=== PATIENT | female | born 1955 | race Caucasian/White ===

== ENCOUNTER 2019-12-24 10:42 | Day surgery (SDC) | payer MEDICAID, SELFPAY ==
[2019-12-22 13:07] VITALS: BMI 35.4
[2019-12-24 11:09] VITALS: BP 125/65; PULSE 58; RESP 18; TEMP 37.2; O2SAT 95
[2019-12-24] MEDS: sodium chloride 0.9% 1,000 ML 30 ML IV (11:28)
--- NOTE | 2019-12-24 11:33 | ANES.PREANE2 ---
Pre-Anesthetic Assessment Pre-Anesthetic Assessment: Height/Weight: Height 1.65 m Weight 96.615 kg Temp Pulse Resp BP Pulse Ox 98.9 F 58 L 18 125/65 95 12/24/19 11:09 12/24/19 11:09 12/24/19 11:09 12/24/19 11:09 12/24/19 11:09 Preop Diagnosis: Abdominal pain Proposed Procedure: Operation Date: 12/24/19 11:00 Proposed Procedures p EGD/Colon with possible biopsy(Not Applicable) - Kadeem Biswas MD s Colonoscopy with possible biopsy poss polypectomy(Not Applicable) - Kadeem Biswas MD Last intake: Intake Last Liquid Date 12/23/19 Last Liquid Time 23:00 Last Solid Date 12/22/19 Last Solid Time 20:00 Social: Social History: Tobacco (quit 30 year ago) and No alcohol Exam: Pre-Anes Outpt Exam: alert, oriented x 3, clear to auscultation bilaterally and regular rate & rhythm Airway: Submandibular: WNL Cervical ROM: WNL MP: 1 Dentition: Other (teeth ok) History/ROS: No significant history except as noted Pulmonary: Pulmonary: JOHNSON CV/HEM: CV/HEM: HTN : : None reported Hepatic: Hepatic: Cirrohsis GI: GI: None reported Comments: gastric varicies Metabolic: Metabolic: DM Musc/skel: Musc/skel: Lower Back Pain and OA/DJD Neuropsych: Neuropsych: Anxiety and Depression Anesthetic Plan: ASA status: 3 Anesthesia: Anesthesia Evaluation and MAC Risk of > 500 ml blood loss (7ml/kg in children): No Meds/Allergies Current Medications: Current Medications Generic Name Dose Route Start Last Admin Trade Name Freq PRN Reason Stop Dose Admin Sodium Chloride 1,000 mls @ 30 ml s/hr 12/24/19 11:15 12/24/19 11:28 Sodium Chloride 0.9% IV 30 mls/hr .Q24H KATERINE Administration PFSH Anesthesia PFSH: Medical History Cirrhosis of liver Diabetes Hepatic encephalopathy Incisional hernia Kidney stones BLAIR (nonalcoholic steatohepatitis) Surgical History H/O gastric bypass H/O: hysterectomy cervical cancer History of colonoscopy History of esophagogastroduodenoscopy (EGD) Hx of cholecystectomy Family History Mother Hypertension Father Chronic kidney disease (CKD) Sleep apnea Other Bleeding disorder Denies family history of Anesthesia complication Social History Smoking and tobacco status: never smoked Alcohol intake: never Data Anesthesia Cardiac Studies: No Data to Display
[2019-12-24 11:34] LABS: Glucose Point of Care 129 mg/dL (70-110)
--- NOTE | 2019-12-24 12:39 | W.PM.OPSUD ---
Surgery/Procedure H&P Update DATE OF PROCEDURE: December 24, 2019 DATE H&P PERFORMED: 12/18/19 H&P UPDATE INFORMATION: I have reviewed H&P completed within last 30 days, I have examined patient prior to procedure and No changes to prior documentation PREOP DIAGNOSIS: Abdominal pain PLANNED PROCEDURE: Operation Date: 12/24/19 11:00 Proposed Procedures p EGD/Colon with possible biopsy(Not Applicable) - Kadeem Biswas MD s Colonoscopy with possible biopsy poss polypectomy(Not Applicable) - Kadeem Biswas MD
[2019-12-24 13:06] VITALS: BP 130/62; PULSE 54; RESP 16; TEMP 36.2; O2SAT 96
--- NOTE | 2019-12-24 13:08 | ANE.PACU2 ---
Inpatient post-anesthesia follow up: Airway intact: Yes Vital signs: Temperature 97.2 F Pulse Rate 54 Respiratory Rate 16 Blood Pressure 130/62 Pulse Oximetry 96 Oxygen Delivery Me thod Nasal Cannula Oxygen Flow Rate 3 Fraction of Inspir ed Oxygen Hydration adequate: Yes Nausea and vomiting: No Pain level: 1 Mental status: Baseline
[2019-12-24 13:14] VITALS: BP 147/76; PULSE 54; RESP 18; O2SAT 97
== END 2019-12-24 13:40 | disposition home or self-care (01) ==
PROVIDERS: PCP Internal Medicine; Visit Provider Surgery
PROC: 0DJ08ZZ Inspection of Upper Intestinal Tract, Via Natural or Artificial Opening Endoscopic (ICD-10-PCS; CPT 43235; principal; 2019-12-24 11:00)
PROC: 0DJD8ZZ Inspection of Lower Intestinal Tract, Via Natural or Artificial Opening Endoscopic (ICD-10-PCS; CPT 45378; 2019-12-24 11:00)
DX: R10.84 Generalized abdominal pain (principal); K43.2 Incisional hernia without obstruction or gangrene; K63.89 Other specified diseases of intestine; Z87.891 Personal history of nicotine dependence; I10 Essential (primary) hypertension; E11.9 Type 2 diabetes mellitus without complications; M19.90 Unspecified osteoarthritis, unspecified site; F41.9 Anxiety disorder, unspecified; F32.9 Major depressive disorder, single episode, unspecified
CPT/HCPCS: 12345; 36416; 43235; 45378; 82962; J0171; J2704; J7030

== ENCOUNTER 2020-01-08 10:19 | Outpatient (CLI) | payer MEDICAID, SELFPAY ==
--- NOTE | 2020-01-08 11:16 | FL_ITS ---
WS: [id number] BARIUM ENEMA SINGLE CONTRAST HISTORY: OTHER INTESTINAL OBSTRUCTION UNSPECIFIED COMPARISON: None available. FLUOROSCOPY TIME: 2.2 minutes. Chief Architect radiograph reveals moderate amount of residual fecal material and air throughout the colon. Sin gle contrast will be performed as a double contrast would probably be unsuccessful. Marked tortuosity of the rectosigmoid loops and also the hepatic and splenic flexures. The colon dist ends well with contrast. There are no persistent strictures. There is mobile fecal material within th e colon. The appendix does fill with contrast. No significant diverticular disease. Prior cholecystectomy. FL/FL barium enema [id number] IMPRESSION: 1. No strictures or colon obstruction. 2. Marked tortuosity with overlapping loops of colon. 3. No persistent filling defects. 4. Normal appendix.
== END 2020-01-08 10:20 | disposition home or self-care (01) ==
PROVIDERS: PCP Internal Medicine; Visit Provider Surgery
DX: K56.699 Other intestinal obstruction unspecified as to partial versus complete obstruction (principal)
CPT/HCPCS: 74270; 74280

== ENCOUNTER 2020-04-27 19:28 | Emergency (ER) | payer MEDICAID, SELFPAY ==
[2020-04-27] VITALS (10 sets, daily range): BP systolic 144–159; BP diastolic 59–85; PULSE 56–78; RESP 12–20; TEMP 37.1; O2SAT 87–99; BMI 35.7
--- NOTE | 2020-04-27 20:07 | XR_ITS ---
WS: [id number] Exam: XR chest 1V portable [id number] Date/Time of Exam: 04/27/2020 8:15 PM Reason For Exam: Shortness of breath Comparison 01/17/2016. Mild interstitial infiltrates are noted in the bilateral upper lobes. Remaining lung vasquez are clear . No pneumothorax. No pleural effusion. Normal cardiomediastinal structures and regional bony element s. XR/XR chest 1V portable [id number] IMPRESSION: 1. Diffuse interstitial infiltrates in the bilateral upper lobes.
--- NOTE | 2020-04-27 20:08 | ECG_ITS ---
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 [id number]
--- NOTE | 2020-04-27 20:17 | ED_ITS ---
HPI - Abdominal Pain General: Chief Complaint: Abdominal Pain Stated Complaint: abd pain Time Seen by Provider: 04/27/20 19:51 Source: patient Mode of arrival: ambulatory Limitations: no limitations History of Present Illness: HPI narrative: Gillian is a very nice 64-year-old female who comes in complaining of abdominal pain with nausea and vomiting and diarrhea. Patient states that she has chronic abdominal pain as she has an incisional hernia that Dr. Biswas is planning on fixing at some point in the future. Today and 2 days prior to this her pain is been worse than normal. She had associated nausea and vomiting and diarrhea none of which has been bloody. She denies any hematic emesis, hematochezia or melena. Patient denies any vaginal bleeding or discharge. She has no urinary frequency/urgency or dysuria. Patient describes her pain is in the center of her abdomen below the epigastric area but just above the umbilicus and she states it radiates around bilaterally to both kidneys. States is a dull aching pain with occasional sharp pains. It is constant. She states is worse when she lays flat but other than sitting up she is unaware of anything that makes her symptoms better or worse. She denies any fevers or chills. She denies any cough or shortness of breath. She denies any chest pain. Associated Symptoms: Reports diarrhea, nausea and vomiting; Denies chills, coffee ground emesis, constipation, GI cramping, dysuria, fever(s), heartburn, hematochezia, hematuria, hematemesis, melena and syncope Review of Systems Const: Denies: fever(s), chills, body aches, fatigue, malaise or diaphoresis Eyes: Denies: change in vision, blurry vision, photophobia, eye discomfort, eye discharge, eye redness or yellow eyes ENMT: Denies: throat pain, odynophagia, hoarseness, swelling of lips/tongue, ear or mastoid pain, ear discharge, change in hearing or nasal discharge Card: Denies: chest pain, palpitations, irregular heart rhythm, edema, lightheadedness, syncope, pre-syncope, dyspnea on exertion or orthopnea Resp: Denies: dyspnea, productive cough, non-productive cough, wheezing, hemoptysis or chest congestion GI: Reports: abdominal pain, nausea, vomiting and diarrhea; Denies: hematemesis, coffee ground emesis, heartburn, constipation, GI cramping, hematochezia or melena : Denies: flank pain, dysuria, urinary frequency, urinary urgency or hematuria Musc: Denies: neck pain, back pain, extremity pain, extremity swelling, joint pain, joint swelling, joint redness, joint warmth or joint stiffness Skin/Breast: Denies: rash, pruritus, erythema, skin pain or skin tenderness Neuro: Denies: headache(s), numbness in extremities, weakness in extremities, sensory changes, lack of coordination, difficulty walking, dizziness, vertigo, confusion, Slurred speech present or seizure-like activity Stanley/Lymph: Denies: easy bruising, easy bleeding, petechiae, purpura or enlarged lymph nodes All/Imm: Denies: urticaria, throat swelling, tongue swelling, facial swelling or acute wheezing PFSH ED PFSH: Medical History Cirrhosis of liver Diabetes Hepatic encephalopathy Incisional hernia Kidney stones BLAIR (nonalcoholic steatohepatitis) Surgical History H/O gastric bypass H/O: hysterectomy cervical cancer History of colonoscopy History of esophagogastroduodenoscopy (EGD) Hx of cholecystectomy Family History Mother Hypertension Father Chronic kidney disease (CKD) Sleep apnea Other Bleeding disorder Denies family history of Anesthesia complication Social History Smoking and tobacco status: never smoked Alcohol intake: never Physical Exam Const: COMMON NORMALS: no acute distress, patient oriented x3, no limitations and alert GENERAL APPEARANCE: cooperative HENMT: COMMON NORMALS: normocephalic, atraumatic, external ears normal, EAC's normal and Normal external nose present HEAD & SCALP: normal to inspection, normocephalic and atraumatic FACE & SINUS: normal facial exam and face symmetric NOSE: Normal external nose present and Normal nares present EXTERNAL EAR: Yes external ears normal EXTERNAL AUDITORY CANAL: EAC's normal MOUTH: Normal oral and palatal mucosa present, lip normal and tongue normal Eye: COMMON NORMALS: Equal, round and reactive pupils present and conjunctivae normal GENERAL EYE: appearance normal, both eyes and all related structures ALIGNMENT: Yes alignment normal PERIORBITAL: periorbital findings normal EYELID: eyelids normal CONJUNCTIVA: Yes conjunctivae normal SCLERA: sclerae normal PUPIL: Yes Equal, round and reactive pupils present Neck/C-Spine: COMMON NORMALS: full ROM, no lymphadenopathy, supple, no meningeal signs and no JVD GENERAL: Yes normal visual inspection and Yes trachea midline Chest: COMMONS NORMALS: normal inspection of the chest and normal palpation of entire chest wall Resp: COMMON NORMALS: normal respiratory effort, No retractions, No use of accessory muscles and clear to auscultation bilaterally EFFORT & INSPECTION: Yes able to speak in complete sentences and Yes symmetric chest movement AUSCULTATION: clear to auscultation bilaterally, no crackles, no rales, no rhonchi and no wheezes Cardio: COMMON NORMALS: no JVD, regular rate, regular rhythm, S1 normal heart sound present and S2 normal heart sound present RATE: regular rate RHYTHM: regular rhythm HEART SOUNDS: S1 normal heart sound present, S2 normal heart sound present, no click, no gallops, no murmurs and no rubs GI: COMMON NORMALS: Soft to palpation and No hepatosplenomegaly present PALPATION: Yes Soft to palpation, Yes Tenderness to palpation present (GI), No Guarding due to palpation present (GI), No Rigid due to palpation, Yes No hepatosplenomegaly present, No Hernia present, No Palpable mass present and No Pulsatile mass present : COMMON NORMALS: Yes no CVA tenderness BLADDER/KIDNEY EXAM: Yes no CVA tenderness EXTERNAL FEMALE EXAM: No Hernia present Back/Pelvis: COMMON NORMALS: no CVA tenderness, thoracic and lumbar spine normal to inspection, no thoracic nor lumbar tenderness and thoraco-lumbar ROM normal Extremity: COMMON NORMALS: normal to inspection, full ROM, capillary refill normal, no joint enlargement, no clubbing, cyanosis or edema and no calf tenderness Neuro: COMMON NORMALS: patient oriented x3, CN's II-XII intact bilaterally, moves all extremities, no focal motor deficits and no sensory deficits noted SENSORIUM/ORIENTATION: Yes alert MENINGEAL SIGNS: Yes no meningeal signs SPEECH: speech normal Psych: COMMON NORMALS: mental status grossly normal, Normal thought process present, cooperative, normal affect, speech normal and activity/motor behavior normal SPEECH: Yes normal speech THOUGHT PROCESS: Normal thought process present Skin: COMMON NORMALS: no rashes or lesions noted, turgor normal, no jaundice, no petechiae and no mottling GENERAL SKIN EXAM: no rashes or lesions noted and turgor normal Course Vital Signs: Vital signs: Vital Signs Temperature 98.7 F 04/27/20 19:44 Pulse Rate 64 04/28/20 00:00 Respiratory Rate 17 04/28/20 00:00 Blood Pressure 132/63 04/28/20 00:00 Pulse Oximetry 98 04/28/20 00:00 MDM - Abdominal Pain MDM Narrative: Medical decision making narrative: Gillian is a very nice 64-year-old female who comes in complaining of epigastric abdominal pain. Patient has a history of liver disease but her gallbladder is gone. Her liver enzymes are within her normal range. She has no lower abdominal pain. CT scan reveals no acute findings. Her hernia on exam is easily reducible but with movement it recurs. There is no sign of obstruction or strangulation on CT. Patient symptoms do seem to lend toward a gastric or duodenal ulcer type of problem. She is H. pylori positive so I will place her on treatment for this. Patient states she is had an EGD by Dr. Biswas but the last one I can find was from several months ago. Patient denies any vomiting of blood or blood in her stools. She is anemic but she is chronically anemic and her blood counts have been lower than this before. I offered to watch the patient further but she thinks that she is feeling up to going home. She understands she will need to follow a clear liquid diet and advance this once her pain is gone. I advised her about the possibility of another type of cause of her pain developing something even like appendicitis and she agrees to return if her symptoms worsen at all or do not improve significantly in the next 12 hours. The patient denied any other question or concern or other complaint. Differential Diagnosis: Differential diagnosis abdominal pain: Likely abdominal pain, acute appendicitis, constipation, diverticulitis, endometriosis, gastroenteritis, pancreatitis and small bowel obstruction Lab Data: Attestation: I reviewed the patient's lab results. Labs: Lab Results 04/27/20 04/27/20 04/27/20 Range/Units 20:11 20:11 20:11 WBC 5.9 (4.0-10.0) 10^3/ uL RBC 3.97 L (4.1-5.3) 10^6/u L Hgb 9.4 L (11.5-15.3) g/dL Hct 31.9 L (37.0-47.0) % MCV 80.4 L (81-99) fL MCH 23.7 L (28.0-34.0) pg MCHC 29.5 L (30.0-36.0) g/dL RDW 19.4 H (12.1-15.1) % Plt Count 131 (130-400) 10^3/c mm MPV Not Reportable Neut % (Auto) 61.3 % Lymph % (Auto) 26.2 % [place] % (Auto) 11.1 % Eos % (Auto) 0.5 % Baso % (Auto) 0.7 % Neut # (Auto) 3.60 (1.8-7.7) 10^3/u L Lymph # (Auto) 1.5 (0.8-4.8) 10^3/u L [place] # (Auto) 0.7 (0.2-0.9) 10^3/u L Eos # (Auto) 0.0 (0.0-0.8) 10^3/u L Baso # (Auto) 0.0 (0.0-0.1) 10^3/u L Nucleated RBC % (a uto) 0 % Nucleated RBCs # 0.0 /100WBC PT 16.90 H (12.1-14.9) SECO NDS INR 1.32 H (0.8-1.2) APTT 34.0 (23.9-36.7) SECO NDS Sodium 139 (136-145) mmol/L Potassium 3.5 (3.5-5.1) mmol/L Chloride 103 (98-107) mmol/L Carbon Dioxide 27 (22-29) mmol/L Anion Gap 12.5 (5-19) BUN 11 (8-23) mg/dL Creatinine 1.0 H (0.5-0.9) mg/dL GFR Calculation 56.2 L (90-130) mL/min Glucose 166 H (65-115) mg/dL Calculated Osmolal ity 291 (285-295) mOsm/k g Lactic Acid (0.5-2.2) mmol/L Calcium 9.7 (8.5-10.5) mg/dL Magnesium 1.8 (1.7-2.3) mg/dL Total Bilirubin 1.6 H (0.15-1.2) mg/dL AST 52 H (0-32) U/L ALT 34 H (0-33) U/L Alkaline Phosphata se 173 H (35-105) IU/L Ammonia (11-51) umol/L Troponin T Baselin e (0-10) ng/L Troponin T 120 Min benton (0-10) ng/L Delta Troponin T (0-10) ABS# Total Protein 6.5 L (6.6-8.7) g/dL Albumin 3.3 L (3.5-5.2) g/dL Globulin 3.2 (1.3-4.6) g/dL Lipase 36 (13-60) U/L Urine Color (Yellow) Urine Appearance (CLEAR) Urine pH (5-7) Ur Specific Gravit y (1.005-1.030) Urine Protein (Negative) Urine Glucose (UA) (Normal) Urine Ketones (Negative) Urine Blood (Negative) Urine Nitrate (Negative) Urine Bilirubin (Negative) Urine Urobilinogen (Negative) mg/dL Ur Leukocyte Haley ase (Negative) Urine RBC (0-2) /hpf Urine WBC (0-5) /hpf Ur Squamous Epith Cells (0-5) /hpf Amorphous Sediment Urine Bacteria (NONE) /hpf Ethyl Alcohol < 10 (0-10) mg/dL Serum Ketones Negative (Negative) H. pylori IgG Anti body (Negative) 04/27/20 04/27/20 04/27/20 Range/Units 20:11 20:13 20:13 WBC (4.0-10.0) 10^3/ uL RBC (4.1-5.3) 10^6/u L Hgb (11.5-15.3) g/dL Hct (37.0-47.0) % MCV (81-99) fL MCH (28.0-34.0) pg MCHC (30.0-36.0) g/dL RDW (12.1-15.1) % Plt Count (130-400) 10^3/c mm MPV Neut % (Auto) % Lymph % (Auto) % [place] % (Auto) % Eos % (Auto) % Baso % (Auto) % Neut # (Auto) (1.8-7.7) 10^3/u L Lymph # (Auto) (0.8-4.8) 10^3/u L [place] # (Auto) (0.2-0.9) 10^3/u L Eos # (Auto) (0.0-0.8) 10^3/u L Baso # (Auto) (0.0-0.1) 10^3/u L Nucleated RBC % (a uto) % Nucleated RBCs # /100WBC PT (12.1-14.9) SECO NDS INR (0.8-1.2) APTT (23.9-36.7) SECO NDS Sodium (136-145) mmol/L Potassium (3.5-5.1) mmol/L Chloride (98-107) mmol/L Carbon Dioxide (22-29) mmol/L Anion Gap (5-19) BUN (8-23) mg/dL Creatinine (0.5-0.9) mg/dL GFR Calculation (90-130) mL/min Glucose (65-115) mg/dL Calculated Osmolal ity (285-295) mOsm/k g Lactic Acid (0.5-2.2) mmol/L Calcium (8.5-10.5) mg/dL Magnesium (1.7-2.3) mg/dL Total Bilirubin (0.15-1.2) mg/dL AST (0-32) U/L ALT (0-33) U/L Alkaline Phosphata se (35-105) IU/L Ammonia (11-51) umol/L Troponin T Baselin e 10 (0-10) ng/L Troponin T 120 Min benton (0-10) ng/L Delta Troponin T (0-10) ABS# Total Protein (6.6-8.7) g/dL Albumin (3.5-5.2) g/dL Globulin (1.3-4.6) g/dL Lipase (13-60) U/L Urine Color Yellow (Yellow) Urine Appearance Clear (CLEAR) Urine pH 5.0 (5-7) Ur Specific Gravit y 1.020 (1.005-1.030) Urine Protein Neg (Negative) Urine Glucose (UA) Norm (Normal) Urine Ketones Negative (Negative) Urine Blood Neg (Negative) Urine Nitrate Negative (Negative) Urine Bilirubin Neg (Negative) Urine Urobilinogen 1 H (Negative) mg/dL Ur Leukocyte Haley ase Negative (Negative) Urine RBC 0-4 H (0-2) /hpf Urine WBC 5-10 H (0-5) /hpf Ur Squamous Epith Cells 5-10 H (0-5) /hpf Amorphous Sediment Not Reportable Urine Bacteria 3+ H (NONE) /hpf Ethyl Alcohol (0-10) mg/dL Serum Ketones (Negative) H. pylori IgG Anti body Positive H (Negative) 04/27/20 04/27/20 04/27/20 Range/Units 20:50 20:50 22:24 WBC (4.0-10.0) 10^3/ uL RBC (4.1-5.3) 10^6/u L Hgb (11.5-15.3) g/dL Hct (37.0-47.0) % MCV (81-99) fL MCH (28.0-34.0) pg MCHC (30.0-36.0) g/dL RDW (12.1-15.1) % Plt Count (130-400) 10^3/c mm MPV Neut % (Auto) % Lymph % (Auto) % [place] % (Auto) % Eos % (Auto) % Baso % (Auto) % Neut # (Auto) (1.8-7.7) 10^3/u L Lymph # (Auto) (0.8-4.8) 10^3/u L [place] # (Auto) (0.2-0.9) 10^3/u L Eos # (Auto) (0.0-0.8) 10^3/u L Baso # (Auto) (0.0-0.1) 10^3/u L Nucleated RBC % (a uto) % Nucleated RBCs # /100WBC PT (12.1-14.9) SECO NDS INR (0.8-1.2) APTT (23.9-36.7) SECO NDS Sodium (136-145) mmol/L Potassium (3.5-5.1) mmol/L Chloride (98-107) mmol/L Carbon Dioxide (22-29) mmol/L Anion Gap (5-19) BUN (8-23) mg/dL Creatinine (0.5-0.9) mg/dL GFR Calculation (90-130) mL/min Glucose (65-115) mg/dL Calculated Osmolal ity (285-295) mOsm/k g Lactic Acid 1.9 (0.5-2.2) mmol/L Calcium (8.5-10.5) mg/dL Magnesium (1.7-2.3) mg/dL Total Bilirubin (0.15-1.2) mg/dL AST (0-32) U/L ALT (0-33) U/L Alkaline Phosphata se (35-105) IU/L Ammonia 29 (11-51) umol/L Troponin T Baselin e (0-10) ng/L Troponin T 120 Min benton 9.60 (0-10) ng/L Delta Troponin T -0.40 L (0-10) ABS# Total Protein (6.6-8.7) g/dL Albumin (3.5-5.2) g/dL Globulin (1.3-4.6) g/dL Lipase (13-60) U/L Urine Color (Yellow) Urine Appearance (CLEAR) Urine pH (5-7) Ur Specific Gravit y (1.005-1.030) Urine Protein (Negative) Urine Glucose (UA) (Normal) Urine Ketones (Negative) Urine Blood (Negative) Urine Nitrate (Negative) Urine Bilirubin (Negative) Urine Urobilinogen (Negative) mg/dL Ur Leukocyte Haley ase (Negative) Urine RBC (0-2) /hpf Urine WBC (0-5) /hpf Ur Squamous Epith Cells (0-5) /hpf Amorphous Sediment Urine Bacteria (NONE) /hpf Ethyl Alcohol (0-10) mg/dL Serum Ketones (Negative) H. pylori IgG Anti body (Negative) Imaging Data ^: CXR: Attestation: I personally reviewed and interpreted this imaging study as follows: My impression: No acute cardiopulmonary findings. CT Abd/Pel: Radiologist's impression: [address] [address] [address] Scan Report Signed Patient: Gillian Kohli Unit #: [id number] : 1955 Age/Sex: 64 / F ADM Date: 04/27/20 Loc: ER Room/Bed: Attending Dr: Ordering Provider/Ordering MD: Sara Quinn DO Date of Service: 04/27/20 Procedure(s): CT angio abdomen pelvis 03273 Accession Number(s): [id number] Report Number: [id number] PROCEDURE INFORMATION: Exam: CT Angiography Abdomen and Pelvis Without And With Contrast Exam date and time: 04/27/2020 10:31 PM Age: 64 years old Clinical indication: Abdominal pain; Other: N/v/d; Prior surgery; Surgery type: Gastric bypass, gb, hyst, egd; Additional info: Nominal pain history gastric bypass and incisional hernia TECHNIQUE: Imaging protocol: Computed tomographic angiography of the abdomen and pelvis without and with intravenous contrast material. 3D rendering (Not supervised by radiologist): MIP and/or 3D reconstructed images were created by the technologist. Radiation optimization: All CT scans at this facility use at least one of these dose optimization techniques: automated exposure control; mA and/or kV adjustment per patient size (includes targeted exams where dose is matched to clinical indication); or iterative reconstruction. Contrast material: OMNI 350; Contrast volume: 95 ml; Contrast route: INTRAVENOUS (IV); COMPARISON: US abdomen limited [id number] 04/01/2019 8:53 AM RADIATION DOSE METRICS: Total DLP (mGy-cm): 2648.13 FINDINGS: Aorta: The aorta demonstrates moderate atherosclerotic calcification. There is no evidence of an abdominal aortic aneurysm. Celiac trunk and mesenteric arteries: No occlusion or significant stenosis. Renal arteries: There is a single renal artery on each side without evidence of stenosis. Right iliac arteries: No occlusion or significant stenosis. Left iliac arteries: No occlusion or significant stenosis. Other veins: There is increased venous vascularity in the region between the spleen in the left renal vein consistent with splenorenal shunt vessels. Liver: Liver is small and has nodular contours consistent with cirrhosis. Gallbladder and bile ducts: There has been a cholecystectomy. Pancreas: The pancreas is normal. Spleen: The spleen demonstrates punctate calcifications, consistent with remote granulomatous organism exposure. Adrenals: The adrenal glands are normal. Kidneys and ureters: The kidneys are normal. There is no evidence of hydronephrosis. There is no evidence of renal or ureteral calcifications. Stomach and bowel: There is a epigastric ventral hernia to the left of the midline containing a portion of the transverse colon without evidence of obstruction. There is no evidence of intestinal obstruction. Clinical history describes gastric bypass, however the findings have more the appearance of gastric stapling. Correlation with the surgical history is suggested. Appendix: A normal appendix is identified. Intraperitoneal space: There is a small amount of ascites, mostly adjacent to the liver. Lymph nodes: Unremarkable. No enlarged lymph nodes. Urinary bladder: Unremarkable. No mass. Reproductive: There has been a hysterectomy. Bones/joints: No acute fracture. No dislocation. Soft tissues: There is no evidence of dissection, leak, rupture, or other acute vascular pathology. Other findings: There is no evidence of colitis/diverticulitis. CT/CT angio abdomen pelvis [id number] IMPRESSION: 1. Cirrhosis. 2. Splenorenal shunt vessels suggesting portal hypertension. 3. Ventral hernia containing a portion of the colon without obstruction. 4. Atherosclerotic disease in the aorta without stenosis or occlusion. 5. Prior gastric and intestinal surgery. 6. No evidence of bowel obstruction. Radiation Dose CTDIVOL = (mGy): DLP = 2648.13 (mGy-cm) Dictated By: Aleksander Dumont Signed By: Aleksander Dumont Signed Date/Time: 04/27/20 2341 DD/ 2339 EKG Data ^: EKG 1: Attestation: I personally reviewed and interpreted this EKG as follows: EKG interpretation date: 04/27/20 EKG interpretation time: 20:43 Interpretation: Sinus bradycardia 56 beats a minute, no blocks, normal intervals, no acute ST-T wave changes. Baseline artifact present. EKG 2: Attestation: I personally reviewed and interpreted this EKG as follows: EKG interpretation date: 04/27/20 EKG interpretation time: 22:18 Interpretation: Normal sinus rhythm at 63 beats a minute, no blocks, normal intervals, nonspecific ST and T wave changes. Discharge Plan Discharge Patient Disposition: Home Clinical Impression: H. pylori infection Abdominal pain Qualifiers: Abdominal location: epigastric Qualified Code(s): R10.13 - Epigastric pain Condition: Stable Prescriptions: New amoxicillin 500 mg capsule 1,000 mg PO BID 14 Days Qty: 56 RF: 0 Zofran 4 mg tablet 4 mg PO Q6H PRN (Reason: nausea and vomiting) Qty: 20 RF: 0 Protonix 40 mg tablet,delayed release (DR/EC) 80 mg PO BID 14 Days Qty: 30 RF: 0 clarithromycin 500 mg tablet 500 mg PO BID 14 Days Qty: 28 RF: 0 No Action lactulose 10 gram/15 mL solution 30 gm PO TID RF: 0 citalopram 20 mg tablet 20 mg PO DAILY RF: 0 furosemide 40 mg tablet 40 mg PO DAILY RF: 0 spironolactone 25 mg tablet 25 mg PO DAILY RF: 0 propranolol 10 mg tablet 10 mg PO BID RF: 0 Multiple Vitamin, Womens Tablet 1 tab PO DAILY RF: 0 Lantus Solostar U-100 Insulin 100 unit/mL (3 mL) insulin pen 35 unit SUBCUT DAILY RF: 0 Discharge Orders: Discharge Order (Routine); Ordered 04/28/20 Ordered By: Sara Quinn Referrals: Pauline Pereira MD [Primary Care Provider] - 1-3 days Kadeem Biswas MD [Physician] - 1-3 days Discharge Diet: Advance as tolerated and Clear Liquid Discharge Activity: Increase activity as tolerated Patient Instructions: Peptic Ulcer (ED), Diet for Ulcers and Gastritis (ED), Abdominal Pain (ED) Activity Restrictions/Additional Instructions: Please return to the ER immediately for any of the signs or symptoms listed on your discharge instruction sheets, worsening/changing of your symptoms, you are not getting better as quickly as expected, or for ANY other cause or concerns. If your pain worsens at all, began to vomit, you have blood in your stools, or you have any other concerns please return to the ER immediately for recheck. Take the medicines as I have prescribed you along with your regular medications. Follow-up with Dr. Biswas in the next 1 to 2 days for recheck. If for any reason you are having abdominal pain more than the next 12 hours please return to the ER for recheck. If your pain intensifies or migrates to the lower part of your abdomen return to the ER sooner for recheck. Coding Level of Care Code ED Desolderer for Trevon Fwfabian Exam Comprehensive
--- NOTE | 2020-04-27 20:33 | CTR_ITS ---
PROCEDURE INFORMATION: Exam: CT Angiography Abdomen and Pelvis Without And With Contrast Exam date and time: 04/27/2020 10:31 PM Age: 64 years old Clinical indication: Abdominal pain; Other: N/v/d; Prior surgery; Surgery type: Gastric bypass, gb, hyst, egd; Additional info: Nominal pain history gastric bypass and incisional hernia TECHNIQUE: Imaging protocol: Computed tomographic angiography of the abdomen and pelvis without and with intravenous contrast material. 3D rendering (Not supervised by radiologist): MIP and/or 3D reconstructed images were created by the technologist. Radiation optimization: All CT scans at this facility use at least one of these dose optimization techniques: automated exposure control; mA and/or kV adjustment per patient size (includes targeted exams where dose is matched to clinical indication); or iterative reconstruction. Contrast material: OMNI 350; Contrast volume: 95 ml; Contrast route: INTRAVENOUS (IV); COMPARISON: abdomen limited [id number] 04/01/2019 8:53 AM RADIATION DOSE METRICS: Total DLP (mGy-cm): 2648.13 FINDINGS: Aorta: The aorta demonstrates moderate atherosclerotic calcification. There is no evidence of an abdominal aortic aneurysm. Celiac trunk and mesenteric arteries: No occlusion or significant stenosis. Renal arteries: There is a single renal artery on each side without evidence of stenosis. Right iliac arteries: No occlusion or significant stenosis. Left iliac arteries: No occlusion or significant stenosis. Other veins: There is increased venous vascularity in the region between the spleen in the left renal vein consistent with splenorenal shunt vessels. Liver: Liver is small and has nodular contours consistent with cirrhosis. Gallbladder and bile ducts: There has been a cholecystectomy. Pancreas: The pancreas is normal. Spleen: The spleen demonstrates punctate calcifications, consistent with remote granulomatous organism exposure. Adrenals: The adrenal glands are normal. Kidneys and ureters: The kidneys are normal. There is no evidence of hydronephrosis. There is no evidence of renal or ureteral calcifications. Stomach and bowel: There is a epigastric ventral hernia to the left of the midline containing a portion of the transverse colon without evidence of obstruction. There is no evidence of intestinal obstruction. Clinical history describes gastric bypass, however the findings have more the appearance of gastric stapling. Correlation with the surgical history is suggested. Appendix: A normal appendix is identified. Intraperitoneal space: There is a small amount of ascites, mostly adjacent to the liver. Lymph nodes: Unremarkable. No enlarged lymph nodes. Urinary bladder: Unremarkable. No mass. Reproductive: There has been a hysterectomy. Bones/joints: No acute fracture. No dislocation. Soft tissues: There is no evidence of dissection, leak, rupture, or other acute vascular pathology. Other findings: There is no evidence of colitis/diverticulitis. CT/CT angio abdomen pelvis 40308 IMPRESSION: 1. Cirrhosis. 2. Splenorenal shunt vessels suggesting portal hypertension. 3. Ventral hernia containing a portion of the colon without obstruction. 4. Atherosclerotic disease in the aorta without stenosis or occlusion. 5. Prior gastric and intestinal surgery. 6. No evidence of bowel obstruction. Radiation Dose CTDIVOL = (mGy): DLP = 2648.13 (mGy-cm)
[2020-04-27 20:45] LABS: Basophils % 0.7 %; Eosinophils % 0.5 %; Hematocrit 31.9 % (37.0-47.0); Hemoglobin 9.4 g/dL (11.5-15.3); Lymphocytes # 1.5 10^3/uL (0.8-4.8); Lymphocytes % 26.2 %; Mean Corpuscular HGB Conc 29.5 g/dL (30.0-36.0); Mean Corpuscular Hemoglobin 23.7 pg (28.0-34.0); Mean Corpuscular Volume 80.4 fL (81-99); Monocytes # 0.7 10^3/uL (0.2-0.9); Monocytes % 11.1 %; Neutrophils % 61.3 %; Nucleated Red Blood Cells % 0 %; Platelet Count 131 10^3/cmm (130-400); Red Blood Count 3.97 10^6/uL (4.1-5.3); Red Cell Distribution Width 19.4 % (12.1-15.1); White Blood Count 5.9 10^3/uL (4.0-10.0)
[2020-04-27] MEDS: morphine 4 mg/mL SDV 1 mL IVP (20:46)
[2020-04-27] MEDS: sodium chloride 0.9% 1,000 ML 100 ML IV (20:47)
[2020-04-27] MEDS: ondansetron 2 mg/ML SDV 2 mL 4 MG IVP (20:47)
[2020-04-27 20:58] LABS: INR 1.32 (0.8-1.2)
[2020-04-27 21:04] LABS: Alanine Aminotransferase 34 U/L (0-33); Albumin Level 3.3 g/dL (3.5-5.2); Alkaline Phosphatase 173 IU/L (35-105); Anion Gap 12.5 (5-19); Aspartate Amino Transferase 52 U/L (0-32); Blood Urea Nitrogen 11 mg/dL (8-23); Calcium 9.7 mg/dL (8.5-10.5); Carbon Dioxide 27 mmol/L (22-29); Chloride 103 mmol/L (98-107); Globulin 3.2 g/dL (1.3-4.6); Glomerular Filtration Rate 56.2 mL/min (90-130); Glucose 166 mg/dL (65-115); Lipase 36 U/L (13-60); Magnesium 1.8 mg/dL (1.7-2.3); Osmolality Calculated 291 mOsm/kg (285-295); Potassium 3.5 mmol/L (3.5-5.1); Sodium 139 mmol/L (136-145); Total Bilirubin 1.6 mg/dL (0.15-1.2); Total Protein 6.5 g/dL (6.6-8.7)
[2020-04-27 21:08] LABS: Alcohol Level < 10 mg/dL (0-10)
--- NOTE | 2020-04-27 21:15 | PC.NURSE ---
Pt denies SOA, noted SP02 87-91%. Placed 2L NC on pt.
[2020-04-27 21:16] LABS: Ammonia 29 umol/L (11-51)
[2020-04-27 21:17] LABS: Lactic Sepsis W/Reflex 1.9 mmol/L (0.5-2.2)
[2020-04-27 21:18] LABS: Troponin(5th) Baseline 10 ng/L (0-10)
[2020-04-27 21:21] LABS: Urine Appearance Clear (CLEAR); Urine Color Yellow (Yellow)
[2020-04-27 21:22] LABS: Add Urine Culture? Yes; Add Urine Microscopic? YES; Bacteria Urine 3+ /hpf; Bilirubin Urine Neg (Negative); Blood Urine Neg (Negative); Glucose Urine UA Norm (Normal); Ketones Urine Negative (Negative); Leukocyte Esterase Urine Negative (Negative); Nitrate Urine Negative (Negative); Protein Urine Neg (Negative); RBC Urine 0-4 /hpf (0-2); Urobilinogen Urine 1 mg/dL (Negative)
--- NOTE | 2020-04-27 21:46 | PC.NURSE ---
Call to lab for incomplete lab results.
[2020-04-27 21:48] LABS: Slide Review Slide Review Perform
[2020-04-27 22:01] LABS: H. Pylori IgG Antibody Positive (Negative)
[2020-04-27 22:01] LABS: Ketone (Acetest) Serum Negative (Negative)
--- NOTE | 2020-04-27 22:05 | PC.NURSE ---
Pt stated the pain is off and on from no pain to 3/10. Notified pt waiting repeat lab and EKG
--- NOTE | 2020-04-27 22:07 | PC.NURSE ---
EKG done at 2205 and shown to ER doctor
--- NOTE | 2020-04-27 22:08 | ECG_ITS ---
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
--- NOTE | 2020-04-27 22:29 | PC.NURSE ---
review with provider, the pt was placed on 0xygen after Morphine. Will trial without .
--- NOTE | 2020-04-27 22:47 | PC.NURSE ---
Oxygen level noted 88% on RA. Placed 2L NC.
--- NOTE | 2020-04-27 22:47 | PC.NURSE ---
Pt to CT
[2020-04-27] MEDS: iohexol 350 mg/mL 100 mL Btl IV (22:56)
[2020-04-28] VITALS: BP 132/63; PULSE 64; RESP 17; O2SAT 98
[2020-04-28] MEDS: pantoprazole 40 mg SDV 80 MG IVP (00:32)
[2020-04-28] MEDS: amoxicillin 500 mg Capsule 1000 MG PO (00:32)
[2020-04-28 01:00] VITALS: BP 120/58; PULSE 60; RESP 14; O2SAT 94
[2020-04-28] MEDS: clarithromycin 500 mg Tablet PO (01:01)
[2020-04-28] MEDS: lidocaine 2% viscous 15 ML, aluminum-mag hydrox-simethicon 30 ML, sucralfate oral liq 1 GM PO (01:15)
[2020-04-28 02:00] VITALS: BP 121/57; PULSE 62; RESP 18; TEMP 37.2; O2SAT 92
== END 2020-04-28 02:00 | disposition home or self-care (01) ==
PROVIDERS: Emergency Provider Emergency Medicine; PCP Internal Medicine
DX: A04.8 Other specified bacterial intestinal infections (principal); Z79.4 Long term (current) use of insulin; E11.9 Type 2 diabetes mellitus without complications; Z85.41 Personal history of malignant neoplasm of cervix uteri
CPT/HCPCS: 12345; 71045; 74174; 80053; 80307; 81001; 82009; 82140; 83605; 83690; 83735; 84484; 85025; 85610; 85730; 86677; 87077; 87086; 87186; 93005; 96361; 96374; 96375; 99283; 99284; C9113; J2270; J2405; J7030; Q9967

== ENCOUNTER 2020-05-04 14:39 | Outpatient (CLI) | payer MEDICAID, SELFPAY ==
[2020-05-04 15:12] LABS: Basophils % 1.1 %; Eosinophils # 0.1 10^3/uL (0.0-0.8); Eosinophils % 2.5 %; Hematocrit 27.8 % (37.0-47.0); Hemoglobin 8.4 g/dL (11.5-15.3); Lymphocytes # 1.2 10^3/uL (0.8-4.8); Mean Corpuscular HGB Conc 30.2 g/dL (30.0-36.0); Mean Corpuscular Hemoglobin 23.9 pg (28.0-34.0); Mean Corpuscular Volume 79.2 fL (81-99); Monocytes # 0.6 10^3/uL (0.2-0.9); Monocytes % 17.3 %; Neutrophils # 1.64 10^3/uL (1.8-7.7); Neutrophils % 45.8 %; Nucleated Red Blood Cells % 0 %; Platelet Count 109 10^3/cmm (130-400); Red Blood Count 3.51 10^6/uL (4.1-5.3); Red Cell Distribution Width 19.2 % (12.1-15.1); White Blood Count 3.6 10^3/uL (4.0-10.0)
[2020-05-04 16:11] LABS: Ferritin 17 ng/mL (15-150); Iron 19 ug/dL (37-145); Total Iron Binding Capacity 269 mcg/dl; Unsaturated Iron Binding 250 ug/dL (112-347)
--- NOTE | 2020-05-04 17:02 | ONC FU_ITS ---
Dr. De Guzman follow up note Patient: GILLIAN CARLSON Unit #: [id number]: 1955 Dicatated By: Filiberto De Guzman M.D.Date of Visit:May 04, 2020 Onc Med Follow-up/Prog Note History of Present Illness: Mrs. Gillian Carlson, is a 64-year-old female with a long-standing history of hepatic cirrhosis nonalcoholic, probably due to fatty liver initially diagnosed in 2004. At that time she underwent Mitra-en-Y gastric bypass for obesity and during surgery she was found to have enlarged liver, as per patient at that time she was also diagnosed with sarcoidosis involving lymph node. And further workup include EGD done 2004 showed esophageal varices, and also underwent capsule endoscopy which showed small bowel AVMs. And colonoscopy were done around that time was incomplete study due to poor preparation or 'twisting'. Patient did develop ascites, due to portal hypertension and not sure about enlarged spleen but we would suspect splenomegaly due to portal hypertension. Patient, recently had abdominal sonogram done at hepatology department, [facility]. Denies any recent blood transfusion, denies any melena or hematochezia, denies any hemoptysis or hematemesis, denies any jaundice. But complaining of generalized weakness and fatigue. History of cervical carcinoma in situ diagnosed in 1986 status post hysterectomy only . Came for follow-up, denies any specific complaint except generalized weakness and fatigue, denies any chest pain or palpitation, denies any nausea or vomiting denies any hemoptysis or hematemesis denies any melena or hematochezia, as per patient recently she went to hospital with upper abdominal pain and was diagnosed with H. pylori infection now being treated with antibiotics. And pain has resolved. But she has been feeling weak and tired and her PMD did labs on April 20, 2020 which showed white blood count 4000 hemoglobin 9.1 hematocrit 30.6 platelets 118,000 MCV 78 and iron studies shows iron saturation 9 iron 31 TIBC 355, prior to that her CBC done on March 03, 2020 showed hemoglobin 10.2 g with MCV 78 and prior to that CBC done on November 25, 2019 showed white blood count 5.4 hemoglobin 11.1 hematocrit 34 platelet 113,000, In the past patient was treated with Injectafer weekly x2, responded very well with normalization of hemoglobin. Medications: Acetaminophen 2 Capsule (of 325 mg) Oral at bedtime, Amoxicillin 2 Tablet (of 500 mg) Oral b.i.d., Calcium Antacid Ultra 1 Tablet (of 100 mg) Tablet, chewable Oral daily, Citalopram Hydrobromide 1 Tablet (of 10 mg) Oral daily, Clarithromycin 1 Tablet (of 500 mg) Oral b.i.d., Furosemide 1 (40 mg) Tablet Oral daily, Lasix 1 Tablet (of 40 mg) Oral daily, Multivitamins 1 Capsule Oral daily, Pantoprazole Sodium 2 Tablet (of 40 mg) Tablet, enteric coated Oral b.i.d., Potassium 1 Tablet (of 99 mg) Oral daily, Propranolol HCl 1 Tablet (of 10 mg) Oral b.i.d., Spironolactone 1 Tablet (of 25 mg) Oral daily, Tresiba 35 Units (of 100 Units/mL) Subcutaneous daily, Zinc 1 Capsule (of 50 mg) Oral daily Allergies: No Known Allergies. Review of Systems: Review of Systems is not available for this patient. Vital Signs: Performed on May 04, 2020 16:13 Height - 65.50 in Weight - 205.6 lbs (LOW) BSA - 2.01 sq.m BMI - 33.69 (HIGH) Temperature - 99.2 F (HIGH) Pulse - 51 /min (LOW) Respiration - 16 /min BP - 145/59 mm(hg) (HIGH) O2 Sat - 98 % Pain - 5 Performance Status: 1 - No physically strenuous activity, but ambulatory and able to carry out light or sedentary work (e.g. office work, light house work). (ECOG) Physical Examination: ENMT - No mouth sores, no thrush, no jaundice, Respiratory - Lungs are clear to auscultation, Cardiovascular - Regular rate and rhythm of heart, Abdomen - Soft, bowel sounds present, Extremities - No visible edema. Lab/Imaging: Most recent lab results are not available for this patient. Impression: Pancytopenia, etiology appears multifactorial including due to splenic sequestration due to splenomegaly due to portal hypertension/nonalcoholic hepatic cirrhosis. And chronic GI blood loss due to esophageal varices and/or small bowel AVMs And/or iron malabsorption due to gastric bypass done in 2004 Lab workup done on 12/16/2018 shows ferritin 10, TIBC 368, iron saturation 5.9 iron 22, B12 more than 2000 folate 16.5 and copper level 114 Considering her age underlying myelodysplasia cannot be ruled out and ?bone marrow suppression due to copper deficiency especially after gastric bypass Nonalcoholic hepatic cirrhosis now with portal hypertension, ascites, esophageal varices,Recurrent hepatic encephalopathy small wall AVMs probably splenomegaly. Plan: Discussed with patient regarding her labs from April 20, 2020 which showed white blood count 4 hemoglobin 9.1 g per crit 30.6 platelets 118,000 MCV 78, today CBC and iron studies pending Clinically, patient doing reasonably well now symptomatic due to progressive iron deficiency anemia which is multifactorial including but not limited to chronic GI bleeding, iron malabsorption due to gastric bypass surgery,Patient denies any dark-colored stools denies any melena or hematochezia denies any hemoptysis or hematemesis in the past, last year in November 2018, she was treated with Injectafer x2 and had excellent response. And now came to clinic with progressive iron deficiency anemia and lab work-up should confirmed iron deficiency, will consider Injectafer 750 mg IV weekly x2 then she will return to clinic 1 month after second dose of Injectafer with CBC and iron studies. Signed By: Filiberto De Guzman M.D. <<Signature on File>>
[2020-05-04 17:19] LABS: Slide Review Slide Review Perform
[2020-05-04 17:59] LABS: Vitamin B12 1876 pg/mL (232-1245)
== END 2020-05-04 14:40 | disposition home or self-care (01) ==
PROVIDERS: PCP Internal Medicine; Visit Provider Internal Medicine Hematology & Oncology
DX: D50.8 Other iron deficiency anemias (principal); D61.818 Other pancytopenia; K74.69 Other cirrhosis of liver; K76.6 Portal hypertension; R18.8 Other ascites; I85.01 Esophageal varices with bleeding; K72.90 Hepatic failure, unspecified without coma; Q27.33 Arteriovenous malformation of digestive system vessel; Z98.84 Bariatric surgery status
CPT/HCPCS: 36415; 82607; 82728; 83540; 83550; 85025; 96365; 99214

== ENCOUNTER 2020-05-05 20:00 | Outpatient (CLI) | payer MEDICAID, SELFPAY | END 2020-05-05 20:01 | disposition home or self-care (01) | LOC: SLEEP 05-06 09:31 | PROVIDERS: PCP Internal Medicine; Visit Provider Internal Medicine | DX: G47.10 Hypersomnia, unspecified (principal) | CPT/HCPCS: 95810 ==

== ENCOUNTER 2020-05-13 07:07 | Outpatient (CLI) | payer MEDICAID, SELFPAY ==
--- NOTE | 2020-05-13 07:16 | US_ITS ---
WS: [id number] ULTRASOUND ABDOMEN LIMITED CLINICAL INFORMATION: CIRRHOSIS COMPARISON: None. FINDINGS: Liver Size: Normal. Craniocaudal length: 14.1 cm. Echogenicity: Coarse echogenicity Surface nodularity: Cirrhotic Mass (size and location): None. Bile ducts Intrahepatic ducts: Normal. Common bile duct diameter: 0.4 cm. Gallbladder Cholecystectomy Pancreas Increased pancreatic echogenicity. Right kidney: Normal. Hydronephrosis: None. Size: 12.7 cm x 4.2 cm x 4.5 cm. Abdominal aorta and IVC Visualized portions are normal. Ascites: Small amount of perihepatic ascites. US/US abdomen limited 40035 IMPRESSION: 1. Liver is normal in size with cirrhotic configuration and coarse echogenicit y 2. Increased pancreatic echogenicity can be seen with fatty atrophy and/or didi ma. Recommend correlation with pancreatic function studies. 3. No hydronephrosis in right kidney.
== END 2020-05-13 07:08 | disposition home or self-care (01) ==
LOC: RAD 07:11
PROVIDERS: PCP Internal Medicine; Visit Provider Internal Medicine
DX: K74.60 Unspecified cirrhosis of liver (principal)
CPT/HCPCS: 76705

== ENCOUNTER 2020-05-25 06:11 | Outpatient (CLI) | payer MEDICAID, SELFPAY ==
[2020-05-25] MEDS: ferric carboxy (IVPB) 750 MG in sodium chloride 0.9% (100 ml) 100 ML 460 MG IV (15:24)
== END 2020-05-25 06:12 | disposition home or self-care (01) ==
LOC: ONCMED 06:12
PROVIDERS: PCP Internal Medicine; Visit Provider Internal Medicine Hematology & Oncology
DX: D50.0 Iron deficiency anemia secondary to blood loss (chronic) (principal)
CPT/HCPCS: J1439

== ENCOUNTER 2020-06-07 14:59 | Outpatient (CLI) | payer MEDICAID, SELFPAY ==
--- NOTE | 2020-06-07 15:04 | MM_ITS ---
WS: [id number] BILATERAL SCREENING DIGITAL MAMMOGRAM WITH CAD HISTORY: SCREENING COMPARISON: 02/21/2017 and 05/04/2014 Bilateral CC and MLO views submitted. Computer aided detection analyzed. Breast composition: There are scattered areas of fibroglandular density. No suspicious masses, microc alcifications or architectural distortion. There are a few benign stable calcifications in the centra l LEFT breast. MM/[place] [id number] IMPRESSION: BI-RADS: 2-Benign FOLLOW UP: 1 Year Follow-up
== END 2020-06-07 15:00 | disposition home or self-care (01) ==
LOC: RADSHAW 15:04
PROVIDERS: PCP Internal Medicine; Visit Provider Internal Medicine
DX: Z12.31 Encounter for screening mammogram for malignant neoplasm of breast (principal)
CPT/HCPCS: 77067

== ENCOUNTER 2020-06-16 06:12 | Outpatient (CLI) | payer MEDICAID, SELFPAY ==
[2020-06-16] MEDS: ferric carboxy (IVPB) 750 MG in sodium chloride 0.9% (100 ml) 100 ML 460 MG IV (16:33)
== END 2020-06-16 06:13 | disposition home or self-care (01) ==
LOC: ONCMED 06:12
PROVIDERS: PCP Internal Medicine; Visit Provider Internal Medicine Hematology & Oncology
DX: D61.818 Other pancytopenia (principal); D50.9 Iron deficiency anemia, unspecified; K76.6 Portal hypertension
CPT/HCPCS: 96365; J1439

== ENCOUNTER 2020-06-16 11:32 | Outpatient (CLI) | payer MEDICAID, SELFPAY ==
--- NOTE | 2020-06-16 11:41 | CT_ITS ---
WS: [id number] CT scan of the abdomen with Oral and IV contrast. Additional two-dimensional coronal and sagittal re construction was performed. 06/16/2020 Clinical Data: PANCREATIC DISORDER Comparison: CT abdomen and pelvis, 04/27/2020. DLP: 825.[address] scans at [facility] use at least one of these dose optimization techniques: automat ed exposure control; mA and/or kV adjustment per patient size (includes targeted exams where dose is matched to clinical indication); or iterative reconstruction. Findings: The lower lungs show no nodules, masses or effusions. There is a small hiatal hernia. The liver shows a nodular surface with minimal perihepatic ascites. These findings are consistent wit h cirrhosis of the liver. There are perisplenic varices with mild splenomegaly with the vessels conne cting into the left renal vein.. The pancreas shows no cysts, masses or evidence of pancreatitis. The re has been a cholecystectomy. The adrenal glands are normal. The kidneys show equal bilateral contrast excretion with no cyst or masses. No renal calculi or hydro nephrosis is present. The abdominal aorta is normal in size with calcification in the wall. There is a ventral hernia conta ining transverse colon with the orifice at 5.75 cm unchanged. The stomach demonstrates surgical clips from bypass surgery. The small bowel is unremarkable. The colon demonstrates fecal material. No absc ess, adenopathy, significant ascites, mass, obstruction or free air is seen.. No appendicitis or diverticulitis is seen. There is degenerative change of the lower thoracic vertebr al bodies and to a lesser extent the upper lumbar vertebral bodies.. CT/CT abdomen w con* [id number] Impression: 1. Cirrhosis of the liver with minimal perihepatic ascites. 2. Perisplenic varicose veins with mild splenomegaly. 3. Ventral hernia containing transverse colon without obstruction. 4. Gastric bypass surgery.
[2020-06-16] MEDS: iohexol 300 mg/mL 50 mL Btl PO (12:02)
[2020-06-16] MEDS: iohexol 300 mg/mL 100 mL Btl IV (12:04)
== END 2020-06-16 11:33 | disposition home or self-care (01) ==
PROVIDERS: PCP Internal Medicine; Visit Provider Nurse Practitioner Family
DX: K86.9 Disease of pancreas, unspecified (principal); K74.60 Unspecified cirrhosis of liver; I86.8 Varicose veins of other specified sites; R16.1 Splenomegaly, not elsewhere classified; K43.9 Ventral hernia without obstruction or gangrene; Z98.84 Bariatric surgery status
CPT/HCPCS: 74160; Q9967

== ENCOUNTER 2020-07-04 14:43 | Outpatient (CLI) | payer MEDICAID, SELFPAY ==
--- NOTE | 2020-07-04 15:05 | XRR_ITS ---
PROCEDURE INFORMATION: Exam: XR Right Ribs Exam date and time: 07/04/2020 3:39 PM Age: 64 years old Clinical indication: Injury or trauma; Fall; Rib area; Blunt trauma (contusions or hematomas); Injury details: Fell x 2 last week, pain chest RT side; Additional info: S/P fall TECHNIQUE: Imaging protocol: XR Right ribs. Views: 2 views. COMPARISON: CR XR chest 1V portable [id number] 04/27/2020 8:14 PM FINDINGS: Bones/joints: Normal. Soft tissues: Normal. XR/XR ribs RT 2V* [id number] IMPRESSION: No acute findings.
--- NOTE | 2020-07-04 15:05 | XRR_ITS ---
PROCEDURE INFORMATION: Exam: XR Thoracic Spine, 3 Views Exam date and time: 07/04/2020 3:38 PM Age: 64 years old Clinical indication: Injury or trauma; Fall; Blunt trauma (contusions or hematomas); Injury details: Last week, fell 2x; Patient HX: Pain chest/rt side; Additional info: S/P fall TECHNIQUE: Imaging protocol: XR of the thoracic spine, 3 views. COMPARISON: CR Thoracic Spine 3+ views* [id number] 04/28/2019 1:42 PM FINDINGS: Bones/joints: Moderate thoracic spondylosis. Soft tissues: Unremarkable. XR/XR thoracic spine 3V* [id number] IMPRESSION: No acute spine findings.
== END 2020-07-04 14:44 | disposition home or self-care (01) ==
PROVIDERS: PCP Internal Medicine; Visit Provider Internal Medicine
DX: R07.81 Pleurodynia (principal); W19.XXXA Unspecified fall, initial encounter
CPT/HCPCS: 71100; 72072

== ENCOUNTER 2020-07-21 14:07 | Outpatient (CLI) | payer MEDICAID, SELFPAY ==
[2020-07-21 15:50] LABS: Basophils % 0.8 %; Eosinophils # 0.1 10^3/uL (0.0-0.8); Eosinophils % 2.9 %; Hematocrit 38.7 % (37.0-47.0); Hemoglobin 12.7 g/dL (11.5-15.3); Lymphocytes # 1.5 10^3/uL (0.8-4.8); Lymphocytes % 30.2 %; Mean Corpuscular HGB Conc 32.8 g/dL (30.0-36.0); Mean Corpuscular Hemoglobin 29.5 pg (28.0-34.0); Monocytes # 0.5 10^3/uL (0.2-0.9); Monocytes % 9.9 %; Nucleated Red Blood Cells % 0 %; Platelet Count 113 10^3/cmm (130-400); Red Cell Distribution Width 20.8 % (12.1-15.1); White Blood Count 4.8 10^3/uL (4.0-10.0)
[2020-07-21 16:32] LABS: Slide Review Slide Review Perform
[2020-07-21 16:58] LABS: Ferritin 111 ng/mL (15-150); Iron 80 ug/dL (37-145); Percent Saturation 30.6 % (20-50); Total Iron Binding Capacity 261 mcg/dl; Unsaturated Iron Binding 181 ug/dL (112-347)
--- NOTE | 2020-07-22 09:40 | ONC FU_ITS ---
Dr. De Guzman follow up note Patient: GILLIAN DUGAN Unit #: [id number]: 1955 Dicatated By: Filiberto De Guzman M.D.Date of Visit:Jul 21, 2020 Onc Med Follow-up/Prog Note History of Present Illness: Mrs. Gillian Machado, is a 64-year-old female with a long-standing history of hepatic cirrhosis nonalcoholic, probably due to fatty liver initially diagnosed in 2004. At that time she underwent Mitra-en-Y gastric bypass for obesity and during surgery she was found to have enlarged liver, as per patient at that time she was also diagnosed with sarcoidosis involving lymph node. And further workup include EGD done 2004 showed esophageal varices, and also underwent capsule endoscopy which showed small bowel AVMs. And colonoscopy were done around that time was incomplete study due to poor preparation or 'twisting'. Patient did develop ascites, due to portal hypertension and not sure about enlarged spleen but we would suspect splenomegaly due to portal hypertension. Patient, recently had abdominal sonogram done at hepatology department, [facility]. Denies any recent blood transfusion, denies any melena or hematochezia, denies any hemoptysis or hematemesis, denies any jaundice. But complaining of generalized weakness and fatigue. History of cervical carcinoma in situ diagnosed in 1986 status post hysterectomy only . as per patient recently she went to hospital with upper abdominal pain and was diagnosed with H. pylori infection now being treated with antibiotics. And pain has resolved. But she has been feeling weak and tired and her PMD did labs on April 20, 2020 which showed white blood count 4000 hemoglobin 9.1 hematocrit 30.6 platelets 118,000 MCV 78 and iron studies shows iron saturation 9 iron 31 TIBC 355, prior to that her CBC done on March 03, 2020 showed hemoglobin 10.2 g with MCV 78 and prior to that CBC done on November 25, 2019 showed white blood count 5.4 hemoglobin 11.1 hematocrit 34 platelet 113,000, In the past patient was treated with Injectafer weekly x2, responded very well with normalization of hemoglobin. Came for follow-up, denies any specific complaint except generalized weakness and fatigue but no nausea or vomiting, no diarrhea or constipation, no jaundice, no melena or hematochezia, no hematuria or hemoptysis. No shortness of breath or palpitation. Medications: Acetaminophen 2 Capsule (of 325 mg) Oral at bedtime, Amoxicillin 2 Tablet (of 500 mg) Oral b.i.d., Calcium Antacid Ultra 1 Tablet (of 100 mg) Tablet, chewable Oral daily, Citalopram Hydrobromide 1 Tablet (of 10 mg) Oral daily, Clarithromycin 1 Tablet (of 500 mg) Oral b.i.d., Furosemide 1 (40 mg) Tablet Oral daily, Lasix 1 Tablet (of 40 mg) Oral daily, Multivitamins 1 Capsule Oral daily, Pantoprazole Sodium 2 Tablet (of 40 mg) Tablet, enteric coated Oral b.i.d., Potassium 1 Tablet (of 99 mg) Oral daily, Propranolol HCl 1 Tablet (of 10 mg) Oral b.i.d., Spironolactone 1 Tablet (of 25 mg) Oral daily, Tresiba 35 Units (of 100 Units/mL) Subcutaneous daily, Zinc 1 Capsule (of 50 mg) Oral daily Allergies: No Known Allergies. Review of Systems: Constitutional - Appetite is good and weight is increasing. No fever, chills, hot flashes. Positive for night sweats. Energy level is poor, ENMT - No sinus congestion/drainage. No mouth sores. No sore throat or difficulty swallowing, Hematologic/Lymphatic - No abnormal bruising or bleeding, Respiratory - Positive for shortness of breath. No cough. No pleuritic pain or hemoptysis, Cardiovascular - No angina pain. No palpitations, Gastrointestinal - Positive for nausea, no vomiting. No heartburn or acid reflux. No diarrhea or constipation. No blood in the stool or black stools, Genitourinary (F) - No dysuria or hematuria. No urinary frequency. No urgency, Positive for incontinence, Musculoskeletal - Positive for joint pain, Integumentary - No chronic rashes, ulcerations or skin changes, Neurologic - Positive for headache and dizziness. No numbness/paresthesias or other focal neurologic symptoms, Psychiatric - Positive for anxiety, no depression. No insomnia. Vital Signs: Performed on Jul 21, 2020 16:36 Height - 65.50 in Weight - 199.6 lbs (LOW) BSA - 1.99 sq.m BMI - 32.71 (HIGH) Temperature - 97.9 F (LOW) Pulse - 66 /min Respiration - 16 /min BP - 189/74 mm(hg) (HIGH) O2 Sat - 98 % Pain - 7 Performance Status: 1 - No physically strenuous activity, but ambulatory and able to carry out light or sedentary work (e.g. office work, light house work). (ECOG) Physical Examination: ENMT - No mouth sores, no thrush, no jaundice, Respiratory - Lungs are clear to auscultation, Cardiovascular - Regular rate and rhythm of heart, Abdomen - Soft, bowel sounds present, Extremities - Trace edema bilaterally. Lab/Imaging: Test performed on Jul 07, 2020 13:03 Sed Rate 8 mm/hr Test performed on Jul 07, 2020 12:53 Glucose 148 mg/dL LDH, Total 253 IU/L BUN 10 mg/dL Creatinine 0.62 mg/dL Cr Clearance (Est) 138.51 mL/min BUN/Creatinine Ratio 16 Absolute Value Sodium 140 mmol/L Potassium 4.1 mmol/L Chloride 106 mmol/L CO2 28 mmol/L Calcium 8.3 mg/dL Protein, Total 6.0 g/dL Albumin 2.8 g/dL Globulin 3.2 g/dL A/G Ratio 0.9 Absolute Value Bilirubin, Total 0.8 mg/dL Alkaline Phosphatase 167 IU/L AST (SGOT) 72 IU/L ALT (SGPT) 39 IU/L WBC 3.5 10^9/L RBC 3.96 10^12/L HGB 11.3 g/dL HCT 35.6 % MCV 90 fl MCH 28.5 pg MCHC 31.7 g/dL RDW 22.5 % Platelet Count 98 10^9/L Neutrophils (Gran) 1.82 10^9/L Lymphocytes 1.155 10^9/L Monocytes 0.35 10^9/L Eosinophils 0.14 10^9/L Basophils 0.035 10^9/L Test performed on May 23, 2020 16:05 Hemoglobin A1C 8.0 % Manual Lymphocytes 31 % Manual Monocytes 11 % Manual Eosinophils 1 % Manual Basophils 1 % Test performed on May 04, 2020 10:57 % Iron Saturation 7 % Test performed on May 04, 2020 10:53 Ferritin 17 ng/mL TIBC 269 mcg/dL Impression: Pancytopenia, etiology appears multifactorial including due to splenic sequestration due to splenomegaly due to portal hypertension/nonalcoholic hepatic cirrhosis. And chronic GI blood loss due to esophageal varices and/or small bowel AVMs And/or iron malabsorption due to gastric bypass done in 2004 Lab workup done on 12/16/2018 shows ferritin 10, TIBC 368, iron saturation 5.9 iron 22, B12 more than 2000 folate 16.5 and copper level 114 Considering her age underlying myelodysplasia cannot be ruled out and ?bone marrow suppression due to copper deficiency especially after gastric bypass Nonalcoholic hepatic cirrhosis now with portal hypertension, ascites, esophageal varices,Recurrent hepatic encephalopathy small wall AVMs probably splenomegaly.As per patient initially she was following asset protection greeter at [facility] in [place], and later on in [place] Plan: Discussed with patient regarding her labs white blood count 4.8 hemoglobin 12.7 g hematocrit 38.7 platelets 113,000 Clinically, patient is doing reasonably well denies any specific complaints except generalized weakness and fatigue which could be multifactorial including patient has history of hepatic encephalopathy with elevated ammonia level treated with lactulose. Or could be due to pain medication, considering her weight she may have underlying sleep apnea. As per patient she is being referred to asset protection greeter and neurologist in [place] by her PMD. , She is doing reasonably well from hematological point of view as her follow-up CBC after Injectafer 750 mg intravenously given on May 25 and June 16, 2020 shows excellent response with resolution of anemia hemoglobin is 12.7 g today compared to 8 g prior to infusion and her platelet count also improved to 113,000 and white blood count is in normal range at 4.8., Patient was advised to follow-up with PMD on regular basis as well as with asset protection greeter and we will monitor her from hematological point of view and she will return to clinic in 2 months with CBC and iron studies and B12 level as patient is high risk for developing iron deficiency anemia due to chronic GI blood loss as well as malabsorption due to gastric bypass surgery Signed By: Filiberto De Guzman M.D. <<Signature on File>>
== END 2020-07-21 14:08 | disposition home or self-care (01) ==
PROVIDERS: PCP Internal Medicine; Visit Provider Internal Medicine Hematology & Oncology
DX: D61.818 Other pancytopenia (principal); K74.69 Other cirrhosis of liver; K76.6 Portal hypertension; K72.90 Hepatic failure, unspecified without coma; R53.1 Weakness; R53.83 Other fatigue; Q27.33 Arteriovenous malformation of digestive system vessel; K92.2 Gastrointestinal hemorrhage, unspecified; K90.89 Other intestinal malabsorption; Z98.84 Bariatric surgery status
CPT/HCPCS: 36415; 82728; 83540; 83550; 85025; 99214

== ENCOUNTER 2020-09-06 13:50 | Inpatient (IN) | payer MEDICAID, SELFPAY ==
[2020-09-06 13:55] VITALS: BP 138/83; PULSE 78; RESP 18; TEMP 37.1; O2SAT 97; BMI 33.3
--- NOTE | 2020-09-06 15:49 | CTR_ITS ---
PROCEDURE INFORMATION: Exam: CT Abdomen And Pelvis With Contrast Exam date and time: 09/06/2020 4:39 PM Age: 64 years old Clinical indication: Abdominal pain; Generalized; Prior surgery; Surgery type: Gastric bypass, hyst, egd, gb, hernia; Patient HX: Abd pain x months worse this week, black stools, n/v/fatigue/chills, HX. Cirrhosis; Additional info: Abd pain/gi bleed TECHNIQUE: Imaging protocol: Computed tomography of the abdomen and pelvis with contrast. Radiation optimization: All CT scans at this facility use at least one of these dose optimization techniques: automated exposure control; mA and/or kV adjustment per patient size (includes targeted exams where dose is matched to clinical indication); or iterative reconstruction. Contrast material: OMNI 300; Contrast volume: 95 ml; Contrast route: INTRAVENOUS (IV); COMPARISON: CT angio abdomen pelvis [id number] 04/27/2020 10:51 PM RADIATION DOSE METRICS: Total DLP (mGy-cm): 1674.5 FINDINGS: Lungs: Calcified granuloma in the right lung base. Liver: Cirrhotic appearing liver with calcified granulomas. Gallbladder and bile ducts: Cholecystectomy. The bile ducts are normal. Pancreas: Normal. No ductal dilation. Spleen: Calcified granulomas in the spleen. Adrenal glands: Normal. No mass. Kidneys and ureters: Normal. No hydronephrosis. Stomach and bowel: Gastric bypass changes with sutures and surgical clips. The distal stomach is decompressed. Mild diverticulosis of the sigmoid colon. Partial resection of the small bowel with a focal lead dilated loop with sutures measuring 4.5 cm, consistent with denervation atony. The remainder of the small bowel is unremarkable. Appendix: The appendix is visualized and is normal. Intraperitoneal space: Mild ascites. Vasculature: Chronic partial thrombus in the main portal vein which is unchanged. Portal venous hypertension with splenic hilar varices and left splenorenal shunt. Lymph nodes: Unremarkable. No enlarged lymph nodes. Urinary bladder: Unremarkable as visualized. Reproductive: The uterus and ovaries are absent. Bones/joints: Unremarkable. No acute fracture. Soft tissues: Surgical clips in the pelvis. Anterior laparotomy incision. 6.3 cm fat containing incisional hernia. CT/CT abdomen pelvis w con* [id number] IMPRESSION: 1. Severe liver cirrhosis. 2. Portal venous hypertension with chronic partial thrombus in the main portal vein, splenic hilar varices, and left splenorenal shunt. 3. Mild ascites. Radiation Dose CTDIVOL = (mGy): DLP = 1674.5 (mGy-cm)
--- NOTE | 2020-09-06 15:50 | W.ED.ABDPA2 ---
HPI - Abdominal Pain General: Chief Complaint: Abdominal Pain Stated Complaint: N/V, COLD CHILLS, BLACK STOOL Time Seen by Provider: 09/06/20 15:30 History of Present Illness: HPI narrative: 64-year-old female presents emergency room with complaint of abdominal pain. She localizes pain to the upper abdomen across the right and the left. She also has had dark black tarry stools last several days. She has been having increased stomach upset. She has had a problem in the past was AVMs and she had a pill endoscopy. No treatment was affected from this. She has a history of [place] and a previous gastric bypass. MD elicited complaint: abdominal pain Pertinent past history: gastrointestinal bleeding Onset (ago): day(s) Pain Consistency: intermittent Location: Epigastric, LUQ and RUQ Severity: moderate Quality: cramping Radiation: none Migration to: no migration Exacerbating factors: nothing Relieving factors: nothing Associated Symptoms: Reports bloating, melena, nausea and poor appetite; Denies anorexia, belching, change in bowel habits, change in stool character, chills, coffee ground emesis, constipation, GI cramping, diarrhea, dyspepsia, dysuria, excessive flatus, fever(s), heartburn, hematochezia, hematuria, hematemesis, fecal incontinence, loose stools, syncope and vomiting Review of Systems Const: Denies: fever(s) or chills ENMT: Denies: throat pain, ear or mastoid pain, nasal discharge or nasal congestion Card: Denies: syncope Resp: Denies: dyspnea, productive cough or non-productive cough GI: Reports: nausea and melena; Denies: vomiting, hematemesis, coffee ground emesis, heartburn, diarrhea, constipation, GI cramping, belching, excessive flatus, fecal incontinence, change in bowel habits, change in stool character or hematochezia : Denies: dysuria or hematuria Skin/Breast: Denies: rash or pruritus PFSH ED PFSH: Medical History (Updated 09/09/20 @ 17:51 by Karlo Salcedo DO) Cirrhosis of liver Diabetes Hepatic encephalopathy Incisional hernia Kidney stones Liver cirrhosis secondary to W[place] W[place] (nonalcoholic steatohepatitis) Obesity (BMI 30.0-34.9) Surgical History H/O gastric bypass H/O: hysterectomy cervical cancer History of colonoscopy History of esophagogastroduodenoscopy (EGD) Hx of cholecystectomy Family History Mother Hypertension Father Chronic kidney disease (CKD) Sleep apnea Other Bleeding disorder Denies family history of Anesthesia complication Social History Smoking and tobacco status: never smoked Alcohol intake: never Physical Exam Const: COMMON NORMALS: no acute distress GENERAL APPEARANCE: cooperative and comfortable ORIENTATION/CONSCIOUSNESS: Yes awake, Yes oriented to person, Yes oriented to place and Yes oriented to time HENMT: COMMON NORMALS: normocephalic, atraumatic and hearing grossly normal bilaterally HEAD & SCALP: normocephalic and atraumatic Neck/C-Spine: COMMON NORMALS: no JVD Resp: COMMON NORMALS: normal respiratory effort, No retractions, No use of accessory muscles and clear to auscultation bilaterally AUSCULTATION: clear to auscultation bilaterally Cardio: COMMON NORMALS: no JVD, regular rate, regular rhythm and No murmurs present (Cardio) RATE: regular rate RHYTHM: regular rhythm GI: COMMON NORMALS: Soft to palpation and No hepatosplenomegaly present AUSCULTATION: Yes normoactive bowel sounds PALPATION: Yes Soft to palpation, No Tenderness to palpation present (GI), No Guarding due to palpation present (GI) and Yes No hepatosplenomegaly present RECTAL EXAM: visual inspection normal, normal sphincter tone, heme positive stool and other (Blood-tinged mucousy stool) Extremity: COMMON NORMALS: normal to inspection, capillary refill normal, no clubbing, cyanosis or edema, no calf tenderness and no pedal edema Neuro: SENSORIUM/ORIENTATION: Yes oriented to person, Yes oriented to place and Yes oriented to time Skin: COMMON NORMALS: no rashes or lesions noted GENERAL SKIN EXAM: no rashes or lesions noted Course Vital Signs: Vital signs: Vital Signs Temperature 98.1 F 09/09/20 15:54 Pulse Rate 69 09/09/20 15:54 Respiratory Rate 18 09/09/20 15:54 Blood Pressure 137/74 09/09/20 15:54 Pulse Oximetry 99 09/09/20 15:54 MDM - Abdominal Pain MDM Narrative: Medical decision making narrative: Reviewed findings with the patient. Concerned about her hemoglobin dropping as well as a stool she had some mucousy bloody stool on rectal exam was sharply Hemoccult positive. Discussed with Dr. Sarabia and will go ahead and admit orders written. Lab Data: Labs: Lab Results 09/06/20 09/06/20 09/06/20 Range/Units 15:35 15:35 15:35 WBC 6.6 (4.0-10.0) 10^3/ uL RBC 3.76 L (4.1-5.3) 10^6/u L Hgb 11.0 L (11.5-15.3) g/dL Hct 34.4 L (37.0-47.0) % MCV 91.5 (81-99) fL MCH 29.3 (28.0-34.0) pg MCHC 32.0 (30.0-36.0) g/dL RDW 14.6 (12.1-15.1) % Plt Count 150 (130-400) 10^3/c mm MPV 13.0 H (7.4-10.4) fL Neut % (Auto) 59.2 % Lymph % (Auto) 29.5 % [place] % (Auto) 10.4 % Eos % (Auto) 0.2 % Baso % (Auto) 0.5 % Neut # (Auto) 3.94 (1.8-7.7) 10^3/u L Lymph # (Auto) 2.0 (0.8-4.8) 10^3/u L [place] # (Auto) 0.7 (0.2-0.9) 10^3/u L Eos # (Auto) 0.0 (0.0-0.8) 10^3/u L Baso # (Auto) 0.0 (0.0-0.1) 10^3/u L Nucleated RBC % (a uto) 0 % Nucleated RBCs # 0.0 /100WBC PT 16.90 H (12.1-14.9) SECO NDS INR 1.33 H (0.8-1.2) APTT 30.3 (23.9-36.7) SECO NDS Sodium 131 L (136-145) mmol/L Potassium 4.8 (3.5-5.1) mmol/L Chloride 101 (98-107) mmol/L Carbon Dioxide 25 (22-29) mmol/L Anion Gap 9.8 (5-19) BUN 22 (8-23) mg/dL Creatinine 0.8 (0.5-0.9) mg/dL GFR Calculation 72.7 L (90-130) mL/min Glucose 208 H (65-115) mg/dL Calculated Osmolal ity 281 L (285-295) mOsm/k g Calcium 8.9 (8.5-10.5) mg/dL Total Bilirubin 1.2 (0.15-1.2) mg/dL AST 58 H (0-32) U/L ALT 40 H (0-33) U/L Alkaline Phosphata se 197 H (35-105) IU/L Total Protein 6.5 L (6.6-8.7) g/dL Albumin 2.9 L (3.5-5.2) g/dL Globulin 3.6 (1.3-4.6) g/dL Lipase 38 (13-60) U/L Urine Color (Yellow) Urine Appearance (CLEAR) Urine pH (5-7) Ur Specific Gravit y (1.005-1.030) Urine Protein (Negative) Urine Glucose (UA) (Normal) Urine Ketones (Negative) Urine Blood (Negative) Urine Nitrate (Negative) Urine Bilirubin (Negative) Urine Urobilinogen (Negative) mg/dL Ur Leukocyte Haley ase (Negative) Urine RBC (0-2) /hpf Urine WBC (0-5) /hpf Ur Squamous Epith Cells (0-5) /hpf Amorphous Sediment Urine Bacteria (NONE) /hpf 09/06/20 Range/Units 15:35 WBC (4.0-10.0) 10^3/ uL RBC (4.1-5.3) 10^6/u L Hgb (11.5-15.3) g/dL Hct (37.0-47.0) % MCV (81-99) fL MCH (28.0-34.0) pg MCHC (30.0-36.0) g/dL RDW (12.1-15.1) % Plt Count (130-400) 10^3/c mm MPV (7.4-10.4) fL Neut % (Auto) % Lymph % (Auto) % [place] % (Auto) % Eos % (Auto) % Baso % (Auto) % Neut # (Auto) (1.8-7.7) 10^3/u L Lymph # (Auto) (0.8-4.8) 10^3/u L [place] # (Auto) (0.2-0.9) 10^3/u L Eos # (Auto) (0.0-0.8) 10^3/u L Baso # (Auto) (0.0-0.1) 10^3/u L Nucleated RBC % (a uto) % Nucleated RBCs # /100WBC PT (12.1-14.9) SECO NDS INR (0.8-1.2) APTT (23.9-36.7) SECO NDS Sodium (136-145) mmol/L Potassium (3.5-5.1) mmol/L Chloride (98-107) mmol/L Carbon Dioxide (22-29) mmol/L Anion Gap (5-19) BUN (8-23) mg/dL Creatinine (0.5-0.9) mg/dL GFR Calculation (90-130) mL/min Glucose (65-115) mg/dL Calculated Osmolal ity (285-295) mOsm/k g Calcium (8.5-10.5) mg/dL Total Bilirubin (0.15-1.2) mg/dL AST (0-32) U/L ALT (0-33) U/L Alkaline Phosphata se (35-105) IU/L Total Protein (6.6-8.7) g/dL Albumin (3.5-5.2) g/dL Globulin (1.3-4.6) g/dL Lipase (13-60) U/L Urine Color Yellow (Yellow) Urine Appearance Sl hazy (CLEAR) Urine pH 5 (5-7) Ur Specific Gravit y 1.015 (1.005-1.030) Urine Protein Neg (Negative) Urine Glucose (UA) 1+ (Normal) Urine Ketones 1+ H (Negative) Urine Blood 3+ H (Negative) Urine Nitrate Negative (Negative) Urine Bilirubin Neg (Negative) Urine Urobilinogen Norm (Negative) mg/dL Ur Leukocyte Haley ase Negative (Negative) Urine RBC Rare (0-2) /hpf Urine WBC None (0-5) /hpf Ur Squamous Epith Cells 0-4 H (0-5) /hpf Amorphous Sediment Not Reportable Urine Bacteria 1+ H (NONE) /hpf Discharge Plan Discharge Patient Disposition: Admitted As Inpatient Admit Provider: José Miguel Elizabeth Clinical Impression: Upper GI bleed, Liver cirrhosis secondary to [place], Dehydration with hyponatremia, Diabetes mellitus type 2 in obese, Portal vein thrombosis Condition: Stable Coding Level of Care Code 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
[2020-09-06 15:57] VITALS: BP 191/118; PULSE 76; RESP 22; O2SAT 96; O2SAT 97
[2020-09-06 15:59] LABS: Basophils % 0.5 %; Eosinophils % 0.2 %; Hematocrit 34.4 % (37.0-47.0); Lymphocytes % 29.5 %; Mean Corpuscular Hemoglobin 29.3 pg (28.0-34.0); Mean Corpuscular Volume 91.5 fL (81-99); Monocytes # 0.7 10^3/uL (0.2-0.9); Monocytes % 10.4 %; Neutrophils # 3.94 10^3/uL (1.8-7.7); Neutrophils % 59.2 %; Nucleated Red Blood Cells % 0 %; Platelet Count 150 10^3/cmm (130-400); Red Blood Count 3.76 10^6/uL (4.1-5.3); Red Cell Distribution Width 14.6 % (12.1-15.1); White Blood Count 6.6 10^3/uL (4.0-10.0)
[2020-09-06 16:15] LABS: INR 1.33 (0.8-1.2)
[2020-09-06 16:16] LABS: Partial Thromboplastin Time 30.3 SECONDS (23.9-36.7)
[2020-09-06 16:17] LABS: Add Urine Microscopic? YES; Bilirubin Urine Neg (Negative); Blood Urine 3+ (Negative); Glucose Urine UA 1+ (Normal); Ketones Urine 1+ (Negative); Leukocyte Esterase Urine Negative (Negative); Nitrate Urine Negative (Negative); Protein Urine Neg (Negative); Specific Gravity, Urine 1.015 (1.005-1.030); Urine Appearance SL Hazy (CLEAR); Urine Color Yellow (Yellow); Urobilinogen Urine Norm (Negative); pH Urine 5 (5-7)
[2020-09-06 16:19] LABS: Add Urine Culture? No; Bacteria Urine 1+ /hpf; RBC Urine RARE /hpf (0-2); Squamous Epithelial Cell Urine 0-4 /hpf (0-5)
[2020-09-06 16:20] LABS: Alanine Aminotransferase 40 U/L (0-33); Albumin Level 2.9 g/dL (3.5-5.2); Alkaline Phosphatase 197 IU/L (35-105); Anion Gap 9.8 (5-19); Aspartate Amino Transferase 58 U/L (0-32); Blood Urea Nitrogen 22 mg/dL (8-23); Calcium 8.9 mg/dL (8.5-10.5); Carbon Dioxide 25 mmol/L (22-29); Chloride 101 mmol/L (98-107); Globulin 3.6 g/dL (1.3-4.6); Glomerular Filtration Rate 72.7 mL/min (90-130); Glucose 208 mg/dL (65-115); Lipase 38 U/L (13-60); Osmolality Calculated 281 mOsm/kg (285-295); Potassium 4.8 mmol/L (3.5-5.1); Sodium 131 mmol/L (136-145); Total Bilirubin 1.2 mg/dL (0.15-1.2); Total Protein 6.5 g/dL (6.6-8.7)
[2020-09-06 17:00] VITALS: BP 172/88; PULSE 74; RESP 20; O2SAT 98
[2020-09-06] MEDS: iohexol 300 mg/mL 100 mL Btl IV (17:02)
[2020-09-06 18:00] VITALS: BP 167/70; PULSE 72; RESP 17; O2SAT 97
[2020-09-06] MEDS: pantoprazole 40 mg SDV IVP (18:07)
[2020-09-06 18:28] VITALS: BP 167/70; PULSE 72; RESP 17; O2SAT 97
--- NOTE | 2020-09-06 18:49 | P.HP_ITS ---
Providers/Chief Complaint Admitting Physician: José Miguel Elizabeth MD Primary Care Provider: Pauline Pereira MD Chief Complaint: N/V, COLD CHILLS, BLACK STOOL History of Present Illness Gillian Gonzalez is a 64 year old female presents to emergency department with tarry, melanotic stool this morning and abdominal pain since Saturday which at times can be severe and located in epigastric area with some radiation to her back. Reports that food intake improves her pain but otherwise denies any other alleviating or aggravating factors. She does have some baseline discomfort throughout the day which occasionally gets exacerbated. Denies any previous history of melanotic stool or abdominal pain although previous notes including Dr. Biswas's note indicates that patient has been having abdominal pain which felt to be related to large incarcerated incisional hernia. Denies taking NSAIDs or steroids. Reports taking Tylenol only for pain as needed. She had previous evaluation with upper endoscopy, colonoscopy and capsule endoscopy. She had previous history of AVMs and GI bleed and requires occasional blood transfusions. Last time she had blood transfusion was approximately 2 months ago. She had previous history of gastric bypass surgery. She also has cirrhos is secondary to BLAIR. Lately she noted that her bowels being more diarrheal therefore she did not take lactulose for the last 1 week. at bedside reports that patient likely developing some degree of dementia as her memory over the last 1 year gradually declined. She is seeing Dr. De Guzman for iron deficiency anemia which felt to be related to slow and chronic GI bleed. Patient reports that she had clear fluid vomiting yesterday and did not have any evidence of blood. On review of system patient reports that she has been frequently having trouble with lightheadedness and dizziness and is supposed to see neurologist tomorrow at 1:30 PM. Review of Systems Const: Denies: fever(s) or chills Eyes: Denies: change in vision (No recent change.) ENMT: Denies: throat pain or change in hearing (But does report having some deficit) Card: Reports: lightheadedness; Denies: chest pain or edema Resp: Reports: dyspnea (Chronic with ambulation for the last 1 year especially worse last 2months); Denies: productive cough GI: Reports: abdominal pain, nausea, vomiting and melena; Denies: dysphagia, diarrhea, constipation or hematochezia : Denies: difficulty voiding Musc: Reports: joint pain (Chronic involving multiple joints which patient relates to fibromyalgia); Denies: joint swelling Skin/Breast: Denies: rash or erythema Neuro: Reports: headache(s) (Frontal mild since this morning); Denies: weakness in extremities Psych: Denies: depression Endo: Denies: excessive sweating Stanley/Lymph: Denies: easy bleeding or tender lymph nodes All/Imm: Denies: throat swelling Medications/Allergies Home Medications Medication Instructions Recorded Confirmed Last Taken Type citalopram 20 mg tablet 20 mg PO BEDTIME 12/11/19 09/06/20 09/05/20 History furosemide 40 mg tablet 40 mg PO DAILY@08 12/11/19 09/06/20 09/05/20 History propranolol 10 mg tablet 10 mg PO BID 12/11/19 09/06/20 09/05/20 History spironolactone 25 mg tablet 25 mg PO QAM 12/11/19 09/06/20 09/05/20 History lactulose 10 gram/15 mL oral 30 ml PO TID 12/18/19 09/06/20 04/27/20 History solution insulin glargine [Lantus Solostar 35 unit SUBCUT QAM 04/27/20 09/06/20 09/05/20 History U-100 Insulin] [id number]-[id number]-[id number]-minerals 1 tab PO DAILY 04/27/20 09/06/20 04/27/20 History [Multiple Vitamin, Womens] acetaminophen [Tylenol] 325 mg PO PRN 09/06/20 09/06/20 Unknown History liraglutide [Victoza 2-Johnny] 0.6 mg SUBCUT QPM 09/06/20 09/06/20 09/05/20 History melatonin 10 mg PO BEDTIME 09/06/20 09/06/20 Unknown History omeprazole 20 mg PO DAILY 09/06/20 09/06/20 Unknown History potassium gluconate 595 mg PO DAILY 09/06/20 09/06/20 Unknown History rifaximin [Xifaxan] 550 mg PO BID 09/06/20 09/06/20 09/05/20 History zinc 1 cap PO DAILY 09/06/20 09/06/20 Unknown History Allergies Allergy/AdvReac Type Severity Reaction Status Date / Time No Known Allergies Allergy Verified 09/06/20 16:22 PFSH Acute PFSH: Medical History (Updated 09/06/20 @ 19:19 by José Miguel Elizabeth MD) Cirrhosis of liver Diabetes Hepatic encephalopathy Incisional hernia Kidney stones 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) Obesity (BMI 30.0-34.9) Surgical History H/O gastric bypass H/O: hysterectomy cervical cancer History of colonoscopy History of esophagogastroduodenoscopy (EGD) Hx of cholecystectomy Family History Mother Hypertension Father Chronic kidney disease (CKD) Sleep apnea Other Bleeding disorder Denies family history of Anesthesia complication Social History Smoking and tobacco status: never smoked Alcohol intake: never Vitals/I&O/Wt Last Vital Signs Temp 98.8 F 09/06/20 13:55 Pulse 72 09/06/20 18:28 Resp 17 09/06/20 18:28 BP 167/70 09/06/20 18:28 Pulse Ox 97 09/06/20 18:28 Weight last 48 hrs Weight 90.718 kg Physical Exam Const: COMMON NORMALS: no acute distress, patient oriented x3 and alert HENMT: COMMON NORMALS: normocephalic and atraumatic HEAD & SCALP: normocephalic and atraumatic Eye: COMMON NORMALS: EOMs intact bilaterally, conjunctivae normal and no scleral icterus CONJUNCTIVA: Yes conjunctivae normal Neck/C-Spine: COMMON NORMALS: no lymphadenopathy and no meningeal signs Lymph: LYMPHATIC: no lymphadenopathy noted Chest: COMMONS NORMALS: normal palpation of entire chest wall Resp: COMMON NORMALS: No use of accessory muscles and clear to auscultation bilaterally AUSCULTATION: clear to auscultation bilaterally Cardio: COMMON NORMALS: regular rate, regular rhythm and No murmurs present (Cardio) RATE: regular rate RHYTHM: regular rhythm OTHER: No lower extremity edema GI: COMMON NORMALS: Soft to palpation and non-tender PALPATION: Yes Soft to palpation RECTAL EXAM: deferred : COMMON NORMALS: Yes no CVA tenderness BLADDER/KIDNEY EXAM: Yes no CVA tenderness Back/Pelvis: COMMON NORMALS: no CVA tenderness and thoracic and lumbar spine normal to inspection Extremity: COMMON NORMALS: normal to inspection and capillary refill normal Neuro: COMMON NORMALS: patient oriented x3 and no focal motor deficits SENSORIUM/ORIENTATION: Yes alert MENINGEAL SIGNS: Yes no meningeal signs Psych: COMMON NORMALS: mental status grossly normal, Normal thought process present and cooperative THOUGHT PROCESS: Normal thought process present Skin: COMMON NORMALS: no rashes or lesions noted GENERAL SKIN EXAM: no rashes or lesions noted Data : 09/06/20 15:35 09/06/20 15:35 A&P Assessment and plan (1) Upper GI bleed: Status: Acute (2) Dehydration with hyponatremia: Status: Acute (3) 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: Status: Acute (4) Portal vein thrombosis: Chronic. Status: Acute (5) Diabetes mellitus type 2 in obese: Status: Acute (6) Obesity (BMI 30.0-34.9): Status: Acute Additional A&P Information PLAN: We will treat patient with high-dose PPI. Avoid NSAIDs or steroids. Clear liquid diet for now Will gently hydrate with normal saline and monitor CBC. We will hold Lasix for now but continue spironolactone. Continue propranolol Will give patient small dose of vitamin K as patient's INR is elevated If continues to bleed consider surgery consult for upper endoscopy. Check ammonia level and continue lactulose. Attestations Medical Necessity Statement*: Patient with upper GI bleed with underlying cirrhosis and coagulopathy requires close inpatient monitoring and treatment. I expect patient will require more than 2 midnights. Time Spent in Patient Care: Greater than 35 minutes (>than 50% of time spent in counselling and/or direct pt care on unit) . Coding Level of Care Code Acute Director Of Blood for [facility] Fwd Diagnoses Upper GI bleed K92.2 Dehydration with hyponatremia E86.0; E87.1 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 K75.81; K74.60 Portal vein thrombosis I81 Diabetes mellitus type 2 in obese E11.69; E66.9 Obesity (BMI 30.0-34.9) E66.9
[2020-09-06 19:02] VITALS: BP 137/81; PULSE 71; RESP 18; TEMP 36.6; O2SAT 97
[2020-09-06 20:38] LABS: Glucose Point of Care 240 mg/dL (70-110)
[2020-09-06 20:59] LABS: Ammonia 50 umol/L (11-51)
[2020-09-06] MEDS: lactulose oral liq 20 gm/30 mL UDC PO (21:43)
[2020-09-06] MEDS: citalopram 20 mg Tablet PO (21:43)
[2020-09-06] MEDS: sodium chloride 0.9% 1,000 ML 50 ML IV (21:44)
[2020-09-06] MEDS: phytonadione (ADULT) 10 mg/mL Ampule 1 mL 5 MG PO (22:01)
[2020-09-06] MEDS: acetaminophen 325 mg Tablet PO (22:41)
[2020-09-07] VITALS (12 sets, daily range): BP systolic 107–146; BP diastolic 61–78; PULSE 53–77; RESP 18; TEMP 36.6–36.9; O2SAT 96–98
[2020-09-07 05:05] LABS: Basophils % 0.7 %; Eosinophils # 0.1 10^3/uL (0.0-0.8); Eosinophils % 1.2 %; Hematocrit 27.1 % (37.0-47.0); Hemoglobin 8.7 g/dL (11.5-15.3); Lymphocytes # 1.7 10^3/uL (0.8-4.8); Lymphocytes % 38.3 %; Mean Corpuscular HGB Conc 32.1 g/dL (30.0-36.0); Mean Corpuscular Hemoglobin 29.5 pg (28.0-34.0); Mean Corpuscular Volume 91.9 fL (81-99); Mean Platelet Volume 12.3 fL (7.4-10.4); Monocytes # 0.6 10^3/uL (0.2-0.9); Monocytes % 14.6 %; Neutrophils # 1.94 10^3/uL (1.8-7.7); Nucleated Red Blood Cells % 0 %; Platelet Count 84 10^3/cmm (130-400); Red Blood Count 2.95 10^6/uL (4.1-5.3); Red Cell Distribution Width 14.6 % (12.1-15.1); White Blood Count 4.3 10^3/uL (4.0-10.0)
[2020-09-07 05:17] LABS: Ammonia 59 umol/L (11-51)
[2020-09-07 05:29] LABS: Alanine Aminotransferase 28 U/L (0-33); Albumin Level 2.3 g/dL (3.5-5.2); Alkaline Phosphatase 140 IU/L (35-105); Anion Gap 8.8 (5-19); Aspartate Amino Transferase 40 U/L (0-32); Blood Urea Nitrogen 17 mg/dL (8-23); Calcium 8.3 mg/dL (8.5-10.5); Carbon Dioxide 27 mmol/L (22-29); Chloride 108 mmol/L (98-107); Globulin 2.7 g/dL (1.3-4.6); Glomerular Filtration Rate 72.7 mL/min (90-130); Glucose 147 mg/dL (65-115); Osmolality Calculated 294 mOsm/kg (285-295); Potassium 3.8 mmol/L (3.5-5.1); Sodium 140 mmol/L (136-145); Total Bilirubin 0.8 mg/dL (0.15-1.2)
[2020-09-07 05:30] LABS: Magnesium 1.7 mg/dL (1.7-2.3)
[2020-09-07] MEDS: spironolactone 25 mg Tablet PO (06:02)
[2020-09-07 06:36] LABS: Glucose Point of Care 146 mg/dL (70-110)
[2020-09-07] MEDS: propranolol 20 mg Tablet 10 MG PO ×2 (08:30→17:41)
[2020-09-07] MEDS: lactulose oral liq 20 gm/30 mL UDC PO ×2 (08:30→14:11)
[2020-09-07] MEDS: pantoprazole DR 40 mg Tablet PO ×2 (08:31→17:41)
--- NOTE | 2020-09-07 08:36 | PM.PN ---
Subjective Subjective: Interval history: Patient reports feeling slightly better. Denies shortness of breath or chest pain. She had another episode of melanotic stool at midnight. Abdominal pain slightly better. Platelets are down to 84 and appears to be consumptive in addition to cirrhosis related. Hemoglobin is down to 8.7 and GI bleed as well as hydration likely playing a role. Vitals/I&O/Wt Last Vital Signs Temp 98.3 F 09/07/20 07:42 Pulse 62 09/07/20 08:19 Resp 18 09/07/20 07:42 BP 116/73 09/07/20 07:42 Pulse Ox 98 09/07/20 08:19 09/06/20 09/07/20 09/07/20 22:59 06:59 14:59 Intake Total 240 / 240 Output Total 350 / 350 500 / 850 Balance -110 / -110 -500 / -610 Weight last 48 hrs Weight 90.718 kg Physical Exam Narrative: EXAM NARRATIVE: Heart is regular and lungs are clear. Abdomen is soft and slightly tender at epigastric area. She has ventral hernia. Data : 09/07/20 04:42 09/07/20 04:42 A&P Assessment and plan (1) Upper GI bleed: Status: Acute (2) Dehydration with hyponatremia: Status: Acute (3) 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: Status: Acute (4) Portal vein thrombosis: Chronic. Status: Acute (5) Diabetes mellitus type 2 in obese: Status: Acute (6) Obesity (BMI 30.0-34.9): Status: Acute Additional A&P Information PLAN: Stop IV fluids and continue with clear liquid diet and advance as tolerated. Continue monitoring for GI bleed. Continue high-dose PPI. Continue with physical and Occupational Therapy. Attestations Medical Necessity Statement*: Patient with GI bleed requires close inpatient monitoring and treatment. Coding Level of Care Code Acute Executive Officer for [facility] Diagnoses Upper GI bleed K92.2 Dehydration with hyponatremia E86.0; E87.1 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 K75.81; K74.60 Portal vein thrombosis I81 Diabetes mellitus type 2 in obese E11.69; E66.9 Obesity (BMI 30.0-34.9) E66.9
--- NOTE | 2020-09-07 09:44 | PC.CHAP ---
Pastoral Care Encounter/Spiritual Assessment Type of Contact [] Declined verifying specialist visit [] Patient/Family/Request visit [] Outpatient visit [] Follow-up visit [] Physician referral [] Code/Alert [] Routine visit [x] Staff referral [] Actively dying [] Patient sleeping [] Family support [] [] Out of room [] Palliative care [] [] Receiving care in room [] Pre-surgical visit [] Trauma [] Long length of stay [] ICU visit [] Other: Relational/Emotional Strength [x] Patient feels connected with others/family/visitors/staff [] Distress [] Loneliness/isolation [] Abandonment Spirituality of Patient [x] Person of Chiquis [] Attends Voodoo of their Chiquis [x] Believes in Prayer [] Reads Bible or Scientologist materials [x] There are Spiritual issues to be addressed Foundation Drill Operator Interventions [x] Prayer [x] Active listening [x] Non-anxious presence [x] Spiritual/emotional support [] Crisis/trauma care [] Spiritual counseling [] Bereavement support [] Provided bereavement packet [] Provided Bible/devotional materials [] Provided toy/stuffed animal, coloring book to patient or family member [] Provided Communion [] Anointing/[employer] [] Salvation [x] Completed spiritual assessment [] Other: Impact on Illness or Injury [] Angry [] Fearful [] Anxious [] Often cries [] Exhaustion [] Unable to work [] Unable to attend religion [] Unable to walk/stand [] Unable to read [] Unable to drive [] Unable to eat/drink [] Unable to sleep [] Unable to be with family [] Patient intubated [] Other: Summary patient doing better Time spent with patient 10 min
[2020-09-07 10:51] LABS: Glucose Point of Care 261 mg/dL (70-110)
[2020-09-07] MEDS: acetaminophen 325 mg Tablet PO (16:12)
[2020-09-07 16:43] LABS: Glucose Point of Care 231 mg/dL (70-110)
[2020-09-07 20:47] LABS: Glucose Point of Care 137 mg/dL (70-110)
[2020-09-07] MEDS: citalopram 20 mg Tablet PO (20:57)
[2020-09-08] VITALS (10 sets, daily range): BP systolic 96–142; BP diastolic 60–74; PULSE 54–59; RESP 17–18; TEMP 36.9–37.2; O2SAT 95–98
[2020-09-08 05:21] LABS: Basophils % 0.9 %; Eosinophils # 0.1 10^3/uL (0.0-0.8); Eosinophils % 3.5 %; Hematocrit 25.7 % (37.0-47.0); Hemoglobin 8.2 g/dL (11.5-15.3); Lymphocytes # 1.7 10^3/uL (0.8-4.8); Lymphocytes % 48.4 %; Mean Corpuscular HGB Conc 31.9 g/dL (30.0-36.0); Mean Corpuscular Hemoglobin 29.6 pg (28.0-34.0); Mean Corpuscular Volume 92.8 fL (81-99); Mean Platelet Volume 12.7 fL (7.4-10.4); Monocytes # 0.5 10^3/uL (0.2-0.9); Neutrophils # 1.18 10^3/uL (1.8-7.7); Neutrophils % 34.2 %; Nucleated Red Blood Cells % 0 %; Platelet Count 81 10^3/cmm (130-400); Red Blood Count 2.77 10^6/uL (4.1-5.3); Red Cell Distribution Width 14.7 % (12.1-15.1); White Blood Count 3.5 10^3/uL (4.0-10.0)
[2020-09-08] MEDS: spironolactone 25 mg Tablet PO (05:41)
[2020-09-08 05:51] LABS: Alanine Aminotransferase 33 U/L (0-33); Albumin Level 2.1 g/dL (3.5-5.2); Alkaline Phosphatase 140 IU/L (35-105); Aspartate Amino Transferase 56 U/L (0-32); Blood Urea Nitrogen 8 mg/dL (8-23); Calcium 8.2 mg/dL (8.5-10.5); Carbon Dioxide 25 mmol/L (22-29); Chloride 112 mmol/L (98-107); Globulin 2.7 g/dL (1.3-4.6); Glomerular Filtration Rate 84.8 mL/min (90-130); Glucose 95 mg/dL (65-115); Magnesium 1.7 mg/dL (1.7-2.3); Osmolality Calculated 292 mOsm/kg (285-295); Sodium 142 mmol/L (136-145); Total Bilirubin 0.8 mg/dL (0.15-1.2); Total Protein 4.8 g/dL (6.6-8.7)
[2020-09-08 06:11] LABS: INR 1.38 (0.8-1.2)
[2020-09-08 06:40] LABS: Glucose Point of Care 106 mg/dL (70-110)
[2020-09-08] MEDS: pantoprazole DR 40 mg Tablet PO ×2 (08:22→17:25)
[2020-09-08] MEDS: lactulose oral liq 20 gm/30 mL UDC PO ×3 (08:22→21:32)
[2020-09-08] MEDS: propranolol 20 mg Tablet 10 MG PO (08:22)
--- NOTE | 2020-09-08 09:29 | PM.PN ---
Subjective Subjective: Interval history: Denies any complaints this morning except reports that she started having some cough with minimal production. She had melanotic bowel movement yesterday and reports that her frequency and amount is getting better. She is tolerating clear liquids and she wants to gradually advance. Her WBC and platelets slightly dropped along with hemoglobin. Blood pressure is 96/60 this morning. Vitals/I&O/Wt Last Vital Signs Temp 98.9 F 09/08/20 07:25 Pulse 59 L 09/08/20 07:25 Resp 18 09/08/20 07:25 BP 96/60 09/08/20 07:25 Pulse Ox 96 09/08/20 07:25 09/07/20 09/08/20 09/08/20 22:59 06:59 14:59 Intake Total 360 / 1397.5 140 / 140 Output Total 225 / 725 900 / 1625 600 / 600 Balance 135 / 672.5 -900 / -227.5 -460 / -460 Weight last 48 hrs Weight 90.718 kg Physical Exam Narrative: EXAM NARRATIVE: Heart is regular and lungs are clear. Abdomen is soft and slightly tender at epigastric area. She has ventral hernia. Data : 09/08/20 04:42 09/08/20 04:42 A&P Assessment and plan (1) Upper GI bleed: Status: Acute (2) Dehydration with hyponatremia: Status: Acute (3) 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: Status: Acute (4) Portal vein thrombosis: Chronic. Status: Acute (5) Diabetes mellitus type 2 in obese: Status: Acute (6) Obesity (BMI 30.0-34.9): Status: Acute Additional A&P Information PLAN: Advance to full liquid diet. Monitor CBC. Continue high-dose PPI. Obtain chest x-ray and sputum Gram stain and culture. Continue with physical and Occupational Therapy. Attestations Medical Necessity Statement*: Patient with GI bleed requires close inpatient monitoring and treatment. Coding Level of Care Code Acute Theatrical Performer for jonathan Haines Diagnoses Upper GI bleed K92.2 Dehydration with hyponatremia E86.0; E87.1 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 K75.81; K74.60 Portal vein thrombosis I81 Diabetes mellitus type 2 in obese E11.69; E66.9 Obesity (BMI 30.0-34.9) E66.9
--- NOTE | 2020-09-08 09:33 | XR_ITS ---
WS: [id number] Portable AP upright chest, 09/08/2020 Clinical Data: Cough, weakness Comparison: None. Findings: No nodules, masses or effusions are seen. The heart is normal. The pulmonary vascularity is not increased. No pneumonia or pneumothorax is seen. There are monitor leads on the chest wall. XR/XR chest 1V portable [id number] Impression: Negative chest.
[2020-09-08 10:44] LABS: Glucose Point of Care 321 mg/dL (70-110)
[2020-09-08 16:46] LABS: Glucose Point of Care 174 mg/dL (70-110)
[2020-09-08 21:04] LABS: Glucose Point of Care 121 mg/dL (70-110)
[2020-09-08] MEDS: citalopram 20 mg Tablet PO (21:32)
[2020-09-09] VITALS (10 sets, daily range): BP systolic 103–155; BP diastolic 55–74; PULSE 54–69; RESP 17–18; TEMP 36.7–37.1; O2SAT 97–99
[2020-09-09] MEDS: spironolactone 25 mg Tablet PO (05:29)
[2020-09-09 05:39] LABS: Basophils % 0.7 %; Eosinophils # 0.1 10^3/uL (0.0-0.8); Eosinophils % 4.7 %; Hematocrit 25.9 % (37.0-47.0); Hemoglobin 8.4 g/dL (11.5-15.3); Lymphocytes # 1.3 10^3/uL (0.8-4.8); Lymphocytes % 42.9 %; Mean Corpuscular HGB Conc 32.4 g/dL (30.0-36.0); Mean Corpuscular Hemoglobin 30.2 pg (28.0-34.0); Mean Corpuscular Volume 93.2 fL (81-99); Mean Platelet Volume 12.6 fL (7.4-10.4); Monocytes # 0.4 10^3/uL (0.2-0.9); Monocytes % 14.9 %; Neutrophils # 1.08 10^3/uL (1.8-7.7); Neutrophils % 36.5 %; Nucleated Red Blood Cells % 0 %; Platelet Count 70 10^3/cmm (130-400); Red Blood Count 2.78 10^6/uL (4.1-5.3); Red Cell Distribution Width 14.6 % (12.1-15.1)
[2020-09-09 06:17] LABS: Alanine Aminotransferase 36 U/L (0-33); Albumin Level 2.2 g/dL (3.5-5.2); Alkaline Phosphatase 145 IU/L (35-105); Anion Gap 8.8 (5-19); Aspartate Amino Transferase 66 U/L (0-32); Blood Urea Nitrogen 5 mg/dL (8-23); Calcium 8.3 mg/dL (8.5-10.5); Carbon Dioxide 26 mmol/L (22-29); Chloride 110 mmol/L (98-107); Globulin 2.8 g/dL (1.3-4.6); Glomerular Filtration Rate 72.7 mL/min (90-130); Glucose 101 mg/dL (65-115); Magnesium 1.7 mg/dL (1.7-2.3); Osmolality Calculated 289 mOsm/kg (285-295); Potassium 3.8 mmol/L (3.5-5.1); Sodium 141 mmol/L (136-145); Total Bilirubin 0.7 mg/dL (0.15-1.2)
[2020-09-09 06:38] LABS: Glucose Point of Care 116 mg/dL (70-110)
[2020-09-09] MEDS: pantoprazole DR 40 mg Tablet PO ×2 (09:33→17:39)
[2020-09-09] MEDS: propranolol 20 mg Tablet 10 MG PO ×2 (09:34→17:39)
[2020-09-09] MEDS: lactulose oral liq 20 gm/30 mL UDC PO ×3 (09:34→22:53)
[2020-09-09 10:52] LABS: Glucose Point of Care 218 mg/dL (70-110)
--- NOTE | 2020-09-09 11:13 | PM.PN ---
Subjective Subjective: Interval history: Patient reports being slightly lightheaded on certain movements. She is tolerating full liquids well and wants to advance. She had no more bowel movements since day before yesterday. She denies significant abdominal pain. Hemoglobin appears stable. She does take her lactulose including this morning. Vitals/I&O/Wt Last Vital Signs Temp 98.1 F 09/09/20 08:00 Pulse 56 L 09/09/20 08:00 Resp 18 09/09/20 08:00 BP 155/65 09/09/20 08:00 Pulse Ox 98 09/09/20 08:00 09/08/20 09/09/20 09/09/20 22:59 06:59 14:59 Intake Total 140 / 420 140 / 140 Output Total 600 / 1200 400 / 1600 Balance -460 / -780 -400 / -1180 140 / 140 Physical Exam Narrative: EXAM NARRATIVE: Heart is regular and lungs are clear. Abdomen is soft and slightly tender at epigastric area. She has ventral hernia. Data : 09/09/20 04:30 09/09/20 04:30 A&P Assessment and plan (1) Upper GI bleed: Status: Acute (2) Dehydration with hyponatremia: Status: Acute (3) 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: Status: Acute (4) Portal vein thrombosis: Chronic. Status: Acute (5) Diabetes mellitus type 2 in obese: Status: Acute (6) Obesity (BMI 30.0-34.9): Status: Acute Additional A&P Information PLAN: Continue current monitoring and treatment and advance diet to carbohydrate consistent. Continue monitoring CBC. Continue with physical therapy. Attestations Medical Necessity Statement*: Patient with GI bleed requires close inpatient monitoring and treatment until deemed safe for discharge. Coding Level of Care Code Acute Senior Teradata Developer for [facility] Fwd Diagnoses Upper GI bleed K92.2 Dehydration with hyponatremia E86.0; E87.1 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 K75.81; K74.60 Portal vein thrombosis I81 Diabetes mellitus type 2 in obese E11.69; E66.9 Obesity (BMI 30.0-34.9) E66.9
[2020-09-09] MEDS: FUROsemide 40 mg Tablet PO (13:07)
[2020-09-09] MEDS: acetaminophen 325 mg Tablet PO (16:31)
[2020-09-09 17:20] LABS: Glucose Point of Care 181 mg/dL (70-110)
--- NOTE | 2020-09-09 19:43 | PC.OT ---
OT tx attempted. Pt declines to get up or participate stating I need to take a nap. I didn't sleep last night . Pt goes on to talk to therapist for 20 minutes regarding her symptoms,problems etc. Pt got a phone call and therapist left the room to allow pt to complete her call and rest. OT will be attempted again tomorrow.
[2020-09-09 20:36] LABS: Glucose Point of Care 127 mg/dL (70-110)
[2020-09-09] MEDS: citalopram 20 mg Tablet PO (22:53)
[2020-09-10 04:13] VITALS: BP 102/61; PULSE 61; RESP 18; TEMP 36.9; O2SAT 97
[2020-09-10] MEDS: spironolactone 25 mg Tablet PO (06:25)
[2020-09-10 06:39] LABS: Glucose Point of Care 123 mg/dL (70-110)
[2020-09-10 07:32] VITALS: BP 145/62; PULSE 56; RESP 18; TEMP 36.9; O2SAT 95
[2020-09-10 10:27] LABS: Basophils % 0.7 %; Eosinophils # 0.1 10^3/uL (0.0-0.8); Eosinophils % 3.3 %; Hematocrit 27.3 % (37.0-47.0); Hemoglobin 8.5 g/dL (11.5-15.3); Lymphocytes # 0.9 10^3/uL (0.8-4.8); Lymphocytes % 28.8 %; Mean Corpuscular HGB Conc 31.1 g/dL (30.0-36.0); Mean Corpuscular Hemoglobin 29.8 pg (28.0-34.0); Mean Corpuscular Volume 95.8 fL (81-99); Mean Platelet Volume 12.4 fL (7.4-10.4); Monocytes # 0.4 10^3/uL (0.2-0.9); Monocytes % 13.4 %; Neutrophils % 53.5 %; Nucleated Red Blood Cells % 0 %; Platelet Count 79 10^3/cmm (130-400); Red Blood Count 2.85 10^6/uL (4.1-5.3)
[2020-09-10] MEDS: lactulose oral liq 20 gm/30 mL UDC PO ×2 (10:29→15:38)
[2020-09-10] MEDS: FUROsemide 40 mg Tablet PO (10:30)
[2020-09-10] MEDS: pantoprazole DR 40 mg Tablet PO (10:30)
[2020-09-10] MEDS: propranolol 20 mg Tablet 10 MG PO (10:30)
[2020-09-10 10:35] LABS: Glucose Point of Care 307 mg/dL (70-110)
[2020-09-10 10:46] VITALS: PULSE 62
[2020-09-10 11:26] VITALS: BP 141/64; PULSE 59; RESP 18; TEMP 36.9; O2SAT 95
[2020-09-10 11:26] LABS: Alanine Aminotransferase 38 U/L (0-33); Albumin Level 2.3 g/dL (3.5-5.2); Alkaline Phosphatase 166 IU/L (35-105); Anion Gap 10.6 (5-19); Aspartate Amino Transferase 59 U/L (0-32); Blood Urea Nitrogen 8 mg/dL (8-23); C Reactive Protein 2.9 mg/L (0.0-4.9); Carbon Dioxide 25 mmol/L (22-29); Chloride 102 mmol/L (98-107); Globulin 2.8 g/dL (1.3-4.6); Glomerular Filtration Rate 63.4 mL/min (90-130); Glucose 289 mg/dL (65-115); Osmolality Calculated 287 mOsm/kg (285-295); Potassium 3.6 mmol/L (3.5-5.1); Sodium 134 mmol/L (136-145); Total Bilirubin 0.7 mg/dL (0.15-1.2); Total Protein 5.1 g/dL (6.6-8.7)
--- NOTE | 2020-09-10 11:42 | PM.DCS ---
Discharge Providers Date of Admission: 09/06/20 17:46 Date of Discharge: September 10, 2020 Attending Provider at Admission: José Miguel Elizabeth MD Attending Provider at Discharge: José Miguel Elizabeth MD Primary Care Provider: Pauline Pereira MD Diagnoses at Discharge Discharge Diagnosis (1) Upper GI bleed: Status: Acute (2) Dehydration with hyponatremia: Status: Acute (3) 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: Status: Acute (4) Portal vein thrombosis: Status: Acute (5) Diabetes mellitus type 2 in obese: Status: Acute (6) Obesity (BMI 30.0-34.9): Status: Acute Reason for Visit Reason for Visit: N/V, COLD CHILLS, BLACK STOOL Hospital Course Hospital Course Patient presented with what appears to be upper GI bleed. She had previous history of AVM. She was closely monitored and her GI bleed appears to be stabilized. I have received picture of her last stool yesterday via [employer] and patient had dark brown soft, large stool without evidence of melena or hematochezia. Her hemoglobin and platelets are stable. Her oral intake is adequate therefore it felt safe for patient to be dismissed home. Patient noted to have portal vein thrombosis which appears to be chronic. Patient is a very high risk for bleeding with anticoagulation. Further evaluation for malignancy and considering surgical intervention could be done and therefore I will request patient to see her GI specialist earliest possible. During this hospitalization performing EGD and colonoscopy felt unnecessary. Patient's bleeding likely related to the AVMs. This morning patient denies shortness of breath or chest pain. She did not have any abdominal pain this morning but does report that occasionally she gets spikes of epigastric area abdominal pains which may last several hours. This been going on for a long time. Clinically patient does not appear to have mesenteric ischemia. Her abdominal exam benign with exception of easily reducible ventral hernia. Patient was told to continue with lactulose titrated for soft 2-3 bowel movements per day. Physical Exam Narrative: EXAM NARRATIVE: Lungs are clear and heart is regular. Abdomen is soft and nontender with positive bowel sounds. No lower extremity edema. Discharge Data Data Completed and Pending: Completed Studies During Hospitalization Category Date Time Status CT abdomen pelvis w con* [id number] Stat Cat Scan 09/06/20 15:49 Completed XR chest 1V yue ble [id number] Routine Exams 09/08/20 09:33 Completed Pending at discharge Category Date Time Status Complete Blood Co unt w/Auto AM LABS Lab 09/11/20 04:00 Ordered Complete Blood Co unt w/Auto AM LABS Lab 09/12/20 04:00 Ordered Complete Blood Co unt w/Auto AM LABS Lab 09/13/20 04:00 Ordered Comprehensive Met abolic Panel AM LA BS Lab 09/11/20 04:00 Ordered Comprehensive Met abolic Panel AM LA BS Lab 09/12/20 04:00 Ordered Comprehensive Met abolic Panel AM LA BS Lab 09/13/20 04:00 Ordered Magnesium AM LABS Lab 09/11/20 04:00 Ordered Magnesium AM LABS Lab 09/12/20 04:00 Ordered Magnesium AM LABS Lab 09/13/20 04:00 Ordered Sputum Culture an d Gram Stain Juani ne Lab 09/08/20 09:32 Uncollected Labs from last 24 hours 09/10/20 09/10/20 09/10/20 10:27 10:20 10:20 WBC 3.0 L RBC 2.85 L Hgb 8.5 L Hct 27.3 L MCV 95.8 MCH 29.8 MCHC 31.1 RDW 15.0 Plt Count 79 L MPV 12.4 H Neut % (Auto) 53.5 Lymph % (Auto) 28.8 Edwards % (Auto) 13.4 Eos % (Auto) 3.3 Baso % (Auto) 0.7 Neut # (Auto) 1.60 L Lymph # (Auto) 0.9 Edwards # (Auto) 0.4 Eos # (Auto) 0.1 Baso # (Auto) 0.0 Nucleated RBC % (a uto) 0 Nucleated RBCs # 0.0 Sodium 134 L Potassium 3.6 Chloride 102 Carbon Dioxide 25 Anion Gap 10.6 BUN 8 Creatinine 0.9 GFR Calculation 63.4 L Glucose 289 H POC Glucose 307 H Calculated Osmolal ity 287 Calcium 8.0 L Total Bilirubin 0.7 AST 59 H ALT 38 H Alkaline Phosphata se 166 H C-Reactive Protein 2.9 Total Protein 5.1 L Albumin 2.3 L Globulin 2.8 09/10/20 09/09/20 09/09/20 06:30 20:28 17:14 WBC RBC Hgb Hct MCV MCH MCHC RDW Plt Count MPV Neut % (Auto) Lymph % (Auto) Edwards % (Auto) Eos % (Auto) Baso % (Auto) Neut # (Auto) Lymph # (Auto) Edwards # (Auto) Eos # (Auto) Baso # (Auto) Nucleated RBC % (a uto) Nucleated RBCs # Sodium Potassium Chloride Carbon Dioxide Anion Gap BUN Creatinine GFR Calculation Glucose POC Glucose 123 H 127 H 181 H Calculated Osmolal ity Calcium Total Bilirubin AST ALT Alkaline Phosphata se C-Reactive Protein Total Protein Albumin Globulin Vitals: Last Vital Signs Temp 98.5 F 09/10/20 11:26 Pulse 59 L 09/10/20 11:26 Resp 18 09/10/20 11:26 BP 141/64 09/10/20 11:26 Pulse Ox 95 09/10/20 11:26 Discharge Plan Discharge Patient Disposition: Home Condition: Stable Prescriptions: Continued lactulose 10 gram/15 mL solution 30 ml PO TID RF: 0 citalopram 20 mg tablet 20 mg PO BEDTIME RF: 0 furosemide 40 mg tablet 40 mg PO DAILY@08 RF: 0 spironolactone 25 mg tablet 25 mg PO QAM RF: 0 propranolol 10 mg tablet 10 mg PO BID RF: 0 Multiple Vitamin, Womens Tablet 1 tab PO DAILY RF: 0 Lantus Solostar U-100 Insulin 100 unit/mL (3 mL) insulin pen 35 unit SUBCUT QAM RF: 0 Tylenol 325 mg Tablet 325 mg PO PRN RF: 0 potassium gluconate 595 mg (99 mg) Tablet 595 mg PO DAILY RF: 0 Victoza 2-Johnny 0.6 mg/0.1 mL (18 mg/3 mL) Pen Injector 0.6 mg SUBCUT QPM RF: 0 Xifaxan 550 mg tablet 550 mg PO BID RF: 0 melatonin 10 mg Tablet 10 mg PO BEDTIME RF: 0 zinc 1 cap PO DAILY RF: 0 Changed omeprazole 20 mg Capsule,Delayed Release(Dr/Ec) 20 mg PO BID Qty: 0 RF: 0 Discharge Orders: Discharge Order (Routine); Ordered 09/10/20 Ordered By: José Miguel Elizabeth Other Ambulatory Orders: DME: [facility] (Order) Location: None Selected Ordered By: José Miguel Elizabeth Referrals: Pauline Pereira MD [Primary Care Provider] - 4-7 days Discharge Diet: Advance as tolerated Discharge Activity: Increase activity as tolerated Activity Restrictions/Additional Instructions: Please call your doctor or present to emergency department if your condition worsens or you develop diarrhea, lightheadedness, fatigue or see blood in your stool or black stool. Please follow-up with GI specialist and neurologist as was previously planned earliest possible. Please make sure you discuss with your GI doctor regarding chronic portal vein thrombosis so you can be further monitored and evaluated. Please titrate your lactulose as needed to have 2-3 soft bowel movements per day. Discharge Attestations Time Spent in Discharge Care*: greater than 30 min Quality Metrics Clinical Quality Measures During this hospital stay, did patient experience: None Coding Level of Care Code Acute Chg [facility] note Diagnoses Upper GI bleed K92.2 Dehydration with hyponatremia E86.0; E87.1 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 K75.81; K74.60 Portal vein thrombosis I81 Diabetes mellitus type 2 in obese E11.69; E66.9 Obesity (BMI 30.0-34.9) E66.9
[2020-09-10 15:05] VITALS: BP 144/65; PULSE 62; RESP 18; TEMP 36.9; O2SAT 95
--- NOTE | 2020-09-10 17:01 | PC.NURSE ---
DISCHARGE INSTRUCTIONS GONE OVER WITH PT, NO QUESTIONS OR CONCERNS AT THIS TIME, SHE WAS INFORMED ON HOW TO CALL IF SHE HAD ANY ARISE, IV REMOVED AND CELESTE GOMEZ TOOK PT DOWN WITH IN WHEEL CHAIR.
[2020-09-10 17:02] VITALS: BP 144/65; PULSE 62; RESP 18; TEMP 36.9; O2SAT 95
== END 2020-09-10 16:30 | disposition home or self-care (01) | DRG 377 ==
LOC: ER 15:30 → MEDSURG 18:12
PROVIDERS: Admitting Provider Internal Medicine; Emergency Provider Family Medicine; PCP Internal Medicine; Visit Provider Internal Medicine
DX: K92.2 Gastrointestinal hemorrhage, unspecified (principal); I81 Portal vein thrombosis; K43.0 Incisional hernia with obstruction, without gangrene; E87.1 Hypo-osmolality and hyponatremia; Q27.33 Arteriovenous malformation of digestive system vessel; K74.60 Unspecified cirrhosis of liver; K75.81 Nonalcoholic steatohepatitis (NASH); F03.90 Unspecified dementia, unspecified severity, without behavioral disturbance, psychotic disturbance, mood disturbance, and anxiety; D50.0 Iron deficiency anemia secondary to blood loss (chronic); E11.9 Type 2 diabetes mellitus without complications; Z87.442 Personal history of urinary calculi; E66.9 Obesity, unspecified; Z68.33 Body mass index [BMI] 33.0-33.9, adult; Z98.84 Bariatric surgery status; E86.0 Dehydration; Z79.4 Long term (current) use of insulin
CPT/HCPCS: 36415; 36416; 71045; 74177; 80053; 81001; 82140; 82962; 83690; 83735; 84145; 84443; 85025; 85610; 85730; 86140; 96372; 96374; 97110; 97116; 97161; 97165; 97530; 97535; 99285; C9113; J1815; J3430; J7030; Q9967

== ENCOUNTER 2020-09-14 13:26 | Outpatient (CLI) | payer MEDICAID, SELFPAY ==
[2020-09-14 13:49] LABS: Basophils % 0.8 %; Eosinophils # 0.1 10^3/uL (0.0-0.8); Eosinophils % 2.2 %; Hematocrit 28.2 % (37.0-47.0); Hemoglobin 8.9 g/dL (11.5-15.3); Lymphocytes # 1.2 10^3/uL (0.8-4.8); Lymphocytes % 34.3 %; Mean Corpuscular HGB Conc 31.6 g/dL (30.0-36.0); Mean Corpuscular Hemoglobin 29.1 pg (28.0-34.0); Mean Corpuscular Volume 92.2 fL (81-99); Mean Platelet Volume 12.8 fL (7.4-10.4); Monocytes # 0.4 10^3/uL (0.2-0.9); Monocytes % 11.2 %; Neutrophils # 1.82 10^3/uL (1.8-7.7); Neutrophils % 51.2 %; Nucleated Red Blood Cells % 0 %; Platelet Count 108 10^3/cmm (130-400); Red Blood Count 3.06 10^6/uL (4.1-5.3); Red Cell Distribution Width 14.7 % (12.1-15.1); White Blood Count 3.6 10^3/uL (4.0-10.0)
[2020-09-14 14:12] LABS: Ferritin 12 ng/mL (15-150); Iron 20 ug/dL (37-145); Percent Saturation 7.1 % (20-50); Total Iron Binding Capacity 279 mcg/dl; Unsaturated Iron Binding 259 ug/dL (112-347)
--- NOTE | 2020-10-03 15:02 | ONC FU_ITS ---
Dr. De Guzman follow up note Patient: GILLIAN DUGAN Unit #: [id number]: 1955 Dicatated By: Filiberto De Guzman M.D.Date of Visit:Sep 14, 2020 Onc Med Follow-up/Prog Note History of Present Illness: Mrs. Gillian Machado, is a 64-year-old female with a long-standing history of hepatic cirrhosis nonalcoholic, probably due to fatty liver initially diagnosed in 2004. At that time she underwent Mitra-en-Y gastric bypass for obesity and during surgery she was found to have enlarged liver, as per patient at that time she was also diagnosed with sarcoidosis involving lymph node. And further workup include EGD done 2004 showed esophageal varices, and also underwent capsule endoscopy which showed small bowel AVMs. And colonoscopy were done around that time was incomplete study due to poor preparation or 'twisting'. Patient did develop ascites, due to portal hypertension and not sure about enlarged spleen but we would suspect splenomegaly due to portal hypertension. Patient, recently had abdominal sonogram done at hepatology department, [facility]. Denies any recent blood transfusion, denies any melena or hematochezia, denies any hemoptysis or hematemesis, denies any jaundice. But complaining of generalized weakness and fatigue. History of cervical carcinoma in situ diagnosed in 1986 status post hysterectomy only . as per patient recently she went to hospital with upper abdominal pain and was diagnosed with H. pylori infection now being treated with antibiotics. And pain has resolved. But she has been feeling weak and tired and her PMD did labs on April 20, 2020 which showed white blood count 4000 hemoglobin 9.1 hematocrit 30.6 platelets 118,000 MCV 78 and iron studies shows iron saturation 9 iron 31 TIBC 355, prior to that her CBC done on March 03, 2020 showed hemoglobin 10.2 g with MCV 78 and prior to that CBC done on November 25, 2019 showed white blood count 5.4 hemoglobin 11.1 hematocrit 34 platelet 113,000, In the past patient was treated with Injectafer weekly x2, responded very well with normalization of hemoglobin. Came for follow-up, denies any specific complaints except generalized weakness and fatigue as per patient she was in hospital recently and also had episode of dark-colored stools., Did not require any blood transfusion, treated symptomatically and improved denies any more dark-colored stools or blood in her stool denies any hemoptysis or hematemesis denies any jaundice denies any chest pain or shortness of breath at rest. . Medications: Acetaminophen 2 Capsule (of 325 mg) Oral at bedtime, Amoxicillin 2 Tablet (of 500 mg) Oral b.i.d., Calcium Antacid Ultra 1 Tablet (of 100 mg) Tablet, chewable Oral daily, Citalopram Hydrobromide 1 Tablet (of 10 mg) Oral daily, Clarithromycin 1 Tablet (of 500 mg) Oral b.i.d., Furosemide 1 (40 mg) Tablet Oral daily, Lasix 1 Tablet (of 40 mg) Oral daily, Multivitamins 1 Capsule Oral daily, Pantoprazole Sodium 2 Tablet (of 40 mg) Tablet, enteric coated Oral b.i.d., Potassium 1 Tablet (of 99 mg) Oral daily, Propranolol HCl 1 Tablet (of 10 mg) Oral b.i.d., Spironolactone 1 Tablet (of 25 mg) Oral daily, Tresiba 35 Units (of 100 Units/mL) Subcutaneous daily, Zinc 1 Capsule (of 50 mg) Oral daily Allergies: No Known Allergies. Review of Systems: Review of Systems is not available for this patient. Vital Signs: Performed on Sep 14, 2020 15:02 Height - 65.50 in Temperature - 98.2 F (LOW) Pulse - 67 /min Respiration - 19 /min BP - 132/51 mm(hg) O2 Sat - 98 % Pain - 6 Performance Status: 2 - Ambulatory/capable of all self-care, unable to perform any work activities. Up and about more than 50% of waking hours. (ECOG) Physical Examination: ENMT - No mouth sores, no thrush, no jaundice, Respiratory - Lungs are clear to auscultation, Cardiovascular - Regular rate and rhythm of heart, Abdomen - , Bowel sounds present, Soft, nontender, Extremities - No visible edema. Lab/Imaging: Test performed on Sep 14, 2020 13:25 Ferritin 12 ng/mL % Iron Saturation 7.1 % Iron, Total 20 mcg/dL TIBC 279 mcg/dL WBC 3.6 10^9/L RBC 3.06 10^12/L HGB 8.9 g/dL HCT 28.2 % MCV 92.2 fl MCH 29.1 pg MCHC 31.6 g/dL RDW 14.7 % Platelet Count 108 10^9/L MPV 12.8 fL Neutrophils (Gran) 1.82 10^9/L Lymphocytes 1.2 10^9/L Monocytes 0.4 10^9/L Eosinophils 0.1 10^9/L Basophils 0.0 10^9/L Manual Lymphocytes 34.3 % Manual Monocytes 11.2 % Manual Eosinophils 2.2 % Manual Basophils 0.8 % Test performed on Jul 07, 2020 13:03 Sed Rate 8 mm/hr Test performed on Jul 07, 2020 12:53 Glucose 148 mg/dL LDH, Total 253 IU/L BUN 10 mg/dL Creatinine 0.62 mg/dL Cr Clearance (Est) 138.51 mL/min BUN/Creatinine Ratio 16 Absolute Value Sodium 140 mmol/L Potassium 4.1 mmol/L Chloride 106 mmol/L CO2 28 mmol/L Calcium 8.3 mg/dL Protein, Total 6.0 g/dL Albumin 2.8 g/dL Globulin 3.2 g/dL A/G Ratio 0.9 Absolute Value Bilirubin, Total 0.8 mg/dL Alkaline Phosphatase 167 IU/L AST (SGOT) 72 IU/L ALT (SGPT) 39 IU/L Test performed on May 23, 2020 16:05 Hemoglobin A1C 8.0 % Impression: Pancytopenia, etiology appears multifactorial including due to splenic sequestration due to splenomegaly due to portal hypertension/nonalcoholic hepatic cirrhosis. And chronic GI blood loss due to esophageal varices and/or small bowel AVMs And/or iron malabsorption due to gastric bypass done in 2004 Lab workup done on 12/16/2018 shows ferritin 10, TIBC 368, iron saturation 5.9 iron 22, B12 more than 2000 folate 16.5 and copper level 114 Considering her age underlying myelodysplasia cannot be ruled out and ?bone marrow suppression due to copper deficiency especially after gastric bypass Nonalcoholic hepatic cirrhosis now with portal hypertension, ascites, esophageal varices,Recurrent hepatic encephalopathy small wall AVMs probably splenomegaly.As per patient initially she was 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 corner bead 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 at [facility] in [place], and later on in [place] Colonoscopy done on December 24, 2019 showed transverse colon, descending colon and sigmoid colon rectum all appeared normal but beyond transverse colon evaluation was not possible because of incisional hernia, EGD done on December 24, 2019 shows no esophageal abnormality and there was a patent GJ anastomosis, anastomotic stricture or ulceration noted, jejunum was normal Plan: Discussed with patient regarding her labs white blood count 3.6 hemoglobin 8.9 hematocrit 28.3 platelets 108,000 iron studies shows ferritin 12 compared to 211 on July 21, 2020 iron saturation 7.1% iron 20 Clinically, patient is doing reasonably well now with generalized weakness and fatigue due to progressive iron deficiency anemia which could be multifactorial including chronic GI blood loss or malabsorption, in the past she responded very well to parenteral iron with normalization of hemoglobin and iron stores. We will proceed with Injectafer 750 IV weekly x2 and then she will return to clinic in month after second dose with CBC and iron studies Signed By: Filiberto eD Guzman M.D. <<Signature on File>>
== END 2020-09-14 13:27 | disposition home or self-care (01) ==
PROVIDERS: PCP Internal Medicine; Visit Provider Internal Medicine Hematology & Oncology
DX: D50.9 Iron deficiency anemia, unspecified (principal); D61.818 Other pancytopenia; Z79.899 Other long term (current) drug therapy
CPT/HCPCS: 82728; 83540; 83550; 85025; 99214

== ENCOUNTER 2020-09-30 08:13 | Outpatient (CLI) | payer MEDICAID, SELFPAY ==
[2020-09-30] MEDS: ferric carboxy (IVPB) 750 MG in sodium chloride 0.9% (100 ml) 100 ML 460 MG IV (12:02)
== END 2020-09-30 08:14 | disposition home or self-care (01) ==
LOC: ONCMED 08:14
PROVIDERS: PCP Internal Medicine; Visit Provider Internal Medicine Hematology & Oncology
DX: D50.9 Iron deficiency anemia, unspecified (principal); D61.818 Other pancytopenia
CPT/HCPCS: 96365; J1439

== ENCOUNTER 2020-10-07 06:14 | Outpatient (CLI) | payer MEDICAID, SELFPAY ==
[2020-10-07] MEDS: sodium chloride 0.9% 100 mL Bag IV (11:17)
[2020-10-07] MEDS: ferric carboxy (PYXIS) 750 mg/15 mL INJ IV (11:17)
== END 2020-10-07 06:15 | disposition home or self-care (01) ==
LOC: ONCMED 06:16
PROVIDERS: PCP Internal Medicine; Visit Provider Internal Medicine Hematology & Oncology
DX: D64.9 Anemia, unspecified (principal); D61.818 Other pancytopenia
CPT/HCPCS: J1439

== ENCOUNTER → 2020-11-16 10:36 | Outpatient (BNVA) | payer MEDICAID, SELFPAY | PROVIDERS: PCP Internal Medicine; Visit Provider Specialist | DX: E11.40 Type 2 diabetes mellitus with diabetic neuropathy, unspecified (principal); Z79.4 Long term (current) use of insulin; G43.711 Chronic migraine without aura, intractable, with status migrainosus; G31.84 Mild cognitive impairment of uncertain or unknown etiology; I81 Portal vein thrombosis; K75.81 Nonalcoholic steatohepatitis (NASH); K74.60 Unspecified cirrhosis of liver; E66.9 Obesity, unspecified; Z68.32 Body mass index [BMI] 32.0-32.9, adult | CPT/HCPCS: 96116; 99205 ==

== ENCOUNTER 2020-11-22 01:26 | Emergency (ER) | payer MEDICAID, SELFPAY ==
[2020-11-22 01:51] VITALS: BP 134/75; PULSE 63; RESP 17; TEMP 36.4; O2SAT 98; BMI 29.9
--- NOTE | 2020-11-22 02:29 | ED_ITS ---
HPI - Fall General: Chief Complaint: Fall Stated Complaint: Fall\Back Pain Time Seen by Provider: 11/22/20 02:29 History of Present Illness: HPI Narrative: Patient is a 64-year-old female comes to the ED with headache, neck pain and back pain after fall. Patient has a past medical history of migraines, mild cognitive impairment with memory loss, type 2 diabetes and liver cirrhosis. Patient says earlier today she lost her balance and fell backwards in her home. Denies being on any blood thinners. She is unsure if she had any loss of consciousness but does report hitting her head on floor. Patient says her floor in the house was carpeted. She now has some right side mid back pain, headache and left-sided neck pain. Her headache is located in the back of her head. Her neck is sore on the left side and hurts whenever she turns her head to the right and left. Her back pain is in the thoracic region and located on the right side just below right shoulder blade. She reports pain in that region whenever she twists her torso left or right. Patient says she took some Tylenol today to help with pain. Denies any neurological symptoms such as numbness/tingling or weakness to face or extremities. Denies any vision changes. Associated symptoms-after fall: Reports headache(s) and neck pain (left side); Denies abdominal pain, chest pain or hematuria Review of Systems Const: Denies: fever(s), chills or fatigue Eyes: Denies: change in vision or eye discomfort ENMT: Denies: throat pain, odynophagia, nasal discharge or nasal congestion Card: Denies: chest pain, palpitations, edema, swelling of feet/ankles, dyspnea on exertion or orthopnea Resp: Denies: dyspnea, productive cough or non-productive cough GI: Denies: abdominal pain, nausea, vomiting, diarrhea, constipation or hematochezia : Denies: flank pain, dysuria or hematuria Musc: Reports: neck pain (left side) and back pain (mid back-right side); Denies: extremity swelling Skin/Breast: Denies: rash or new lesions Neuro: Reports: headache(s); Denies: numbness in extremities or weakness in extremities FOR[facility] ED PFSH: Medical History Cirrhosis of liver Diabetes Hepatic encephalopathy Incisional hernia Kidney stones 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) Obesity (BMI 30.0-34.9) Surgical History H/O gastric bypass H/O: hysterectomy cervical cancer History of colonoscopy History of esophagogastroduodenoscopy (EGD) Hx of cholecystectomy Family History Mother Hypertension Father Chronic kidney disease (CKD) Sleep apnea Other Bleeding disorder Denies family history of Anesthesia complication Social History Smoking and tobacco status: never smoked Alcohol intake: never History of recent travel: No Physical Exam Const: COMMON NORMALS: no acute distress, patient oriented x3 and alert GENERAL APPEARANCE: cooperative and comfortable HENMT: COMMON NORMALS: normocephalic and atraumatic HEAD & SCALP: normocephalic and atraumatic; no Davila's sign and no raccoon eyes MOUTH: Normal oral and palatal mucosa present THROAT: posterior oropharynx normal and uvula midline Eye: COMMON NORMALS: Equal, round and reactive pupils present and EOMs intact bilaterally PUPIL: Yes Equal, round and reactive pupils present Neck/C-Spine: COMMON NORMALS: full ROM and supple GENERAL: Yes normal visual inspection CERVICAL SPINE: Yes pain with cervical ROM with rotation to the right and with rotation to the left, No Cervical spine tenderness, Yes Paracervical muscle tenderness left and Yes Trapezius muscle tenderness left Resp: COMMON NORMALS: normal respiratory effort, No retractions, No use of accessory muscles and clear to auscultation bilaterally AUSCULTATION: clear to auscultation bilaterally Cardio: COMMON NORMALS: regular rate, regular rhythm, S1 normal heart sound present, S2 normal heart sound present, No gallops present (Cardio), No clicks present (Cardio), No murmurs present (Cardio) and Peripheral pulses 2+ throu ghout RATE: regular rate RHYTHM: regular rhythm HEART SOUNDS: S1 normal heart sound present and S2 normal heart sound present PERIPHERAL PULSES: Peripheral pulses 2+ throughout GI: COMMON NORMALS: Normal to inspection, nondistended, normoactive bowel sounds present, Soft to palpation, non-tender and no masses PALPATION: Yes Soft to palpation : COMMON NORMALS: Yes no CVA tenderness BLADDER/KIDNEY EXAM: Yes no CVA tenderness Back/Pelvis: COMMON NORMALS: no CVA tenderness THORACIC SPINE/UPPER BACK: Yes paraspinal muscle tenderness Thoracic paraspinal muscle tenderness: right Right thoracic paraspinal muscle tenderness: T5, T6 and T7 and Yes other soft tissue findings Other thoracic soft tissue findings laterality: right Right other thoracic soft tissue findings details: tenderness (Soft tissue/muscular tenderness inferior to right shoulder blade) Extremity: COMMON NORMALS: normal to inspection and no pedal edema Neuro: COMMON NORMALS: patient oriented x3, CN's II-XII intact bilaterally, moves all extremities, no focal motor deficits and no sensory deficits noted SENSORIUM/ORIENTATION: Yes alert COORDINATION/BALANCE: [id number]-[id number]-[id number] test normal SPEECH: speech normal SENSORY EXAM: Yes extremities (intact) MOTOR EXAM: 5/5 motor strength present throughout COORDINATION: lycyzt-qv-hula test normal Skin: GENERAL SKIN EXAM: dry skin Course Vital Signs: Vital signs: Vital Signs Temperature 97.8 F 11/22/20 04:00 Pulse Rate 52 L 11/22/20 04:00 Respiratory Rate 15 11/22/20 04:00 Blood Pressure 128/76 11/22/20 04:00 Pulse Oximetry 100 11/22/20 04:00 MDM - Fall MDM Narrative: Medical decision making narrative: Patient comes to the ED by walk-in and is ambulatory after having a fall in her home earlier today. She has no visible injuries and is complaining of a headache, neck pain and mid back pain. Unsure if she had a loss of consciousness. Neuro exam was normal patient had some right-sided muscular thoracic back tenderness along with some left sided muscle tenderness of neck. CT of head and cervical spine showed no acute fractures or findings. Thoracic back x-ray showed no acute fractures or findings. Patient was diagnosed with a headache and musculoskeletal back pain after having a fall. She was given a dose of Toradol while here in the ED to help with her pain and headache. She was discharged home and told to follow-up with PCP in 7 to 10 days for reevaluation. Return to ED precautions given. Patient understood and agree with plan. Imaging Data^: CT Head: Attestation: I personally reviewed and interpreted this imaging study as follows: Radiologist's impression: [id number] [address] [address] Scan Report Signed Patient: Gillian Gonzalez Unit #: [id number] : 1955 Age/Sex: 64 / F ADM Date: 11/22/20 Loc: ER Room/Bed: Attending Dr: Ordering Provider/Ordering MD: Chavo Rdz Date of Service: 11/22/20 Procedure(s): CT head wo con* [id number] Accession Number(s): [id number] Report Number: [id number] PROCEDURE INFORMATION: Exam: CT Head Without Contrast Exam date and time: 11/22/2020 2:49 AM Age: 64 years old Clinical indication: Injury or trauma; Fall; Blunt trauma (contusions or hematomas); Without loss of consciousness; Additional info: Fall and hit head. Currently has headache TECHNIQUE: Imaging protocol: Computed tomography of the head without contrast. Radiation optimization: All CT scans at this facility use at least one of these dose optimization techniques: automated exposure control; mA and/or kV adjustment per patient size (includes targeted exams where dose is matched to clinical indication); or iterative reconstruction. COMPARISON: No relevant prior studies available. RADIATION DOSE METRICS: Total DLP (mGy-cm): 869.61 FINDINGS: Brain: No hemorrhage. No edema, mass effect or midline shift. Periventricular and deep white matter hypodensities compatible with chronic microvascular ischemic changes. Cerebral ventricles: No ventriculomegaly. Bones/joints: No acute fracture. Paranasal sinuses: Visualized sinuses are unremarkable. No fluid levels. Mastoid air cells: No mastoid effusion. Soft tissues: Unremarkable. CT/CT head wo con* [id number] IMPRESSION: No acute intracranial abnormality. Radiation Dose CTDIVOL = (mGy): DLP = 869.61 (mGy-cm) Dictated By: Coleen Vora MD Signed By: Coleen Vora MD Signed Date/Time: 11/22/20357 DD/ [address]: Attestation: I personally reviewed and interpreted this imaging study as follows: Radiologist's impression: [address] [place] [address] CT Scan Report Signed Patient: Gillian Gonzalez Unit #: [id number] : 1955 Age/Sex: 64 / F ADM Date: 11/22/20 Loc: ER Room/Bed: Attending Dr: Ordering Provider/Ordering MD: Chavo Rdz Date of Service: 11/22/20 Procedure(s): CT cervical spin wo con* [id number] Accession Number(s): [id number] Report Number: [id number] PROCEDURE INFORMATION: Exam: CT Cervical Spine Without Contrast Exam date and time: 11/22/2020 2:49 AM Age: 64 years old Clinical indication: Injury or trauma; Fall; Blunt trauma; Additional info: Fall and hit head. Having neck pain TECHNIQUE: Imaging protocol: Computed tomography images of the cervical spine without contrast. Radiation optimization: All CT scans at this facility use at least one of these dose optimization techniques: automated exposure control; mA and/or kV adjustment per patient size (includes targeted exams where dose is matched to clinical indication); or iterative reconstruction. COMPARISON: No relevant prior studies available. RADIATION DOSE METRICS: Total DLP (mGy-cm): 705.24 FINDINGS: Bones/joints: No acute fracture. Normal alignment. Discs/Spinal canal/Neural foramina: Mild degenerative discogenic changes without significant central canal stenosis. Lungs: Lung apices are normal. Soft tissues: Unremarkable. CT/CT cervical spin wo con* [id number] IMPRESSION: No acute fracture. Radiation Dose CTDIVOL = (mGy): DLP = 705.24 (mGy-cm) Dictated By: Coleen Vora MD Signed By: Coleen Vora MD Signed Date/Time: 11/22/20400 DD/ 0359 Xray Ortho: Attestation: I personally reviewed and interpreted this imaging study as follows: Radiologist's impression: [address] [address] XRay Report Signed Patient: Gillian Gonzalez Unit #: [id number] : 1955 Age/Sex: 64 / F ADM Date: 11/22/20 Loc: ER Room/Bed: Attending Dr: Ordering Provider/Ordering MD: Chavo Rdz Date of Service: 11/22/20 Procedure(s): XR thoracic spine 3V* [id number] Accession Number(s): [id number] Report Number: [id number] PROCEDURE INFORMATION: Exam: XR Thoracic Spine Exam date and time: 11/22/2020 2:58 AM Age: 64 years old Clinical indication: Injury or trauma; Fall; Blunt trauma (contusions or hematomas); Additional info: Mid back pain after fall TECHNIQUE: Imaging protocol: XR of the thoracic spine. Views: 3 views. COMPARISON: CR XR thoracic spine 3V* [id number] 07/04/2020 3:32 PM FINDINGS: Bones/joints: Trace dextrocurvature of the thoracic spine is present. The normal thoracic kyphosis is mildly accentuated, without listhesis. No acute fracture seen. Vertebral body heights are well maintained. There is multilevel degenerative changes, manifested by intervertebral disc space narrowing, and endplate osteophytes. Soft tissues: Unremarkable. Intraperitoneal space: Cholecystectomy clip projects over the right upper quadrant. XR/XR thoracic spine 3V* [id number] IMPRESSION: No acute injury. Dictated By: Tramaine Paulino Signed By: Tramaine Paulino Signed Date/Time: 11/22/20352 DD/ 0 Discharge Plan Discharge Patient Disposition: Home Clinical Impression: Musculoskeletal back pain Fall as cause of accidental injury at home as place of occurrence Qualifiers: Encounter type: initial encounter Qualified Code(s): W19.XXXA - Unspecified fall, initial encounter Headache Qualifiers: Headache type: post-traumatic Headache chronicity pattern: acute headache Intractability: not intractable Qualified Code(s): G44.319 - Acute post- traumatic headache, not intractable Condition: Stable Prescriptions: No Action lactulose 10 gram/15 mL solution 30 ml PO TID RF: 0 furosemide 40 mg tablet 40 mg PO DAILY@08 RF: 0 propranolol 10 mg tablet 10 mg PO BID RF: 0 spironolactone 25 mg tablet 25 mg PO QAM RF: 0 ondansetron HCl [Zofran] 4 mg tablet 4 mg PO Q8H PRNRF: 0 Ajovy Autoinjector 225 mg/1.5 mL auto-injector 225 mg SUBCUT Q30D Qty: 1.5 RF: 3 Multiple Vitamin, Womens Tablet 1 tab PO DAILY RF: 0 Lantus Solostar U-100 Insulin 100 unit/mL (3 mL) insulin pen 35 unit SUBCUT QAM RF: 0 Tylenol 325 mg Tablet 325 mg PO PRN RF: 0 Victoza 2-Johnny 0.6 mg/0.1 mL (18 mg/3 mL) Pen Injector 0.6 mg SUBCUT QPM RF: 0 Xifaxan 550 mg tablet 550 mg PO BID RF: 0 melatonin 10 mg Tablet 10 mg PO BEDTIME RF: 0 zinc 1 cap PO DAILY RF: 0 omeprazole 20 mg Capsule,Delayed Release(Dr/Ec) 20 mg PO BID Qty: 0 RF: 0 Discharge Orders: Discharge ED (Routine); Ordered 11/22/20 Ordered By: Chavo Rdz Referrals: Pauline Pereira MD [Primary Care Provider] - Discharge Diet: Regular Discharge Activity: Increase activity as tolerated Patient Instructions: Fall Prevention for Older Adults (ED), Acute Headache (ED), Back Pain (ED) Activity Restrictions/Additional Instructions: Follow-up with medical provider as directed in 7 to 10 days for reevaluation. Continue taking all home medications as previously prescribed. Take owkz-fos-spzxmaf Tylenol for any pain. Rest and apply cold pack on sore area of back to help with symptoms. Return to the ER or your medical provider if condit ion worsens. Please read and understand discharge instructions. Thank you for choosing [facility] for your healthcare needs today. Please realize this is an emergency room and that we are providing you with a medical screening exam and this may not be complete and all inclusive of all the testing and or work up that you may need to determine your ailment or severity of your illness. It is very important that you follow up as instructed or that you return to the Emergency Department should you have concerns or if your condition changes or worsens in any way. Coding Level of Care Code ED Glove Presser for Trevon Fwd Exam Comprehensive
--- NOTE | 2020-11-22 02:47 | CTR_ITS ---
PROCEDURE INFORMATION: Exam: CT Head Without Contrast Exam date and time: 11/22/2020 2:49 AM Age: 64 years old Clinical indication: Injury or trauma; Fall; Blunt trauma (contusions or hematomas); Without loss of consciousness; Additional info: Fall and hit head. Currently has headache TECHNIQUE: Imaging protocol: Computed tomography of the head without contrast. Radiation optimization: All CT scans at this facility use at least one of these dose optimization techniques: automated exposure control; mA and/or kV adjustment per patient size (includes targeted exams where dose is matched to clinical indication); or iterative reconstruction. COMPARISON: No relevant prior studies available. RADIATION DOSE METRICS: Total DLP (mGy-cm): 869.61 FINDINGS: Brain: No hemorrhage. No edema, mass effect or midline shift. Periventricular and deep white matter hypodensities compatible with chronic microvascular ischemic changes. Cerebral ventricles: No ventriculomegaly. Bones/joints: No acute fracture. Paranasal sinuses: Visualized sinuses are unremarkable. No fluid levels. Mastoid air cells: No mastoid effusion. Soft tissues: Unremarkable. CT/CT head wo con* [id number] IMPRESSION: No acute intracranial abnormality. Radiation Dose CTDIVOL = (mGy): DLP = 869.61 (mGy-cm)
--- NOTE | 2020-11-22 02:47 | XRR_ITS ---
PROCEDURE INFORMATION: Exam: XR Thoracic Spine Exam date and time: 11/22/2020 2:58 AM Age: 64 years old Clinical indication: Injury or trauma; Fall; Blunt trauma (contusions or hematomas); Additional info: Mid back pain after fall TECHNIQUE: Imaging protocol: XR of the thoracic spine. Views: 3 views. COMPARISON: CR XR thoracic spine 3V* [id number] 07/04/2020 3:32 PM FINDINGS: Bones/joints: Trace dextrocurvature of the thoracic spine is present. The normal thoracic kyphosis is mildly accentuated, without listhesis. No acute fracture seen. Vertebral body heights are well maintained. There is multilevel degenerative changes, manifested by intervertebral disc space narrowing, and endplate osteophytes. Soft tissues: Unremarkable. Intraperitoneal space: Cholecystectomy clip projects over the right upper quadrant. XR/XR thoracic spine 3V* [id number] IMPRESSION: No acute injury.
--- NOTE | 2020-11-22 02:47 | CTR_ITS ---
PROCEDURE INFORMATION: Exam: CT Cervical Spine Without Contrast Exam date and time: 11/22/2020 2:49 AM Age: 64 years old Clinical indication: Injury or trauma; Fall; Blunt trauma; Additional info: Fall and hit head. Having neck pain TECHNIQUE: Imaging protocol: Computed tomography images of the cervical spine without contrast. Radiation optimization: All CT scans at this facility use at least one of these dose optimization techniques: automated exposure control; mA and/or kV adjustment per patient size (includes targeted exams where dose is matched to clinical indication); or iterative reconstruction. COMPARISON: No relevant prior studies available. RADIATION DOSE METRICS: Total DLP (mGy-cm): 705.24 FINDINGS: Bones/joints: No acute fracture. Normal alignment. Discs/Spinal canal/Neural foramina: Mild degenerative discogenic changes without significant central canal stenosis. Lungs: Lung apices are normal. Soft tissues: Unremarkable. CT/CT cervical spin wo con* [id number] IMPRESSION: No acute fracture. Radiation Dose CTDIVOL = (mGy): DLP = 705.24 (mGy-cm)
[2020-11-22 04:00] VITALS: BP 128/76; PULSE 52; RESP 15; TEMP 36.6; O2SAT 100
[2020-11-22] MEDS: ketorolac 60 mg/2 mL INJ IM (04:31)
== END 2020-11-22 04:36 | disposition home or self-care (01) ==
PROVIDERS: Emergency Provider Physician Assistant; PCP Internal Medicine
DX: G44.319 Acute post-traumatic headache, not intractable (principal); M54.9 Dorsalgia, unspecified; Z79.4 Long term (current) use of insulin; E11.9 Type 2 diabetes mellitus without complications
CPT/HCPCS: 70450; 72072; 72125; 96372; 99283; J1885

== ENCOUNTER 2020-12-13 13:55 | Outpatient (CLI) | payer MEDICAID, SELFPAY ==
--- NOTE | 2020-12-13 14:00 | CT_ITS ---
WS: [id number] CT CHEST WITH INTRAVENOUS CONTRAST HISTORY: HILAR LYMPHADENOPATHY TECHNIQUE: Contiguous 5 mm axial imaging performed on the thorax. Coronal and sagittal reformats are submitted. All CT scans at [facility] use at least one of these dose optimization techniq ues: automated exposure control; mA and/or kV adjustment per patient size (includes targeted exams wh ere dose is matched to clinical indication); or iterative reconstruction. CONTRAST: Omnipaque 300; 95 mL IV. DLP: 809.81 mGy-cm. COMPARISON: None available. Lungs and central airway: Mildly hyperinflated lungs. No pulmonary mass or nodule. There are a few be nign calcified granulomata throughout both lungs. Pleura: Normal. No pleural effusion. Heart and pericardium: Normal size heart with no pericardial effusion. Mediastinum and harvey: No mediastinum or hilar adenopathy. Vessels: Normal size aorta. Normal size pulmonary artery. Chest wall and lower neck: No soft tissue masses. Upper abdomen: Mild circumferential thickening of the distal esophagus. Liver is small with irregular surface from cirrhosis. Hepatic and splenic granulomata. No bile duct dilatation. There is a small a mount of ascites adjacent to the liver. There are also numerous collateral vessels in the LEFT upper abdomen consistent with varices formation. Prior gastric bypass. Osseous structures: Increase in thoracic kyphosis. CT/CT chest w con* [id number] IMPRESSION: 1. Chronic emphysema with no pulmonary mass or nodule. 2. No hilar or mediastinal lymphadenopathy. 3. Marked cirrhosis with small amount of ascites adjacent to the liver and num erous collateral vessels LEFT upper abdomen.
[2020-12-13] MEDS: iohexol 300 mg/mL 100 mL Btl IV (14:19)
== END 2020-12-13 13:56 | disposition home or self-care (01) ==
LOC: RADWPI 13:58
PROVIDERS: PCP Internal Medicine; Visit Provider Internal Medicine
DX: R59.0 Localized enlarged lymph nodes (principal); J43.9 Emphysema, unspecified; K74.60 Unspecified cirrhosis of liver; R18.8 Other ascites
CPT/HCPCS: 71260; Q9967

== ENCOUNTER 2021-02-06 11:45 | Outpatient (CLI) | payer MEDICAID, SELFPAY ==
[2021-02-06 12:14] LABS: Basophils % 0.8 %; Eosinophils # 0.1 10^3/uL (0.0-0.8); Eosinophils % 3.5 %; Hemoglobin 12.4 g/dL (11.5-15.3); Lymphocytes # 1.2 10^3/uL (0.8-4.8); Lymphocytes % 32.9 %; Mean Corpuscular HGB Conc 33.5 g/dL (30.0-36.0); Mean Corpuscular Hemoglobin 31.8 pg (28.0-34.0); Mean Corpuscular Volume 94.9 fL (81-99); Mean Platelet Volume 12.4 fL (7.4-10.4); Monocytes # 0.5 10^3/uL (0.2-0.9); Monocytes % 13.4 %; Neutrophils # 1.84 10^3/uL (1.8-7.7); Neutrophils % 49.1 %; Nucleated Red Blood Cells % 0 %; Platelet Count 86 10^3/cmm (130-400); Red Cell Distribution Width 14.6 % (12.1-15.1); White Blood Count 3.7 10^3/uL (4.0-10.0)
[2021-02-06 13:03] LABS: Ferritin 54 ng/mL (15-150); Iron 77 ug/dL (37-145); Percent Saturation 29.1 % (20-50); Total Iron Binding Capacity 264 mcg/dl; Unsaturated Iron Binding 187 ug/dL (112-347); Vitamin B12 1157 pg/mL (232-1245)
[2021-02-06 13:06] LABS: Folate Level 14.7 ng/mL (4.8-37.3)
== END 2021-02-06 11:46 | disposition home or self-care (01) ==
LOC: ONCMED 11:48
PROVIDERS: PCP Internal Medicine; Visit Provider Internal Medicine Hematology & Oncology
DX: G31.84 Mild cognitive impairment of uncertain or unknown etiology (principal); G43.711 Chronic migraine without aura, intractable, with status migrainosus; I81 Portal vein thrombosis; K75.81 Nonalcoholic steatohepatitis (NASH); K74.60 Unspecified cirrhosis of liver; E11.69 Type 2 diabetes mellitus with other specified complication; E66.9 Obesity, unspecified; Z68.32 Body mass index [BMI] 32.0-32.9, adult; Z79.4 Long term (current) use of insulin; Z87.891 Personal history of nicotine dependence
CPT/HCPCS: 36415; 82607; 82728; 82746; 83540; 83550; 85025; 99214

== ENCOUNTER 2021-06-09 14:44 | Outpatient (CLI) | payer MEDICAID, SELFPAY ==
--- NOTE | 2021-06-09 14:52 | XRR_ITS ---
PROCEDURE INFORMATION: Exam: XR Lumbosacral Spine Exam date and time: 06/09/2021 2:52 PM Age: 65 years old Clinical indication: Low back pain; Additional info: Pain in L spine TECHNIQUE: Imaging protocol: XR of the lumbosacral spine. Views: 2 or 3 views. COMPARISON: 1. MRI Lumbar Spine w/o [id number] 01/17/2016 7:16 AM 2. CR XR thoracic spine 3V* [id number] 06/09/2021 2:58:21 PM FINDINGS: Bones/joints: Vertebral bodies and posterior elements appear intact and normally aligned. Disc spaces preserved. No significant degenerative changes appreciated. Soft tissues: Unremarkable. XR/XR lumbar spine 2-3V* [id number] IMPRESSION: No acute findings.
--- NOTE | 2021-06-09 14:52 | XRR_ITS ---
PROCEDURE INFORMATION: Exam: XR Thoracic Spine Exam date and time: 06/09/2021 2:52 PM Age: 65 years old Clinical indication: Pain in thoracic spine; Additional info: Pain in t spine TECHNIQUE: Imaging protocol: XR of the thoracic spine. Views: 3 views. COMPARISON: CR XR thoracic spine 3V* [id number] 11/22/2020 3:13 AM FINDINGS: Bones/joints: Vertebral bodies and posterior elements appear intact normally aligned. Disc spaces preserved. There are anterior osteophytes of the lower thoracic spine, similar to prior. Soft tissues: Unremarkable. Surgical chain sutures again noted in the region of the GE junction. XR/XR thoracic spine 3V* [id number] IMPRESSION: No acute findings.
== END 2021-06-09 14:45 | disposition home or self-care (01) ==
PROVIDERS: PCP Internal Medicine; Visit Provider Internal Medicine
DX: M54.6 Pain in thoracic spine (principal)
CPT/HCPCS: 72072; 72100

== ENCOUNTER 2021-09-04 04:13 | Observation (INO) | payer MEDICAID, SELFPAY ==
[2021-09-04] VITALS (7 sets, daily range): BP systolic 129–150; BP diastolic 70–81; PULSE 51–70; RESP 14–18; TEMP 35.8–36.8; O2SAT 95–99; BMI 31.6
--- NOTE | 2021-09-04 04:57 | XRR_ITS ---
PROCEDURE INFORMATION: Exam: XR Chest Exam date and time: 09/04/2021 4:57 AM Age: 65 years old Clinical indication: Other: No chest complaints; Additional info: AMS TECHNIQUE: Imaging protocol: XR of the chest. Views: 1 view. COMPARISON: CT chest w con* [id number] 12/13/2020 2:17 PM FINDINGS: Lungs: No focal airspace disease. Pleural spaces: Unremarkable. No pleural effusion. No pneumothorax. Heart/Mediastinum: Cardiomediastinal silhouette is within normal limits. Bones/joints: Unremarkable. XR/XR chest 1V portable [id number] IMPRESSION: No acute cardiopulmonary abnormality.
--- NOTE | 2021-09-04 04:57 | CTR_ITS ---
PROCEDURE INFORMATION: Exam: CT Head Without Contrast Exam date and time: 09/04/2021 4:57 AM Age: 65 years old Clinical indication: Altered mental status/memory loss; Confusion or disorientation; Additional info: AMS TECHNIQUE: Imaging protocol: Computed tomography of the head without contrast. Radiation optimization: All CT scans at this facility use at least one of these dose optimization techniques: automated exposure control; mA and/or kV adjustment per patient size (includes targeted exams where dose is matched to clinical indication); or iterative reconstruction. COMPARISON: CT head wo con* [id number] 11/22/2020 2:57 AM RADIATION DOSE METRICS: Total DLP (mGy-cm): 920.74 FINDINGS: Brain: Normal. No hemorrhage. Unremarkable white matter. No mass effect. Cerebral ventricles: No ventriculomegaly. Paranasal sinuses: Visualized sinuses are unremarkable. No fluid levels. Mastoid air cells: Visualized mastoid air cells are well aerated. Bones/joints: Unremarkable. No acute fracture. Soft tissues: Unremarkable. CT/CT head wo con* [id number] IMPRESSION: No acute intracranial abnormality. Please note that MRI is more sensitive for early changes of acute ischemia.
--- NOTE | 2021-09-04 05:13 | ED_ITS ---
HPI - General Adult General: Chief complaint: General Medical Stated complaint: tremors Time Seen by Provider: 09/04/21 04:28 Source: patient History of Present Illness: 65-year-old female with Blair. She presents with sudden onset of tremor-like motions with jerking to her upper and lower extremities bilaterally around 3 AM. These have resolved on their own. She was awake during this process. She remembers the entire event. She notes that she has not been sleeping well. She has no other specific symptoms. She has been taking Benadryl for her insomnia Onset (ago): minute(s) Location: upper extremity and lower extremity Radiation: non-radiation Relieving factors: none Exacerbating factors: none Associated symptoms: Reports diaphoresis and headache(s) (Chronic); Deny chest pain, dyspnea, fevers/chills, nausea, rash, palpitations, short of breath, syncope or vomiting Treatments prior to arrival: none Review of Systems Const: Reports: diaphoresis; Denies: fever(s) Eyes: Denies: change in vision ENMT: Denies: throat pain Card: Denies: chest pain, palpitations or syncope Resp: Denies: dyspnea GI: Denies: nausea or vomiting Skin/Breast: Denies: rash Neuro: Reports: headache(s) (Chronic) PFSH ED PFSH: Medical History Cirrhosis of liver Diabetes Hepatic encephalopathy Incisional hernia Kidney stones 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) Obesity (BMI 30.0-34.9) Surgical History H/O gastric bypass H/O: hysterectomy cervical cancer History of colonoscopy History of esophagogastroduodenoscopy (EGD) Hx of cholecystectomy Family History Mother Hypertension Father Chronic kidney disease (CKD) Sleep apnea Other Bleeding disorder Denies family history of Anesthesia complication Social History Smoking and tobacco status: former smoker Alcohol intake: never History of recent travel: No Physical Exam Const: GENERAL APPEARANCE: cooperative NUTRITIONAL APPEARANCE: obese HENMT: COMMON NORMALS: normocephalic and Normal external nose present HEAD & SCALP: normocephalic FACE & SINUS: normal facial exam; no sinus tenderness NOSE: Normal external nose present and Normal nares present Eye: COMMON NORMALS: Equal, round and reactive pupils present and EOMs intact bilaterally PUPIL: Yes Equal, round and reactive pupils present Chest: COMMONS NORMALS: normal inspection of the chest Resp: COMMON NORMALS: normal respiratory effort, No use of accessory muscles and clear to auscultation bilaterally AUSCULTATION: clear to auscultation bilaterally Cardio: COMMON NORMALS: regular rhythm RATE: bradycardic RHYTHM: regular rhythm GI: COMMON NORMALS: Normal to inspection, nondistended, normoactive bowel sounds present, Soft to palpation and non-tender PALPATION: Yes Soft to palpation Extremity: COMMON NORMALS: normal to inspection Neuro: WALT COMA SCALE: document GCS findings [place] coma scale eye opening: Spontaneous Walt coma scale verbal response: Orientated Walt coma scale motor response: Obey commands Walt coma scale total score: 15 SPEECH: speech normal MOTOR EXAM: no asterixis Psych: COMMON NORMALS: cooperative ATTITUDE: Yes calm Skin: COMMON NORMALS: no jaundice Course Consultations: Consultation #1: lencho Time: 06:31 Vital Signs: Vital signs: Vital Signs Temperature 96.5 F L 09/04/21 04:14 Pulse Rate 51 L 09/04/21 04:14 Respiratory Rate 18 09/04/21 04:14 Blood Pressure 150/70 09/04/21 04:14 Pulse Oximetry 97 09/04/21 04:14 [facility] - General Adult Medical Decision Making 65-year-old female with generalized weakness, mental status changes, and shaking . Tremulousness has improved here. She has a history of nonalcoholic cirrhosis. White count of 4.7. Platelet count 93. BMP is normal. Bilirubin is 0.8. INR is 1.2. Her ammonia level, however, is 195. Chest x-ray is negative. Head CT is normal. pH is 7.47, lactate is normal. She will be admitted for hepatic encephalopathy. Lab Data : 09/04/21 04:33 09/04/21 04:33 Radiology Impressions Chest X-Ray 09/04/21 04:57 IMPRESSION: No acute cardiopulmonary abnormality. Head CT 09/04/21 04:57 IMPRESSION: No acute intracranial abnormality. Please note that MRI is more sensitive for early changes of acute ischemia. Laboratory Results WBC 4.7 10^3/uL (4.0-10.0) 09/04/21 04:33 RBC 3.93 10^6/uL (4.1-5.3) L 09/04/21 04:33 Hgb 12.7 g/dL (11.5-15.3) 09/04/21 04:33 Hct 37.4 % (37.0-47.0) 09/04/21 04:33 MCV 95.2 fl (81-99) 09/04/21 04:33 MCH 32.3 pg (28.0-34.0) 09/04/21 04:33 MCHC 34.0 g/dL (30.0-36.0) 09/04/21 04:33 RDW 14.1 % (12.1-15.1) 09/04/21 04:33 Plt Count 93 10^3/cmm (130-400) L 09/04/21 04:33 MPV 12.7 fL (7.4-10.4) H 09/04/21 04:33 Neut % (Auto) 54.3 % 09/04/21 04:33 Lymph % (Auto) 27.3 % 09/04/21 04:33 [place] % (Auto) 14.4 % 09/04/21 04:33 Eos % (Auto) 3.0 % 09/04/21 04:33 Baso % (Auto) 0.8 % 09/04/21 04:33 Neut # (Auto) 2.57 10^3/uL (1.8-7.7) 09/04/21 04:33 Lymph # (Auto) 1.3 10^3/uL (0.8-4.8) 09/04/21 04:33 [place] # (Auto) 0.7 10^3/uL (0.2-0.9) 09/04/21 04:33 Eos # (Auto) 0.1 10^3/uL (0.0-0.8) 09/04/21 04:33 Baso # (Auto) 0.0 10^3/uL (0.0-0.1) 09/04/21 04:33 Nucleated RBC % (auto) 0 % 09/04/21 04:33 Nucleated RBCs # 0.0 /100WBC 09/04/21 04:33 PT 15.40 SECONDS (12.1-14.9) H 09/04/21 04:33 INR 1.19 (0.8-1.2) 09/04/21 04:33 Specimen Type Arterial 09/04/21 04:57 Sample Site Radial, right 09/04/21 04:57 ABG pH 7.47 (7.35-7.45) H 09/04/21 04:57 ABG pCO2 36.3 mmHg (35-45) 09/04/21 04:57 ABG pO2 102.0 mmHg (80.0-100.0) H 09/04/21 04:57 ABG HCO3 26.4 mmol/L (22-26) H 09/04/21 04:57 ABG Base Excess 2.8 mmol/L (-2.0-2.0) H 09/04/21 04:57 Tyrese Test Pos 09/04/21 04:57 Hematocrit 37.8 % (37-47) 09/04/21 04:57 O2 Delivery Device Room air 09/04/21 04:57 Land Surveying Manager ID [email or web address] 09/04/21 04:57 Sodium 143 mmol/L (136-145) 09/04/21 04:33 Potassium 3.8 mmol/L (3.5-5.1) 09/04/21 04:33 Chloride 111 mmol/L (98-107) H 09/04/21 04:33 Carbon Dioxide 24 mmol/L (22-29) 09/04/21 04:33 Anion Gap 11.8 (5-19) 09/04/21 04:33 BUN 8 mg/dL (8-23) 09/04/21 04:33 Creatinine 0.6 mg/dL (0.5-0.9) 09/04/21 04:33 GFR Calculation 101.0 mL/min (90-130) 09/04/21 04:33 Glucose 84 mg/dL (65-115) 09/04/21 04:33 Calculated Osmolality 294 mOsm/kg (285-295) 09/04/21 04:33 Lactate 1.4 mmol/L (0.5-2.2) 09/04/21 05:44 Calcium 8.8 mg/dL (8.5-10.5) 09/04/21 04:33 Magnesium 1.9 mg/dL (1.7-2.3) 09/04/21 04:33 Total Bilirubin 1.0 mg/dL (0.15-1.2) 09/04/21 04:33 AST 54 U/L (0-32) H 09/04/21 04:33 ALT 30 U/L (0-33) 09/04/21 04:33 Alkaline Phosphatase 167 IU/L (35-105) H 09/04/21 04:33 Ammonia 195 umol/L (11-51) H 09/04/21 05:44 Total Protein 6.3 g/dL (6.6-8.7) L 09/04/21 04:33 Albumin 2.9 g/dL (3.5-5.2) L 09/04/21 04:33 Globulin 3.4 g/dL (1.3-4.6) 09/04/21 04:33 Discharge Plan Discharge Patient Disposition: Admitted As Inpatient Clinical Impression: Acute hepatic encephalopathy, 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 Condition: Fair Coding Level of Care Code ED Quality Assurance Supervisor Final for [facility] Fwd Exam Comprehensive
[2021-09-04] MEDS: sodium chloride 0.9% 500 ML IV (05:31)
[2021-09-04 05:35] LABS: Basophils % 0.8 %; Eosinophils # 0.1 10^3/uL (0.0-0.8); Hematocrit 37.4 % (37.0-47.0); Hemoglobin 12.7 g/dL (11.5-15.3); Lymphocytes # 1.3 10^3/uL (0.8-4.8); Lymphocytes % 27.3 %; Mean Corpuscular Hemoglobin 32.3 pg (28.0-34.0); Mean Corpuscular Volume 95.2 fl (81-99); Mean Platelet Volume 12.7 fL (7.4-10.4); Monocytes # 0.7 10^3/uL (0.2-0.9); Monocytes % 14.4 %; Neutrophils # 2.57 10^3/uL (1.8-7.7); Neutrophils % 54.3 %; Nucleated Red Blood Cells % 0 %; Platelet Count 93 10^3/cmm (130-400); Red Blood Count 3.93 10^6/uL (4.1-5.3); Red Cell Distribution Width 14.1 % (12.1-15.1); White Blood Count 4.7 10^3/uL (4.0-10.0)
[2021-09-04 05:40] LABS: INR 1.19 (0.8-1.2)
[2021-09-04 05:48] LABS: ABG PCO2 36.3 mmHg (35-45); ABG PH Result 7.47 (7.35-7.45); Arterial Blood Gas Hematocrit 37.8 % (37-47); Base Excess ABG 2.8 mmol/L (-2.0-2.0); Blood Gas Allen Test Pos; Blood Gas Sample Site Radial, right; Blood Gas Sample Type Arterial; HCO3 ABG 26.4 mmol/L (22-26); Oxygen Device ROOM AIR
[2021-09-04 05:50] LABS: Alanine Aminotransferase 30 U/L (0-33); Albumin Level 2.9 g/dL (3.5-5.2); Alkaline Phosphatase 167 IU/L (35-105); Aspartate Amino Transferase 54 U/L (0-32); Blood Urea Nitrogen 8 mg/dL (8-23); Calcium 8.8 mg/dL (8.5-10.5); Carbon Dioxide 24 mmol/L (22-29); Chloride 111 mmol/L (98-107); Globulin 3.4 g/dL (1.3-4.6); Glucose 84 mg/dL (65-115); Magnesium 1.9 mg/dL (1.7-2.3); Osmolality Calculated 294 mOsm/kg (285-295); Sodium 143 mmol/L (136-145); Total Protein 6.3 g/dL (6.6-8.7)
[2021-09-04 05:52] LABS: Anion Gap 11.8 (5-19); Potassium 3.8 mmol/L (3.5-5.1)
[2021-09-04 06:04] LABS: Ammonia 195 umol/L (11-51); Lactate (Lactic Acid level) 1.4 mmol/L (0.5-2.2)
[2021-09-04 07:03] LABS: Add Urine Microscopic? YES; Bilirubin Urine 1+ (Negative); Blood Urine Neg (Negative); Glucose Urine UA Norm (Normal); Ketones Urine 1+ (Negative); Leukocyte Esterase Urine Trace (Negative); Nitrate Urine Negative (Negative); Protein Urine Trace (Negative); Urine Appearance SL Hazy (CLEAR); Urine Color Dark Yellow (Yellow); Urobilinogen Urine 8 mg/dL (Negative); pH Urine 7 (5-7)
[2021-09-04 07:07] LABS: RBC Urine 0-4 /hpf (0-2)
[2021-09-04 07:08] LABS: Mucus Urine 2+ /hpf; Squamous Epithelial Cell Urine 15-25 /hpf (0-5)
[2021-09-04 07:09] LABS: Add Urine Culture? No; Bacteria Urine 2+ /hpf
--- NOTE | 2021-09-04 07:43 | PM.HP ---
Providers/Chief Complaint Admitting Physician: Michelle Amanda MD Primary Care Provider: Pauline Pereira MD Chief Complaint: tremors History of Present Illness Gillian Gonzalez is a 65 year old female who presented to the emergency room with history of some generalized shaking, and sweating occurring around 3 AM. She states she was alert for the whole thing. This eventually went away and she came to the emergency department. In the emergency department not much was found other than her ammonia level was high. She reports it was higher during a office visit, where it was near 300. She states she is not always compliant with her rifaximin, or her lactulose but did restart her lactulose recently. She denies any fevers. She states she may have a little bit of abdominal discomfort. She denies any chest discomfort, shortness of breath, fever. She reports no blood in her stool although does report she had one dark stool yesterday. She states she had one fall about a 2 weeks ago. She had a little bit of nausea early this morning as well. She states her thoughts are occasionally cloudy, and confused but she seems better right now. She denies any alcohol intake. She denies any previous history of jerking. Review of Systems General: Reports: 10 or more systems reviewed and unremarkable except in HPI and below Const: Denies: fever(s) or chills Eyes: Denies: change in vision ENMT: Denies: throat pain Card: Denies: chest pain Resp: Denies: dyspnea GI: Denies: abdominal pain, hematochezia or melena : Denies: flank pain Musc: Denies: neck pain Skin/Breast: Denies: rash Neuro: Reports: confusion Psych: Denies: anxiety or depression Endo: Denies: polyuria Stanley/Lymph: Reports: easy bruising All/Imm: Denies: urticaria Medications/Allergies Home Medications Medication Instructions Recorded Confirmed Last Taken Type furosemide 40 mg tablet 40 mg PO DAILY@12/11/19 02/06/21 09/05/20 History lactulose 10 gram/15 mL oral 30 ml PO TID 12/18/19 02/06/21 04/27/20 History solution insulin glargine 100 unit/mL (3 35 unit SUBCUT QAM 10/28/20 08/09/21 03/08/21 History mL) subcutaneous pen (Lantus Solostar U-100 Insulin) [id number] 1 tab PO DAILY 04/27/20 02/06/21 04/27/20 History (Multiple Vitamin, Womens) acetaminophen 325 mg tablet 325 mg PO PRN 09/06/20 02/06/21 Unknown History (Tylenol) melatonin 10 mg tablet 10 mg PO BEDTIME 09/06/20 02/06/21 Unknown History rifaximin 550 mg tablet (Xifaxan) 550 mg PO BID 09/06/20 02/06/21 09/05/20 History zinc 1 cap PO DAILY 09/06/20 02/06/21 Unknown History ondansetron HCl 4 mg tablet 4 mg PO Q8H PRN 11/16/20 02/06/21 Unknown History (Zofran) spironolactone 25 mg tablet 25 mg PO QAM tab 11/16/20 02/06/21 Unknown History Allergies Allergy/AdvReac Type Severity Reaction Status Date / Time No Known Allergies Allergy Verified 08/10/21 12:01 PFSH Acute PFSH: Medical History Cirrhosis of liver Diabetes Hepatic encephalopathy Incisional hernia Kidney stones 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) Obesity (BMI 30.0-34.9) Surgical History H/O gastric bypass H/O: hysterectomy cervical cancer History of colonoscopy History of esophagogastroduodenoscopy (EGD) Hx of cholecystectomy Family History Mother Hypertension Father Chronic kidney disease (CKD) Sleep apnea Other Bleeding disorder Denies family history of Anesthesia complication Social History Smoking and tobacco status: former smoker Alcohol intake: never History of recent travel: No Vitals/I&O/Wt Last Vital Signs Temp 96.5 F L 09/04/21 04:14 Pulse 51 L 09/04/21 04:14 Resp 18 09/04/21 04:14 BP 150/70 09/04/21 04:14 Pulse Ox 97 09/04/21 04:14 Weight last 48 hrs Weight 86.183 kg Physical Exam Narrative: General exam is a conversive white female with slightly slurred speech that clears intermittently depending upon the topic. HEENT: Pupils equally round. Oropharynx clear. Neck is supple no lymphadenopathy thyromegaly Cardiovascular regular rate and rhythm without murmur Lungs clear no wheezing or crackles Abdomen is soft nontender positive bowel sounds. No obvious organomegaly. Midline scar noted. exam is deferred Extremities no cyanosis clubbing or edema, cap refill brisk Skin no rash Neuro no obvious focal deficits. Data : 09/04/21 04:33 09/04/21 04:33 Micro: CT head, chest x-ray negative INR 1.19 ABG demonstrates pH of 7.47, PCO2 36, PO2 102 LFTs with an elevated AST of 54. ALT is 30. Total bilirubin normal, alk phos slightly elevated at 167 Ammonia level 195 Albumin 2.9 Urinalysis demonstrates 15-25 squamous cells 5-10 white cells. A&P Assessment and plan (1) Jerking: Patient presented with an episode of jerking, all of her extremities while she was awake associated with sweating and a little bit of nausea. The most likely diagnosis is hypoglycemia. Note that her blood sugar was only 84 on presentation. I think the her liver disease while significant would have been less likely to cause this. This was not a seizure event. Although she had a fall in the last [address] head demonstrates no evidence of abnormality. Status: Acute (2) Acute hepatic encephalopathy: Patient has been noncompliant lately with her rifaximin as well as her lactulose. She indicates that a ammonia level done with her physician was around 300 at her most recent check. I think resuming her rifaximin, lactulose, and fluids will likely lower this significantly. She admits to some mild confusion at times and acknowledges it would likely be lots better if she would take her medication. I do not think she has any other trigger for her hepatic encephalopathy. Status: Acute (3) Diabetes mellitus type 2 in obese: See comments under ben above. For now sliding scale insulin, consistent carb diet We will discharge her on a reduced level of Lantus secondary to possibility of hypoglycemia. Status: Acute (4) 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: She has a history of liver 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. She has a past history of portal vein thrombosis, around a year ago. At discharge will make sure she has GI follow-up. Status: Acute Attestations Medical Necessity Statement*: She will need less than 2 midnight stay for treatment of hepatic encephalopathy with rather mild symptoms as well as a episode of generalized shaking/jerking which may have been a hypoglycemic episode. Coding Level of Care Code Acute Supervisor [place] for g Fwd Diagnoses Jerking R25.3 Acute hepatic encephalopathy K72.00 Diabetes mellitus type 2 in obese E11.69; E66.9 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 K75.81; K74.60
[2021-09-04 08:55] LABS: Glucose Point of Care 122 mg/dL (70-110)
--- NOTE | 2021-09-04 09:41 | PC.PHAR ---
pt states she takes care of her own medications-pt states she thinks this is all the medications she takes-pt states she is unsure if she is still taking propranolol 10mg bid [facility] last filled 06/28/21 30d/s-pt states she thinks she takes her lasix 40mg prn [facility] last filled 05/10/21 30d/s-notes are made in the pharmacy comments
[2021-09-04 10:04] LABS: Lactic Sepsis W/Reflex 1.8 mmol/L (0.5-2.2)
[2021-09-04] MEDS: lactulose oral liq 20 gm/30 mL UDC PO ×3 (10:23→21:04)
[2021-09-04] MEDS: pantoprazole DR 40 mg Tablet PO ×2 (10:24→17:00)
[2021-09-04] MEDS: sodium chloride 0.9% 1,000 ML 100 ML IV ×2 (10:28→19:52)
[2021-09-04] MEDS: acetaminophen 325 mg Tablet 650 MG PO ×2 (10:50→21:02)
[2021-09-04 11:37] LABS: Glucose Point of Care 111 mg/dL (70-110)
--- NOTE | 2021-09-04 12:05 | PC.CHAP ---
Pastoral Care Encounter/Spiritual Assessment Type of Contact [] Declined 4th grade math teacher visit [] Patient/Family/Request visit [] Outpatient visit [] Follow-up visit [] Physician referral [] Code/Alert [x] Routine visit [] Staff referral [] Actively dying [] Patient sleeping [] Family support [] [] Out of room [] Palliative care [] [] Receiving care in room [] Pre-surgical visit [] Trauma [] Long length of stay [] ICU visit [] Other: Relational/Emotional Strength [x] Patient feels connected with others/family/visitors/staff [] Distress [] Loneliness/isolation [] Abandonment Spirituality of Patient [x]x Person of Chiquis [] Attends Hoahaoism of their Chiquis [x] Believes in Prayer [] Reads Bible or Baptism materials [] There are Spiritual issues to be addressed Sales Stock Associate Interventions [x] Prayer [x] Active listening [x] Non-anxious presence [] Spiritual/emotional support [] Crisis/trauma care [] Spiritual counseling [] Bereavement support [] Provided bereavement packet [] Provided Bible/devotional materials [] Provided toy/stuffed animal, coloring book to patient or family member [] Provided Communion [] Anointing/Reeds [] Salvation [x] Completed spiritual assessment [] Other: Impact on Illness or Injury [] Angry [] Fearful [] Anxious [] Often cries [] Exhaustion [] Unable to work [] Unable to attend rastafari [] Unable to walk/stand [] Unable to read [] Unable to drive [] Unable to eat/drink [] Unable to sleep [] Unable to be with family [] Patient intubated [] Other: Summary Time spent with patient 10 min
[2021-09-04 18:11] LABS: Glucose Point of Care 123 mg/dL (70-110)
[2021-09-04 20:55] LABS: Glucose Point of Care 149 mg/dL (70-110)
[2021-09-04] MEDS: insulin lispro 100 unit/1 mL SUBCUT (21:03)
[2021-09-05 04:11] VITALS: BP 124/57; PULSE 60; RESP 18; TEMP 37.1; O2SAT 96
--- NOTE | 2021-09-05 04:40 | PC.NURSE ---
SHIFT SUMMARY Has done well tonight. Had trouble getting to sleep and told me she had not slept for about 24 hours. Has been alert and oriented. IV fluids infusing at 100nl/hr rate.To bathroom with assist. Bed alarm on for safety. Was medicated X1 with Tylenol for c/o toothache. Says she has a tooth that is broken off
[2021-09-05] MEDS: sodium chloride 0.9% 1,000 ML 100 ML IV (05:27)
[2021-09-05 05:55] LABS: Basophils % 0.7 %; Eosinophils # 0.1 10^3/uL (0.0-0.8); Eosinophils % 2.8 %; Hematocrit 34.3 % (37.0-47.0); Hemoglobin 10.6 g/dL (11.5-15.3); Lymphocytes % 36.7 %; Mean Corpuscular HGB Conc 30.9 g/dL (30.0-36.0); Mean Corpuscular Hemoglobin 30.9 pg (28.0-34.0); Mean Platelet Volume 11.9 fL (7.4-10.4); Monocytes # 0.3 10^3/uL (0.2-0.9); Monocytes % 11.3 %; Neutrophils # 1.37 10^3/uL (1.8-7.7); Neutrophils % 48.5 %; Nucleated Red Blood Cells % 0 %; Platelet Count 63 10^3/cmm (130-400); Red Blood Count 3.43 10^6/uL (4.1-5.3); Red Cell Distribution Width 14.6 % (12.1-15.1); White Blood Count 2.8 10^3/uL (4.0-10.0)
[2021-09-05 06:19] LABS: Ammonia 183 umol/L (11-51)
[2021-09-05 06:27] LABS: Alanine Aminotransferase 25 U/L (0-33); Albumin Level 2.4 g/dL (3.5-5.2); Alkaline Phosphatase 119 IU/L (35-105); Anion Gap 10.9 (5-19); Aspartate Amino Transferase 39 U/L (0-32); Blood Urea Nitrogen 8 mg/dL (8-23); Calcium 8.2 mg/dL (8.5-10.5); Carbon Dioxide 21 mmol/L (22-29); Chloride 112 mmol/L (98-107); Creatinine Clr Calc Pharmacy 112.0146; Globulin 2.4 g/dL (1.3-4.6); Glucose 90 mg/dL (65-115); Magnesium 1.8 mg/dL (1.7-2.3); Osmolality Calculated 288 mOsm/kg (285-295); Potassium 3.9 mmol/L (3.5-5.1); Sodium 140 mmol/L (136-145); Total Bilirubin 0.9 mg/dL (0.15-1.2); Total Protein 4.8 g/dL (6.6-8.7)
[2021-09-05 06:33] LABS: Glucose Point of Care 81 mg/dL (70-110)
[2021-09-05 07:09] VITALS: BP 124/70; PULSE 58; RESP 18; TEMP 36.8; O2SAT 97
--- NOTE | 2021-09-05 08:18 | PM.PN ---
Documented by User: OCTAVIO Mcallister STDJOSE C 09/05/21 08:32 Subjective Subjective: Patient explains that she is doing much better than I was on Saturday. Patient was previously non-compliant with Rifaximin and lactulose. She has received 3 doses of each since arriving at the hospital. Continues to complain of some difficulty with clear thoughts, but much improved. She is able to ambulate safely. Discussed with patient the possibility that her shakiness was due to hypoglycemia, she explains that she does not monitor glucose often at home, but has been much lower in hospital. She describes her usual glucose readings upper 100s - low 200s. Patient has only had 2 hard bowel movements. Denies any worsening shakiness. Denies any other concerns. Medications: Reviewed: Yes Vitals/I&O/Wt Last Vital Signs Temp 98.2 F 09/05/21 07:09 Pulse 58 L 09/05/21 07:09 Resp 18 09/05/21 07:09 BP 124/70 09/05/21 07:09 Pulse Ox 97 09/05/21 07:09 09/04/21 09/05/21 09/05/21 22:59 06:59 14:59 Intake Total 1060 / 1560 1190 / 2750 Output Total 850 / 850 Balance 1060 / 1560 340 / 1900 Weight last 48 hrs Weight 99.337 kg Weight 86.183 kg Physical Exam Narrative: General: 65 year old female lying comfortably in bed, easy to arouse. HEENT: Normocephalic, atraumatic. Cardiac: Regular rate and rhythm. S1 S2 present, no additional heart sounds present. No murmurs rubs or gallops. Peripheral pulse 2+. Respiratory: Clear to auscultation. No wheezes rales or rhonchi. Air entry equal bilaterally. GI: Obese abdomen, soft, nontender, nondistended, normoactive bowel sounds. Diastasis recti present from previous gastric bypass surgery. Midline abdominal scar present. Extremities: No obvious abnormalities, no cyanosis, clubbing, or edema. Neuro: No focal neurlogical deficits. No asterixis present. Data : 09/05/21 05:44 09/05/21 05:44 Other Labs: MCV 100 Calcium 8.2 AST 39 ALT 25 Alk Phos 119 Ammonia 183 A&P Assessment and plan (1) Jerking: Patient presented with an episode of jerking, all of her extremities while she was awake associated with sweating and a little bit of nausea. Discussed with patient that most likely diagnosis is hypoglycemia given her glucose level only 84 on admission. Describes that her glucose level has been lower than normal in the hospital, she does not monitor glucose at home often. Status: Acute (2) Acute hepatic encephalopathy: Patient has a history of liver 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. Patient explains she has been noncompliant lately with her rifaximin as well as her lactulose. She explains that recent ammonia level was 300 at PCP. Continue rifaximin Increase lactulose to 30 gm Discontinue IV fluids She admits to some mild confusion at times and acknowledges it would likely be lots better if she would take her medication. Status: Acute (3) Diabetes mellitus type 2 in obese: See comments under rosanen above. For now sliding scale insulin, consistent carb diet Patients glucose level was 84 on admission, 90 today. Will decrease insulin dose at home on discharge, encourage to monitor at home blood glucose levels and follow up with PCP We will discharge her on a reduced level of Lantus secondary to possibility of hypoglycemia. Status: Acute (4) 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: She has a history of liver 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. She has a past history of portal vein thrombosis, around a year ago. At discharge will make sure she has GI follow-up. Status: Acute Plan Anticipate discharge to home today, patient lives with her son. See discharge summary. Coding Level of Care Code Acute Patient Support Associate for [facility] Diagnoses Jerking R25.3 Acute hepatic encephalopathy K72.00 Diabetes mellitus type 2 in obese E11.69; E66.9 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 K75.81; K74.60 Documented by User: Javy Joyce MD 09/05/21 08:43 Subjective Subjective: Patient explains that she is doing much better than I was on Saturday. Patient was previously non-compliant with Rifaximin and lactulose. She has received 3 doses of each since arriving at the hospital. Continues to complain of some difficulty with clear thoughts, but much improved. She is able to ambulate safely. Discussed with patient the possibility that her shakiness was due to hypoglycemia, she explains that she does not monitor glucose often at home, but has been much lower in hospital. She describes her usual glucose readings upper 100s - low 200s. Patient has only had 2 hard bowel movements. Denies any worsening shakiness. Denies any other concerns. Agree with above. I interviewed the patient as well. Physical Exam Narrative: General: 65 year old female lying comfortably in bed, easy to arouse. HEENT: Normocephalic, atraumatic. Cardiac: Regular rate and rhythm. S1 S2 present, no additional heart sounds present. No murmurs rubs or gallops. Peripheral pulse 2+. Respiratory: Clear to auscultation. No wheezes rales or rhonchi. Air entry equal bilaterally. GI: Obese abdomen, soft, nontender, nondistended, normoactive bowel sounds. Diastasis recti present from previous gastric bypass surgery. Midline abdominal scar present. Extremities: No obvious abnormalities, no cyanosis, clubbing, or edema. Neuro: No focal neurlogical deficits. No asterixis present. Agree with above. No changes needed. Data : 09/05/21 05:44 09/05/21 05:44 A&P Assessment and plan (1) Jerking: Patient presented with an episode of jerking, all of her extremities while she was awake associated with sweating and a little bit of nausea. Discussed with patient that most likely diagnosis is hypoglycemia given her glucose level only 84 on admission. Describes that her glucose level has been lower than normal in the hospital, she does not monitor glucose at home often. Agree with above. Planning on discharging home on half the dose of insulin, long-acting that she was using on presentation Status: Acute (2) Acute hepatic encephalopathy: Patient has a history of liver 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. Patient explains she has been noncompliant lately with her rifaximin as well as her lactulose. She explains that recent ammonia level was 300 at PCP. Continue rifaximin Increase lactulose to 30 gm 3 times daily Discontinue IV fluids She admits to some mild confusion at times and acknowledges it would likely be lots better if she would take her medication. Status: Acute (3) Diabetes mellitus type 2 in obese: Status: Acute (4) 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: She has a history of liver 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. She has a past history of portal vein thrombosis, around a year ago. At discharge will make sure she has GI follow-up. Discussed this with her. She will have follow-up at [facility] with Dr. Warren Status: Acute Attestations Medical Necessity Statement*: Discharge today. Coding Level of Care Code Acute Patient Support Associate for [facility] Fwd Diagnoses Rosanne R25.3 Acute hepatic encephalopathy K72.00 Diabetes mellitus type 2 in obese E11.69; E66.9 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 K75.81; K74.60
--- NOTE | 2021-09-05 08:26 | P.DS_ITS ---
Discharge Providers Date of Admission: 09/04/21 06:32 Date of Discharge: September 05, 2021 Attending Provider at Admission: Michelle Amanda MD Attending Provider at Discharge: Javy Joyce MD Primary Care Provider: Pauline Pereira MD Diagnoses at Discharge Discharge Diagnosis (1) Jerking: Status: Acute (2) Acute hepatic encephalopathy: Status: Acute (3) Diabetes mellitus type 2 in obese: Status: Acute (4) 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: Status: Acute Reason for Visit Reason for Visit: tremors Hospital Course Hospital Course Gillian is a 65-year-old white female who presented to the hospital with history of a jerking episode she noted while awake early in the morning hours. In the emergency department work-up did not delineate any specific cause other than her ammonia level was quite high. She denied loss of consciousness with the episode, reports it was generalized jerking, and also discussed with me that it was associated with sweating and some nausea. Upon review of her lab work blood sugar was fairly low at 84 we also considered the possibility of hypoglycemia as a possible etiology considering the circumstances on her arrival to the emergency department. She also reported she had not been compliant with rifaximin or lactulose. She thought that perhaps she was a little slow in her thinking but had not had any outright confusion. Rifaximin was started, as well as her lactulose. The following morning she was alert and oriented. She denied any recurrence of her tremors. It was thought she could discharge home and have close follow-up with her primary care provider. Her Lantus dose will be reduced in half. Discussed with her the importance of lactulose and rifaximin which was restarted, and dose of lactulose adjusted. Physical Exam Narrative: General exam no distress Neck is supple no lymphadenopathy thyromegaly Cardiovascular regular rate and rhythm without murmur Lungs clear Abdomen is soft nontender positive bowel sounds Extremities no cyanosis clubbing or edema Discharge Data Studies Completed and Pending Completed Studies During Hospitalization Category Date Time Status CT head wo con* [id number] Urgent Cat Scan 09/04/21 04:57 Completed XR chest 1V portable [id number] Urgent Exams 09/04/21 04:57 Completed Radiology Impressions Chest X-Ray 09/04/21 04:57 IMPRESSION: No acute cardiopulmonary abnormality. Head CT 09/04/21 04:57 IMPRESSION: No acute intracranial abnormality. Please note that MRI is more sensitive for early changes of acute ischemia. Laboratory Results WBC 2.8 10^3/uL (4.0-10.0) L 09/05/21 05:44 RBC 3.43 10^6/uL (4.1-5.3) L 09/05/21 05:44 Hgb 10.6 g/dL (11.5-15.3) L 09/05/21 05:44 Hct 34.3 % (37.0-47.0) L 09/05/21 05:44 MCV 100.0 fl (81-99) H D 09/05/21 05:44 MCH 30.9 pg (28.0-34.0) 09/05/21 05:44 MCHC 30.9 g/dL (30.0-36.0) D 09/05/21 05:44 RDW 14.6 % (12.1-15.1) 09/05/21 05:44 Plt Count 63 10^3/cmm (130-400) L D 09/05/21 05:44 MPV 11.9 fL (7.4-10.4) H 09/05/21 05:44 Neut % (Auto) 48.5 % 09/05/21 05:44 Lymph % (Auto) 36.7 % 09/05/21 05:44 [place] % (Auto) 11.3 % 09/05/21 05:44 Eos % (Auto) 2.8 % 09/05/21 05:44 Baso % (Auto) 0.7 % 09/05/21 05:44 Neut # (Auto) 1.37 10^3/uL (1.8-7.7) L 09/05/21 05:44 Lymph # (Auto) 1.0 10^3/uL (0.8-4.8) 09/05/21 05:44 [place] # (Auto) 0.3 10^3/uL (0.2-0.9) 09/05/21 05:44 Eos # (Auto) 0.1 10^3/uL (0.0-0.8) 09/05/21 05:44 Baso # (Auto) 0.0 10^3/uL (0.0-0.1) 09/05/21 05:44 Nucleated RBC % (auto) 0 % 09/05/21 05:44 Nucleated RBCs # 0.0 /100WBC 09/05/21 05:44 PT 15.40 SECONDS (12.1-14.9) H 09/04/21 04:33 INR 1.19 (0.8-1.2) 09/04/21 04:33 Specimen Type Arterial 09/04/21 04:57 Sample Site Radial, right 09/04/21 04:57 ABG pH 7.47 (7.35-7.45) H 09/04/21 04:57 ABG pCO2 36.3 mmHg (35-45) 09/04/21 04:57 ABG pO2 102.0 mmHg (80.0-100.0) H 09/04/21 04:57 ABG HCO3 26.4 mmol/L (22-26) H 09/04/21 04:57 ABG Base Excess 2.8 mmol/L (-2.0-2.0) H 09/04/21 04:57 Tyrese Test Pos 09/04/21 04:57 Hematocrit 37.8 % (37-47) 09/04/21 04:57 O2 Delivery Device Room air 09/04/21 04:57 Meat Stringer ID ellpe 09/04/21 04:57 Sodium 140 mmol/L (136-145) 09/05/21 05:44 Potassium 3.9 mmol/L (3.5-5.1) 09/05/21 05:44 Chloride 112 mmol/L (98-107) H 09/05/21 05:44 Carbon Dioxide 21 mmol/L (22-29) L 09/05/21 05:44 Anion Gap 10.9 (5-19) 09/05/21 05:44 BUN 8 mg/dL (8-23) 09/05/21 05:44 Creatinine 0.6 mg/dL (0.5-0.9) 09/05/21 05:44 GFR Calculation 101.0 mL/min (90-130) 09/05/21 05:44 Glucose 90 mg/dL (65-115) 09/05/21 05:44 POC Glucose 81 mg/dL (70-110) 09/05/21 06:26 Calculated Osmolality 288 mOsm/kg (285-295) 09/05/21 05:44 Lactic Acid 1.8 mmol/L (0.5-2.2) 09/04/21 09:15 Lactate 1.4 mmol/L (0.5-2.2) 09/04/21 05:44 Calcium 8.2 mg/dL (8.5-10.5) L 09/05/21 05:44 Magnesium 1.8 mg/dL (1.7-2.3) 09/05/21 05:44 Total Bilirubin 0.9 mg/dL (0.15-1.2) 09/05/21 05:44 AST 39 U/L (0-32) H 09/05/21 05:44 ALT 25 U/L (0-33) 09/05/21 05:44 Alkaline Phosphatase 119 IU/L (35-105) H 09/05/21 05:44 Ammonia 183 umol/L (11-51) H 09/05/21 05:44 Total Protein 4.8 g/dL (6.6-8.7) L 09/05/21 05:44 Albumin 2.4 g/dL (3.5-5.2) L 09/05/21 05:44 Globulin 2.4 g/dL (1.3-4.6) 09/05/21 05:44 Urine Color Dark yellow (Yellow) 09/04/21 06:00 Urine Appearance Sl hazy (CLEAR) 09/04/21 06:00 Urine pH 7 (5-7) 09/04/21 06:00 Ur Specific [place] 1.010 (1.005-1.030) 09/04/21 06:00 Urine Protein Trace (Negative) 09/04/21 06:00 Urine Glucose (UA) Norm (Normal) 09/04/21 06:00 Urine Ketones 1+ (Negative) H 09/04/21 06:00 Urine Blood Neg (Negative) 09/04/21 06:00 Urine Nitrate Negative (Negative) 09/04/21 06:00 Urine Bilirubin 1+ (Negative) H 09/04/21 06:00 Urine Urobilinogen 8 mg/dL (Negative) H 09/04/21 06:00 Ur Leukocyte Esterase Trace (Negative) H 09/04/21 06:00 Urine RBC 0-4 /hpf (0-2) H 09/04/21 06:00 Urine WBC 5-10 /hpf (0-5) H 09/04/21 06:00 Ur Squamous Epith Cells 15-25 /hpf (0-5) H 09/04/21 06:00 Calcium Oxalate Crystal 5-10 /hpf H 09/04/21 06:00 Amorphous Sediment Not Reportable 09/04/21 06:00 Urine Bacteria 2+ /hpf (NONE) H 09/04/21 06:00 Urine Mucus 2+ /hpf 09/04/21 06:00 Vitals Last Vital Signs Temp 98.2 F 09/05/21 07:09 Pulse 58 L 09/05/21 07:09 Resp 18 09/05/21 07:09 BP 124/70 09/05/21 07:09 Pulse Ox 97 09/05/21 07:09 Discharge Plan Discharge Patient Disposition: Home Condition: Stable Prescriptions: New lactulose 20 gram/30 mL Solution 30 g PO TID Qty: 4050 0RF Continued furosemide 40 mg tablet 40 mg PO DAILY PRN (Reason: Edema) 0RF spironolactone 25 mg tablet 25 mg PO QAM 0RF ondansetron HCl [Zofran] 4 mg tablet 4 mg PO Q8H PRN (Reason: Nausea And Vomiting) 0RF Xifaxan 550 mg tablet 550 mg PO BID 0RF multivitamin Tablet 1 tab PO QAM 0RF Tylenol Ex Str Rapid Release 500 mg Tablet 1,000 mg PO Q6H PRN (Reason: Pain) 0RF citalopram 20 mg tablet 20 mg PO QAM 0RF Prilosec OTC 20 mg Tablet,Delayed Release (Dr/Ec) 20 mg PO DAILY 0RF Changed Lantus Solostar U-100 Insulin 100 unit/mL (3 mL) insulin pen 20 unit SUBCUT BEDTIME Qty: 0 0RF Discontinued lactulose 10 gram/15 mL solution 30 ml PO TID 0RF Discharge Orders: Discharge Order (Routine); Ordered 09/05/21 Ordered By: Javy Joyce Referrals: Pauline Pereira MD [Primary Care Provider] - 4-7 days Discharge Diet: Diabetic Discharge Activity: Increase activity as tolerated Patient Instructions: Opioid Safety Activity Restrictions/Additional Instructions: Take rifaximin and lactulose as prescribed. Trying to achieve 2-3 loose bowel movements a day with lactulose. Note that your Lantus has been reduced to 30 units. Check your blood sugar every morning and at night and bring to your primary care provider office. Discharge Attestations Time Spent in Discharge Care*: greater than 30 min Quality Metrics Clinical Quality Measures [ No reported AMI, CVA or VTE this stay] Coding Level of Care Code Acute Chg FW DC note Diagnoses Jerking R25.3 Acute hepatic encephalopathy K72.00 Diabetes mellitus type 2 in obese E11.69; E66.9 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 K75.81; K74.60
[2021-09-05] MEDS: lactulose oral liq 20 gm/30 mL UDC 30 GM PO (08:56)
[2021-09-05] MEDS: pantoprazole DR 40 mg Tablet PO (08:56)
[2021-09-05] MEDS: acetaminophen 325 mg Tablet 650 MG PO (08:56)
--- NOTE | 2021-09-05 10:58 | PC.NURSE ---
patient verbalized understanding of discharge instructions, home medications, and follow up appointments.
[2021-09-05 11:08] LABS: Glucose Point of Care 146 mg/dL (70-110)
[2021-09-05 11:33] VITALS: BP 148/78; PULSE 56; RESP 18; O2SAT 96
[2021-09-05] MEDS: insulin lispro 100 unit/1 mL SUBCUT (11:54)
[2021-09-05 14:57] VITALS: BP 148/78; PULSE 56; RESP 18; O2SAT 96
== END 2021-09-05 15:01 | disposition home or self-care (01) ==
LOC: ER 06:32 → MEDSURG 06:55
PROVIDERS: Admitting Provider Student in an Organized Health Care Education/Training Program; Emergency Provider Emergency Medicine; PCP Internal Medicine; Visit Provider Internal Medicine
DX: R25.3 Fasciculation (principal); K72.00 Acute and subacute hepatic failure without coma; E11.69 Type 2 diabetes mellitus with other specified complication; E66.9 Obesity, unspecified; Z68.36 Body mass index [BMI] 36.0-36.9, adult; K75.81 Nonalcoholic steatohepatitis (NASH); Z91.14 Patient's other noncompliance with medication regimen; Z87.891 Personal history of nicotine dependence; K74.60 Unspecified cirrhosis of liver
CPT/HCPCS: 36415; 36416; 36600; 70450; 71045; 80053; 81001; 82140; 82803; 82962; 83605; 83735; 85025; 85610; 96360; 96361; 96372; 99285; G0378; J1815; J7030; J7040

== ENCOUNTER 2021-12-25 15:15 | Outpatient (CLI) | payer MEDICAID, SELFPAY ==
--- NOTE | 2021-12-25 15:18 | MM_ITS ---
WS: [id number] BILATERAL 3D TOMOSYNTHESIS DIGITAL SCREENING MAMMOGRAPHY WITH CAD CLINICAL INFORMATION: SCREENING HISTORY: Screening mammogram. No current complaints. COMPARISON: June 07, 2020 TECHNIQUE: Bilateral CC and MLO views. FINDINGS: Scattered fibroglandular densities bilaterally. A few incidental punctate calcifications. No suspicio us focal mass, asymmetry, calcifications, or architectural distortion. No evidence of malignancy. MM/[place] [id number] IMPRESSION: BI-RADS: 2-Benign FOLLOW UP: 1 Year Follow-up Recommend return to annual screening mammography.
== END 2021-12-25 15:16 | disposition home or self-care (01) ==
LOC: RAD 15:16
PROVIDERS: PCP Internal Medicine; Visit Provider Internal Medicine
DX: Z12.31 Encounter for screening mammogram for malignant neoplasm of breast (principal)
CPT/HCPCS: 77063; 77067

== ENCOUNTER 2022-03-02 08:47 | Day surgery (SDC) | payer MEDICAID, SELFPAY ==
[2022-03-01 13:13] VITALS: BMI 34.9
[2022-03-02] VITALS (11 sets, daily range): BP systolic 106–139; BP diastolic 52–85; PULSE 55–64; RESP 16–20; TEMP 16.1–37.1; O2SAT 95–98
--- NOTE | 2022-03-02 08:52 | US_ITS ---
WS: [id number] ULTRASOUND-GUIDED THERAPEUTIC PARACENTESIS Procedure, risks, and complications have been explained to the patient. Consent is obtained. Utilizing aseptic technique and 1% buffered lidocaine, a small dermatome was made through which a 5 F rench Yueh catheter was inserted. Approximately 2300 ml of clear peritoneal fluid was obtained witho ut difficulty. No complications encountered. US/US paracentesis abd w [id number] IMPRESSION: Uncomplicated paracentesis yielding 2300 ml of peritoneal fluid.
[2022-03-02 09:25] LABS: Basophils % 0.7 %; Eosinophils # 0.1 10^3/uL (0.0-0.8); Eosinophils % 2.6 %; Hematocrit 24.2 % (37.0-47.0); Hemoglobin 7.6 g/dL (11.5-15.3); Lymphocytes # 1.3 10^3/uL (0.8-4.8); Lymphocytes % 30.4 %; Mean Corpuscular HGB Conc 31.4 g/dL (30.0-36.0); Mean Corpuscular Hemoglobin 27.6 pg (28.0-34.0); Mean Platelet Volume 12.2 fL (7.4-10.4); Monocytes # 0.7 10^3/uL (0.2-0.9); Neutrophils # 2.09 10^3/uL (1.8-7.7); Neutrophils % 50.1 %; Nucleated Red Blood Cells % 0 %; Platelet Count 115 10^3/cmm (130-400); Red Blood Count 2.75 10^6/uL (4.1-5.3); Red Cell Distribution Width 14.1 % (12.1-15.1); White Blood Count 4.2 10^3/uL (4.0-10.0)
[2022-03-02 09:39] LABS: INR 1.26 (0.8-1.2)
[2022-03-02] MEDS: sodium chloride 0.9% (100 ml) 100 ML 10 ML ×3 (10:25→15:10)
== END 2022-03-02 15:30 | disposition home or self-care (01) ==
PROVIDERS: Radiology Diagnostic Radiology; PCP Internal Medicine; Visit Provider Internal Medicine
PROC: (CPT 49082; principal; 2022-03-02 10:15)
DX: R18.8 Other ascites (principal)
CPT/HCPCS: 36415; 36430; 49083; 85025; 85610; 86850; 86900; 86920; P9016

== ENCOUNTER 2022-03-15 11:42 | Emergency (ER) | payer MEDICAID, SELFPAY ==
[2022-03-15] VITALS (7 sets, daily range): BP systolic 128–141; BP diastolic 51–63; PULSE 64–73; RESP 18–20; TEMP 36.9; O2SAT 95–97
--- NOTE | 2022-03-15 11:44 | XR_ITS ---
WS: [id number] XR hip LT 2-3V wo/w pel* [id number] REASON FOR EXAM: fall FINDINGS: Femoral head and neck and proximal femur are intact without fracture. No acetabular or pubic ramus fracture. Moderate osteoarthritis of the left hip joint. No soft tissue abnormality. XR/XR hip LT 2-3V wo/w pel* [id number] IMPRESSION: Moderate osteoarthritis with no acute abnormality as above.
--- NOTE | 2022-03-15 11:48 | CT_ITS ---
WS: [email or web address] CT cervical spin wo con* [id number] REASON FOR EXAM: fall IV CONTRAST ADMINISTERED: None. TOTAL EXAM DLP: 1468.[address] scans at [facility] use at least one of these dose optimization techniques: automat ed exposure control; mA and/or kV adjustment per patient size (includes targeted exams where dose is matched to clinical indication); or iterative reconstruction. FINDINGS: The examination is unchanged compared to previous study of 11/22/2020. The odontoid is normal. No significant cervical vertebral body abnormality is noted. Normal vertebral body alignment. Intervertebral disc spaces are relatively well-preserved. Normal facet joint alignment and normal cervical skull base articulation. CT/CT cervical spin wo con* [id number] IMPRESSION: No acute abnormality.
--- NOTE | 2022-03-15 11:48 | CT_ITS ---
WS: [email or web address] CT head wo con* [id number] REASON FOR EXAM: fall IV CONTRAST ADMINISTERED: None. TOTAL EXAM DLP: 1468.[address] scans at [facility] use at least one of these dose optimization techniques: automat ed exposure control; mA and/or kV adjustment per patient size (includes targeted exams where dose is matched to clinical indication); or iterative reconstruction. FINDINGS: The examination is unchanged compared to previous examination of 09/04/2021. There is no midline shift or other significant mass effect. No findings of intracranial hemorrhage. 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 No acute brain parenchymal abnormality. CSF spaces are within normal limits. The bony calvarium and base of the skull are within normal limits. CT/CT head wo con* [id number] IMPRESSION: No acute intracranial abnormality.
[2022-03-15] MEDS: ondansetron 2 mg/ML SDV 2 mL 4 MG IVP (12:18)
[2022-03-15] MEDS: HYDROmorphone 1 mg/mL INJ 1 mL 0.5 MG IVP (12:18)
--- NOTE | 2022-03-15 12:23 | ED_ITS ---
HPI - Fall General: Chief Complaint: Fall Stated Complaint: fall, left hip pain Time Seen by Provider: 03/15/22 11:44 Source: patient and EMS Mode of arrival: EMS History of Present Illness: 66-year-old female who is here with EMS after fall yesterday states she had slipped and fell she has left hip pain will slight headache and neck pain she was unable to get up her self but since been able to get up with EMS she has been able ambulate with her walker she has no shortening or rotation to her leg states her main pain actually now is in her neck. Denies any loss of consciousness denies any other pain elsewhere. Associated symptoms-after fall: Reports headache(s) and neck pain; Denies abdominal pain or chest pain Review of Systems Const: Denies: fever(s), chills, body aches or change in appetite Eyes: Denies: blurry vision or eye discomfort ENMT: Denies: throat pain or dental pain Card: Denies: chest pain Resp: Denies: dyspnea GI: Denies: abdominal pain, nausea, vomiting or diarrhea : Denies: dysuria Musc: Reports: neck pain and extremity pain Skin/Breast: Denies: rash Neuro: Reports: headache(s) Psych: Denies: depression [place]/Lymph: Denies: easy bruising All/Imm: Denies: urticaria PFSH ED PFSH: Medical History Cirrhosis of liver Diabetes Hepatic encephalopathy Incisional hernia Kidney stones 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) Obesity (BMI 30.0-34.9) Surgical History H/O gastric bypass H/O: hysterectomy cervical cancer History of colonoscopy History of esophagogastroduodenoscopy (EGD) Hx of cholecystectomy Family History Mother Hypertension Father Chronic kidney disease (CKD) Sleep apnea Other Bleeding disorder Denies family history of Anesthesia complication Social History Smoking and tobacco status: former smoker Alcohol intake: never History of recent travel: No Physical Exam Const: COMMON NORMALS: no acute distress, patient oriented x3 and healthy appearing HENMT: COMMON NORMALS: normocephalic and atraumatic HEAD & SCALP: normocephalic and atraumatic Eye: COMMON NORMALS: Equal, round and reactive pupils present and EOMs intact bilaterally PUPIL: Yes Equal, round and reactive pupils present Neck/C-Spine: COMMON NORMALS: full ROM and supple Chest: COMMONS NORMALS: normal inspection of the chest and normal palpation of entire chest wall Resp: COMMON NORMALS: normal respiratory effort, No retractions, No use of accessory muscles and clear to auscultation bilaterally AUSCULTATION: clear to auscultation bilaterally Cardio: COMMON NORMALS: regular rate, regular rhythm and No murmurs present (Cardio) RATE: regular rate RHYTHM: regular rhythm GI: COMMON NORMALS: Normal to inspection, nondistended, normoactive bowel sounds present, Soft to palpation, non-tender and no masses PALPATION: Yes Soft to palpation Extremity: COMMON NORMALS: normal to inspection and full ROM Neuro: COMMON NORMALS: patient oriented x3, moves all extremities and no focal motor deficits Psych: COMMON NORMALS: mental status grossly normal, Normal thought process present and cooperative THOUGHT PROCESS: Normal thought process present Skin: COMMON NORMALS: no rashes or lesions noted and no wounds GENERAL SKIN EXAM: no rashes or lesions noted Course Vital Signs: Vital signs: Vital Signs Temperature 98.4 F 03/15/22 11:44 Pulse Rate 65 03/15/22 12:24 Respiratory Rate 20 H 03/15/22 12:18 Blood Pressure 141/57 03/15/22 12:24 Pulse Oximetry 97 03/15/22 12:24 Oxygen Delivery Me thod 03/15/22 12:24 MDM - Fall Medical Decision Making Patient presents here with left hip contusion from a fall she is able to ambulate here CT showed no signs of fracture head CT C-spine CT are negative as well she is stable for discharge she is to follow-up with her PCP and return if worsening she understands agrees to plan. Lab Data Radiology Impressions Hip/Pelvis X-Ray 03/15/22 11:44 IMPRESSION: Moderate osteoarthritis with no acute abnormality as above. Cervical Spine CT 03/15/22 11:48 IMPRESSION: No acute abnormality. Head CT 03/15/22 11:48 IMPRESSION: No acute intracranial abnormality. Hip CT 03/15/22 13:19 IMPRESSION: 1. No CT evidence of acute fracture or dislocation. 2. Additional findings, as above. Discharge Plan Discharge Patient Disposition: Home Clinical Impression: Fall Contusion of hip, left Qualifiers: Encounter type: initial encounter Qualified Code(s): S70.02XA - Contusion of left hip, initial encounter Condition: Stable Prescriptions: New Naprosyn 500 mg tablet 500 mg PO BID PRN (Reason: pain) Qty: 20 0RF No Action furosemide 40 mg tablet 40 mg PO BID spironolactone 25 mg tablet 25 mg PO QAM multivitamin Tablet 1 tab PO QAM acetaminophen 500 mg Tablet 1,000 mg PO Q6H PRN (Reason: Pain) citalopram 20 mg tablet 20 mg PO QAM omeprazole magnesium [Prilosec OTC] 20 mg Tablet,Delayed Release (Dr/Ec) 20 mg PO DAILY Lantus Solostar U-100 Insulin 100 unit/mL (3 mL) insulin pen 40 unit SUBCUT BEDTIME lactulose 20 gram/30 mL solution 30 g PO DAILY Narcan 4 mg/actuation spray,non-aerosol See Rx Instructions .ROUTE .COMPLEX Rx Instructions: intranasally as directed potassium chloride 10 mEq Capsule, Extended Release 10 meq PO DAILY magnesium 30 mg Tablet 30 mg PO DAILY propranolol 10 mg tablet 10 mg PO DAILY Eliquis 5 mg tablet 5 mg PO BID Discharge Orders: Discharge ED (Routine); Ordered 03/15/22 Ordered By: Parmjit Fernandez Referrals: Pauline Pereira MD [Primary Care Provider] - 1-3 days Discharge Diet: Advance as tolerated Discharge Activity: Resume usual activity Patient Instructions: Hip Pain (ED) Coding Level of Care Code 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
--- NOTE | 2022-03-15 13:19 | CTR_ITS ---
PROCEDURE INFORMATION: Exam: CT Left Lower Extremity Without Contrast, Hip Exam date and time: 03/15/2022 1:49 PM Age: 66 years old Clinical indication: Pain; Hip; Left; Prior surgery; Surgery type: Gastric bypass , gb; Patient HX: Syncope episode yesterday, patient in esrd, cirrhosis TECHNIQUE: Imaging protocol: CT of the Left lower extremity without contrast was performed. Exam focused on the hip. Axial, coronal and sagittal reformatted images were created and reviewed. Radiation optimization: All CT scans at this facility use at least one of these dose optimization techniques: automated exposure control; mA and/or kV adjustment per patient size (includes targeted exams where dose is matched to clinical indication); or iterative reconstruction. COMPARISON: CR XR hip LT 2-3V wo/w pel* [id number] 03/15/2022 12:00 PM RADIATION DOSE METRICS: Total DLP (mGy-cm): 1406.59 FINDINGS: Bones/joints: Osteopenia. No CT evidence of acute fracture or dislocation. Alignment anatomic. Mild left hip joint osteoarthrosis. Degenerative changes of the lower lumbar spine, left sacroiliac joint and pubic symphysis. No erosive or destructive changes. No lytic or blastic lesion. No significant effusion. Soft tissues: Grossly unremarkable. Intraperitoneal space: Small ascites. Reproductive: Status post hysterectomy. CT/CT hip LT wo con* [id number]: 1[address] No CT evidence of acute fracture or dislocation. 2. Additional findings, as above.
== END 2022-03-15 15:10 | disposition home or self-care (01) ==
PROVIDERS: Emergency Provider Emergency Medicine; PCP Internal Medicine
DX: S70.02XA Contusion of left hip, initial encounter (principal); E11.9 Type 2 diabetes mellitus without complications; E66.9 Obesity, unspecified; Z79.4 Long term (current) use of insulin; Z79.01 Long term (current) use of anticoagulants; Z87.891 Personal history of nicotine dependence; W01.0XXA Fall on same level from slipping, tripping and stumbling without subsequent striking against object, initial encounter
CPT/HCPCS: 70450; 72125; 73502; 73700; 96374; 96375; 99285; J1170; J2405

== ENCOUNTER 2022-03-16 18:27 | Emergency (ER) | payer MEDICAID, SELFPAY ==
[2022-03-16 18:44] VITALS: BP 107/61; PULSE 62; RESP 18; TEMP 36.8; O2SAT 97
[2022-03-16 20:42] LABS: Basophils % 0.3 %; Eosinophils % 0.3 %; Hematocrit 29.5 % (37.0-47.0); Hemoglobin 8.9 g/dL (11.5-15.3); Lymphocytes # 1.1 10^3/uL (0.8-4.8); Lymphocytes % 11.8 %; Mean Corpuscular HGB Conc 30.2 g/dL (30.0-36.0); Mean Corpuscular Hemoglobin 27.9 pg (28.0-34.0); Mean Corpuscular Volume 92.5 fl (81-99); Mean Platelet Volume 12.2 fL (7.4-10.4); Monocytes % 11.1 %; Neutrophils # 6.78 10^3/uL (1.8-7.7); Neutrophils % 75.2 %; Nucleated Red Blood Cells # 0.1 /100WBC; Nucleated Red Blood Cells % 0.8 %; Platelet Count 109 10^3/cmm (130-400); Red Blood Count 3.19 10^6/uL (4.1-5.3); Red Cell Distribution Width 18.1 % (12.1-15.1)
[2022-03-16 20:50] LABS: INR 1.46 (0.8-1.2)
[2022-03-16 20:59] LABS: Lactic Sepsis W/Reflex 2.9 mmol/L (0.5-2.2)
[2022-03-16 21:04] LABS: Alanine Aminotransferase 51 U/L (0-33); Albumin Level 2.2 g/dL (3.5-5.2); Alkaline Phosphatase 132 U/L (35-105); Anion Gap 13.8 (5-19); Aspartate Amino Transferase 181 U/L (0-32); Blood Urea Nitrogen 33 mg/dL (8-23); Calcium 8.8 mg/dL (8.5-10.5); Carbon Dioxide 24 mmol/L (22-29); Chloride 103 mmol/L (98-107); Globulin 3.4 g/dL (1.3-4.6); Glomerular Filtration Rate 32.5 mL/min (90-130); Glucose 244 mg/dL (65-115); Lipase 83 U/L (13-60); Osmolality Calculated 299 mOsm/kg (285-295); Potassium 3.8 mmol/L (3.5-5.1); Sodium 137 mmol/L (136-145); Thyroid Stimulating Hormone 1.16 uIU/mL (0.27-4.20); Total Protein 5.6 g/dL (6.6-8.7)
--- NOTE | 2022-03-16 21:38 | W.ED.ABDPA2 ---
HPI - Abdominal Pain General: Chief Complaint: Abdominal Pain Stated Complaint: pain in head, Nausia and vomiting, fall yesterday Time Seen by Provider: 03/16/22 21:33 History of Present Illness: Ms Ja Edmonds is a 66 lady with significant past medical history of hypertension, hyperlipidemia, portal vein thrombosis on anticoagulation, diabetes, 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 with history of paracentesis presenting to the emergency department due to concern over GI bleed. She reports onset of symptoms with abdominal cramping last night that woke her up from sleep. Earlier this afternoon she had 2 episodes of what amounted to diarrhea after taking lactulose that turned the entire toilet bowl black. She does have a history of GI bleed requiring blood transfusion. She has noticed increased abdominal swelling likely from ascites however no significant pain or infectious symptoms. Symptom intensity mild to moderate. 2 episodes of diarrhea. No other specific changes in health, exacerbating, or alleviating factors identified. Onset (ago): hour(s) Exacerbating factors: nothing Relieving factors: nothing Associated Symptoms: Reports melena, nausea and vomiting Review of Systems General: Reports: 10 or more systems reviewed and unremarkable except in HPI and below GI: Reports: nausea, vomiting and melena PFSH ED PFSH: Medical History Cirrhosis of liver Diabetes Hepatic encephalopathy Incisional hernia Kidney stones 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) Obesity (BMI 30.0-34.9) Surgical History H/O gastric bypass H/O: hysterectomy cervical cancer History of colonoscopy History of esophagogastroduodenoscopy (EGD) Hx of cholecystectomy Family History Mother Hypertension Father Chronic kidney disease (CKD) Sleep apnea Other Bleeding disorder Denies family history of Anesthesia complication Social History Smoking and tobacco status: former smoker Alcohol intake: never History of recent travel: No Physical Exam Const: COMMON NORMALS: alert GENERAL APPEARANCE: cooperative and well developed HENMT: COMMON NORMALS: normocephalic and atraumatic HEAD & SCALP: normocephalic and atraumatic Eye: COMMON NORMALS: conjunctivae normal CONJUNCTIVA: Yes conjunctivae normal SCLERA: scleral abnormal Laterality of scleral abnormality: positive bilateral scleral icterus Neck/C-Spine: COMMON NORMALS: supple GENERAL: Yes trachea midline Resp: COMMON NORMALS: normal respiratory effort EFFORT & INSPECTION: Yes able to speak in complete sentences Cardio: COMMON NORMALS: regular rate and regular rhythm RATE: regular rate RHYTHM: regular rhythm GI: COMMON NORMALS: Soft to palpation PALPATION: Yes Soft to palpation, No Tenderness to palpation present (GI), Yes Hernia present and Yes Ascites present OTHER: Rectal exam performed with account executive trainee present. No evidence of external pathology to explain GI bleed. Black stool found on glove without aishwarya blood. Grossly guaiac positive. : EXTERNAL FEMALE EXAM: Yes Hernia present Extremity: GENERAL: Yes normal exam except as noted and No edema Neuro: COMMON NORMALS: moves all extremities SENSORIUM/ORIENTATION: Yes alert and No Orientation impaired Psych: COMMON NORMALS: mental status grossly normal and Normal thought process present THOUGHT PROCESS: Normal thought process present Course ED course: - Patient was seen and evaluated by me at bedside - Patient placed on cardiac monitors, IV access obtained - Initial evaluation notable for exam as above. Vitals are satisfactory at this time. Clinical abdominal exam is not consistent with peritonitis and low clinical suspicion for SBP. - Labs and xrays personally interpreted by me - Analgesia given. Antiemetic given. - Labs notable for no leukocytosis, hemoglobin roughly baseline at 8.9. Thrombocytopenia again noted likely secondary to underlying liver disease. No acute electrolyte derangement. COLLETTE present. T bili elevated and transaminitis worse than baseline. Urinalysis not concerning for urinary tract infection given squamous epithelial contamination. INR elevated slightly above baseline 1.46. - Imaging notable for cirrhotic liver morphology without evidence of active hemorrhage on CTA. Mild to moderate amount of ascites. - Upon serial reexamination after treatment the patient was improved with analgesia - Based on patient history, evaluation, and testing as interpreted the most likely cause of the patient's condition is GI bleed with acute decompensation of end-stage liver disease. - The results of ED evaluation were discussed with the patient including plan for transfer due to requirement for level of care not available if discharged to prevent significant worsening/deterioration. - Patient follows with gastroenterology at [facility] in [place] and therefore they were contacted. Patient accepted by Dr. Perdomo. In discussion with Dr. Leanne Denis ordered. Patient also has received gentle hydration and Protonix. -Type and screen pending. Repeat hemoglobin was ordered but possibly not obtained prior to transfer. - Patient was transferred and left the emergency department without further deterioration or significant events. Note: Click bubbles or prepopulated vasquez in note writing are used for assistance with data collection and billing and are inherently more limited than narrative and other text portions of this note. Please use narrative for additional clinical history and defer to narrative/free test for any case of contradictory information. If information appears in only free text or click bubble it should be considered present or absent as reported. Please contact note mortgage loan underwriter for clarifications of clinical information or contradictory information. MDM is a brief summary, contradictory or erroneous seeming information should be clarified and full note should be reviewed. Vital Signs: Vital signs: Vital Signs Temperature 98.3 F 03/16/22 18:44 Pulse Rate 58 L 03/17/22 01:07 Respiratory Rate 16 03/17/22 01:58 Blood Pressure 104/67 03/17/22 01:07 Pulse Oximetry 58 L 03/17/22 01:07 Oxygen Delivery Me thod 03/16/22 18:44 MDM - Abdominal Pain Medical Decision Making 66-year-old lady with history of BLAIR presenting to the emergency department with black stool and abdominal cramping. Patient does have a history of GI bleed requiring transfusion. No aishwarya blood on rectal exam however grossly guaiac positive and black stool on glove. Given GI bleed with evidence of decompensated end-stage liver disease patient requires transfer for gastroenterology and endoscopy services not available at our facility. Accepted to [facility] in [place] and left emergency department in satisfactory condition. Medical Records I reviewed the patient's medical records. Lab Data I reviewed the patient's lab results. : 03/16/22 20:16 03/16/22 20:16 Labs/Radiology: Radiology Impressions Abdomen/Pelvis CTA 03/16/22 22:03 IMPRESSION: 1. Negative for active gastrointestinal bleeding. 2. Stigmata end-stage liver cirrhosis. Laboratory Results WBC 9.0 10^3/uL (4.0-10.0) 03/16/22 20:16 RBC 3.19 10^6/uL (4.1-5.3) L 03/16/22 20:16 Hgb 8.9 g/dL (11.5-15.3) L 03/16/22 20:16 Hct 29.5 % (37.0-47.0) L 03/16/22 20:16 MCV 92.5 fl (81-99) 03/16/22 20:16 MCH 27.9 pg (28.0-34.0) L 03/16/22 20:16 MCHC 30.2 g/dL (30.0-36.0) 03/16/22 20:16 RDW 18.1 % (12.1-15.1) H 03/16/22 20:16 Plt Count 109 10^3/cmm (130-400) L 03/16/22 20:16 MPV 12.2 fL (7.4-10.4) H 03/16/22 20:16 Neut % (Auto) 75.2 % 03/16/22 20:16 Lymph % (Auto) 11.8 % 03/16/22 20:16 [place] % (Auto) 11.1 % 03/16/22 20:16 Eos % (Auto) 0.3 % 03/16/22 20:16 Baso % (Auto) 0.3 % 03/16/22 20:16 Neut # (Auto) 6.78 10^3/uL (1.8-7.7) 03/16/22 20:16 Lymph # (Auto) 1.1 10^3/uL (0.8-4.8) 03/16/22 20:16 [place] # (Auto) 1.0 10^3/uL (0.2-0.9) H 03/16/22 20:16 Eos # (Auto) 0.0 10^3/uL (0.0-0.8) 03/16/22 20:16 Baso # (Auto) 0.0 10^3/uL (0.0-0.1) 03/16/22 20:16 Nucleated RBC % (auto) 0.8 % 03/16/22 20:16 Nucleated RBCs # 0.1 /100WBC 03/16/22 20:16 PT 18.10 SECONDS (12.1-14.9) H 03/16/22 20:16 INR 1.46 (0.8-1.2) H 03/16/22 20:16 APTT 31.0 SECONDS (23.9-36.7) 03/16/22 20:16 Sodium 137 mmol/L (136-145) 03/16/22 20:16 Potassium 3.8 mmol/L (3.5-5.1) 03/16/22 20:16 Chloride 103 mmol/L (98-107) 03/16/22 20:16 Carbon Dioxide 24 mmol/L (22-29) 03/16/22 20:16 Anion Gap 13.8 (5-19) 03/16/22 20:16 BUN 33 mg/dL (8-23) H 03/16/22 20:16 Creatinine 1.6 mg/dL (0.5-0.9) H 03/16/22 20:16 GFR Calculation 32.5 mL/min (90-130) L 03/16/22 20:16 Glucose 244 mg/dL (65-115) H 03/16/22 20:16 Calculated Osmolality 299 mOsm/kg (285-295) H 03/16/22 20:16 Lactic Acid 2.9 mmol/L (0.5-2.2) H 03/16/22 20:16 Lactic Acid (Sepsis) 1.9 mmol/L (0.5-2.2) 03/16/22 23:55 Calcium 8.8 mg/dL (8.5-10.5) 03/16/22 20:16 Total Bilirubin 4.0 mg/dL (0.15-1.2) H 03/16/22 20:16 AST 181 U/L (0-32) H 03/16/22 20:16 ALT 51 U/L (0-33) H 03/16/22 20:16 Alkaline Phosphatase 132 U/L (35-105) H 03/16/22 20:16 Ammonia 38 umol/L (11-51) 03/16/22 22:36 Total Protein 5.6 g/dL (6.6-8.7) L 03/16/22 20:16 Albumin 2.2 g/dL (3.5-5.2) L 03/16/22 20:16 Globulin 3.4 g/dL (1.3-4.6) 03/16/22 20:16 Lipase 83 U/L (13-60) H 03/16/22 20:16 TSH 1.16 uIU/mL (0.27-4.20) 03/16/22 20:16 Urine Color Dark yellow (Yellow) 03/16/22 22:10 Urine Appearance Cloudy (CLEAR) 03/16/22 22:10 Urine pH 5 (5-7) 03/16/22 22:10 Ur Specific [place] 1.010 (1.005-1.030) 03/16/22 22:10 Urine Protein Trace (Negative) 03/16/22 22:10 Urine Glucose (UA) Norm (Normal) 03/16/22 22:10 Urine Ketones Negative (Negative) 03/16/22 22:10 Urine Blood 2+ (Negative) H 03/16/22 22:10 Urine Nitrate Negative (Negative) 03/16/22 22:10 Urine Bilirubin 1+ (Negative) H 03/16/22 22:10 Urine Urobilinogen 4 mg/dL (Negative) H 03/16/22 22:10 Ur Leukocyte Esterase Trace (Negative) H 03/16/22 22:10 Urine RBC 10-15 /hpf (0-2) H 03/16/22 22:10 Urine WBC 15-25 /hpf (0-5) H 03/16/22 22:10 Ur Squamous Epith Cells 15-25 /hpf (0-5) H 03/16/22 22:10 Amorphous Sediment Not Reportable 03/16/22 22:10 Urine Bacteria 3+ /hpf (NONE) H 03/16/22 22:10 Urine Mucus Trace /hpf 03/16/22 22:10 Blood Type O Positive 03/16/22 22:36 Rho(D) Type Positive 03/16/22 22:36 Antibody Screen Positive 03/16/22 22:36 Antibody Identification Non-Specific Antibody Reation 03/16/22 22:36 Critical Care Time Critical Care Time: Critical Care Time: Yes Total Critical Care Time: 35 Attestation: Due to a high probability of clinically significant, possibly life threatening deterioration, the patient required my highest level of attention and preparedness to intervene emergently and I personally spent this critical care time directly and personally managing the patient. This critical care time included obtaining a history; examining the patient; pulse oximetry; ordering and review of laboratory and imaging studies; arranging urgent treatment with development of a management plan; evaluation of patient's response to treatment; frequent reassessment; and, discussions with other providers as applicable. It was exclusive of separately billable procedures. Primary system involved is GI/vascular Discharge Plan Discharge Patient Disposition: Xfer Short-Term Hosp Condition: Stable Referrals: Pauline Pereira MD [Primary Care Provider] - Coding Level of Care Code ED Media Services Director for Chg Fwd Exam Comprehensive
--- NOTE | 2022-03-16 22:03 | CTR_ITS ---
PROCEDURE INFORMATION: Exam: CTA Abdomen and Pelvis With Contrast, GI Bleeding Exam date and time: 03/16/2022 10:21 PM Age: 66 years old Clinical indication: Abdominal pain; Generalized; Prior surgery; Surgery type: Gb. Hysto. Gastric bypass; Patient HX: C/O abd pain with gi bleed. History of cirrhosis. ; Additional info: Gi bleed, decompensation of liver disease TECHNIQUE: Imaging protocol: Computed tomographic angiography of the abdomen and pelvis with contrast. 3D rendering (Not supervised by radiologist): MIP and/or 3D reconstructed images were created by the technologist. Radiation optimization: All CT scans at this facility use at least one of these dose optimization techniques: automated exposure control; mA and/or kV adjustment per patient size (includes targeted exams where dose is matched to clinical indication); or iterative reconstruction. Contrast material: OMNI 350; Contrast volume: 95 ml; Contrast route: INTRAVENOUS (IV); COMPARISON: CT angio abdomen pelvis [id number] 04/27/2020 10:51 PM RADIATION DOSE METRICS: Total DLP (mGy-cm): 868.45 FINDINGS: Aorta: Plaques of abdominal aorta without aneurysm or dissection. Celiac trunk and mesenteric arteries: No occlusion or significant stenosis. Renal arteries: No occlusion or significant stenosis. Right iliac arteries: No occlusion or significant stenosis. Left iliac arteries: No occlusion or significant stenosis. Liver: Cirrhotic morphology liver. Gallbladder and bile ducts: Cholecystectomy. Unremarkable biliary system. Pancreas: Unremarkable. No mass. No ductal dilation. Spleen: Moderate to severe splenomegaly. Adrenal glands: Normal. No mass. Kidneys and ureters: Unremarkable. No solid mass. No hydronephrosis. Stomach and bowel: No contrast extravasation into the bowel lumen. Negative for bowel obstruction. Negative for bowel perforation. No focal bowel mass. Surgical changes of the proximal stomach may represent previous Mitra-en-Y gastric bypass. Generally edematous small bowel loops are present. Appendix: No evidence of appendicitis. Intraperitoneal space: Small to moderate volume diffuse ascites. No free air. Diffuse edema and free fluid throughout abdominal mesentery. Lymph nodes: Unremarkable. No enlarged lymph nodes. Urinary bladder: Decompressed bladder. Reproductive: Hysterectomy. Bones/joints: No acute fracture. No dislocation. Soft tissues: Body wall anasarca. Focal right paramedian epigastric ventral abdominal wall hernia contains and short segment proximal transverse colon. CT/CT angio abdomen pelvis [id number] IMPRESSION: 1. Negative for active gastrointestinal bleeding. 2. Stigmata end-stage liver cirrhosis.
[2022-03-16 22:19] LABS: Reflex Lactate Order REFLEX LACTIC ORDERD
[2022-03-16] MEDS: iohexol 350 mg/mL 100 mL Btl IV (22:28)
[2022-03-16] MEDS: sodium chloride 0.9% 1,000 ML 999 ML IV (22:41)
[2022-03-16] MEDS: ondansetron 2 mg/ML SDV 2 mL 4 MG IVP (22:42)
[2022-03-16 22:43] VITALS: RESP 16
[2022-03-16] MEDS: morphine 4 mg/mL SDV 1 mL IVP ×2 (22:43→23:43)
[2022-03-16 22:46] VITALS: BP 144/76; PULSE 57; RESP 16; O2SAT 96
[2022-03-16 22:57] LABS: Protein Urine Trace (Negative); Urine Appearance Cloudy (CLEAR); Urine Color Dark Yellow (Yellow); pH Urine 5 (5-7)
[2022-03-16 22:58] LABS: Add Urine Microscopic? YES; Bilirubin Urine 1+ (Negative); Blood Urine 2+ (Negative); Glucose Urine UA Norm (Normal); Ketones Urine Negative (Negative); Leukocyte Esterase Urine Trace (Negative); Nitrate Urine Negative (Negative); Urobilinogen Urine 4 mg/dL (Negative)
[2022-03-16 22:59] LABS: Add Urine Culture? No; Bacteria Urine 3+ /hpf; Mucus Urine TRACE /hpf; Squamous Epithelial Cell Urine 15-25 /hpf (0-5); WBC Urine 15-25 /hpf (0-5)
[2022-03-16 23:06] LABS: Ammonia 38 umol/L (11-51)
[2022-03-16 23:43] VITALS: RESP 16
[2022-03-16 23:46] VITALS: BP 129/59; PULSE 58; RESP 16; O2SAT 94
[2022-03-17 00:17] LABS: Lactic Acid level (Lactate) 1.9 mmol/L (0.5-2.2)
[2022-03-17] MEDS: sodium chloride 0.9% 1,000 ML 125 ML IV (00:36)
[2022-03-17] MEDS: pantoprazole 40 mg SDV 80 MG IVP (00:37)
[2022-03-17] MEDS: cefTRIAXone 2,000 MG in sodium chloride 0.9% (plus) 50 ML 100 MG IV (00:40)
[2022-03-17 01:07] VITALS: BP 104/67; PULSE 58; RESP 16; O2SAT 58
--- NOTE | 2022-03-17 01:09 | PC.NURSE ---
Report called to Sachi Walton RN
[2022-03-17 01:58] VITALS: RESP 16
[2022-03-17] MEDS: morphine 4 mg/mL SDV 1 mL IVP (01:58)
== END 2022-03-17 02:07 | disposition short-term general hospital (02) ==
PROVIDERS: Emergency Provider Emergency Medicine; PCP Internal Medicine
DX: K92.2 Gastrointestinal hemorrhage, unspecified (principal); K72.10 Chronic hepatic failure without coma; K75.81 Nonalcoholic steatohepatitis (NASH); E11.9 Type 2 diabetes mellitus without complications; E66.9 Obesity, unspecified; Z68.30 Body mass index [BMI] 30.0-30.9, adult
CPT/HCPCS: 36415; 74174; 80053; 81001; 82140; 83605; 83690; 84443; 85025; 85610; 85730; 86850; 86870; 86900; 96361; 96365; 96375; 96376; 99285; C9113; J0696; J2270; J2405; J7030; Q9967

== ENCOUNTER 2022-03-25 04:03 | Emergency (ER) | payer MEDICAID, SELFPAY ==
[2022-03-25 04:05] VITALS: BP 126/63; PULSE 57; RESP 18; TEMP 36.9; O2SAT 100; BMI 33.3
--- NOTE | 2022-03-25 04:19 | ED_ITS ---
HPI - Abdominal Pain General: Chief Complaint: Abdominal Pain Stated Complaint: abdomen pain Time Seen by Provider: 03/25/22 04:05 Source: patient Mode of arrival: ambulatory Limitations: no limitations History of Present Illness: 66-year-old female has a history of cirrhosis, chronic abdominal pain she recently admitted to [facility] and discharged 2 to 3 days ago states she been having some abdominal swelling and pain since then, bilateral flank pain states pain sharp in nature rates it as a 3 out of 10 has had nausea denies any vomiting or diarrhea. Associated Symptoms: Denies chills, dysuria and fever(s) Review of Systems Const: Denies: fever(s), chills, body aches or change in appetite Eyes: Denies: blurry vision or eye discomfort ENMT: Denies: throat pain or dental pain Card: Denies: chest pain Resp: Denies: dyspnea GI: Reports: abdominal pain : Denies: dysuria Musc: Denies: neck pain or back pain Skin/Breast: Denies: rash Neuro: Denies: headache(s) Psych: Denies: depression [place]/Lymph: Denies: easy bruising All/Imm: Denies: urticaria PFSH ED PFSH: Medical History Cirrhosis of liver Diabetes Hepatic encephalopathy Incisional hernia Kidney stones 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) Obesity (BMI 30.0-34.9) Surgical History H/O gastric bypass H/O: hysterectomy cervical cancer History of colonoscopy History of esophagogastroduodenoscopy (EGD) Hx of cholecystectomy Family History Mother Hypertension Father Chronic kidney disease (CKD) Sleep apnea Other Bleeding disorder Denies family history of Anesthesia complication Social History Smoking and tobacco status: former smoker Alcohol intake: never History of recent travel: No Physical Exam Const: COMMON NORMALS: no acute distress, patient oriented x3 and healthy appearing HENMT: COMMON NORMALS: normocephalic and atraumatic HEAD & SCALP: normocephalic and atraumatic Eye: COMMON NORMALS: Equal, round and reactive pupils present and EOMs intact bilaterally PUPIL: Yes Equal, round and reactive pupils present Neck/C-Spine: COMMON NORMALS: full ROM and supple Chest: COMMONS NORMALS: normal inspection of the chest and normal palpation of entire chest wall Resp: COMMON NORMALS: normal respiratory effort, No retractions, No use of accessory muscles and clear to auscultation bilaterally AUSCULTATION: clear to auscultation bilaterally Cardio: COMMON NORMALS: regular rate, regular rhythm and No murmurs present (Cardio) RATE: regular rate RHYTHM: regular rhythm GI: COMMON NORMALS: Normal to inspection, nondistended, normoactive bowel sounds present, Soft to palpation, non-tender and no masses PALPATION: Yes Soft to palpation Extremity: COMMON NORMALS: normal to inspection and full ROM Neuro: COMMON NORMALS: patient oriented x3, moves all extremities and no focal motor deficits Psych: COMMON NORMALS: mental status grossly normal, Normal thought process present and cooperative THOUGHT PROCESS: Normal thought process present Skin: COMMON NORMALS: no rashes or lesions noted and no wounds GENERAL SKIN EXAM: no rashes or lesions noted Course Vital Signs: Vital signs: Vital Signs Temperature 98.4 F 03/25/22 04:05 Pulse Rate 55 L 03/25/22 04:51 Respiratory Rate 10 L 03/25/22 04:51 Blood Pressure 133/67 03/25/22 04:51 Pulse Oximetry 96 03/25/22 04:51 Oxygen Delivery Me thod 03/25/22 04:05 MDM - Abdominal Pain Medical Decision Making Patient presents here with abdominal pain is chronic in nature likely from her cirrhosis lipase is mildly elevated her pain is mainly in her flank she does not have any epigastric pain she feels improved here we will start her on oxycodone she is to follow-up with her PCP and return for worsening she understands agrees plan. Lab Data : 03/25/22 04:25 03/25/22 04:25 Labs/Radiology: Laboratory Results WBC 6.3 10^3/uL (4.0-10.0) 03/25/22 04:25 RBC 3.36 10^6/uL (4.1-5.3) L 03/25/22 04:25 Hgb 9.4 g/dL (11.5-15.3) L 03/25/22 04:25 Hct 31.7 % (37.0-47.0) L 03/25/22 04:25 MCV 94.3 fl (81-99) 03/25/22 04:25 MCH 28.0 pg (28.0-34.0) 03/25/22 04:25 MCHC 29.7 g/dL (30.0-36.0) L 03/25/22 04:25 RDW 21.6 % (12.1-15.1) H 03/25/22 04:25 Plt Count 113 10^3/cmm (130-400) L 03/25/22 04:25 MPV 11.7 fL (7.4-10.4) H 03/25/22 04:25 Neut % (Auto) 66.2 % 03/25/22 04:25 Lymph % (Auto) 19.2 % 03/25/22 04:25 [place] % (Auto) 11.5 % 03/25/22 04:25 Eos % (Auto) 2.2 % 03/25/22 04:25 Baso % (Auto) 0.6 % 03/25/22 04:25 Neut # (Auto) 4.13 10^3/uL (1.8-7.7) 03/25/22 04:25 Lymph # (Auto) 1.2 10^3/uL (0.8-4.8) 03/25/22 04:25 [place] # (Auto) 0.7 10^3/uL (0.2-0.9) 03/25/22 04:25 Eos # (Auto) 0.1 10^3/uL (0.0-0.8) 03/25/22 04:25 Baso # (Auto) 0.0 10^3/uL (0.0-0.1) 03/25/22 04:25 Nucleated RBC % (auto) 0 % 03/25/22 04:25 Nucleated RBCs # 0.0 /100WBC 03/25/22 04:25 Sodium 141 mmol/L (136-145) 03/25/22 04:25 Potassium 3.7 mmol/L (3.5-5.1) 03/25/22 04:25 Chloride 106 mmol/L (98-107) 03/25/22 04:25 Carbon Dioxide 28 mmol/L (22-29) 03/25/22 04:25 Anion Gap 10.7 (5-19) 03/25/22 04:25 BUN 13 mg/dL (8-23) 03/25/22 04:25 Creatinine 1.3 mg/dL (0.5-0.9) H 03/25/22 04:25 GFR Calculation 41.2 mL/min (90-130) L 03/25/22 04:25 Glucose 96 mg/dL (65-115) 03/25/22 04:25 Calculated Osmolality 292 mOsm/kg (285-295) 03/25/22 04:25 Calcium 8.2 mg/dL (8.5-10.5) L 03/25/22 04:25 Total Bilirubin 1.8 mg/dL (0.15-1.2) H 03/25/22 04:25 AST 62 U/L (0-32) H 03/25/22 04:25 ALT 36 U/L (0-33) H 03/25/22 04:25 Alkaline Phosphatase 135 U/L (35-105) H 03/25/22 04:25 Total Protein 6.2 g/dL (6.6-8.7) L 03/25/22 04:25 Albumin 2.4 g/dL (3.5-5.2) L 03/25/22 04:25 Globulin 3.8 g/dL (1.3-4.6) 03/25/22 04:25 Lipase 214 U/L (13-60) H 03/25/22 04:25 Urine Color Yellow (Yellow) 03/25/22 04:47 Urine Appearance Cloudy (CLEAR) 03/25/22 04:47 Urine pH 5 (5-7) 03/25/22 04:47 Ur Specific [place] 1.020 (1.005-1.030) 03/25/22 04:47 Urine Protein 1+ (Negative) H 03/25/22 04:47 Urine Glucose (UA) Norm (Normal) 03/25/22 04:47 Urine Ketones 1+ (Negative) H 03/25/22 04:47 Urine Blood 3+ (Negative) H 03/25/22 04:47 Urine Nitrate Negative (Negative) 03/25/22 04:47 Urine Bilirubin 1+ (Negative) H 03/25/22 04:47 Urine Urobilinogen 1 mg/dL (Negative) H 03/25/22 04:47 Ur Leukocyte Esterase Trace (Negative) H 03/25/22 04:47 Urine RBC 5-10 /hpf (0-2) H 03/25/22 04:47 Urine WBC 0-4 /hpf (0-5) H 03/25/22 04:47 Ur Squamous Epith Cells 15-25 /hpf (0-5) H 03/25/22 04:47 Calcium Oxalate Crystal 0-4 /hpf H 03/25/22 04:47 Amorphous Sediment Not Reportable 03/25/22 04:47 Urine Bacteria Trace /hpf (NONE) 03/25/22 04:47 Urine Mucus 1+ /hpf 03/25/22 04:47 Discharge Plan Discharge Patient Disposition: Home Clinical Impression: Abdominal pain Qualifiers: Abdominal location: generalized Qualified Code(s): R10.84 - Generalized abdominal pain Condition: Stable Prescriptions: New oxycodone 5 mg tablet 5 mg PO Q6H PRN (Reason: pain) Qty: 20 0RF No Action furosemide 40 mg tablet 40 mg PO BID spironolactone 25 mg tablet 25 mg PO QAM multivitamin Tablet 1 tab PO QAM acetaminophen 500 mg Tablet 1,000 mg PO Q6H PRN (Reason: Pain) citalopram 20 mg tablet 20 mg PO QAM omeprazole magnesium [Prilosec OTC] 20 mg Tablet,Delayed Release (Dr/Ec) 20 mg PO DAILY Lantus Solostar U-100 Insulin 100 unit/mL (3 mL) insulin pen 40 unit SUBCUT BEDTIME lactulose 20 gram/30 mL solution 30 g PO DAILY Narcan 4 mg/actuation spray,non-aerosol See Rx Instructions .ROUTE .COMPLEX Rx Instructions: intranasally as directed potassium chloride 10 mEq Capsule, Extended Release 10 meq PO DAILY magnesium 30 mg Tablet 30 mg PO DAILY Naprosyn 500 mg tablet 500 mg PO BID PRN (Reason: pain) Qty: 20 0RF propranolol 10 mg tablet 10 mg PO DAILY Eliquis 5 mg tablet 5 mg PO BID Discharge Orders: Discharge ED (Routine); Ordered 03/25/22 Ordered By: Parmjit Fernandez Referrals: Pauline Pereira MD [Primary Care Provider] - 1-3 days Discharge Diet: Advance as tolerated Discharge Activity: Resume usual activity Patient Instructions: Abdominal Pain (ED) Coding Level of Care Code ED Staple Laster for Chg Fwd Exam Comprehensive
[2022-03-25 04:29] VITALS: RESP 18; O2SAT 99
[2022-03-25] MEDS: HYDROmorphone 1 mg/mL INJ 1 mL 0.5 MG IVP (04:29)
[2022-03-25] MEDS: ondansetron 2 mg/ML SDV 2 mL 4 MG IVP (04:29)
[2022-03-25 04:32] LABS: Basophils % 0.6 %; Eosinophils # 0.1 10^3/uL (0.0-0.8); Eosinophils % 2.2 %; Hematocrit 31.7 % (37.0-47.0); Hemoglobin 9.4 g/dL (11.5-15.3); Lymphocytes # 1.2 10^3/uL (0.8-4.8); Lymphocytes % 19.2 %; Mean Corpuscular HGB Conc 29.7 g/dL (30.0-36.0); Mean Corpuscular Volume 94.3 fl (81-99); Mean Platelet Volume 11.7 fL (7.4-10.4); Monocytes # 0.7 10^3/uL (0.2-0.9); Monocytes % 11.5 %; Neutrophils # 4.13 10^3/uL (1.8-7.7); Neutrophils % 66.2 %; Nucleated Red Blood Cells % 0 %; Platelet Count 113 10^3/cmm (130-400); Red Blood Count 3.36 10^6/uL (4.1-5.3); Red Cell Distribution Width 21.6 % (12.1-15.1); White Blood Count 6.3 10^3/uL (4.0-10.0)
[2022-03-25 04:51] VITALS: BP 133/67; PULSE 55; RESP 10; O2SAT 96
[2022-03-25 04:56] LABS: Alanine Aminotransferase 36 U/L (0-33); Albumin Level 2.4 g/dL (3.5-5.2); Alkaline Phosphatase 135 U/L (35-105); Anion Gap 10.7 (5-19); Aspartate Amino Transferase 62 U/L (0-32); Blood Urea Nitrogen 13 mg/dL (8-23); Calcium 8.2 mg/dL (8.5-10.5); Carbon Dioxide 28 mmol/L (22-29); Chloride 106 mmol/L (98-107); Globulin 3.8 g/dL (1.3-4.6); Glomerular Filtration Rate 41.2 mL/min (90-130); Glucose 96 mg/dL (65-115); Lipase 214 U/L (13-60); Osmolality Calculated 292 mOsm/kg (285-295); Potassium 3.7 mmol/L (3.5-5.1); Sodium 141 mmol/L (136-145); Total Bilirubin 1.8 mg/dL (0.15-1.2); Total Protein 6.2 g/dL (6.6-8.7)
[2022-03-25 04:57] LABS: Creatinine Clr Calc Pharmacy 48.6482
[2022-03-25 05:04] LABS: Blood Urine 3+ (Negative); Glucose Urine UA Norm (Normal); Ketones Urine 1+ (Negative); Protein Urine 1+ (Negative); Urine Appearance Cloudy (CLEAR); Urine Color Yellow (Yellow); pH Urine 5 (5-7)
[2022-03-25 05:05] LABS: Add Urine Microscopic? YES; Bilirubin Urine 1+ (Negative); Leukocyte Esterase Urine Trace (Negative); Nitrate Urine Negative (Negative); Urobilinogen Urine 1 mg/dL (Negative)
[2022-03-25 05:06] LABS: Add Urine Culture? No; Bacteria Urine TRACE /hpf; Calcium Oxalate Crystals Urine 0-4 /hpf; Mucus Urine 1+ /hpf; Squamous Epithelial Cell Urine 15-25 /hpf (0-5); WBC Urine 0-4 /hpf (0-5)
[2022-03-25 05:27] VITALS: BP 120/52; PULSE 54; RESP 14; O2SAT 95
== END 2022-03-25 05:25 | disposition home or self-care (01) ==
PROVIDERS: Emergency Provider Emergency Medicine; PCP Internal Medicine
DX: R10.84 Generalized abdominal pain (principal); K74.60 Unspecified cirrhosis of liver; K75.81 Nonalcoholic steatohepatitis (NASH); E11.9 Type 2 diabetes mellitus without complications; E66.9 Obesity, unspecified; Z68.33 Body mass index [BMI] 33.0-33.9, adult; Z79.4 Long term (current) use of insulin; Z79.01 Long term (current) use of anticoagulants; Z87.891 Personal history of nicotine dependence; Z98.84 Bariatric surgery status; Z90.49 Acquired absence of other specified parts of digestive tract
CPT/HCPCS: 80053; 81001; 83690; 85025; 96374; 96375; 99284; J1170; J2405

== ENCOUNTER 2022-04-22 12:41 | Emergency (ER) | payer MEDICAID, SELFPAY ==
[2022-04-22] VITALS (14 sets, daily range): BP systolic 86–124; BP diastolic 40–66; PULSE 71–77; RESP 15–20; TEMP 36.2–36.4; O2SAT 93–98; BMI 32.4
[2022-04-22] MEDS: lidocaine 2% viscous 15 ML, aluminum-mag hydrox-simethicon 30 ML, sucralfate oral liq 1 GM PO (13:05)
[2022-04-22 13:47] LABS: Basophils % 0.3 %; Hematocrit 32.3 % (37.0-47.0); Hemoglobin 9.6 g/dL (11.5-15.3); Lymphocytes % 7.8 %; Mean Corpuscular HGB Conc 29.7 g/dL (30.0-36.0); Mean Corpuscular Hemoglobin 26.9 pg (28.0-34.0); Mean Corpuscular Volume 90.5 fl (81-99); Mean Platelet Volume 12.8 fL (7.4-10.4); Monocytes # 0.6 10^3/uL (0.2-0.9); Monocytes % 4.5 %; Neutrophils % 87.1 %; Nucleated Red Blood Cells % 0 %; Platelet Count 143 10^3/cmm (130-400); Red Blood Count 3.57 10^6/uL (4.1-5.3); Red Cell Distribution Width 19.7 % (12.1-15.1)
--- NOTE | 2022-04-22 13:49 | W.ED.GENADLT ---
HPI - General Adult General: Chief complaint: Abdominal Pain Stated complaint: ABD PAIN Time Seen by Provider: 04/22/22 12:44 History of Present Illness: 66-year-old female presenting today with abdominal pain. Patient notes right upper quadrant abdominal pain. She considers to be severe. Has a history of nonalcoholic's steatohepatitis. Actively treated. Currently on lactulose for the same. She notes that her belly pain began to get severe last night. Prompting her to come into the ED. She denies black or bloody stools. Has frequent diarrhea. Has some nausea without vomiting. She denies chest pain or shortness of breath. Though she does note deep inhalation will make her abdomen hurt more. She denies fevers or chills. No recent surgical history. Review of Systems General: Reports: 10 or more systems reviewed and unremarkable except in HPI and below PFSH ED PFSH: Medical History Cirrhosis of liver Diabetes Hepatic encephalopathy Incisional hernia Kidney stones 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) Obesity (BMI 30.0-34.9) Surgical History H/O gastric bypass H/O: hysterectomy cervical cancer History of colonoscopy History of esophagogastroduodenoscopy (EGD) Hx of cholecystectomy Family History Mother Hypertension Father Chronic kidney disease (CKD) Sleep apnea Other Bleeding disorder Denies family history of Anesthesia complication Social History Smoking and tobacco status: former smoker Alcohol intake: never History of recent travel: No Physical Exam Const: COMMON NORMALS: no acute distress, patient oriented x3 and alert GENERAL APPEARANCE: cooperative ORIENTATION/CONSCIOUSNESS: Yes awake, Yes oriented to person, Yes oriented to place and Yes oriented to time HENMT: COMMON NORMALS: normocephalic, atraumatic, external ears normal, Normal external nose present and moist oral mucous membranes HEAD & SCALP: normal to inspection, normocephalic and atraumatic NOSE: Normal external nose present GENERAL EAR: hearing grossly impaired EXTERNAL EAR: Yes external ears normal Eye: COMMON NORMALS: Equal, round and reactive pupils present, EOMs intact bilaterally, conjunctivae normal and no scleral icterus GENERAL EYE: appearance normal, both eyes and all related structures EYELID: eyelids normal CONJUNCTIVA: Yes conjunctivae normal SCLERA: sclerae normal PUPIL: Yes Equal, round and reactive pupils present Neck/C-Spine: COMMON NORMALS: full ROM, supple and no JVD GENERAL: Yes normal visual inspection Lymph: LYMPHATIC: no lymphadenopathy noted and no lymphedema noted Chest: COMMONS NORMALS: normal inspection of the chest Resp: COMMON NORMALS: normal respiratory effort, No retractions and No use of accessory muscles Cardio: COMMON NORMALS: no JVD, regular rate and regular rhythm RATE: regular rate RHYTHM: regular rhythm GI: COMMON NORMALS: Normal to inspection, nondistended, normoactive bowel sounds present : COMMON NORMALS: Yes no CVA tenderness BLADDER/KIDNEY EXAM: Yes no CVA tenderness Back/Pelvis: COMMON NORMALS: no CVA tenderness and thoracic and lumbar spine normal to inspection Extremity: COMMON NORMALS: normal to inspection, full ROM and capillary refill normal GENERAL: Yes normal exam except as noted Neuro: COMMON NORMALS: patient oriented x3, CN's II-XII intact bilaterally, moves all extremities, no focal motor deficits, no sensory deficits noted and gait normal SENSORIUM/ORIENTATION: Yes alert, Yes oriented to person, Yes oriented to place and Yes oriented to time Psych: COMMON NORMALS: mental status grossly normal, Normal thought process present, cooperative and normal affect THOUGHT PROCESS: Normal thought process present Skin: COMMON NORMALS: no rashes or lesions noted and no wounds GENERAL SKIN EXAM: no rashes or lesions noted Course Vital Signs: Vital signs: Vital Signs Pulse Rate 72 04/22/22 15:32 Respiratory Rate 18 04/22/22 15:32 Blood Pressure 88/45 04/22/22 15:32 Pulse Oximetry 95 04/22/22 15:32 Oxygen Delivery Me thod 04/22/22 15:32 [facility] - General Adult Medical Decision Making 66-year-old female presenting today with right upper quadrant pain. Patient with significant elevation in lactic acid. Blood pressure is downtrending. Patient started on vancomycin and Zosyn. Bolused [address] abdomen pelvis with evidence of pneumoperitoneum and likely gastric perforation. Consulted general surgery. Who will admit the patient. Patient admitted in stable condition. Lab Data : 04/22/22 12:39 04/22/22 12:39 Radiology Impressions Chest/Abdomen/Pelvis CTA 04/22/22 14:16 IMPRESSION: 1. Comparison CT 03/16/2022. New small left pleural effusion. Somewhat limited assessment for pulmonary embolism with no obvious large/central PE. 2. No obvious signs of intraluminal bowel contrast extravasation to suggest source of GI hemorrhage. However there is new pneumoperitoneum, mostly in the anterior superior upper abdomen with loculated air near the distal gastric antrum raising possibility of point of perforation such as gastric or proximal duodenal ulcer. 3. Again seen is gastric wall thickening similar to prior exam. There is also ascending colonic and proximal colonic wall thickening, nonspecific. See discussion above. 4. No pneumatosis or bowel obstruction. However a very short segment of small bowel distention is noted in the right mid anterior abdomen in the region of surgical bowel anastomosis. No regional bowel wall thickening or large obstructive mass. 5. Hepatic cirrhosis and splenomegaly. Similar amount of abdominopelvic ascites. Interval improvement of anasarca. Perisplenic varices again noted. 6. Slight interval increase of mild upper abdominal enlarged adenopathy. 7. Supraumbilical ventral hernia containing fat and short segment of transverse colon. No obvious incarceration/obstruction. Laboratory Results WBC 13.0 10^3/uL (4.0-10.0) H 04/22/22 12:39 RBC 3.57 10^6/uL (4.1-5.3) L 04/22/22 12:39 Hgb 9.6 g/dL (11.5-15.3) L 04/22/22 12:39 Hct 32.3 % (37.0-47.0) L 04/22/22 12:39 MCV 90.5 fl (81-99) 04/22/22 12:39 MCH 26.9 pg (28.0-34.0) L 04/22/22 12:39 MCHC 29.7 g/dL (30.0-36.0) L 04/22/22 12:39 RDW 19.7 % (12.1-15.1) H 04/22/22 12:39 Plt Count 143 10^3/cmm (130-400) 04/22/22 12:39 MPV 12.8 fL (7.4-10.4) H 04/22/22 12:39 Neut % (Auto) 87.1 % 04/22/22 12:39 Lymph % (Auto) 7.8 % 04/22/22 12:39 [place] % (Auto) 4.5 % 04/22/22 12:39 Eos % (Auto) 0.0 % 04/22/22 12:39 Baso % (Auto) 0.3 % 04/22/22 12:39 Neut # (Auto) 11.30 10^3/uL (1.8-7.7) H 04/22/22 12:39 Lymph # (Auto) 1.0 10^3/uL (0.8-4.8) 04/22/22 12:39 [place] # (Auto) 0.6 10^3/uL (0.2-0.9) 04/22/22 12:39 Eos # (Auto) 0.0 10^3/uL (0.0-0.8) 04/22/22 12:39 Baso # (Auto) 0.0 10^3/uL (0.0-0.1) 04/22/22 12:39 Nucleated RBC % (auto) 0 % 04/22/22 12:39 Nucleated RBCs # 0.0 /100WBC 04/22/22 12:39 Sodium 140 mmol/L (136-145) 04/22/22 12:39 Potassium 5.1 mmol/L (3.5-5.1) 04/22/22 12:39 Chloride 104 mmol/L (98-107) 04/22/22 12:39 Carbon Dioxide 16 mmol/L (22-29) L 04/22/22 12:39 Anion Gap 25.1 (5-19) H 04/22/22 12:39 BUN 27 mg/dL (8-23) H 04/22/22 12:39 Creatinine 2.3 mg/dL (0.5-0.9) H 04/22/22 12:39 GFR Calculation 21.3 mL/min (90-130) L 04/22/22 12:39 Glucose 82 mg/dL (65-115) 04/22/22 12:39 Calculated Osmolality 294 mOsm/kg (285-295) 04/22/22 12:39 Lactate 8.9 mmol/L (0.5-2.2) H* 04/22/22 13:14 Calcium 8.7 mg/dL (8.5-10.5) 04/22/22 12:39 Total Bilirubin 1.9 mg/dL (0.15-1.2) H 04/22/22 12:39 AST 44 U/L (0-32) H 04/22/22 12:39 ALT 21 U/L (0-33) 04/22/22 12:39 Alkaline Phosphatase 126 U/L (35-105) H 04/22/22 12:39 Ammonia 38 umol/L (11-51) 04/22/22 13:14 Total Protein 6.2 g/dL (6.6-8.7) L 04/22/22 12:39 Albumin 2.2 g/dL (3.5-5.2) L 04/22/22 12:39 Globulin 4.0 g/dL (1.3-4.6) 04/22/22 12:39 Lipase 26 U/L (13-60) 04/22/22 12:39 Discharge Plan Discharge Condition: Stable Prescriptions: No Action furosemide 40 mg tablet 40 mg PO BID multivitamin Tablet 1 tab PO QAM acetaminophen 500 mg Tablet 1,000 mg PO Q6H PRN (Reason: Pain) citalopram 20 mg tablet 20 mg PO QAM omeprazole magnesium [Prilosec OTC] 20 mg Tablet,Delayed Release (Dr/Ec) 20 mg PO DAILY insulin glargine [Lantus Solostar U-100 Insulin] 100 unit/mL (3 mL) insulin pen 10 unit SUBCUT BEDTIME lactulose 20 gram/30 mL solution 30 g PO TID PRN (Reason: Constipation) naloxone [Narcan] 4 mg/actuation spray,non-aerosol See Rx Instructions .ROUTE .COMPLEX Rx Instructions: intranasally as directed potassium chloride 10 mEq Capsule, Extended Release 10 meq PO DAILY magnesium 30 mg Tablet 30 mg PO DAILY naproxen [Naprosyn] 500 mg tablet 500 mg PO BID PRN (Reason: pain) Qty: 20 0RF propranolol 10 mg tablet 10 mg PO BID oxycodone 5 mg tablet 5 mg PO Q6H PRN (Reason: pain) Qty: 20 0RF spironolactone 100 mg Tablet 100 mg PO DAILY Xifaxan 550 mg tablet 550 mg PO BID Coding Level of Care Code ED Out Of Town Collection Clerk for Chg Fwd Exam Comprehensive
[2022-04-22 14:02] LABS: Ammonia 38 umol/L (11-51)
[2022-04-22 14:05] LABS: Alanine Aminotransferase 21 U/L (0-33); Albumin Level 2.2 g/dL (3.5-5.2); Alkaline Phosphatase 126 U/L (35-105); Anion Gap 25.1 (5-19); Aspartate Amino Transferase 44 U/L (0-32); Blood Urea Nitrogen 27 mg/dL (8-23); Calcium 8.7 mg/dL (8.5-10.5); Carbon Dioxide 16 mmol/L (22-29); Chloride 104 mmol/L (98-107); Glomerular Filtration Rate 21.3 mL/min (90-130); Glucose 82 mg/dL (65-115); Lipase 26 U/L (13-60); Osmolality Calculated 294 mOsm/kg (285-295); Potassium 5.1 mmol/L (3.5-5.1); Sodium 140 mmol/L (136-145); Total Bilirubin 1.9 mg/dL (0.15-1.2); Total Protein 6.2 g/dL (6.6-8.7)
[2022-04-22 14:09] LABS: Lactate (Lactic Acid level) 8.9 mmol/L (0.5-2.2)
[2022-04-22] MEDS: sodium chloride 0.9% 1,000 ML 999 ML IV ×4 (14:09→16:00)
--- NOTE | 2022-04-22 14:16 | CTR_ITS ---
PROCEDURE INFORMATION: Exam: CTA Chest With Contrast CTA Abdomen and Pelvis With Contrast Exam date and time: 04/22/2022 2:34 PM Age: 66 years old Clinical indication: Other: Abd pain lactic >8; Abdominal pain; Generalized; Prior surgery; Surgery type: Gastric bypass, hysto HX of cirrhosis; Additional info: Severe abdominal pain, lactic >8, acute renal failure. , Override creatinine requirement for CT thank you. TECHNIQUE: Imaging protocol: Computed tomographic angiography of the chest with contrast. Computed tomographic angiography of the abdomen and pelvis with contrast. 3D rendering (Not supervised by radiologist): MIP and/or 3D reconstructed images were created by the technologist. Radiation optimization: All CT scans at this facility use at least one of these dose optimization techniques: automated exposure control; mA and/or kV adjustment per patient size (includes targeted exams where dose is matched to clinical indication); or iterative reconstruction. Contrast material: OMNI 350; Contrast volume: 100 ml; Contrast route: INTRAVENOUS (IV); COMPARISON: CT chest w con* [id number] 12/13/2020 2:17 PM RADIATION DOSE METRICS: Total DLP (mGy-cm): 1154.87 FINDINGS: Tubes, catheters and devices: Multiple surgical clips are noted in the pelvis. VASCULATURE: Pulmonary arteries: There is no pulmonary embolism in the central-proximal segmental branches. Assessment of the peripheral subsegmental small branches is limited. Aorta: No aortic aneurysm or dissection. Ascending aorta measures 3.2 cm. Celiac trunk and mesenteric arteries: No occlusion or significant stenosis. Renal arteries: No occlusion or significant stenosis. Right iliac arteries: No occlusion or significant stenosis. Left iliac arteries: No occlusion or significant stenosis. CHEST: Lungs: Bibasilar linear atelectasis, left greater than right. Pleural spaces: Trace left pleural effusion new since previous exam. Heart: Normal heart size with mild coronary calcification. ABDOMEN AND PELVIS: Liver: Liver is normal in size with features of advanced cirrhosis. Multiple calcified hepatic granulomas. No discrete mass or suspicious enhancement during angiographic phase. Portal venous phase images are not available. Gallbladder and bile ducts: Gallbladder not visualized, presumed prior cholecystectomy. No ductal dilation. Pancreas: Unremarkable. No mass. No ductal dilation. Spleen: Mild splenomegaly similar to previous exam. Perisplenic venous collaterals are again noted. Multiple calcified splenic granulomas. Adrenal glands: Unremarkable. No mass. Kidneys and ureters: Unremarkable. No solid mass. No hydronephrosis. Stomach and bowel: Bowel wall assessment is limited to lack of luminal contrast however there is probable distal gastric antral wall thickening. No bowel obstruction or pneumatosis however there is a short segment of small bowel distention in the right anterior mid abdomen in the area of surgical bowel suture. Low colonic stool burden. There is also probable mild ascending colonic and proximal transverse colonic wall thickening. This may be related to nonspecific colitis however chronic liver disease/portal hypertension may result in similar appearance. Evidence of previous gastric bypass surgery. No obvious intraluminal contrast extravasation to suggest a source of GI hemorrhage. Appendix: No evidence of appendicitis. Intraperitoneal space: Moderate abdominopelvic ascites similar to previous exam. Interval development of pneumoperitoneum which is mostly in the anterior superior aspect. No obvious drainable abscess. Small amount of non loculated low-density fluid is also seen in the lesser sac region. A somewhat area of loculated extraluminal air is noted between the liver and distal gastric antrum raising possibility of site of perforation. Urinary bladder: Unremarkable. No mass. Reproductive: Unremarkable as visualized. Lymph nodes: Nonenlarged calcified mediastinal hilar lymph nodes consistent with chronic granulomatous disease. Slightly enlarged upper abdominal adenopathy is noted, measuring up to 14 mm in the periceliac region, versus 12 mm previously. Bones/joints: Osteopenia. Soft tissues: Midline supraumbilical ventral hernia containing fat and short segment of transverse colon with hernia sac measuring about 7.6 by 3.5 cm and the defect measuring about 4.3 cm. A few metallic regional foci are noted which may be related to prior hernia repair or abdominal wall surgery. Slight interval improvement of generalized anasarca. CT/CT angio chest abdomen pelvis IMPRESSION: 1. Comparison CT 03/16/2022. New small left pleural effusion. Somewhat limited assessment for pulmonary embolism with no obvious large/central PE. 2. No obvious signs of intraluminal bowel contrast extravasation to suggest source of GI hemorrhage. However there is new pneumoperitoneum, mostly in the anterior superior upper abdomen with loculated air near the distal gastric antrum raising possibility of point of perforation such as gastric or proximal duodenal ulcer. 3. Again seen is gastric wall thickening similar to prior exam. There is also ascending colonic and proximal colonic wall thickening, nonspecific. See discussion above. 4. No pneumatosis or bowel obstruction. However a very short segment of small bowel distention is noted in the right mid anterior abdomen in the region of surgical bowel anastomosis. No regional bowel wall thickening or large obstructive mass. 5. Hepatic cirrhosis and splenomegaly. Similar amount of abdominopelvic ascites. Interval improvement of anasarca. Perisplenic varices again noted. 6. Slight interval increase of mild upper abdominal enlarged adenopathy. 7. Supraumbilical ventral hernia containing fat and short segment of transverse colon. No obvious incarceration/obstruction.
[2022-04-22] MEDS: iohexol 350 mg/mL 100 mL Btl IV (14:48)
[2022-04-22] MEDS: piperacillin-tazobactam 3.375 GM in sodium chloride 0.9% (plus) 50 ML IV (15:29)
[2022-04-22] MEDS: vancomycin 1,250 MG/250 ML PIGGYBACK 200 MG IV (16:00)
[2022-04-22 16:41] LABS: INR 1.62 (0.8-1.2)
[2022-04-22 16:42] LABS: Partial Thromboplastin Time 33.8 SECONDS (23.9-36.7)
--- NOTE | 2022-04-22 17:04 | PM.CONSULT ---
Providers/Reason For Consult Consulting Physician/Specialty*: General Surgery/Jian Jones MD, FACS, RPVI Reason for Consult*: Free intra-abdominal air Primary Care Provider: Pauline Pereira MD History of Present Illness History of Present Illness Gillian Gonzalez is a 66 year old female She was complaining of abdominal pain for about a month, was visiting doctors in [place], however, no diagnosis was made. This night she woke up with severe abdominal pain, vomited multiple times, her condition did not improve and she went to the hospital at [facility]. She was diagnosed with a liver cirrhosis 17 years ago, nonalcoholic steatohepatitis. 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 She is not on transplant list yet. She was diagnosed with esophageal varices, last EGD was about a year ago at [facility], she never bled from dialysis in terms of bloody vomiting. However, she had multiple episodes of melena in the past. Multiple endoscopies was performed, however, no definitive source of bleeding was found. She has persistent ascites. She underwent multiple paracentesis, last was in March this year, she stated that she requires a more and more often She was admitted multiple times to different hospitals with hepatic encephalopathy. She was diagnosed with a portal vein thrombosis sometime ago. She was started on anticoagulation for this, however, she was taken off anticoagulation and her platelets dropped to 70. History of open gastric bypass about 17 years ago. It sounds like it was complicated by bleeding, she was taken back for reoperation after surgery. She developed an incisional hernia at the bypass incision. She saw a surgeon for this hernia, she was told that she is too high risk to repair it. History of hysterectomy, oophorectomy, she said that she had 3 incisions in total for different gynecological reasons. She quit smoking several years ago. She was only a social drinker and is not drinking after she was diagnosed with a cirrhosis. Review of Systems Narrative: 10 point review of system is negative except as per above Medications/Allergies Home Medications Medication Instructions Recorded Confirmed Last Taken Type furosemide 40 mg tablet 40 mg PO BID 12/11/19 04/22/22 04/21/22 History acetaminophen 500 mg tablet 1,000 mg PO Q6H PRN Pain 09/04/21 04/22/22 02/28/22 History citalopram 20 mg tablet 20 mg PO QAM 09/04/21 04/22/22 04/21/22 History multivitamin 1 tab PO QAM 09/04/21 04/22/22 04/21/22 History omeprazole magnesium 20 mg 20 mg PO DAILY 09/04/21 04/22/22 04/21/22 History tablet,delayed release (Prilosec OTC) propranolol 10 mg tablet 10 mg PO BID 03/01/22 04/22/22 04/22/22 History insulin glargine 100 unit/mL (3 10 unit SUBCUT BEDTIME 03/15/22 04/22/22 04/21/22 History mL) subcutaneous pen (Lantus Solostar U-100 Insulin) lactulose 20 gram/30 mL oral 30 g PO TID PRN Constipation 03/15/22 04/22/22 03/14/22 History solution magnesium 30 mg tablet 30 mg PO DAILY 03/15/22 04/22/22 04/21/22 History naloxone 4 mg/actuation nasal See Rx Instructions .Route .COMPLEX 03/15/22 04/22/22 Unknown History spray (Narcan) naproxen 500 mg tablet (Naprosyn) 500 mg PO BID PRN pain #20 tabs 03/15/22 04/22/22 Unknown Rx potassium chloride 10 mEq 10 meq PO DAILY 03/15/22 04/22/22 03/14/22 History capsule,extended release oxycodone 5 mg tablet 5 mg PO Q6H PRN pain #20 tabs 03/25/22 04/22/22 04/21/22 Rx rifaximin 550 mg tablet (Xifaxan) 550 mg PO BID 04/22/22 04/22/22 04/21/22 History spironolactone 100 mg tablet 100 mg PO DAILY 04/22/22 04/22/22 04/21/22 History Allergies Allergy/AdvReac Type Severity Reaction Status Date / Time No Known Allergies Allergy Verified 03/16/22 18:46 Current Medications Generic Name Dose Route Start Last Admin Trade Name Freq PRN Reason Stop Dose Admin Sodium Chloride 1,000 mls @ 999 mls/hr 04/22/22 16:13 04/22/22 16:00 Sodium Chloride 0.9% IV 04/22/22 17:13 999 mls/hr .Q1H1M ONE Administration PFSH Acute PFSH: Medical History Cirrhosis of liver Diabetes Hepatic encephalopathy Incisional hernia Kidney stones 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) Obesity (BMI 30.0-34.9) Surgical History H/O gastric bypass H/O: hysterectomy cervical cancer History of colonoscopy History of esophagogastroduodenoscopy (EGD) Hx of cholecystectomy Family History Mother Hypertension Father Chronic kidney disease (CKD) Sleep apnea Other Bleeding disorder Denies family history of Anesthesia complication Social History Smoking and tobacco status: former smoker Alcohol intake: never History of recent travel: No Vitals/I&O/Wt Last Vital Signs Pulse 75 04/22/22 16:24 Resp 16 04/22/22 16:24 BP 110/54 04/22/22 16:24 Pulse Ox 97 04/22/22 16:24 O2 Del Method 04/22/22 16:24 04/22/22 04/22/22 04/22/22 06:59 14:59 22:59 Intake Total 3050 / 3050 Balance 3050 / 3050 Weight last 48 hrs Weight 195 lb Physical Exam Narrative: General: Mild distress secondary to abdominal pain Psych: [AAOx3] Eyes: [sclerae are white] Head/ENT: [normocephalic, symmetric] CV: [regular] pulse, [], no JVD Lungs: [symmetrical chest rise] Abdomen: [Softly distended with ascites. Tender to palpation in the upper quadrants more than lower quadrants, mostly around the area of incisional hernia which is about 45 cm in size. No obvious caput medusa Ext: [no obvious traumatic deformities] Skin: Pale Data : 04/22/22 12:39 04/22/22 12:39 Other data: I personally reviewed CT scan. Free intraperitoneal air is present. A lot of free intraperitoneal fluid, similar to the prior CT scan, most likely ascites. Liver appearance consistent with advanced cirrhosis. Splenomegaly. There is a dilated loop of bowel with anastomotic line, very close to the area of free air. A&P Assessment and plan (1) Free intraperitoneal air: (2) Septic shock: (3) 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: (4) Portal vein thrombosis: (5) Incisional hernia: (6) Diabetes mellitus type 2 in obese: (7) Gastric bypass status for obesity: Plan This is a very complex patient. She presented hypotensive, in septic shock secondary to perforated abdominal viscus. She received 3 L of fluids and her blood pressure improved to 104/72, maps 69. At this time she did not receive any pressors. I will order FFP 2 units and 100 mL of 25% albumin. Will use pressors to maintain maps above 65 if necessary. The patient will require exploratory laparotomy. Given her multiple intra-abdominal surgeries, history of advanced liver cirrhosis, it may be complicated by severe intraoperative bleeding. [facility] is a small hospital limited resources. We have only 8 units of O- blood and 20 units of O+ blood. In case of severe cirrhotic bleeding, it may be confused in the blink of an eye. The surgery will require a lot of lysis of adhesions and a lot of dissection to restore appropriate anatomy after a complicated bypass surgery and 3 gynecologic surgeries. I think that it is in the best patient interest to be transferred to a large tertiary care center where assistance of multiple subspecialties as well as availability of blood products is readily available. I discussed the care of this patient with a trauma surgeon at [facility], Dr. Gayle. He offered an option to perform emergent source control surgery at [facility] and then transfer patient to [place] as an open abdomen. It is definitely an option, however, I am afraid that the patient may start bleeding profusely and it will further complicate the situation as well as transfer. Eventually, [facility] refused to accept the patient. We will try to transfer the patient to [place]. If no hospital will accept the patient, will discuss with the patient and her ex the fact that we will be forced to operate at a small hospital with limited resources. In the meanwhile, the patient mean arterial pressure stays around 65, she is going to receive 2 units of FFP right now and then I will reassess her condition. Coding Level of Care Code Acute Circus Rider for Chg Fwd Diagnoses Free intraperitoneal air K66.8 Septic shock A41.9; R65.21 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 K75.81; K74.60 Portal vein thrombosis I81 Incisional hernia K43.2 Diabetes mellitus type 2 in obese E11.69; E66.9 Gastric bypass status for obesity Z98.84
[2022-04-22 17:26] LABS: SARS Covid-2 Antigen Negative (Negative)
[2022-04-22 21:21] LABS: Lactic Sepsis W/Reflex 7.5 mmol/L (0.5-2.2)
[2022-04-22 22:40] LABS: Reflex Lactate Order REFLEX LACTIC ORDERD
== END 2022-04-22 20:53 | disposition admitted as inpatient to this hospital (09) ==
LOC: ER 13:50 → OR 15:49 → ER 16:18
PROVIDERS: Surgery; Emergency Provider Emergency Medicine; PCP Internal Medicine
DX: R10.11 Right upper quadrant pain (principal); K66.8 Other specified disorders of peritoneum; A41.9 Sepsis, unspecified organism; R65.21 Severe sepsis with septic shock; K75.81 Nonalcoholic steatohepatitis (NASH); K74.60 Unspecified cirrhosis of liver; I81 Portal vein thrombosis; K43.2 Incisional hernia without obstruction or gangrene; E11.69 Type 2 diabetes mellitus with other specified complication; E66.9 Obesity, unspecified; Z68.32 Body mass index [BMI] 32.0-32.9, adult; Z98.84 Bariatric surgery status
CPT/HCPCS: 12345; 36415; 36430; 71275; 74174; 80053; 82140; 83605; 83690; 85025; 85610; 85730; 86900; 86927; 87426; 96365; 96367; 99285; J2543; J3370; J7030; P9017; P9046; Q9967

== ENCOUNTER 2022-06-06 09:23 | Emergency (ER) | payer MEDICAID, SELFPAY ==
[2022-06-06 10:09] VITALS: BP 135/77; PULSE 59; TEMP 36.9; O2SAT 98; BMI 28.8
[2022-06-06 11:07] LABS: Basophils % 0.7 %; Eosinophils # 0.2 10^3/uL (0.0-0.8); Eosinophils % 4.6 %; Hematocrit 33.9 % (37.0-47.0); Hemoglobin 10.5 g/dL (11.5-15.3); Lymphocytes # 0.8 10^3/uL (0.8-4.8); Lymphocytes % 19.6 %; Mean Corpuscular Hemoglobin 27.6 pg (28.0-34.0); Mean Corpuscular Volume 89.2 fl (81-99); Monocytes # 0.5 10^3/uL (0.2-0.9); Neutrophils # 2.57 10^3/uL (1.8-7.7); Neutrophils % 62.9 %; Nucleated Red Blood Cells % 0 %; Platelet Count 116 10^3/cmm (130-400); Red Cell Distribution Width 19.2 % (12.1-15.1); White Blood Count 4.1 10^3/uL (4.0-10.0)
[2022-06-06 11:28] LABS: Mean Platelet Volume 12.9 fL (7.4-10.4)
[2022-06-06 11:31] LABS: Alanine Aminotransferase 34 U/L (0-33); Albumin Level 2.6 g/dL (3.5-5.2); Alkaline Phosphatase 207 U/L (35-105); Anion Gap 8.3 (5-19); Aspartate Amino Transferase 69 U/L (0-32); Blood Urea Nitrogen 15 mg/dL (8-23); Calcium 8.8 mg/dL (8.5-10.5); Carbon Dioxide 31 mmol/L (22-29); Chloride 102 mmol/L (98-107); Creatinine Clr Calc Pharmacy 73.5592; Globulin 4.5 g/dL (1.3-4.6); Glomerular Filtration Rate 72.2 mL/min (90-130); Glucose 166 mg/dL (65-115); Lipase 88 U/L (13-60); Osmolality Calculated 291 mOsm/kg (285-295); Potassium 3.3 mmol/L (3.5-5.1); Sodium 138 mmol/L (136-145); Total Bilirubin 0.8 mg/dL (0.15-1.2); Total Protein 7.1 g/dL (6.6-8.7)
[2022-06-06 12:00] VITALS: BP 134/68; PULSE 58; O2SAT 97
--- NOTE | 2022-06-06 13:00 | ED_ITS ---
HPI - Abdominal Pain General: Chief Complaint: Abdominal Pain Stated Complaint: abd pain Time Seen by Provider: 06/06/22 09:36 Source: patient Mode of arrival: ambulatory History of Present Illness: 66-year-old female presents emergency room with complaints of diffuse abdominal pain and began over the last 2 to 3 days worsening last night. She has a history of a previous Mitra-en-Y bypass as well as several gynecologic surgeries earlier this year in late March she was in the emergency room there is a concern for perforation and she was transferred to [place] ultimately they did not do surgery there she tells me and has had treated with antibiotics and she was eventually discharged. She denies any dysuria urgency or frequency has been very nauseated no vomiting or diarrhea no hematochezia melena hematemesis or coffee-ground emesis. MD elicited complaint: abdominal pain Onset (ago): day(s) (3) Pain Consistency: constant Location: Diffuse Severity: moderate Quality: cramping Radiation: none Exacerbating factors: nothing Relieving factors: nothing Associated Symptoms: Reports bloating, GI cramping, nausea and poor appetite; Denies anorexia, belching, change in bowel habits, change in stool character, chills, coffee ground emesis, constipation, diarrhea, dyspepsia, dysuria, excessive flatus, fever(s), heartburn, hematochezia, hematuria, hematemesis, fecal incontinence, loose stools, melena, syncope and vomiting Review of Systems Const: Denies: fever(s), chills, fatigue or malaise ENMT: Denies: throat pain, ear or mastoid pain, nasal discharge or nasal congestion Card: Denies: chest pain, palpitations, irregular heart rhythm or syncope Resp: Denies: dyspnea, productive cough or non-productive cough GI: Reports: nausea, bloating and GI cramping; Denies: vomiting, hematemesis, coffee ground emesis, heartburn, diarrhea, constipation, belching, excessive flatus, fecal incontinence, change in bowel habits, change in stool character, hematochezia or melena : Denies: dysuria or hematuria Musc: Denies: neck pain or back pain Skin/Breast: Denies: rash or pruritus PFS ED PFSH: Medical History Cirrhosis of liver Diabetes Hepatic encephalopathy Incisional hernia Kidney stones 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) Obesity (BMI 30.0-34.9) Surgical History H/O gastric bypass H/O: hysterectomy cervical cancer History of colonoscopy History of esophagogastroduodenoscopy (EGD) Hx of cholecystectomy Family History Mother Hypertension Father Chronic kidney disease (CKD) Sleep apnea Other Bleeding disorder Denies family history of Anesthesia complication Social History Smoking and tobacco status: former smoker Alcohol intake: never History of recent travel: No Physical Exam Const: GENERAL APPEARANCE: cooperative and comfortable ORIENTATION/CO NSCIOUSNESS: Yes awake, Yes oriented to person, Yes oriented to place and Yes oriented to time HENMT: COMMON NORMALS: normocephalic, atraumatic and hearing grossly normal bilaterally HEAD & SCALP: normocephalic and atraumatic Resp: COMMON NORMALS: normal respiratory effort, No retractions, No use of accessory muscles and clear to auscultation bilaterally AUSCULTATION: clear to auscultation bilaterally Cardio: COMMON NORMALS: regular rate, regular rhythm and No murmurs present (Cardio) RATE: regular rate RHYTHM: regular rhythm GI: COMMON NORMALS: Soft to palpation and No hepatosplenomegaly present AUSCULTATION: Yes normoactive bowel sounds PALPATION: Yes Soft to palpation, No Tenderness to palpation present (GI), No Guarding due to palpation present (GI) and Yes No hepatosplenomegaly present Extremity: COMMON NORMALS: normal to inspection, capillary refill normal, no clubbing, cyanosis or edema, no calf tenderness and no pedal edema Neuro: SENSORIUM/ORIENTATION: Yes oriented to person, Yes oriented to place and Yes oriented to time Skin: COMMON NORMALS: no rashes or lesions noted GENERAL SKIN EXAM: no michael hes or lesions noted Course Vital Signs: Vital signs: Vital Signs Temperature 98.4 F 06/06/22 10:09 Pulse Rate 65 06/06/22 16:17 Respiratory Rate 16 06/06/22 13:28 Blood Pressure 128/74 06/06/22 16:17 Pulse Oximetry 96 06/06/22 16:17 Oxygen Delivery Me thod 06/06/22 12:00 MDM - Abdominal Pain Medical Decision Making Labs and imaging reviewed. No sign of sepsis or infection at this time. Discussed findings with the patient imaging does show some constipation. She has some mild anemia which is chronic, and actually improved from what her general baseline seems to show on her old records. Discharge patient home f ollow-up with her primary care doctor. Increase her potassium chloride to twice daily for 5 days then resume previous dose follow-up with her primary care to recheck potassium at some point in future. Medical Records I reviewed the patient's medical records. Lab Data I reviewed the patient's lab results. 06/06/22 10:50 06/06/22 10:50 Labs/Radiology: Radiology Impressions Abdomen/Pelvis CT 06/06/22 13:08 IMPRESSION: 1. Significant mucosal thickening involving the antrum and proximal small bowel . Suspect infectious or ischemic etiologies. There is no free air. 2. Ventral abdominal wall hernia, RIGHT of midline contains a loop of colon. No obstruction. 3. Severe cirrhosis with evidence for portal venous hypertension. Numerous collaterals and splenomegaly. 4. Extensive constipation. Normal appendix. 5. Prior hysterectomy and cholecystectomy. Laboratory Results WBC 4.1 10^3/uL (4.0-10.0) 06/06/22 10:50 RBC 3.80 10^6/uL (4.1-5.3) L 06/06/22 10:50 Hgb 10.5 g/dL (11.5-15.3) L 06/06/22 10:50 Hct 33.9 % (37.0-47.0) L 06/06/22 10:50 MCV 89.2 fl (81-99) 06/06/22 10:50 MCH 27.6 pg (28.0-34.0) L 06/06/22 10:50 MCHC 31.0 g/dL (30.0-36.0) 06/06/22 10:50 RDW 19.2 % (12.1-15.1) H 06/06/22 10:50 Plt Count 116 10^3/cmm (130-400) L 06/06/22 10:50 MPV 12.9 fL (7.4-10.4) H 06/06/22 10:50 Neut % (Auto) 62.9 % 06/06/22 10:50 Lymph % (Auto) 19.6 % 06/06/22 10:50 [place] % (Auto) 12.0 % 06/06/22 10:50 Eos % (Auto) 4.6 % 06/06/22 10:50 Baso % (Auto) 0.7 % 06/06/22 10:50 Neut # (Auto) 2.57 10^3/uL (1.8-7.7) 06/06/22 10:50 Lymph # (Auto) 0.8 10^3/uL (0.8-4.8) 06/06/22 10:50 [place] # (Auto) 0.5 10^3/uL (0.2-0.9) 06/06/22 10:50 Eos # (Auto) 0.2 10^3/uL (0.0-0.8) 06/06/22 10:50 Baso # (Auto) 0.0 10^3/uL (0.0-0.1) 06/06/22 10:50 Nucleated RBC % (auto) 0 % 06/06/22 10:50 Nucleated RBCs # 0.0 /100WBC 06/06/22 10:50 Sodium 138 mmol/L (136-145) 06/06/22 10:50 Potassium 3.3 mmol/L (3.5-5.1) L 06/06/22 10:50 Chloride 102 mmol/L (98-107) 06/06/22 10:50 Carbon Dioxide 31 mmol/L (22-29) H 06/06/22 10:50 Anion Gap 8.3 (5-19) 06/06/22 10:50 BUN 15 mg/dL (8-23) 06/06/22 10:50 Creatinine 0.8 mg/dL (0.5-0.9) 06/06/22 10:50 GFR Calculation 72.2 mL/min (90-130) L 06/06/22 10:50 Glucose 166 mg/dL (65-115) H 06/06/22 10:50 Calculated Osmolality 291 mOsm/kg (285-295) 06/06/22 10:50 Lactic Acid 1.8 mmol/L (0.5-2.2) 06/06/22 13:26 Calcium 8.8 mg/dL (8.5-10.5) 06/06/22 10:50 Total Bilirubin 0.8 mg/dL (0.15-1.2) 06/06/22 10:50 AST 69 U/L (0-32) H 06/06/22 10:50 ALT 34 U/L (0-33) H 06/06/22 10:50 Alkaline Phosphatase 207 U/L (35-105) H 06/06/22 10:50 Total Protein 7.1 g/dL (6.6-8.7) 06/06/22 10:50 Albumin 2.6 g/dL (3.5-5.2) L 06/06/22 10:50 Globulin 4.5 g/dL (1.3-4.6) 06/06/22 10:50 Lipase 88 U/L (13-60) H 06/06/22 10:50 Urine Color Yellow (Yellow) 06/06/22 13:01 Urine Appearance Clear (CLEAR) 06/06/22 13:01 Urine pH 7 (5-7) 06/06/22 13:01 Ur Specific [place] 1.010 (1.005-1.030) 06/06/22 13:01 Urine Protein Neg (Negative) 06/06/22 13:01 Urine Glucose (UA) Norm (Normal) 06/06/22 13:01 Urine Ketones Negative (Negative) 06/06/22 13:01 Urine Blood Neg (Negative) 06/06/22 13:01 Urine Nitrate Negative (Negative) 06/06/22 13:01 Urine Bilirubin Neg (Negative) 06/06/22 13:01 Urine Urobilinogen Neg mg/dL (Negative) 06/06/22 13:01 Ur Leukocyte Esterase Negative (Negative) 06/06/22 13:01 Discharge Plan Discharge Patient Disposition: Home Clinical Impression: Constipation, Diabetes mellitus type 2 in obese, 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 Condition: Stable Prescriptions: No Action furosemide 40 mg tablet 40 mg PO BID multivitamin Tablet 1 tab PO QAM acetaminophen 500 mg Tablet 1,000 mg PO Q6H PRN (Reason: Pain) citalopram 20 mg tablet 20 mg PO QAM omeprazole magnesium [Prilosec OTC] 20 mg Tablet,Delayed Release (Dr/Ec) 20 mg PO DAILY insulin glargine [Lantus Solostar U-100 Insulin] 100 unit/mL (3 mL) insulin pen 10 unit SUBCUT BEDTIME lactulose 20 gram/30 mL solution 30 g PO TID PRN (Reason: Constipation) naloxone [Narcan] 4 mg/actuation spray,non-aerosol See Rx Instructions .ROUTE .COMPLEX Rx Instructions: intranasally as directed potassium chloride 10 mEq Capsule, Extended Release 10 meq PO DAILY magnesium 30 mg Tablet 30 mg PO DAILY naproxen [Naprosyn] 500 mg tablet 500 mg PO BID PRN (Reason: pain) Qty: 20 0RF propranolol 10 mg tablet 10 mg PO BID oxycodone 5 mg tablet 5 mg PO Q6H PRN (Reason: pain) Qty: 20 0RF spironolactone 100 mg Tablet 100 mg PO DAILY Xifaxan 550 mg tablet 550 mg PO BID Discharge Orders: Discharge ED (Routine); Ordered 06/06/22 Ordered By: Karlo Salcedo Referrals: Pauline Pereira MD [Primary Care Provider] - Discharge Diet: Clear Liquid Discharge Activity: Increase activity as tolerated Patient Instructions: Opioid Safety, Pain Management Activity Restrictions/Additional Instructions: You were seen today for abdominal pain. Your white count was normal. Your hemoglobin is actually increased from previous level. Your electrolytes showed no significant abnormalities lactic acid was normal. CT did not show any acute changes showed some chronic changes as well as significant mild constipation. Recommend that you use lactulose that was previously prescribed to you to help relieve constipation. 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
--- NOTE | 2022-06-06 13:08 | CT_ITS ---
WS: [id number] CT ABDOMEN AND PELVIS NONCONTRAST HISTORY: Abdominal pain TECHNIQUE: Imaging performed through the abdomen and pelvis. Coronal and sagittal reformats are submi tted. All CT scans at [facility] use at least one of these dose optimization techniques: auto mated exposure control; mA and/or kV adjustment per patient size (includes targeted exams where dose is matched to clinical indication); or iterative reconstruction. DLP: 642.27 mGy.cm COMPARISON: 04/22/2022 Lower thorax: Benign granuloma lower RIGHT thorax. Normal size heart. Small hiatal hernia. Liver: Nodular shrunken liver. A few scattered granulomata within the liver. Gallbladder: Prior cholecystectomy. Pancreas: Normal size and attenuation. Normal pancreatic duct. No pancreatitis or mass. Spleen: Enlarged spleen measuring 14.2 cm in length with granulomata. Adrenal glands: Normal. No mass. Right kidney: Normal size kidney with no mass or hydronephrosis. Left kidney: Normal size kidney with no mass or hydronephrosis. Aorta: Normal abdominal aorta, no aneurysm or atherosclerosis. Numerous enlarged varices are noted in the upper abdomen. Greatest extending towards the splenic hilu m and posterior to the spleen. No free fluid, intraperitoneal air or significant lymphadenopathy. GI tract: Prior gastric bypass. Marked thickening of the stomach antrum and duodenal C-loop. There is some mucosal thickening throughout the proximal small bowel. No obstruction. Extensive fecal retenti on and overlapping loops of colon. Abdominal wall: Ventral abdominal wall hernia. Loop of colon extends through the hernia. Pelvis: Prior hysterectomy. No definite free fluid in the pelvis. Osseous structures: Unremarkable. CT/CT abdomen pelvis wo con [id number] IMPRESSION: 1. Significant mucosal thickening involving the antrum and proximal small harrison l. Suspect infectious or ischemic etiologies. There is no free air. 2. Ventral abdominal wall hernia, RIGHT of midline contains a loop of colon. N o obstruction. 3. Severe cirrhosis with evidence for portal venous hypertension. Numerous col laterals and splenomegaly. 4. Extensive constipation. Normal appendix. 5. Prior hysterectomy and cholecystectomy.
[2022-06-06 13:28] VITALS: BP 138/72; PULSE 74; RESP 16
[2022-06-06 13:54] LABS: Lactic Sepsis W/Reflex 1.8 mmol/L (0.5-2.2)
[2022-06-06 14:36] VITALS: BP 145/71
[2022-06-06 14:42] LABS: Add Urine Microscopic? NO; Charge for UA Resulting for Rev
[2022-06-06 14:43] LABS: Bilirubin Urine Neg (Negative); Blood Urine Neg (Negative); Glucose Urine UA Norm (Normal); Ketones Urine Negative (Negative); Leukocyte Esterase Urine Negative (Negative); Nitrate Urine Negative (Negative); Protein Urine Neg (Negative); Urine Appearance Clear (CLEAR); Urine Color Yellow (Yellow); Urobilinogen Urine Neg (Negative); pH Urine 7 (5-7)
[2022-06-06] MEDS: ondansetron 2 mg/ML SDV 2 mL 4 MG IVP (16:10)
[2022-06-06 16:17] VITALS: BP 128/74; PULSE 65; O2SAT 96
== END 2022-06-06 16:15 | disposition home or self-care (01) ==
PROVIDERS: Physician Assistant; Emergency Provider Family Medicine; PCP Internal Medicine
DX: K59.00 Constipation, unspecified (principal); E11.9 Type 2 diabetes mellitus without complications; K75.81 Nonalcoholic steatohepatitis (NASH); K74.69 Other cirrhosis of liver; Z79.4 Long term (current) use of insulin; E66.9 Obesity, unspecified; Z68.28 Body mass index [BMI] 28.0-28.9, adult; Z85.41 Personal history of malignant neoplasm of cervix uteri; Z87.891 Personal history of nicotine dependence
CPT/HCPCS: 36415; 74176; 80053; 81003; 83605; 83690; 85025; 96374; 99285; J2405

== ENCOUNTER → 2022-07-23 10:50 | Outpatient (BNVA) | payer MEDICAID, SELFPAY | PROVIDERS: PCP Internal Medicine; Visit Provider Podiatrist Foot & Ankle Surgery | DX: E11.9 Type 2 diabetes mellitus without complications (principal); Z79.84 Long term (current) use of oral hypoglycemic drugs; R60.9 Edema, unspecified; L60.0 Ingrowing nail; L85.3 Xerosis cutis | CPT/HCPCS: 11721; 99203 ==

== ENCOUNTER 2022-08-03 09:44 | Outpatient (RCR) | payer MEDICAID, SELFPAY ==
[2022-08-03 09:15] LABS: Hematocrit 23.5 % (37.0-47.0); Hemoglobin 6.6 g/dL (11.5-15.3)
[2022-08-04] VITALS (11 sets, daily range): BP systolic 120–139; BP diastolic 57–75; PULSE 67–74; RESP 15–18; TEMP 36.9–37.2; O2SAT 98–100; BMI 29.7
[2022-08-04] MEDS: sodium chloride 0.9% 100 ML 150 ML IV (14:08)
[2022-08-04] MEDS: sodium chloride 0.9% 100 mL Bag XX (14:08)
== END 2022-08-06 16:36 | disposition home or self-care (01) ==
LOC: GILAB 09:44
PROVIDERS: PCP Internal Medicine; Visit Provider Internal Medicine
DX: D62 Acute posthemorrhagic anemia (principal)
CPT/HCPCS: 36415; 36430; 85014; 85018; 86850; 86870; 86900; 86902; 86905; 86920; J7030; P9016

== ENCOUNTER 2022-09-27 11:33 | Oncology outpatient (recurring) (ONCR) | payer MEDICAID, SELFPAY ==
[2022-09-06 12:30] LABS: Eosinophils # 0.1 10^3/uL (0.0-0.8); Eosinophils % 3.4 %; Hematocrit 28.4 % (37.0-47.0); Hemoglobin 8.4 g/dL (11.5-15.3); Lymphocytes # 0.8 10^3/uL (0.8-4.8); Lymphocytes % 26.1 %; Mean Corpuscular HGB Conc 29.6 g/dL (30.0-36.0); Mean Corpuscular Hemoglobin 23.1 pg (28.0-34.0); Mean Corpuscular Volume 78.2 fl (81-99); Monocytes # 0.5 10^3/uL (0.2-0.9); Monocytes % 17.2 %; Neutrophils # 1.52 10^3/uL (1.8-7.7); Neutrophils % 52.3 %; Nucleated Red Blood Cells % 0 %; Platelet Count 102 10^3/cmm (130-400); Red Blood Count 3.63 10^6/uL (4.1-5.3); Red Cell Distribution Width 21.2 % (12.1-15.1); White Blood Count 2.9 10^3/uL (4.0-10.0)
[2022-09-06 12:53] LABS: Ferritin 14 ng/mL (15-150); Iron 24 ug/dL (37-145); Percent Saturation 7.5 % (20-50); Total Iron Binding Capacity 316 mcg/dl; Unsaturated Iron Binding 292 ug/dL (112-347)
[2022-09-06 13:17] LABS: Slide Review Slide Review Perform
[2022-09-25 12:06] VITALS: BP 138/68; PULSE 70; RESP 18; TEMP 36.8; O2SAT 96
[2022-09-25] MEDS: sodium chloride 0.9% 250 ML 75 ML IV (12:33)
[2022-09-25] MEDS: iron sucrose 200 MG in sodium chloride 0.9% (100 ml) 100 ML 220 MG IV (12:33)
[2022-09-25 13:36] VITALS: BP 123/74; PULSE 63; RESP 18; TEMP 36.3; O2SAT 96
[2022-09-27] MEDS: sodium chloride 0.9% 250 ML 75 ML IV (12:11)
[2022-09-27] MEDS: iron sucrose 200 MG in sodium chloride 0.9% (100 ml) 100 ML 220 MG IV (12:35)
[2022-09-27 12:40] VITALS: BP 123/70; PULSE 61; RESP 16; TEMP 36.8; O2SAT 96
[2022-09-27 13:37] VITALS: BP 121/72; PULSE 61; RESP 16; TEMP 36.8; O2SAT 98
== END 2022-09-28 23:59 | disposition home or self-care (01) ==
PROVIDERS: Internal Medicine Hematology & Oncology; PCP Internal Medicine; Visit Provider Internal Medicine
DX: D61.818 Other pancytopenia (principal); D50.9 Iron deficiency anemia, unspecified; Z79.899 Other long term (current) drug therapy
CPT/HCPCS: 36415; 82728; 83540; 83550; 85025; 96365; 99214; J1756; J7050

== ENCOUNTER 2022-10-05 10:00 | Oncology outpatient (recurring) (ONCR) | payer MEDICAID, SELFPAY ==
[2022-10-01] MEDS: sodium chloride 0.9% 250 ML 75 ML IV (11:56)
[2022-10-01 12:02] VITALS: BP 100/59; PULSE 55; RESP 18; TEMP 36.6; O2SAT 98
[2022-10-01] MEDS: iron sucrose 200 MG in sodium chloride 0.9% (100 ml) 100 ML 220 MG IV (12:18)
[2022-10-01 13:23] VITALS: BP 123/67; PULSE 56; RESP 18; TEMP 36.9; O2SAT 98
[2022-10-03 12:05] VITALS: BP 137/73; PULSE 68; RESP 18; TEMP 36.9; O2SAT 99
[2022-10-03] MEDS: sodium chloride 0.9% 250 ML 75 ML IV (12:10)
[2022-10-03] MEDS: iron sucrose 200 MG in sodium chloride 0.9% (100 ml) 100 ML 220 MG IV (12:11)
[2022-10-03 13:11] VITALS: BP 135/71; PULSE 61; RESP 18; TEMP 36.8; O2SAT 98
[2022-10-05] MEDS: sodium chloride 0.9% 250 ML 100 ML IV (10:28)
[2022-10-05] MEDS: iron sucrose 200 MG in sodium chloride 0.9% (100 ml) 100 ML 220 MG IV (10:28)
[2022-10-05 11:05] VITALS: BP 143/76; PULSE 62; TEMP 36.8; O2SAT 99
== END 2022-10-28 23:59 | disposition home or self-care (01) ==
PROVIDERS: PCP Internal Medicine; Visit Provider Internal Medicine
DX: D61.818 Other pancytopenia (principal); D50.9 Iron deficiency anemia, unspecified; Z79.899 Other long term (current) drug therapy
CPT/HCPCS: 96365; J1756; J7050

== ENCOUNTER 2022-11-06 12:46 | Oncology outpatient (recurring) (ONCR) | payer MEDICARE, MEDICAID, SELFPAY ==
[2022-11-06 13:44] LABS: Basophils % 0.7 %; Eosinophils # 0.1 10^3/uL (0.0-0.8); Eosinophils % 3.4 %; Hematocrit 35.5 % (37.0-47.0); Hemoglobin 11.4 g/dL (11.5-15.3); Lymphocytes # 1.1 10^3/uL (0.8-4.8); Mean Corpuscular HGB Conc 32.1 g/dL (30.0-36.0); Mean Corpuscular Hemoglobin 27.5 pg (28.0-34.0); Mean Corpuscular Volume 85.5 fl (81-99); Monocytes # 0.3 10^3/uL (0.2-0.9); Monocytes % 11.4 %; Neutrophils # 1.37 10^3/uL (1.8-7.7); Neutrophils % 46.2 %; Nucleated Red Blood Cells % 0 %; Platelet Count 82 10^3/cmm (130-400); Red Blood Count 4.15 10^6/uL (4.1-5.3); Red Cell Distribution Width 24.4 % (12.1-15.1)
[2022-11-06 13:45] LABS: Ferritin 46 ng/mL (15-150); Iron 95 ug/dL (37-145); Percent Saturation 33.4 % (20-50); Total Iron Binding Capacity 284 mcg/dl; Unsaturated Iron Binding 189 ug/dL (112-347)
[2022-11-06 14:10] LABS: Slide Review Slide Review Perform
== END 2022-11-28 23:59 | disposition home or self-care (01) ==
PROVIDERS: PCP Internal Medicine; Visit Provider Nurse Practitioner Family
DX: D61.818 Other pancytopenia (principal); D50.9 Iron deficiency anemia, unspecified; D72.819 Decreased white blood cell count, unspecified; D69.6 Thrombocytopenia, unspecified; Z79.899 Other long term (current) drug therapy; R11.0 Nausea; Z87.891 Personal history of nicotine dependence
CPT/HCPCS: 36415; 82728; 83540; 83550; 85025; 99214

== ENCOUNTER 2022-11-23 05:23 | Inpatient (IN) | payer MEDICARE, MEDICAID, SELFPAY ==
[2022-11-23] VITALS (11 sets, daily range): BP systolic 104–175; BP diastolic 50–80; PULSE 59–70; RESP 16–18; TEMP 36.4–37; O2SAT 98–100; BMI 28.3
--- NOTE | 2022-11-23 05:25 | ECG_ITS ---
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 Measurements Intervals [place] Rate: 60 P: 79 MA: 150 QRS: 71 QRSD: 102 T: 53 QT: 440 QTc: 442 Interpretive Statements SINUS RHYTHM Compared to ECG 12/28/2018 00:29:31 T-wave abnormality no longer present Electronically Signed On 11-23-2022 9:15:28 CDT by Nilsa Wang M.D. [email or web address]
--- NOTE | 2022-11-23 05:25 | XRR_ITS ---
PROCEDURE INFORMATION: Exam: XR Chest Exam date and time: 11/23/2022 5:31 AM Age: 66 years old Clinical indication: Dyspnea; Additional info: AMS TECHNIQUE: Imaging protocol: Radiologic exam of the chest. Views: 1 view. COMPARISON: CR XR chest 1V portable [id number] 09/04/2021 5:18 AM FINDINGS: Lungs: Unremarkable. No consolidation. Pleural spaces: Unremarkable. No pleural effusion. No pneumothorax. Heart/Mediastinum: Stable cardiomediastinal silhouette. Bones/joints: Unremarkable. XR/XR chest 1V portable [id number] IMPRESSION: No acute findings.
--- NOTE | 2022-11-23 05:25 | CTR_ITS ---
PROCEDURE INFORMATION: Exam: CT Cervical Spine Without Contrast Exam date and time: 11/23/2022 5:51 AM Age: 66 years old Clinical indication: Injury or trauma; Fall; Blunt trauma TECHNIQUE: Imaging protocol: Computed tomography of the cervical spine without contrast. Radiation optimization: All CT scans at this facility use at least one of these dose optimization techniques: automated exposure control; mA and/or kV adjustment per patient size (includes targeted exams where dose is matched to clinical indication); or iterative reconstruction. REPORTING DATA: Count of CT and Cardiac NM exams in prior 12 months: This patient has received 6 known CTs and 0 known cardiac nuclear medicine studies in the 12 months prior to the current study. COMPARISON: CT cervical spin wo con* [id number] 03/15/2022 12:33 PM RADIATION DOSE METRICS: Total DLP (mGy-cm): 167.77 FINDINGS: Bones/joints: No acute fracture. Normal alignment. No significant disc bulge or herniation. No severe spinal canal stenosis. No significant neural foraminal narrowing. Lungs: Lung apices are normal. Soft tissues: Unremarkable. CT/CT cervical spin wo con* [id number] IMPRESSION: No acute findings.
--- NOTE | 2022-11-23 05:25 | CTR_ITS ---
PROCEDURE INFORMATION: Exam: CT Head Without Contrast Exam date and time: 11/23/2022 5:48 AM Age: 66 years old Clinical indication: Altered mental status/memory loss; Confusion or disorientation; Additional info: AMS TECHNIQUE: Imaging protocol: Computed tomography of the head without contrast. Radiation optimization: All CT scans at this facility use at least one of these dose optimization techniques: automated exposure control; mA and/or kV adjustment per patient size (includes targeted exams where dose is matched to clinical indication); or iterative reconstruction. REPORTING DATA: Count of CT and Cardiac NM exams in prior 12 months: This patient has received 6 known CTs and 0 known cardiac nuclear medicine studies in the 12 months prior to the current study. COMPARISON: CT head wo con* [id number] 03/15/2022 12:33 PM RADIATION DOSE METRICS: Total DLP (mGy-cm): 1116.28 FINDINGS: Brain: There is no acute intracranial hemorrhage or mass effect. Mild diffuse volume loss is within the range of normal for patient age. There are small vessel ischemic changes within the periventricular and subcortical white matter, but the normal wilson/white matter delineation is maintained. Cerebral ventricles: No ventriculomegaly. Paranasal sinuses: Visualized sinuses are unremarkable. No fluid levels. Mastoid air cells: Visualized mastoid air cells are well aerated. Bones/joints: Unremarkable. No acute fracture. Soft tissues: Unremarkable. CT/CT head wo con* [id number] IMPRESSION: No acute intracranial hemorrhage or edema.
--- NOTE | 2022-11-23 05:27 | W.ED.AMS ---
Documented by User: Parmjit Fernandez MD 11/23/22 19:05 HPI - Altered Mental Status General: Chief Complaint: Altered Mental Status Stated Complaint: AMS Time Seen by Provider: 11/23/22 05:25 Source: EMS Mode of arrival: EMS Limitations: altered mental status History of Present Illness: 66-year-old female with a history of cirrhosis had a history of hepatic encephalopathy in the past as well. Per EMS family been bed at 10:00 is when they last seen her normal found her in the floor for 30 unsure how long she been down and she is very altered. Here she is able to tell me her name and answer some questions but is quite confused she does not know where she is or the date. Review of Systems General: Reports: ROS unobtainable due to mental status PFSH ED PFSH: Medical History Cirrhosis of liver Diabetes Hepatic encephalopathy Incisional hernia Kidney stones 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) Obesity (BMI 30.0-34.9) Pancytopenia Surgical History H/O gastric bypass H/O: hysterectomy cervical cancer History of colonoscopy History of esophagogastroduodenoscopy (EGD) Hx of cholecystectomy Family History Mother Hypertension Father Chronic kidney disease (CKD) Sleep apnea Other Bleeding disorder Denies family history of Anesthesia complication Social History Smoking and tobacco status: former smoker Quit status (tobacco): has quit using tobacco Former quit date comment: smoked x 10+ years Alcohol intake: never Substance/Drug Use: never Physical Exam Const: COMMON NORMALS: negative for patient oriented x3 GENERAL APPEARANCE: ill appearing HENMT: COMMON NORMALS: normocephalic and atraumatic HEAD & SCALP: normocephalic and atraumatic Eye: COMMON NORMALS: Equal, round and reactive pupils present and conjunctivae normal CONJUNCTIVA: Yes conjunctivae normal PUPIL: Yes Equal, round and reactive pupils present Neck/C-Spine: OTHER: in c collar Chest: COMMONS NORMALS: normal inspection of the chest and normal palpation of entire chest wall Resp: COMMON NORMALS: normal respiratory effort and clear to auscultation bilaterally EFFORT & INSPECTION: Yes able to speak in complete sentences AUSCULTATION: clear to auscultation bilaterally Cardio: COMMON NORMALS: regular rate and regular rhythm RATE: regular rate RHYTHM: regular rhythm GI: COMMON NORMALS: Normal to inspection, nondistended, normoactive bowel sounds present, Soft to palpation and non-tender PALPATION: Yes Soft to palpation Back/Pelvis: COMMON NORMALS: thoracic and lumbar spine normal to inspection Extremity: COMMON NORMALS: normal to inspection and full ROM Neuro: COMMON NORMALS: negative for patient oriented x3 Psych: COMMON NORMALS: negative for mental status grossly normal Skin: COMMON NORMALS: no rashes or lesions noted GENERAL SKIN EXAM: no rashes or lesions noted Course Vital Signs: Vital signs: Vital Signs Temperature 98.3 F 11/23/22 16:00 Pulse Rate 67 11/23/22 16:00 Respiratory Rate 17 11/23/22 16:00 Blood Pressure 143/78 11/23/22 16:00 Pulse Oximetry 98 11/23/22 16:00 Oxygen Delivery Me thod Room Air 11/23/22 10:54 MDM - Altered Mental Status Medical Decision Making Patient presents with altered mental status believe is likely hepatic encephalopathy patient turned over to Dr. Martines pending labs and imaging Medical Records I reviewed the patient's medical records. Lab Data I reviewed the patient's lab results. 11/23/22 06:16 11/23/22 06:43 Radiology Impressions Cervical Spine CT 11/23/22 05:25 IMPRESSION: No acute findings. Chest X-Ray 11/23/22 05:25 IMPRESSION: No acute findings. Head CT 11/23/22 05:25 IMPRESSION: No acute intracranial hemorrhage or edema. Laboratory Results WBC 4.2 10^3/uL (4.0-10.0) 11/23/22 06:16 RBC 4.43 10^6/uL (4.1-5.3) 11/23/22 06:16 Hgb 12.2 g/dL (11.5-15.3) 11/23/22 06:16 Hct 38.7 % (37.0-47.0) 11/23/22 06:16 MCV 87.4 fl (81-99) 11/23/22 06:16 MCH 27.5 pg (28.0-34.0) L 11/23/22 06:16 MCHC 31.5 g/dL (30.0-36.0) 11/23/22 06:16 RDW 21.6 % (12.1-15.1) H 11/23/22 06:16 Plt Count 70 10^3/cmm (130-400) L 11/23/22 06:16 MPV Not Reportable 11/23/22 06:16 Neut % (Auto) 59.6 % 11/23/22 06:16 Lymph % (Auto) 28.4 % 11/23/22 06:16 Grady % (Auto) 10.3 % 11/23/22 06:16 Eos % (Auto) 1.2 % 11/23/22 06:16 Baso % (Auto) 0.5 % 11/23/22 06:16 Neut # (Auto) 2.48 10^3/uL (1.8-7.7) 11/23/22 06:16 Lymph # (Auto) 1.2 10^3/uL (0.8-4.8) 11/23/22 06:16 Grady # (Auto) 0.4 10^3/uL (0.2-0.9) 11/23/22 06:16 Eos # (Auto) 0.1 10^3/uL (0.0-0.8) 11/23/22 06:16 Baso # (Auto) 0.0 10^3/uL (0.0-0.1) 11/23/22 06:16 Nucleated RBC % (auto) 0 % 11/23/22 06:16 Nucleated RBCs # 0.0 /100WBC 11/23/22 06:16 PT 16.40 SECONDS (12.1-14.9) H 11/23/22 06:16 INR 1.28 (0.8-1.2) H 11/23/22 06:16 Sodium 140 mmol/L (136-145) 11/23/22 06:43 Potassium 3.8 mmol/L (3.5-5.1) 11/23/22 06:43 Chloride 108 mmol/L (98-107) H 11/23/22 06:43 Carbon Dioxide 22 mmol/L (22-29) 11/23/22 06:43 Anion Gap 13.8 (5-19) 11/23/22 06:43 BUN 10 mg/dL (8-23) 11/23/22 06:43 Creatinine 0.7 mg/dL (0.5-0.9) 11/23/22 06:43 GFR Calculation 84.2 mL/min (90-130) L 11/23/22 06:43 Glucose 174 mg/dL (65-115) H 11/23/22 06:43 Calculated Osmolality 293 mOsm/kg (285-295) 11/23/22 06:43 Calcium 8.6 mg/dL (8.5-10.5) 11/23/22 06:43 Total Bilirubin 1.4 mg/dL (0.15-1.2) H 11/23/22 06:43 AST 41 U/L (0-32) H 11/23/22 06:43 ALT 29 U/L (0-33) 11/23/22 06:43 Alkaline Phosphatase 142 U/L (35-105) H 11/23/22 06:43 Ammonia 59 umol/L (11-51) H 11/23/22 06:16 Creatine Kinase 91 U/L (26-192) 11/23/22 06:43 Troponin T Baseline 14 ng/L (0-10) H 11/23/22 06:16 Troponin T 120 Minute 14.51 ng/L (0-10) H 11/23/22 08:20 Delta Troponin T 0.51 ABS# (0-10) 11/23/22 08:20 Total Protein 6.1 g/dL (6.6-8.7) L 11/23/22 06:43 Albumin 2.8 g/dL (3.5-5.2) L 11/23/22 06:43 Globulin 3.3 g/dL (1.3-4.6) 11/23/22 06:43 TSH 1.97 uIU/mL (0.27-4.20) 11/23/22 06:43 Urine Color Yellow (Yellow) 11/23/22 05:45 Urine Appearance Clear (CLEAR) 11/23/22 05:45 Urine pH 6 (5-7) 11/23/22 05:45 Ur Specific Mcdowell 1.020 (1.005-1.030) 11/23/22 05:45 Urine Protein Neg (Negative) 11/23/22 05:45 Urine Glucose (UA) Norm (Normal) 11/23/22 05:45 Urine Ketones Negative (Negative) 11/23/22 05:45 Urine Blood Neg (Negative) 11/23/22 05:45 Urine Nitrate Negative (Negative) 11/23/22 05:45 Urine Bilirubin Neg (Negative) 11/23/22 05:45 Urine Urobilinogen 1 mg/dL (Negative) H 11/23/22 05:45 Ur Leukocyte Esterase Negative (Negative) 11/23/22 05:45 Urine Opiates Screen Negative ng/mL (Negative) 11/23/22 05:45 Acetaminophen < 5.0 ug/mL (10-30) L 11/23/22 06:43 Ur Barbiturates Screen Negative ng/mL (Negative) 11/23/22 05:45 Ur Phencyclidine Scrn Negative ng/mL (Negative) 11/23/22 05:45 Ur Amphetamines Screen Negative ng/mL (Negative) 11/23/22 05:45 U Benzodiazepines Scrn Negative ng/mL (Negative) 11/23/22 05:45 Urine Cocaine Screen Negative ng/mL (Negative) 11/23/22 05:45 U Marijuana (THC) Screen Negative ng/mL (Negative) 11/23/22 05:45 EKG Data EKG 1: I personally reviewed and interpreted this EKG as follows: EKG interpretation date: 11/23/22 EKG interpretation time: 05:39 Interpretation: nsr hr [address] or t wave abnormalities qrs 102 qtc 441 Discharge Plan Discharge Patient Disposition: Admitted As Inpatient Admit Provider: Javy Joyce Clinical Impression: Acute hepatic encephalopathy Altered mental status Qualifiers: Altered mental status type: unspecified Qualified Code(s): R41.82 - Altered mental status, unspecified Condition: Stable Coding Level of Care Code ED Hemming And Tacking Machine Operator for Chg Fwd Documented by User: Steve Martines DO 11/23/22 09:11 HPI - Altered Mental Status General: Chief Complaint: Altered Mental Status Stated Complaint: AMS Time Seen by Provider: 11/23/22 05:25 [facility] PFSH: Medical History Cirrhosis of liver Diabetes Hepatic encephalopathy Incisional hernia Kidney stones 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) Obesity (BMI 30.0-34.9) Pancytopenia Surgical History H/O gastric bypass H/O: hysterectomy cervical cancer History of colonoscopy History of esophagogastroduodenoscopy (EGD) Hx of cholecystectomy Family History Mother Hypertension Father Chronic kidney disease (CKD) Sleep apnea Other Bleeding disorder Denies family history of Anesthesia complication Social History Smoking and tobacco status: former smoker Quit status (tobacco): has quit using tobacco Former quit date comment: smoked x 10+ years Alcohol intake: never Substance/Drug Use: never Course Vital Signs: Vital signs: Vital Signs Temperature 98.3 F 11/23/22 16:00 Pulse Rate 67 11/23/22 16:00 Respiratory Rate 17 11/23/22 16:00 Blood Pressure 143/78 11/23/22 16:00 Pulse Oximetry 98 11/23/22 16:00 Oxygen Delivery Me thod Room Air 11/23/22 10:54 MDM - Altered Mental Status Medical Records Patient presents to the ER with altered mental status. Patient was found on the floor at her home with an unknown downtime. Last known well was 2229 and she was found approximately 10 28. Patient is confused but will answer simple questions. Patient does have a history of hepatic encephalopathy and is on Xifaxan and lactulose. Lab work was obtained which revealed an ammonia 51, delta troponin of 0.51 mildly elevated liver enzymes low platelets at 70, cervical spine CT was negative chest x-ray was negative and head CT was negative. Dr. Joyce was consulted and agreed for inpatient admission for further evaluation and treatment. Lab Data 11/23/22 06:16 11/23/22 06:43 Radiology Impressions Cervical Spine CT 11/23/22 05:25 IMPRESSION: No acute findings. Chest X-Ray 11/23/22 05:25 IMPRESSION: No acute findings. Head CT 11/23/22 05:25 IMPRESSION: No acute intracranial hemorrhage or edema. Laboratory Results WBC 4.2 10^3/uL (4.0-10.0) 11/23/22 06:16 RBC 4.43 10^6/uL (4.1-5.3) 11/23/22 06:16 Hgb 12.2 g/dL (11.5-15.3) 11/23/22 06:16 Hct 38.7 % (37.0-47.0) 11/23/22 06:16 MCV 87.4 fl (81-99) 11/23/22 06:16 MCH 27.5 pg (28.0-34.0) L 11/23/22 06:16 MCHC 31.5 g/dL (30.0-36.0) 11/23/22 06:16 RDW 21.6 % (12.1-15.1) H 11/23/22 06:16 Plt Count 70 10^3/cmm (130-400) L 11/23/22 06:16 MPV Not Reportable 11/23/22 06:16 Neut % (Auto) 59.6 % 11/23/22 06:16 Lymph % (Auto) 28.4 % 11/23/22 06:16 Grady % (Auto) 10.3 % 11/23/22 06:16 Eos % (Auto) 1.2 % 11/23/22 06:16 Baso % (Auto) 0.5 % 11/23/22 06:16 Neut # (Auto) 2.48 10^3/uL (1.8-7.7) 11/23/22 06:16 Lymph # (Auto) 1.2 10^3/uL (0.8-4.8) 11/23/22 06:16 Grady # (Auto) 0.4 10^3/uL (0.2-0.9) 11/23/22 06:16 Eos # (Auto) 0.1 10^3/uL (0.0-0.8) 11/23/22 06:16 Baso # (Auto) 0.0 10^3/uL (0.0-0.1) 11/23/22 06:16 Nucleated RBC % (auto) 0 % 11/23/22 06:16 Nucleated RBCs # 0.0 /100WBC 11/23/22 06:16 PT 16.40 SECONDS (12.1-14.9) H 11/23/22 06:16 INR 1.28 (0.8-1.2) H 11/23/22 06:16 Sodium 140 mmol/L (136-145) 11/23/22 06:43 Potassium 3.8 mmol/L (3.5-5.1) 11/23/22 06:43 Chloride 108 mmol/L (98-107) H 11/23/22 06:43 Carbon Dioxide 22 mmol/L (22-29) 11/23/22 06:43 Anion Gap 13.8 (5-19) 11/23/22 06:43 BUN 10 mg/dL (8-23) 11/23/22 06:43 Creatinine 0.7 mg/dL (0.5-0.9) 11/23/22 06:43 GFR Calculation 84.2 mL/min (90-130) L 11/23/22 06:43 Glucose 174 mg/dL (65-115) H 11/23/22 06:43 Calculated Osmolality 293 mOsm/kg (285-295) 11/23/22 06:43 Calcium 8.6 mg/dL (8.5-10.5) 11/23/22 06:43 Total Bilirubin 1.4 mg/dL (0.15-1.2) H 11/23/22 06:43 AST 41 U/L (0-32) H 11/23/22 06:43 ALT 29 U/L (0-33) 11/23/22 06:43 Alkaline Phosphatase 142 U/L (35-105) H 11/23/22 06:43 Ammonia 59 umol/L (11-51) H 11/23/22 06:16 Creatine Kinase 91 U/L (26-192) 11/23/22 06:43 Troponin T Baseline 14 ng/L (0-10) H 11/23/22 06:16 Troponin T 120 Minute 14.51 ng/L (0-10) H 11/23/22 08:20 Delta Troponin T 0.51 ABS# (0-10) 11/23/22 08:20 Total Protein 6.1 g/dL (6.6-8.7) L 11/23/22 06:43 Albumin 2.8 g/dL (3.5-5.2) L 11/23/22 06:43 Globulin 3.3 g/dL (1.3-4.6) 11/23/22 06:43 TSH 1.97 uIU/mL (0.27-4.20) 11/23/22 06:43 Urine Color Yellow (Yellow) 11/23/22 05:45 Urine Appearance Clear (CLEAR) 11/23/22 05:45 Urine pH 6 (5-7) 11/23/22 05:45 Ur Specific Mcdowell 1.020 (1.005-1.030) 11/23/22 05:45 Urine Protein Neg (Negative) 11/23/22 05:45 Urine Glucose (UA) Norm (Normal) 11/23/22 05:45 Urine Ketones Negative (Negative) 11/23/22 05:45 Urine Blood Neg (Negative) 11/23/22 05:45 Urine Nitrate Negative (Negative) 11/23/22 05:45 Urine Bilirubin Neg (Negative) 11/23/22 05:45 Urine Urobilinogen 1 mg/dL (Negative) H 11/23/22 05:45 Ur Leukocyte Esterase Negative (Negative) 11/23/22 05:45 Urine Opiates Screen Negative ng/mL (Negative) 11/23/22 05:45 Acetaminophen < 5.0 ug/mL (10-30) L 11/23/22 06:43 Ur Barbiturates Screen Negative ng/mL (Negative) 11/23/22 05:45 Ur Phencyclidine Scrn Negative ng/mL (Negative) 11/23/22 05:45 Ur Amphetamines Screen Negative ng/mL (Negative) 11/23/22 05:45 U Benzodiazepines Scrn Negative ng/mL (Negative) 11/23/22 05:45 Urine Cocaine Screen Negative ng/mL (Negative) 11/23/22 05:45 U Marijuana (THC) Screen Negative ng/mL (Negative) 11/23/22 05:45 EKG Data EKG 2: I personally reviewed and interpreted this EKG as follows: EKG interpretation date: 11/23/22 EKG interpretation time: 08:29 Prior EKG tracings: available for review Interpretation: nsr [address] and t wave abnormality, qrs 98, qtc 388 Discharge Plan Discharge Patient Disposition: Admitted As Inpatient Admit Provider: Javy Joyce Clinical Impression: Acute hepatic encephalopathy Altered mental status Qualifiers: Altered mental status type: unspecified Qualified Code(s): R41.82 - Altered mental status, unspecified Condition: Stable Coding Level of Care Code ED Hemming And Tacking 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
[2022-11-23 05:56] LABS: Add Urine Microscopic? NO; Charge for UA Resulting for Rev
[2022-11-23 06:05] LABS: Bilirubin Urine Neg (Negative); Blood Urine Neg (Negative); Glucose Urine UA Norm (Normal); Ketones Urine Negative (Negative); Leukocyte Esterase Urine Negative (Negative); Nitrate Urine Negative (Negative); Protein Urine Neg (Negative); Urine Appearance Clear (CLEAR); Urine Color Yellow (Yellow); Urobilinogen Urine 1 mg/dL (Negative); pH Urine 6 (5-7)
[2022-11-23 06:23] LABS: Basophils % 0.5 %; Eosinophils # 0.1 10^3/uL (0.0-0.8); Eosinophils % 1.2 %; Hematocrit 38.7 % (37.0-47.0); Hemoglobin 12.2 g/dL (11.5-15.3); Lymphocytes # 1.2 10^3/uL (0.8-4.8); Lymphocytes % 28.4 %; Mean Corpuscular HGB Conc 31.5 g/dL (30.0-36.0); Mean Corpuscular Hemoglobin 27.5 pg (28.0-34.0); Mean Corpuscular Volume 87.4 fl (81-99); Monocytes # 0.4 10^3/uL (0.2-0.9); Monocytes % 10.3 %; Neutrophils # 2.48 10^3/uL (1.8-7.7); Neutrophils % 59.6 %; Nucleated Red Blood Cells % 0 %; Platelet Count 70 10^3/cmm (130-400); Red Blood Count 4.43 10^6/uL (4.1-5.3); Red Cell Distribution Width 21.6 % (12.1-15.1); White Blood Count 4.2 10^3/uL (4.0-10.0)
[2022-11-23 06:35] LABS: INR 1.28 (0.8-1.2)
[2022-11-23 06:46] LABS: Ammonia 59 umol/L (11-51); Troponin(5th) Baseline 14 ng/L (0-10)
[2022-11-23 07:15] LABS: Alanine Aminotransferase 29 U/L (0-33); Albumin Level 2.8 g/dL (3.5-5.2); Alkaline Phosphatase 142 U/L (35-105); Anion Gap 13.8 (5-19); Aspartate Amino Transferase 41 U/L (0-32); Blood Urea Nitrogen 10 mg/dL (8-23); Calcium 8.6 mg/dL (8.5-10.5); Carbon Dioxide 22 mmol/L (22-29); Chloride 108 mmol/L (98-107); Creatine Phosphokinase 91 U/L (26-192); Creatinine Clr Calc Pharmacy 83.3704; Globulin 3.3 g/dL (1.3-4.6); Glomerular Filtration Rate 84.2 mL/min (90-130); Glucose 174 mg/dL (65-115); Osmolality Calculated 293 mOsm/kg (285-295); Potassium 3.8 mmol/L (3.5-5.1); Sodium 140 mmol/L (136-145); Thyroid Stimulating Hormone 1.97 uIU/mL (0.27-4.20); Total Bilirubin 1.4 mg/dL (0.15-1.2); Total Protein 6.1 g/dL (6.6-8.7)
[2022-11-23 07:20] LABS: Acetaminophen < 5.0 ug/mL (10-30)
--- NOTE | 2022-11-23 07:52 | PC.PHAR ---
pts ex stanislav states he takes care of the pt and her meds-stanislav verified pts medications-states the pts novolog flexpen 2 units tid with meals was dced ext shows last filled 05/22/22 90d/s states the pt is only taking the lantus 40 units hs-stanislav states the pt takes lasix and lactulose prn-notes are made in the pharmacy comments
--- NOTE | 2022-11-23 08:29 | ECG_ITS ---
[facility] Test Date: 2022-11-23 Pat Name: Gillian Gonzalez Department: Room: Gender: Female Director Of Special Events: : 1955 Requested By: Parmjit Fernandez Order Number: [id number] Marquis MD: Nilsa Wang M.D. Measurements Intervals [place] Rate: 66 P: 70 ME: 139 QRS: 76 QRSD: 98 T: 62 QT: 374 QTc: 394 Interpretive Statements SINUS RHYTHM WITH SINUS ARRHYTHMIA NONSPECIFIC ST & T-WAVE ABNORMALITY Compared to ECG 11/23/2022 05:39:54 T-wave abnormality now present Electronically Signed On 11-23-2022 9:16:59 CDT by Nilsa Wang M.D. [id number]
[2022-11-23 08:42] LABS: Troponin 5 2HR 14.51 ng/L (0-10)
[2022-11-23 08:47] LABS: Troponin 5 2HR Delta 0.51 ABS# (0-10)
[2022-11-23] MEDS: sodium chloride 0.9% 1,000 ML 999 ML IV (09:32)
--- NOTE | 2022-11-23 10:27 | PM.HP ---
Providers/Chief Complaint Admitting Physician: Javy Joyce MD Primary Care Provider: Pauline Pereira MD Chief Complaint: AMS History of Present Illness Gillian Gonzalez is a 66 year old female presenting to the hospital with confusion. Customer Equipment Engineer is with her, and reports she had spent quite a bit of the day in bed yesterday, but was alert and oriented. This morning he found her in the floor. She seemed confused. She has a past history of hepatic encephalopathy, and caregiver was concerned her ammonia level might be high. She administers her own medicines. He knows that she has had some issues with constipation lately but believes she has been taking her medication. No history of fever, or abdominal pain. Patient cannot give an adequate history to me other than waking up briefly and reporting she does not have pain. Review of Systems General: Reports: ROS unobtainable due to medical condition Medications/Allergies Home Medications Medication Instructions Recorded Confirmed Last Taken Type furosemide 40 mg tablet See Rx Instructions .Route .COMPLEX 12/11/19 11/23/22 08/03/22 08:00 History multivitamin 1 tab PO QAM 09/04/21 11/23/22 08/03/22 09:00 History propranolol 10 mg tablet 10 mg PO BID 03/01/22 11/23/22 08/03/22 09:00 History rifaximin 550 mg tablet (Xifaxan) 550 mg PO BID 04/22/22 11/23/22 08/03/22 09:00 History spironolactone 100 mg tablet 100 mg PO DAILY 04/22/22 11/23/22 08/03/22 09:00 History ondansetron HCl 4 mg tablet 4 mg PO Q6H PRN Nausea 08/04/22 11/23/22 08/04/22 09:00 History citalopram 10 mg tablet 10 mg PO DAILY 11/23/22 11/23/22 Unknown History insulin glargine 100 unit/mL (3 40 unit SUBCUT BEDTIME 11/23/22 11/23/22 Unknown History mL) subcutaneous pen (Lantus Solostar U-100 Insulin) lactulose 10 gram/15 mL oral 45 ml PO TID PRN ammonia 11/23/22 11/23/22 Unknown History solution (Constulose) omeprazole 40 mg capsule,delayed 40 mg PO DAILY 11/23/22 11/23/22 Unknown History release Allergies Allergy/AdvReac Type Severity Reaction Status Date / Time No Known Allergies Allergy Verified 11/23/22 07:45 PFSH Acute PFSH: Medical History Cirrhosis of liver Diabetes Hepatic encephalopathy Incisional hernia Kidney stones 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) Obesity (BMI 30.0-34.9) Pancytopenia Surgical History H/O gastric bypass H/O: hysterectomy cervical cancer History of colonoscopy History of esophagogastroduodenoscopy (EGD) Hx of cholecystectomy Family History Mother Hypertension Father Chronic kidney disease (CKD) Sleep apnea Other Bleeding disorder Denies family history of Anesthesia complication Social History Smoking and tobacco status: former smoker Quit status (tobacco): has quit using tobacco Former quit date comment: smoked x 10+ years Alcohol intake: never Substance/Drug Use: never Vitals/I&O/Wt Last Vital Signs Temp 98.6 F 11/23/22 05:27 Pulse 70 11/23/22 08:00 Resp 16 11/23/22 08:00 BP 130/53 11/23/22 08:00 Pulse Ox 100 11/23/22 08:00 O2 Del Method Room Air 11/23/22 08:00 Weight last 48 hrs Weight 77.111 kg Physical Exam Narrative: General exam is a white female, no distress, sleeping but easily awakens and says a few words. Appears confused. HEENT: Atraumatic and normocephalic. Pupils equally round. Oropharynx clear. Neck is supple no lymphadenopathy thyromegaly Cardiovascular regular rate and rhythm, no murmur Lungs clear no wheezing or crackles Abdomen is soft nontender with positive bowel sounds. Midline scar is noted. No obvious organomegaly exams deferred Extremities no cyanosis clubbing or edema, cap refill brisk Skin no rash Neuro no obvious focal deficits, confused Data 11/23/22 06:16 11/23/22 06:43 Other Labs: INR 1.28 LFTs demonstrate a bilirubin of 1.4, AST of 41, ALT of 29, alk phos of 142, ammonia level of 59. Troponin 14 with repeat of 14.5 TSH 1.97 Urinalysis negative Chest x-ray by my read no infiltrate CT head no acute findings EKG normal sinus rhythm, normal axis, nonspecific ST-T wave changes by my read CT neck no fracture A&P Assessment and plan (1) Acute hepatic encephalopathy: Patient's presentation with acute encephalopathy/confusion appears to be secondary to hepatic encephalopathy Hydration Initiate lactulose, rifaximin Hold any sedating medicines Check urine drug screen No evidence of infection currently. Continue to monitor temperature, symptomatology. CBC, CMP in the morning Hold diuretics currently. (2) Type 2 diabetes mellitus: Sliding scale insulin Consistent carb diet (3) Pancytopenia: Secondary to cirrhosis, continue to follow Plan Multiple other medical problems as outlined in past medical history Full code Observation currently History of variceal bleeding. SCDs for DVT prophylaxis. No anticoagulation currently. Attestations Medical Necessity Statement*: Will require less than 2 midnight stay for evaluation and treatment of hepatic encephalopathy Diagnoses Acute hepatic encephalopathy K76.82 Type 2 diabetes mellitus E11.9 Pancytopenia D61.818 Time Spent (min) 46
[2022-11-23 11:06] LABS: Amphetamines Screen Urine Negative (Negative); Barbiturates Screen Urine Negative (Negative); Benzodiazepines Screen Urine Negative (Negative); Cocaine Screen Urine Negative (Negative); Opiate Screen Urine Negative (Negative); PCP Screen Urine Negative (Negative); THC Screen Urine Negative (Negative)
[2022-11-23] MEDS: lactulose oral liq 20 gm/30 mL UDC 30 GM PO ×3 (11:31→21:05)
[2022-11-23] MEDS: sodium chloride 0.9% 1,000 ML 75 ML IV (11:31)
[2022-11-23 11:39] LABS: Glucose Point of Care 150 mg/dL (70-110)
[2022-11-23] MEDS: insulin lispro 100 unit/1 mL SUBCUT ×3 (11:49→21:05)
--- NOTE | 2022-11-23 12:52 | ECG_ITS ---
[facility] Test Date: 2022-11-23 Pat Name: Gillian Gonzalez Department: Room: 269 Gender: Female Esthetician Spa: : 1955 Requested By: Parmjit Fernandez Order Number: [id number] Marquis MD: John Olmedo M.D. Measurements Intervals [place] Rate: 53 P: 91 VA: 147 QRS: 90 QRSD: 87 T: 66 QT: 434 QTc: 410 Interpretive Statements SINUS BRADYCARDIA NONSPECIFIC T-WAVE ABNORMALITY Compared to ECG 11/23/2022 08:29:14 Sinus rhythm no longer present Sinus arrhythmia no longer present T-wave abnormality still present Electronically Signed On 11-24-2022 6:57:18 CDT by John Olmedo M.D. [id number]
[2022-11-23] MEDS: propranolol 20 mg Tablet 10 MG PO (17:03)
[2022-11-23 17:14] LABS: Glucose Point of Care 298 mg/dL (70-110)
[2022-11-23 20:55] LABS: Glucose Point of Care 328 mg/dL (70-110)
[2022-11-24] VITALS (8 sets, daily range): BP systolic 104–127; BP diastolic 60–78; PULSE 54–72; RESP 15–18; TEMP 36.4–37.7; O2SAT 92–98
[2022-11-24] MEDS: sodium chloride 0.9% 1,000 ML 75 ML IV ×2 (00:38→13:11)
[2022-11-24 05:56] LABS: Basophils % 0.7 %; Eosinophils # 0.1 10^3/uL (0.0-0.8); Eosinophils % 2.3 %; Hematocrit 33.7 % (37.0-47.0); Hemoglobin 10.6 g/dL (11.5-15.3); Lymphocytes # 1.1 10^3/uL (0.8-4.8); Lymphocytes % 36.7 %; Mean Corpuscular HGB Conc 31.5 g/dL (30.0-36.0); Mean Corpuscular Hemoglobin 27.4 pg (28.0-34.0); Mean Corpuscular Volume 87.1 fl (81-99); Monocytes # 0.4 10^3/uL (0.2-0.9); Monocytes % 13.4 %; Neutrophils # 1.43 10^3/uL (1.8-7.7); Neutrophils % 46.9 %; Nucleated Red Blood Cells % 0 %; Red Blood Count 3.87 10^6/uL (4.1-5.3); Red Cell Distribution Width 21.7 % (12.1-15.1); White Blood Count 3.1 10^3/uL (4.0-10.0)
[2022-11-24 06:12] LABS: Glucose Point of Care 156 mg/dL (70-110)
[2022-11-24 06:20] LABS: Alanine Aminotransferase 28 U/L (0-33); Albumin Level 2.4 g/dL (3.5-5.2); Alkaline Phosphatase 128 U/L (35-105); Aspartate Amino Transferase 42 U/L (0-32); Blood Urea Nitrogen 8 mg/dL (8-23); Calcium 8.3 mg/dL (8.5-10.5); Carbon Dioxide 21 mmol/L (22-29); Chloride 112 mmol/L (98-107); Creatinine Clr Calc Pharmacy 72.9491; Globulin 3.1 g/dL (1.3-4.6); Glomerular Filtration Rate 72.2 mL/min (90-130); Glucose 166 mg/dL (65-115); Magnesium 1.7 mg/dL (1.7-2.3); Osmolality Calculated 292 mOsm/kg (285-295); Sodium 140 mmol/L (136-145); Total Bilirubin 1.1 mg/dL (0.15-1.2); Total Protein 5.5 g/dL (6.6-8.7)
[2022-11-24 06:34] LABS: Platelet Count 64 10^3/cmm (130-400)
[2022-11-24] MEDS: citalopram 20 mg Tablet 10 MG PO (10:14)
[2022-11-24] MEDS: pantoprazole DR 40 mg Tablet PO (10:15)
[2022-11-24] MEDS: insulin lispro 100 unit/1 mL SUBCUT ×4 (10:15→21:07)
[2022-11-24] MEDS: lactulose oral liq 20 gm/30 mL UDC 30 GM PO (10:16)
[2022-11-24] MEDS: propranolol 20 mg Tablet 10 MG PO ×2 (10:16→18:06)
[2022-11-24 11:10] LABS: Glucose Point of Care 331 mg/dL (70-110)
--- NOTE | 2022-11-24 13:33 | XRR_ITS ---
PROCEDURE INFORMATION: Exam: XR Left Toe(s) Exam date and time: 11/24/2022 1:37 PM Age: 66 years old Clinical indication: Injury or trauma; Fall; Sprain or strain; Toes; Left great toe; Additional info: Great toe trauma TECHNIQUE: Imaging protocol: Radiologic exam of the left toes. Views: Minimum 2 views. COMPARISON: No relevant prior studies available. FINDINGS: Bones/joints: Osseous structures are intact. No fracture or malalignment. Visualized joint surfaces are preserved. Soft tissues: Unremarkable. XR/XR toe LT min 2V 85115 IMPRESSION: Negative exam. No acute bony abnormalities.
[2022-11-24 16:38] LABS: Glucose Point of Care 217 mg/dL (70-110)
[2022-11-24] MEDS: lactulose oral liq 20 gm/30 mL UDC 45 GM PO ×2 (18:05→21:06)
--- NOTE | 2022-11-24 19:33 | PM.PN ---
Subjective Subjective: Patient reports she feels better. She does not remember coming to the hospital nor the events yesterday. She is still encephalopathic. Her caregiver whom is also her ex-partner, is bedside and supportive. He reports she is still very far from her mental baseline. Patient denies fevers, chills, nausea or emesis. Caregiver expresses concern over her left great toe injury. Patient is unsure of the events surrounding the toe injury. Medications: Reviewed: Yes Vitals/I&O/Wt Last Vital Signs Temp 99.9 F H 11/24/22 15:57 Pulse 61 11/24/22 15:57 Resp 16 11/24/22 15:57 BP 104/61 11/24/22 15:57 Pulse Ox 97 11/24/22 15:57 O2 Del Method Room Air 11/24/22 08:33 11/24/22 11/24/22 11/24/22 06:59 14:59 22:59 Intake Total 983.75 / 2603.75 1181.25 / 1181.25 Balance 983.75 / 2103.75 1181.25 / 1181.25 Weight last 48 hrs Weight 77.111 kg Weight 77.111 kg Physical Exam Narrative: General: Patient is awake. Acutely ill appearing. Frail appearing. Mild asterixis Head: Normocephalic. Atraumatic. EOM intact. Neck: No JVD. Cardiovascular: RRR. No gallops. No murmurs. Lungs: Clear to auscultation, no use of accessory muscles, no crackles or wheezes. Skin: No jaundice. No rashes. Abdomen: Normal bowel sounds, abdomen soft and nontender. Genito Urinary: Genital exam not performed since complaints not related. Rectal: Rectal exam not performed since no symptoms indicated blood loss. Extremities: No cyanosis or clubbing. Musculoskeletal: Left great toe is bruised. Neurological: Moves all 4 extremities. No myoclonus. Data 11/24/22 05:00 11/24/22 05:00 A&P Assessment and plan (1) Acute hepatic encephalopathy: Secondary to hepatic encephalopathy in the setting of decompensated liver cirrhosis Patient not responding to treatment as intended, she still remains confused and unsafe to discharge Stop IV fluids, continue holding diuretics Encourage oral intake Increase lactulose (partner reports no BM, staff report 1 last night) Continue rifaxmin Avoid any sedating medications (2) Type 2 diabetes mellitus: Sliding scale insulin Consistent carb diet (3) Pancytopenia: Secondary to cirrhosis Monitor Plan DVT ppx: SCD Code Status: Full Code Attestations Medical Necessity Statement*: Patient not responding to treatment as intending requiring ongoing hospitalization. Coding Level of Care Code Acute Code for Chg Fwd Diagnoses Acute hepatic encephalopathy K76.82 Type 2 diabetes mellitus E11.9 Pancytopenia D61.818
[2022-11-24 20:47] LABS: Glucose Point of Care 355 mg/dL (70-110)
[2022-11-25] VITALS (9 sets, daily range): BP systolic 105–145; BP diastolic 64–76; PULSE 46–59; RESP 15–17; TEMP 36.5–36.9; O2SAT 92–99
[2022-11-25 06:39] LABS: Glucose Point of Care 131 mg/dL (70-110)
[2022-11-25] MEDS: lactulose oral liq 20 gm/30 mL UDC 45 GM PO ×3 (08:32→21:28)
[2022-11-25] MEDS: pantoprazole DR 40 mg Tablet PO (08:33)
[2022-11-25] MEDS: citalopram 20 mg Tablet 10 MG PO (08:33)
[2022-11-25 11:20] LABS: Glucose Point of Care 338 mg/dL (70-110)
[2022-11-25] MEDS: insulin lispro 100 unit/1 mL SUBCUT ×3 (11:40→21:28)
[2022-11-25 16:23] LABS: Glucose Point of Care 281 mg/dL (70-110)
--- NOTE | 2022-11-25 18:19 | P.PN_ITS ---
Subjective Subjective: Patient remains confused, but improved from prior exam. Partner is bedside reports mentation is a little better today but still confused. Reports ataxic movements in hands and feet are much better. Denies fevers, chills, nausea or emesis. Reports copious loose bowel movements. Medications: Reviewed: Yes Vitals/I&O/Wt Last Vital Signs Temp 98.0 F 11/25/22 16:00 Pulse 56 L 11/25/22 16:00 Resp 16 11/25/22 16:00 BP 105/64 11/25/22 16:00 Pulse Ox 92 11/25/22 16:00 O2 Del Method Room Air 11/25/22 04:00 11/25/22 11/25/22 11/25/22 06:59 14:59 22:59 Intake Total 720 / 720 Balance 720 / 720 Physical Exam Narrative: General: Patient is awake. More alert than yesterday. Head: Normocephalic. Atraumatic. EOM intact. Neck: No JVD. Cardiovascular: RRR. No gallops. No murmurs. Lungs: Clear to auscultation, no use of accessory muscles, no crackles or wheezes. Skin: No jaundice. No rashes. Abdomen: Normal bowel sounds, abdomen soft and nontender. Genito Urinary: Genital exam not performed since complaints not related. Rectal: Rectal exam not performed since no symptoms indicated blood loss. Extremities: No cyanosis or clubbing. Musculoskeletal: Left great toe is bruised. Neurological: Moves all 4 extremities. No myoclonus. Data 11/24/22 05:00 11/24/22 05:00 A&P Assessment and plan (1) Acute hepatic encephalopathy: Secondary to hepatic encephalopathy in the setting of decompensated liver cirrhosis Hold diuretics Encourage oral intake Continue Lactulose, titrate to 3-4 soft BM daily Continue rifaxmin Avoid any sedating medications (2) Type 2 diabetes mellitus: Sliding scale insulin Consistent carb diet (3) Pancytopenia: Secondary to cirrhosis Monitor (4) Toe pain: Plan film reviewed, unremarkable Plan DVT ppx: SCD Code Status: Full Code Attestations Medical Necessity Statement*: Patient not responding to treatment as intending requiring ongoing hospitalization. Coding Level of Care Code Acute Code for [facility] Diagnoses Acute hepatic encephalopathy K76.82 Type 2 diabetes mellitus E11.9 Pancytopenia D61.818 Toe pain M79.768
[2022-11-25 21:20] LABS: Glucose Point of Care 170 mg/dL (70-110)
--- NOTE | 2022-11-25 23:21 | ECG_ITS ---
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 Measurements Intervals [place] Rate: 55 P: 76 ME: 149 QRS: 74 QRSD: 90 T: 49 QT: 452 QTc: 434 Interpretive Statements SINUS BRADYCARDIA Compared to ECG 11/23/2022 12:52:30 T-wave abnormality no longer present Electronically Signed On 11-26-2022 23:29:25 CDT by John Olmedo M.D. [email or web address]
--- NOTE | 2022-11-25 23:32 | PC.NURSE ---
Pt began complaining of sharp, shooting chest pains and feeling like she could not catch her breath. This nurse reassessed patient's vitals, patient, and completed an ECG. Pt saturating 97%, ECG shows sinus bradycardia. Dr. Romeo notified, no new orders received. Repositioned patient and raised HOB, all needs met at this time.
[2022-11-26 03:32] VITALS: BP 140/62; PULSE 78; RESP 18; TEMP 36.7; O2SAT 97
[2022-11-26 04:26] LABS: Hematocrit 34.6 % (37.0-47.0); Hemoglobin 10.3 g/dL (11.5-15.3); Mean Corpuscular HGB Conc 29.8 g/dL (30.0-36.0); Mean Corpuscular Hemoglobin 27.6 pg (28.0-34.0); Mean Corpuscular Volume 92.8 fl (81-99); Platelet Count 59 10^3/cmm (130-400); Red Blood Count 3.73 10^6/uL (4.1-5.3); Red Cell Distribution Width 21.5 % (12.1-15.1); White Blood Count 2.7 10^3/uL (4.0-10.0)
[2022-11-26 04:46] LABS: Ammonia 49 umol/L (11-51)
[2022-11-26 04:50] LABS: Alanine Aminotransferase 25 U/L (0-33); Albumin Level 2.4 g/dL (3.5-5.2); Alkaline Phosphatase 129 U/L (35-105); Anion Gap 8.8 (5-19); Aspartate Amino Transferase 37 U/L (0-32); Blood Urea Nitrogen 7 mg/dL (8-23); Calcium 8.4 mg/dL (8.5-10.5); Carbon Dioxide 20 mmol/L (22-29); Chloride 112 mmol/L (98-107); Creatinine Clr Calc Pharmacy 97.2655; Globulin 2.8 g/dL (1.3-4.6); Glomerular Filtration Rate 100.6 mL/min (90-130); Glucose 173 mg/dL (65-115); Magnesium 1.7 mg/dL (1.7-2.3); Osmolality Calculated 286 mOsm/kg (285-295); Phosphorus 2.8 mg/dL (2.5-4.5); Potassium 3.8 mmol/L (3.5-5.1); Sodium 137 mmol/L (136-145); Total Bilirubin 0.8 mg/dL (0.15-1.2); Total Protein 5.2 g/dL (6.6-8.7)
[2022-11-26 05:06] LABS: Absolute Eosinophils 0.1 10^3/cmm (0.0-0.7); Absolute Neutrophil 1.3 10^3/cmm (1.4-6.5); Absolute Segmented Neutrophil 1.3 10/cmm (1.6-7.1); Burr Cells 1+; Eosinophils 4 %; Lymphocytes 36 %; Monocytes Absolute 0.4 10^3/cmm (0.1-0.6); Platelet Estimate Decreased (Normal); Segmented Neutrophils 47 %; Total Cells Counted 100 (0-100)
[2022-11-26 05:08] LABS: Schistocytes Trace
[2022-11-26 05:09] LABS: Anisocytosis 1+; Microcytosis 1+
[2022-11-26 06:08] VITALS: PULSE 52
[2022-11-26 06:30] LABS: Glucose Point of Care 165 mg/dL (70-110)
[2022-11-26 08:00] VITALS: BP 115/66; PULSE 55; RESP 19; TEMP 36.3; O2SAT 98
[2022-11-26] MEDS: lactulose oral liq 20 gm/30 mL UDC 45 GM PO (09:36)
[2022-11-26] MEDS: insulin lispro 100 unit/1 mL SUBCUT ×2 (09:37→12:57)
[2022-11-26] MEDS: citalopram 20 mg Tablet 10 MG PO (09:37)
[2022-11-26] MEDS: propranolol 20 mg Tablet 10 MG PO (09:37)
[2022-11-26] MEDS: pantoprazole DR 40 mg Tablet PO (09:37)
[2022-11-26 11:30] LABS: Glucose Point of Care 415 mg/dL (70-110); Glucose Point of Care 434 mg/dL (70-110)
--- NOTE | 2022-11-26 11:59 | PM.DCS ---
Discharge Providers Date of Admission: 11/24/22 18:39 Date of Discharge: November 26, 2022 Attending Provider at Admission: Javy Joyce MD Attending Provider at Discharge: Farooq Gibbs MD Primary Care Provider: Pauline Pereira MD Diagnoses at Discharge Discharge Diagnosis (1) Acute hepatic encephalopathy: Status: Acute (2) Type 2 diabetes mellitus: Status: Acute (3) Pancytopenia: Status: Acute (4) Toe pain: Status: Acute Reason for Visit Reason for Visit: AMS Hospital Course Hospital Course 66-year female who was admitted for management of hepatic encephalopathy, [place], status post gastric bypass for obesity, history of sarcoidosis esophageal varices, at the time of admission there was concern for suicidal ideation, she has been evaluated by 3 different physicians, patient has denied any suicidal or homicidal ideation, she does endorse history of such thoughts in the past but denying such intent at this point, I have questioned her multiple times before her discharge I do not see any indication to put her on 96-hour hold, with her liver cirrhosis she definitely needs a safer antidepressant which I would prefer PCP to choose outpatient, I have counseled patient to use lactulose, she is not able to afford rifaximin because it would cost her $700(as per the patient). She is alert and oriented x3 GCS 15 Does have capacity at this point to make decision, she is wanting to go home she does have pancytopenia related to her portal hypertension and cirrhosis. Able to walk, hemodynamically stable Patient will receive insulin before discharge, she has not received Lantus because of her hepatic encephalopathy, For her pancytopenia she does follow-up with Dr. De Guzman outpatient She is also following up with podiatry for her chronic ingrown nails, Compliance with medication is questionable Physical Exam Narrative: No signs of active hepatic encephalopathy at the time of evaluation Asterixis negative Hemogram stable Abdomen soft Does not look fluid overloaded GCS 15 S1, S2 Currently on room air Discharge Data Studies Completed and Pending Completed Studies During Hospitalization Category Date Time Status CT cervical spin wo con* [id number] Stat Cat Scan 11/23/22 05:[address] head wo con* [id number] Stat Cat Scan 11/23/22 05:25 Completed XR chest 1V portable [id number] Stat Exams 11/23/22 05:25 Completed XR toe LT min 2V [id number] Routine Exams 11/24/22 13:33 Completed Radiology Impressions Cervical Spine CT 11/23/22 05:25 IMPRESSION: No acute findings. Chest X-Ray 11/23/22 05:25 IMPRESSION: No acute findings. Head CT 11/23/22 05:25 IMPRESSION: No acute intracranial hemorrhage or edema. Toe X-Ray 11/24/22 13:33 IMPRESSION: Negative exam. No acute bony abnormalities. Laboratory Results WBC 2.7 10^3/uL (4.0-10.0) L 11/26/22 04:17 RBC 3.73 10^6/uL (4.1-5.3) L 11/26/22 04:17 Hgb 10.3 g/dL (11.5-15.3) L 11/26/22 04:17 Hct 34.6 % (37.0-47.0) L 11/26/22 04:17 MCV 92.8 fl (81-99) 11/26/22 04:17 MCH 27.6 pg (28.0-34.0) L 11/26/22 04:17 MCHC 29.8 g/dL (30.0-36.0) L 11/26/22 04:17 RDW 21.5 % (12.1-15.1) H 11/26/22 04:17 Plt Count 59 10^3/cmm (130-400) L 11/26/22 04:17 MPV TNP 11/26/22 04:17 Neut % (Auto) 46.9 % 11/24/22 05:00 Lymph % (Auto) Not Reportable 11/26/22 04:17 [place] % (Auto) Not Reportable 11/26/22 04:17 Eos % (Auto) 2.3 % 11/24/22 05:00 Baso % (Auto) 0.7 % 11/24/22 05:00 Neut # (Auto) 1.43 10^3/uL (1.8-7.7) L 11/24/22 05:00 Lymph # (Auto) Not Reportable 11/26/22 04:17 [place] # (Auto) Not Reportable 11/26/22 04:17 Eos # (Auto) 0.1 10^3/uL (0.0-0.8) 11/24/22 05:00 Baso # (Auto) 0.0 10^3/uL (0.0-0.1) 11/24/22 05:00 Nucleated RBC % (auto) 0 % 11/24/22 05:00 Total Counted 100 (0-100) 11/26/22 04:17 Atypical Lymphs % 0.0 % (0-5) 11/26/22 04:17 Absolute Neutrophils 1.3 10^3/cmm (1.4-6.5) L 11/26/22 04:17 Segmented Neutrophils 47 % 11/26/22 04:17 Abs Segm Neuts (Man) 1.3 10/cmm (1.6-7.1) L 11/26/22 04:17 Band Neutrophils 0.0 % 11/26/22 04:17 Abs Band Neuts (Man) 0.0 10^3/cmm (0.0-1.2) 11/26/22 04:17 Absolute Lymphocytes 1.0 10^3/cmm (1.2-3.4) L 11/26/22 04:17 Lymphocytes (Manual) 36 % 11/26/22 04:17 Monocytes (Manual) 13.0 % 11/26/22 04:17 Absolute Monocytes 0.4 10^3/cmm (0.1-0.6) 11/26/22 04:17 Eosinophils (Manual) 4 % 11/26/22 04:17 Absolute Eosinophils 0.1 10^3/cmm (0.0-0.7) 11/26/22 04:17 Basophils (Manual) 0.0 % 11/26/22 04:17 Absolute Basophils 0.0 10^3/cmm (0.0-0.2) 11/26/22 04:17 Nucleated RBCs # 0.0 /100WBC 11/24/22 05:00 Platelet Estimate Decreased (Normal) L 11/26/22 04:17 Anisocytosis 1+ H 11/26/22 04:17 Microcytosis 1+ H 11/26/22 04:17 [place] Cells 1+ H 11/26/22 04:17 Schistocytes Trace 11/26/22 04:17 PT 16.40 SECONDS (12.1-14.9) H 11/23/22 06:16 INR 1.28 (0.8-1.2) H 11/23/22 06:16 Sodium 137 mmol/L (136-145) 11/26/22 04:17 Potassium 3.8 mmol/L (3.5-5.1) 11/26/22 04:17 Chloride 112 mmol/L (98-107) H 11/26/22 04:17 Carbon Dioxide 20 mmol/L (22-29) L 11/26/22 04:17 Anion Gap 8.8 (5-19) 11/26/22 04:17 BUN 7 mg/dL (8-23) L 11/26/22 04:17 Creatinine 0.6 mg/dL (0.5-0.9) 11/26/22 04:17 GFR Calculation 100.6 mL/min (90-130) 11/26/22 04:17 Glucose 173 mg/dL (65-115) H 11/26/22 04:17 POC Glucose 415 mg/dL (70-110) H 11/26/22 11:20 POC Glucose 434 mg/dL (70-110) H 11/26/22 11:20 Calculated Osmolality 286 mOsm/kg (285-295) 11/26/22 04:17 Calcium 8.4 mg/dL (8.5-10.5) L 11/26/22 04:17 Phosphorus 2.8 mg/dL (2.5-4.5) 11/26/22 04:17 Magnesium 1.7 mg/dL (1.7-2.3) 11/26/22 04:17 Total Bilirubin 0.8 mg/dL (0.15-1.2) 11/26/22 04:17 AST 37 U/L (0-32) H 11/26/22 04:17 ALT 25 U/L (0-33) 11/26/22 04:17 Alkaline Phosphatase 129 U/L (35-105) H 11/26/22 04:17 Ammonia 49 umol/L (11-51) 11/26/22 04:17 Creatine Kinase 91 U/L (26-192) 11/23/22 06:43 Troponin T Baseline 14 ng/L (0-10) H 11/23/22 06:16 Troponin T 120 Minute 14.51 ng/L (0-10) H 11/23/22 08:20 Delta Troponin T 0.51 ABS# (0-10) 11/23/22 08:20 Troponin T Hi Sens 6Hr 13.90 ng/L (0-10) H 11/23/22 12:34 Troponin T Hi Sens 6Hr Delta -0.10 ng/L (0-12) L 11/23/22 12:34 Total Protein 5.2 g/dL (6.6-8.7) L 11/26/22 04:17 Albumin 2.4 g/dL (3.5-5.2) L 11/26/22 04:17 Globulin 2.8 g/dL (1.3-4.6) 11/26/22 04:17 TSH 1.97 uIU/mL (0.27-4.20) 11/23/22 06:43 Urine Color Yellow (Yellow) 11/23/22 05:45 Urine Appearance Clear (CLEAR) 11/23/22 05:45 Urine pH 6 (5-7) 11/23/22 05:45 Ur Specific [place] 1.020 (1.005-1.030) 11/23/22 05:45 Urine Protein Neg (Negative) 11/23/22 05:45 Urine Glucose (UA) Norm (Normal) 11/23/22 05:45 Urine Ketones Negative (Negative) 11/23/22 05:45 Urine Blood Neg (Negative) 11/23/22 05:45 Urine Nitrate Negative (Negative) 11/23/22 05:45 Urine Bilirubin Neg (Negative) 11/23/22 05:45 Urine Urobilinogen 1 mg/dL (Negative) H 11/23/22 05:45 Ur Leukocyte Esterase Negative (Negative) 11/23/22 05:45 Urine Opiates Screen Negative ng/mL (Negative) 11/23/22 05:45 Acetaminophen < 5.0 ug/mL (10-30) L 11/23/22 06:43 Ur Barbiturates Screen Negative ng/mL (Negative) 11/23/22 05:45 Ur Phencyclidine Scrn Negative ng/mL (Negative) 11/23/22 05:45 Ur Amphetamines Screen Negative ng/mL (Negative) 11/23/22 05:45 U Benzodiazepines Scrn Negative ng/mL (Negative) 11/23/22 05:45 Urine Cocaine Screen Negative ng/mL (Negative) 11/23/22 05:45 U Marijuana (THC) Screen Negative ng/mL (Negative) 11/23/22 05:45 Vitals Last Vital Signs Temp 97.3 F L 11/26/22 08:00 Pulse 55 L 11/26/22 08:00 Resp 19 H 11/26/22 08:00 BP 115/66 11/26/22 08:00 Pulse Ox 98 11/26/22 08:00 O2 Del Method Room Air 11/26/22 08:00 Discharge Plan Discharge Patient Disposition: Home Condition: Stable Prescriptions: New potassium chloride 10 mEq tablet,ER particles/crystals 10 meq PO DAILY Qty: 30 0RF Continued furosemide 40 mg tablet See Rx Instructions .ROUTE .COMPLEX Rx Instructions: 80mg po qam and 40mg po after lunch as needed multivitamin Tablet 1 tab PO QAM citalopram 10 mg tablet 10 mg PO DAILY omeprazole 40 mg capsule,delayed release(DR/EC) 40 mg PO DAILY propranolol 10 mg tablet 10 mg PO BID Xifaxan 550 mg tablet 550 mg PO BID ondansetron HCl 4 mg tablet 4 mg PO Q6H PRN (Reason: Nausea) spironolactone 100 mg Tablet 100 mg PO DAILY Qty: 60 0RF Lantus Solostar U-100 Insulin 100 unit/mL (3 mL) insulin pen 40 unit SUBCUT BEDTIME Qty: 15 3RF Constulose 10 gram/15 mL solution 45 ml PO TID PRN (Reason: ammonia ) Qty: 946 4RF Discharge Orders: Discharge Order (Routine); Ordered 11/26/22 Ordered By: Farooq Gibbs Referrals: Pauline Pereira MD [Primary Care Provider] - 1-3 days Discharge Diet: Cardiac Discharge Activity: Increase activity as tolerated and Use walker/crutches as instructed Patient Instructions: Hyponatremia (ED), Benzodiazepine Use Disorder (ED), Dementia (ED), Non-diabetic Hypoglycemia (ED), Hypoglycemia in a Person with Diabetes (ED), Concussion (ED), Alcohol Intoxication (ED), Subarachnoid Hemorrhage (GEN), Altered Mental Status (ED), Opioid Safety Discharge Attestations Time Spent in Discharge Care*: greater than 30 min Quality Metrics Clinical Quality Measures [ No reported AMI, CVA or VTE this stay] Coding Level of Care Code Acute Code for [facility] Diagnoses Acute hepatic encephalopathy K76.82 Type 2 diabetes mellitus E11.9 Pancytopenia D61.818 Toe pain M79.676
[2022-11-26 12:00] VITALS: BP 103/53; PULSE 56; RESP 18; TEMP 36.7; O2SAT 96
[2022-11-26 12:47] LABS: Estmated Average Glucose 237; Hemoglobin A1C 9.9 % (4.0-6.0)
[2022-11-26] MEDS: lactated ringers 500 ML 999 ML IV (13:24)
[2022-11-26] MEDS: insulin glargine 100 units/1 mL 10 UNIT SUBCUT (13:24)
[2022-11-26 13:46] LABS: Glucose Point of Care 375 mg/dL (70-110)
[2022-11-26] MEDS: insulin regular-human 10 UNIT in SYRINGE 1 EACH 999 UNIT IVP (13:48)
[2022-11-26 14:54] LABS: Glucose Point of Care 235 mg/dL (70-110)
[2022-11-26 15:34] VITALS: BP 103/53; PULSE 56; RESP 18; TEMP 36.7; O2SAT 96
== END 2022-11-26 15:35 | disposition home or self-care (01) | DRG 442 ==
LOC: ER 09:11 → MEDSURG 14:47
PROVIDERS: Emergency Medicine; Internal Medicine; Admitting Provider Internal Medicine; Emergency Provider Emergency Medicine; PCP Internal Medicine; Visit Provider Internal Medicine
DX: K76.82 Hepatic encephalopathy (principal); D61.818 Other pancytopenia; K76.6 Portal hypertension; K75.81 Nonalcoholic steatohepatitis (NASH); Z98.84 Bariatric surgery status; K74.69 Other cirrhosis of liver; L60.0 Ingrowing nail; Z79.4 Long term (current) use of insulin; E11.9 Type 2 diabetes mellitus without complications; F32.A Depression, unspecified; K59.00 Constipation, unspecified; Z87.891 Personal history of nicotine dependence; M79.675 Pain in left toe(s)
CPT/HCPCS: 36415; 36416; 70450; 71045; 72125; 73660; 80053; 80306; 80307; 81003; 82140; 82550; 82962; 83036; 83735; 84100; 84443; 84484; 85007; 85025; 85610; 93005; 96372; 99285; G0378; J1815; J7030; J7120

== ENCOUNTER 2022-11-30 13:37 | Outpatient (CLI) | payer MEDICARE, MEDICAID, SELFPAY ==
--- NOTE | 2022-11-30 14:03 | XR_ITS ---
WS: [id number] Exam: XR shoulder RT min 2V* [id number] Date/Time of Exam: 11/30/2022 2:06 PM Reason For Exam: PAIN IN RIGHT SHOULDER Comparison 04/09/2008. No fracture or dislocation. Joint structures are relatively well maintained. Normal soft tissues. XR/XR shoulder RT min 2V* [id number] IMPRESSION: 1. Negative right shoulder.
== END 2022-11-30 13:38 | disposition home or self-care (01) ==
PROVIDERS: PCP Internal Medicine; Visit Provider Nurse Practitioner Family
DX: M25.511 Pain in right shoulder (principal)
CPT/HCPCS: 73030

== ENCOUNTER → 2022-12-24 10:30 | Outpatient (BNVA) | payer MEDICARE, MEDICAID, SELFPAY | PROVIDERS: PCP Internal Medicine; Visit Provider Podiatrist Foot & Ankle Surgery | DX: E11.9 Type 2 diabetes mellitus without complications (principal); B35.1 Tinea unguium; R60.9 Edema, unspecified; M19.071 Primary osteoarthritis, right ankle and foot; Z79.4 Long term (current) use of insulin | CPT/HCPCS: 11721; 99213 ==

== ENCOUNTER 2023-01-07 13:16 | Oncology outpatient (recurring) (ONCR) | payer MEDICARE, MEDICAID, SELFPAY ==
[2023-01-07 13:23] VITALS: BP 131/79; PULSE 76; RESP 18; TEMP 36.9; O2SAT 97
[2023-01-07 13:42] LABS: Basophils % 0.8 %; Eosinophils # 0.1 10^3/uL (0.0-0.8); Eosinophils % 2.2 %; Hematocrit 39.1 % (37.0-47.0); Hemoglobin 12.8 g/dL (11.5-15.3); Lymphocytes # 1.3 10^3/uL (0.8-4.8); Lymphocytes % 26.1 %; Mean Corpuscular HGB Conc 32.7 g/dL (30.0-36.0); Mean Corpuscular Hemoglobin 28.8 pg (28.0-34.0); Mean Corpuscular Volume 87.9 fl (81-99); Monocytes # 0.6 10^3/uL (0.2-0.9); Monocytes % 11.2 %; Neutrophils # 3.03 10^3/uL (1.8-7.7); Neutrophils % 59.5 %; Nucleated Red Blood Cells % 0 %; Platelet Count 106 10^3/cmm (130-400); Red Blood Count 4.45 10^6/uL (4.1-5.3); Red Cell Distribution Width 16.5 % (12.1-15.1); White Blood Count 5.1 10^3/uL (4.0-10.0)
[2023-01-07 13:58] LABS: Alanine Aminotransferase 40 U/L (0-33); Albumin Level 3.3 g/dL (3.5-5.2); Alkaline Phosphatase 162 U/L (35-105); Aspartate Amino Transferase 47 U/L (0-32); Blood Urea Nitrogen 10 mg/dL (8-23); Calcium 8.7 mg/dL (8.5-10.5); Carbon Dioxide 24 mmol/L (22-29); Chloride 97 mmol/L (98-107); Ferritin 43 ng/mL (15-150); Globulin 3.6 g/dL (1.3-4.6); Glucose 268 mg/dL (65-115); Iron 124 ug/dL (37-145); Osmolality Calculated 274 mOsm/kg (285-295); Percent Saturation 39.8 % (20-50); Sodium 128 mmol/L (136-145); Total Bilirubin 1.1 mg/dL (0.15-1.2); Total Iron Binding Capacity 311 mcg/dl; Total Protein 6.9 g/dL (6.6-8.7); Unsaturated Iron Binding 187 ug/dL (112-347)
== END 2023-01-28 23:59 | disposition home or self-care (01) ==
PROVIDERS: Internal Medicine Hematology & Oncology; PCP Internal Medicine; Visit Provider Nurse Practitioner Family
DX: D61.818 Other pancytopenia (principal); D50.9 Iron deficiency anemia, unspecified; Z79.899 Other long term (current) drug therapy
CPT/HCPCS: 36415; 80053; 82728; 83540; 83550; 85025; 99214

== ENCOUNTER 2023-04-16 08:59 | Outpatient (CLI) | payer MEDICARE, MEDICAID, SELFPAY ==
--- NOTE | 2023-04-16 09:04 | US_ITS ---
WS: [id number] RIGHT UPPER QUADRANT ULTRASOUND HISTORY: CIRRHOSIS OF LIVER W/O MENTION OF ALCOHOL COMPARISON: 05/13/2020 Liver: 14.4 cm in length. Liver is measuring small caliber. There is marked nodularity of the liver s urface with coarse echotexture throughout. No bile duct dilatation or mass identified. Portal Vein: Not well visualized. Gallbladder: Prior cholecystectomy CBD: 0.5 cm Pancreas: Pancreas appears echogenic as visualized. Right kidney: 11.9 cm in length. Normal size and echogenicity. No hydronephrosis or mass. Aorta and IVC: Unremarkable abdominal aorta and IVC. There is a small amount of ascites adjacent to the liver. This is only a very minimal amount of ascit es. Additional ventral abdominal wall defect containing a loop of GI tract. There is no obstruction. The hernia orifice is approximately 3.3 cm. IMPRESSION: 1. Advanced cirrhosis. No mass identified within the liver. 2. Minimal amount of ascites in the RIGHT upper quadrant. 3. Prior cholecystectomy. 4. Ventral abdominal wall hernia containing a peristalsing loop of GI tract. No strangulation.
== END 2023-04-16 09:00 | disposition home or self-care (01) ==
PROVIDERS: PCP Internal Medicine; Visit Provider Internal Medicine
DX: K74.60 Unspecified cirrhosis of liver (principal); R18.8 Other ascites; K43.9 Ventral hernia without obstruction or gangrene
CPT/HCPCS: 76705

== ENCOUNTER 2023-04-18 08:42 | Observation (INO) | payer MEDICARE, SELFPAY ==
[2023-04-18] VITALS (11 sets, daily range): BP systolic 123–160; BP diastolic 67–75; PULSE 63–68; RESP 10–21; TEMP 36.7; O2SAT 96–99; BMI 28.3
--- NOTE | 2023-04-18 08:48 | ED_ITS ---
HPI - General Adult General: Chief complaint: Altered Mental Status Stated complaint: ams Time Seen by Provider: 04/18/23 08:47 Source: patient Mode of arrival: ambulatory History of Present Illness: 67-year-old female brought in by EMS. Report was altered mental status began this morning she was last known well around 11:00 last night. She has no focal neurologic deficits. She is able to answer questions but not able to really contribute any information. She does not seem to be in any distress she laughs in response to most of her questions. She has no focal neurologic deficits. She has a history of [place] Onset (ago): minute(s) Associated symptoms: Reports confusion Treatments prior to arrival: none Review of Systems General: Reports: ROS unobtainable due to mental status Neuro: Reports: confusion PFSH ED PFSH: Medical History Acute hepatic encephalopathy Altered mental status Cirrhosis of liver Diabetes Hepatic encephalopathy Incisional hernia Kidney stones Liver cirrhosis secondary to [place] (nonalcoholic steatohepatitis) Obesity (BMI 30.0-34.9) Pancytopenia Toe pain Type 2 diabetes mellitus Surgical History H/O gastric bypass H/O: hysterectomy cervical cancer History of colonoscopy History of esophagogastroduodenoscopy (EGD) Hx of cholecystectomy Family History Mother Hypertension Father Chronic kidney disease (CKD) Sleep apnea Other Bleeding disorder Denies family history of Anesthesia complication Social History Smoking and tobacco/nicotine status: former use of tobacco/nicotine Quit status (tobacco/nicotine): has quit using Year quit tobacco: 1986 Former quit date comment: smoked x 10+ years Alcohol intake: never Substance/Drug Use: never Physical Exam Const: GENERAL APPEARANCE: cooperative and comfortable ORIENTATION/CONSCIOUSNESS: Yes awake HENMT: COMMON NORMALS: normocephalic, atraumatic and hearing grossly normal bilaterally HEAD & SCALP: normocephalic and atraumatic Resp: COMMON NORMALS: normal respiratory effort, No retractions, No use of accessory muscles and clear to auscultation bilaterally AUSCULTATION: clear to auscultation bilaterally Cardio: COMMON NORMALS: regular rate, regular rhythm and No murmurs present (Cardio) RATE: regular rate RHYTHM: regular rhythm GI: COMMON NORMALS: Soft to palpation and No hepatosplenomegaly present AUSCULTATION: Yes normoactive bowel sounds PALPATION: Yes Soft to palpation, No Tenderness to palpation present (GI), No Guarding due to palpation present (GI) and Yes No hepatosplenomegaly present OTHER: Easily reducible ventral hernia, just to the right of the midline Extremity: COMMON NORMALS: normal to inspection, capillary refill normal, no clubbing, cyanosis or edema, no calf tenderness and no pedal edema Skin: COMMON NORMALS: no rashes or lesions noted GENERAL SKIN EXAM: no rashes or lesions noted Course 2 Vital Signs: Vital signs: Vital Signs Pulse Rate 66 04/18/23 11:36 Respiratory Rate 21 H 04/18/23 11:36 Blood Pressure 160/67 04/18/23 11:36 Pulse Oximetry 99 04/18/23 11:36 Oxygen Delivery Me thod Room Air 04/18/23 11:36 MDM - General Adult Medical Decision Making Esophageal varices in the past has not had any hematemesis or coffee-ground emesis. Later in the visit arrived at the bedside. He confirmed her history of [place] she has had been ill lately last known well around 11:00 last night work-up reviewed her ammonia level is elevated but there is no sign of a stroke. He believes she has been taking her lactulose regularly. Will admit for hepatic encephalopathy discussed with hospitalist orders written Medical Records I reviewed the patient's medical records. Lab Data I reviewed the patient's lab results. 04/18/23 09:05 04/18/23 09:05 Radiology Impressions Chest X-Ray 04/18/23 08:57 IMPRESSION: No acute cardiopulmonary abnormality. Laboratory Results WBC 2.92 10^3/uL (3.29-11.43) L 04/18/23 09:05 RBC 3.63 10^6/uL (3.85-5.65) L 04/18/23 09:05 Hgb 11.10 g/dL (11.27-16.99) L 04/18/23 09:05 Hct 34.2 % (36-47) L 04/18/23 09:05 MCV 94.2 fl (85-98) 04/18/23 09:05 MCH 30.6 pg (27-33) 04/18/23 09:05 MCHC 32.5 g/dL (30-55) 04/18/23 09:05 RDW 13.5 % (12.1-15.1) 04/18/23 09:05 Plt Count 78 10^3/cmm (157-399) L 04/18/23 09:05 MPV 12.3 fL (7.4-10.4) H 04/18/23 09:05 Neut % (Auto) 44.8 % 04/18/23 09:05 Lymph % (Auto) 35.6 % 04/18/23 09:05 [place] % (Auto) 14.4 % 04/18/23 09:05 Eos % (Auto) 4.5 % 04/18/23 09:05 Baso % (Auto) 0.7 % 04/18/23 09:05 Neut # (Auto) 1.31 10^3/uL (1.8-7.7) L 04/18/23 09:05 Lymph # (Auto) 1.0 10^3/uL (0.8-4.8) 04/18/23 09:05 [place] # (Auto) 0.4 10^3/uL (0.2-0.9) 04/18/23 09:05 Eos # (Auto) 0.1 10^3/uL (0.0-0.8) 04/18/23 09:05 Baso # (Auto) 0.0 10^3/uL (0.0-0.1) 04/18/23 09:05 Nucleated RBC % (auto) 0 % 04/18/23 09:05 Nucleated RBCs # 0.0 /100WBC 04/18/23 09:05 Sodium 140 mmol/L (136-145) 04/18/23 09:05 Potassium 3.9 mmol/L (3.5-5.1) 04/18/23 09:05 Chloride 108 mmol/L (98-107) H 04/18/23 09:05 Carbon Dioxide 23 mmol/L (22-29) 04/18/23 09:05 Anion Gap 12.9 (5-19) 04/18/23 09:05 BUN 12 mg/dL (8-23) 04/18/23 09:05 Creatinine 0.7 mg/dL (0.5-0.9) 04/18/23 09:05 GFR Calculation 84.0 mL/min (90-130) L 04/18/23 09:05 Glucose 135 mg/dL (65-115) H 04/18/23 09:05 POC Glucose 122 mg/dL (70-110) H 04/18/23 08:47 Calculated Osmolality 292 mOsm/kg (285-295) 04/18/23 09:05 Lactic Acid 1.6 mmol/L (0.5-2.2) 04/18/23 09:05 Calcium 8.6 mg/dL (8.5-10.5) 04/18/23 09:05 Magnesium 2.0 mg/dL (1.7-2.3) 04/18/23 09:05 Total Bilirubin 1.3 mg/dL (0.15-1.2) H 04/18/23 09:05 AST 40 U/L (0-32) H 04/18/23 09:05 ALT 31 U/L (0-33) 04/18/23 09:05 Alkaline Phosphatase 170 U/L (35-105) H 04/18/23 09:05 Ammonia 155 umol/L (11-51) H 04/18/23 12:37 Creatine Kinase 88 U/L (26-192) 04/18/23 09:05 Troponin T Baseline 11 ng/L (0-10) H 04/18/23 09:05 Troponin T 120 Minute 9.45 ng/L (0-10) 04/18/23 10: Delta Troponin T -1.55 ABS# (0-10) L 04/18/23 10:23 Total Protein 6.2 g/dL (6.6-8.7) L 04/18/23 09:05 Albumin 2.9 g/dL (3.5-5.2) L 04/18/23 09:05 Globulin 3.3 g/dL (1.3-4.6) 04/18/23 09:05 Lipase 74 U/L (13-60) H 04/18/23 09:05 Urine Color Dark yellow (Yellow) 04/18/23 09:58 Urine Appearance Cloudy (CLEAR) A 04/18/23 09:58 Urine pH 6.5 (5-7) 04/18/23 09:58 Ur Specific [place] 1.020 (1.005-1.030) 04/18/23 09:58 Urine Protein Neg (Negative) 04/18/23 09:58 Urine Glucose (UA) Norm (Normal) 04/18/23 09:58 Urine Ketones 1+ (Negative) H 04/18/23 09:58 Urine Blood Trace (Negative) H 04/18/23 09:58 Urine Nitrate Negative (Negative) 04/18/23 09:58 Urine Bilirubin 1+ (Negative) H 04/18/23 09:58 Urine Urobilinogen 8 mg/dL (Negative) H 04/18/23 09:58 Ur Leukocyte Esterase Negative (Negative) 04/18/23 09:58 Urine RBC 0-4 /hpf (0-2) H 04/18/23 09:58 Urine WBC 0-4 /hpf (0-5) H 04/18/23 09:58 Ur Squamous Epith Cells 5-10 /hpf (0-5) H 04/18/23 09:58 Amorphous Sediment Not Reportable 04/18/23 09:58 Urine Bacteria 1+ /hpf (NONE) H 04/18/23 09:58 Urine Mucus None /hpf 04/18/23 09:58 Urine Yeast Trace /hpf 04/18/23 09:58 Serum Ketones Negative (Negative) 04/18/23 09:05 All radiology interpretation(s) finalized by discharge Discharge Plan Discharge Patient Disposition: Admitted As Inpatient Clinical Impression: Acute hepatic encephalopathy, Liver cirrhosis secondary to [place] Condition: Stable Prescriptions: No Action furosemide 40 mg tablet See Rx Instructions .ROUTE .COMPLEX Rx Instructions: 80mg po qam and 40mg po after lunch as needed calcium carbonate [Tums] 200 mg calcium (500 mg) tablet,chewable 200 mg PO TID PRN (Reason: Heartburn) multivitamin Tablet 1 tab PO QAM citalopram 10 mg tablet 10 mg PO DAILY omeprazole 40 mg capsule,delayed release(DR/EC) 40 mg PO DAILY potassium chloride 10 mEq tablet,ER particles/crystals 10 meq PO DAILY Qty: 30 0RF spironolactone 100 mg Tablet 100 mg PO DAILY Qty: 60 0RF lactulose [Constulose] 10 gram/15 mL solution 45 ml PO TID PRN (Reason: ammonia ) Qty: 946 4RF propranolol 10 mg tablet 10 mg PO BID Xifaxan 550 mg tablet 550 mg PO BID ondansetron HCl 4 mg tablet 4 mg PO TID PRN (Reason: Nausea And Vomiting) Tylenol Ex Str Rapid Release 500 mg Tablet 500 mg PO Q6H PRN (Reason: Pain) Ozempic 0.25 mg or 0.5 mg (2 mg/3 mL) pen injector 0.25 mg SUBCUT Q7D Lantus Solostar U-100 Insulin 100 unit/mL (3 mL) insulin pen 20 unit SUBCUT DAILY Referrals: Pauline Pereira MD [Primary Care Provider] - Patient Instructions: Hyponatremia (ED), Benzodiazepine Use Disorder (ED), Dementia (ED), Non-diabetic Hypoglycemia (ED), Hypoglycemia in a Person with Diabetes (ED), Concussion (ED), Alcohol Intoxication (ED), Subarachnoid Hemorrhage (GEN), Altered Mental Status (ED) Coding Level of Care Code ED Alumni Coordinator for Trevon Haines
[2023-04-18 08:53] LABS: Glucose Point of Care 122 mg/dL (70-110)
--- NOTE | 2023-04-18 08:57 | XRR_ITS ---
PROCEDURE INFORMATION: Exam: XR Chest Exam date and time: 04/18/2023 9:21 AM Age: 67 years old Clinical indication: Cough and dyspnea; Patient HX: Dyspnea/cough, AMS TECHNIQUE: Imaging protocol: Radiologic exam of the chest. Views: 1 view. COMPARISON: CR (CHEST, ) 11/23/2022 5:31 AM FINDINGS: Lungs: The lung parenchyma is clear. Pleural spaces: No pneumothorax. No pleural effusion. Heart/Mediastinum: The cardiomediastinal silhouette is within normal limits. Bones/joints: Unremarkable. XR/XR chest 1V portable [id number] IMPRESSION: No acute cardiopulmonary abnormality.
--- NOTE | 2023-04-18 08:57 | CT_ITS ---
WS: [id number] CT HEAD TECHNIQUE: Noncontrast CT of the head obtained from the skullbase to the vertex. CLINICAL INFORMATION: AMS COMPARISON: 11/23/2022 DLP: 1098.[address] scans at [facility] use at least one of these dose optimization techniques: automated e xposure control; mA and/or kV adjustment per patient size (includes targeted exams where dose is matc hed to clinical indication); or iterative reconstruction. FINDINGS: No evidence of intracranial hemorrhage or mass effect. Ventricular system and basal cisterns are turner nt. Mild small vessel changes with moderate parenchymal volume loss. No extra-axial fluid collections . No evidence of mass or mass effect. Chronic lacunar infarct RIGHT caudate unchanged. Chronic ischem ia in the LEFT external capsule unchanged. Paranasal sinuses and mastoid air cells are well aerated. .Normal visualized soft tissues. IMPRESSION: 1. No evidence of intracranial hemorrhage or mass effect. 2. Mild small vessel changes for moderate parenchymal volume loss. 3. No acute intracranial findings.
[2023-04-18 09:22] LABS: Basophils % 0.7 %; Eosinophils # 0.1 10^3/uL (0.0-0.8); Eosinophils % 4.5 %; Hematocrit 34.2 % (36-47); Lymphocytes % 35.6 %; Mean Corpuscular HGB Conc 32.5 g/dL (30-55); Mean Corpuscular Hemoglobin 30.6 pg (27-33); Mean Corpuscular Volume 94.2 fl (85-98); Mean Platelet Volume 12.3 fL (7.4-10.4); Monocytes # 0.4 10^3/uL (0.2-0.9); Monocytes % 14.4 %; Neutrophils # 1.31 10^3/uL (1.8-7.7); Neutrophils % 44.8 %; Nucleated Red Blood Cells % 0 %; Platelet Count 78 10^3/cmm (157-399); Red Blood Count 3.63 10^6/uL (3.85-5.65); Red Cell Distribution Width 13.5 % (12.1-15.1); White Blood Count 2.92 10^3/uL (3.29-11.43)
[2023-04-18 09:40] LABS: Ketone (Acetest) Serum Negative (Negative)
--- NOTE | 2023-04-18 09:40 | PC.PHAR ---
pt unable to verify medications-pts family states they give the pt her meds except for the lantus and ozempic-[facility] last filled lantus solostar 03/16/23 20 units daily and ozempic 0.25mg q7d on 03/05/23 and 04/10/23-pts family states the pt is still taking xifaxan 550mg bid ext shows last filled 01/11/23 30d/s-pts family states the pt takes lasix prn ext shows last filled 02/23/23 30d/s 80mg qam and 40mg after lunch-pts family states the pt takes constulose prn ext shows last filled 11/26/22 30d/s 45ml tid-pts family states the medications entered are the only meds the pt is taking
[2023-04-18 09:43] LABS: Alanine Aminotransferase 31 U/L (0-33); Albumin Level 2.9 g/dL (3.5-5.2); Alkaline Phosphatase 170 U/L (35-105); Anion Gap 12.9 (5-19); Aspartate Amino Transferase 40 U/L (0-32); Blood Urea Nitrogen 12 mg/dL (8-23); Calcium 8.6 mg/dL (8.5-10.5); Carbon Dioxide 23 mmol/L (22-29); Chloride 108 mmol/L (98-107); Creatine Phosphokinase 88 U/L (26-192); Globulin 3.3 g/dL (1.3-4.6); Glucose 135 mg/dL (65-115); Lipase 74 U/L (13-60); Osmolality Calculated 292 mOsm/kg (285-295); Potassium 3.9 mmol/L (3.5-5.1); Sodium 140 mmol/L (136-145); Total Bilirubin 1.3 mg/dL (0.15-1.2); Total Protein 6.2 g/dL (6.6-8.7)
[2023-04-18 09:44] LABS: Lactic Sepsis W/Reflex 1.6 mmol/L (0.5-2.2)
--- NOTE | 2023-04-18 09:45 | ECG_ITS ---
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 Measurements Intervals [place] Rate: 64 P: 67 WV: 156 QRS: 67 QRSD: 84 T: 66 QT: 414 QTc: 428 Interpretive Statements SINUS RHYTHM Compared to ECG 11/25/2022 23:21:30 Sinus bradycardia no longer present Electronically Signed On 04-19-2023 1:03:25 CDT by Kaitlyn Butler M.D. [email or web address] Unmanned Technologysonora [facility].[employer]/store/NU/[id number] f
[2023-04-18 10:07] LABS: Bilirubin Urine 1+ (Negative); Blood Urine Trace (Negative); Glucose Urine UA Norm (Normal); Ketones Urine 1+ (Negative); Nitrate Urine Negative (Negative); Protein Urine Neg (Negative); Urine Appearance Cloudy (CLEAR); Urine Color Dark Yellow (Yellow); pH Urine 6.5 (5-7)
[2023-04-18 10:08] LABS: Add Urine Microscopic? YES; Leukocyte Esterase Urine Negative (Negative); Urobilinogen Urine 8 mg/dL (Negative)
[2023-04-18 10:25] LABS: Add Urine Culture? Yes; Bacteria Urine 1+ /hpf; RBC Urine 0-4 /hpf (0-2); WBC Urine 0-4 /hpf (0-5)
--- NOTE | 2023-04-18 10:38 | CT_ITS ---
WS: [id number] CTA HEAD AND NECK TECHNIQUE: Contrast enhanced CTA of the head and neck with coronal and sagittal reformatted images an d maximum intensity projection (MIP) images. NASCET criteria utilized. CLINICAL INFORMATION: AMS COMPARISON: None. DLP: 489.[address] scans at [facility] use at least one of these dose optimization techniques: automated e xposure control; mA and/or kV adjustment per patient size (includes targeted exams where dose is matc hed to clinical indication); or iterative reconstruction. FINDINGS: RIGHT: RIGHT common carotid artery is patent. No significant RIGHT ICA stenosis. RIGHT ICA is patent to the skull base. LEFT: LEFT common carotid artery is patent. No significant LEFT ICA stenosis. LEFT ICA is patent to t he skull base. INTRACRANIAL CTA: RIGHT dominant vertebral artery. Vertebral arteries are patent to the basilar junction. Normal vascularity to the LICENSED EMBALMER SUPERVISOR territory bilaterally. Both ICAs are patent at the skull base. Mild cavernous carotid calcification. Small LEFT A1 segment. Normal vascularity to the NEIDA and MCA territories bilaterally. No evidence of proximal flow-limiting stenosis. Noncalcified ovoid nodule LEFT upper lobe measuring 5 mm. IMPRESSION: Normal head and neck CTA
[2023-04-18 10:54] LABS: Troponin(5th) Baseline 11 ng/L (0-10)
[2023-04-18] MEDS: iohexol 350 mg/mL 500 mL Btl (per mL) IV (11:12)
[2023-04-18 11:52] LABS: Troponin 5 2HR 9.45 ng/L (0-10); Troponin 5 2HR Delta -1.55 ABS# (0-10)
--- NOTE | 2023-04-18 12:39 | ECG_ITS ---
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 Measurements Intervals [place] Rate: 63 P: 74 TN: 157 QRS: 74 QRSD: 85 T: 70 QT: 415 QTc: 428 Interpretive Statements SINUS RHYTHM Compared to ECG 04/18/2023 08:45:31 No significant changes Electronically Signed On 04-19-2023 1:34:15 CDT by Kaitlyn Butler M.D. [email or web address]. (sonny) [facility] centerNew Century Hospicegerman hospitalDealerSocket/store/OM/[id number]/[id number]
[2023-04-18 13:22] LABS: Ammonia 155 umol/L (11-51)
--- NOTE | 2023-04-18 13:27 | P.HP_ITS ---
Providers/Chief Complaint Primary Care Provider: Pauline Pereira MD Chief Complaint: ams History of Present Illness Gillian Gonzalez is a 67 year old female with past medical history significant for liver cirrhosis nonalcoholic, pancytopenia, hypersplenism, diabetic presented with chief complaint of confusion. Patient symptoms started today when noticed confusion she was endorsing that she heard tornado warning on the radio, she does not take lactulose on daily basis, no recent diarrhea, vomiting, hematemesis, fever, UTI related symptoms. In the ER diagnosis not consistent with stroke, she has hepatic encephalopathy with positive instructions Ammonia level extremely high Review of Systems Eyes: Denies: change in vision ENMT: Denies: throat pain Card: Denies: chest pain Resp: Denies: dyspnea GI: Denies: abdominal pain : Denies: flank pain Musc: Denies: neck pain Skin/Breast: Denies: rash Neuro: Denies: headache(s) Psych: Reports: anxiety Medications/Allergies Home Medications Medication Instructions Recorded Confirmed Last Taken Type furosemide 40 mg tablet See Rx Instructions .Route .COMPLEX 12/11/19 04/18/23 08/03/22 08:00 History multivitamin 1 tab PO QAM 09/04/21 04/18/23 08/03/22 09:00 History propranolol 10 mg tablet 10 mg PO BID 03/01/22 04/18/23 08/03/22 09:00 History rifaximin 550 mg tablet (Xifaxan) 550 mg PO BID 04/22/22 04/18/23 08/03/22 09:00 History citalopram 10 mg tablet 10 mg PO DAILY 11/23/22 04/18/23 Unknown History omeprazole 40 mg capsule,delayed 40 mg PO DAILY 11/23/22 04/18/23 Unknown History release lactulose 10 gram/15 mL oral 45 ml PO TID PRN ammonia #946 mL 11/26/22 04/18/23 Unknown Rx solution (Constulose) potassium chloride 10 mEq 10 meq PO DAILY #30 tabs 11/26/22 04/18/23 Unknown Rx tablet,extended release(part/cryst) spironolactone 100 mg tablet 100 mg PO DAILY #60 tabs 11/26/22 04/18/23 08/03/22 09:00 Rx calcium carbonate 200 mg calcium 200 mg PO TID PRN Heartburn 01/07/23 04/18/23 Unknown History (500 mg) chewable tablet (Tums) acetaminophen 500 mg tablet 500 mg PO Q6H PRN Pain 04/18/23 04/18/23 Unknown History insulin glargine 100 unit/mL (3 20 unit SUBCUT DAILY 04/18/23 04/18/23 Unknown History mL) subcutaneous pen (Lantus Solostar U-100 Insulin) ondansetron HCl 4 mg tablet 4 mg PO TID PRN Nausea And Vomiting 04/18/23 04/18/23 Unknown History semaglutide 0.25 mg or 0.5 mg (2 0.25 mg SUBCUT Q7D 04/18/23 04/18/23 Unknown History mg/3 mL) subcutaneous pen injector (Ozempic) Allergies Allergy/AdvReac Type Severity Reaction Status Date / Time No Known Allergies Allergy Verified 04/18/23 09:23 PFSH Acute PFSH: Medical History Acute hepatic encephalopathy Altered mental status Cirrhosis of liver Diabetes Hepatic encephalopathy Incisional hernia Kidney stones 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) Obesity (BMI 30.0-34.9) Pancytopenia Toe pain Type 2 diabetes mellitus Surgical History H/O gastric bypass H/O: hysterectomy cervical cancer History of colonoscopy History of esophagogastroduodenoscopy (EGD) Hx of cholecystectomy Family History Mother Hypertension Father Chronic kidney disease (CKD) Sleep apnea Other Bleeding disorder Denies family history of Anesthesia complication Social History Smoking and tobacco/nicotine status: former use of tobacco/nicotine Quit status (tobacco/nicotine): has quit using Year quit tobacco: 1986 Former quit date comment: smoked x 10+ years Alcohol intake: never Substance/Drug Use: never Vitals/I&O/Wt Last Vital Signs Pulse 66 04/18/23 11:36 Resp 21 H 04/18/23 11:36 BP 160/67 04/18/23 11:36 Pulse Ox 99 04/18/23 11:36 O2 Del Method Room Air 04/18/23 11:36 Weight last 48 hrs Weight 77.111 kg Physical Exam Narrative: Pleasant cooperative No active focal deficit GCS 15 Currently movement Hemodynamics reviewed abdomen is soft Lower extremity no edema Looks euvolemic Positive asterixis Pleasant and cooperative S1, S2 Currently on room air Data 04/18/23 09:05 04/18/23 09:05 Micro: Microbiology 04/18/23 09:12 Blood Culture - Preliminary Blood SPECIMEN COLLECTED 04/18/23 09:05 Blood Culture - Preliminary Blood SPECIMEN COLLECTED A&P Assessment and plan (1) Acute hepatic encephalopathy: (2) Gastric bypass status for obesity: (3) Portal vein thrombosis: (4) 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: (5) Incisional hernia: (6) Diabetes mellitus type 2 in obese: Plan Acute hepatic encephalopathy Underlying portal hypertension Pancytopenia without acute worsening High ammonia level detected with positive asterixis Grade 2 hepatic encephalopathy I am anticipating patient will be able to do well with rifaximin and lactulose I will increase the dose of lactulose to every 6 hours Abdomen is nontender Continue portal hypertension I will give ceftriaxone 2 g daily No new albumin patient is hemodynamically stable Creatinine normal Avoid DVT prophylaxis considering history of esophageal varices Full code We will use soft diet She is type II diabetic with use insulin and sliding scale Attestations Medical Necessity Statement*: Anticipating discharge within 48 hours Diagnoses Acute hepatic encephalopathy K76.82 Gastric bypass status for obesity Z98.84 Portal vein thrombosis I81 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 K75.81; K74.60 Incisional hernia K43.2 Diabetes mellitus type 2 in obese E11.69; E66.9
[2023-04-18 14:09] LABS: Procalcitonin 0.12 ng/mL (0-0.5); Vitamin B12 1285 pg/mL (232-1245)
[2023-04-18 14:16] LABS: Thyroid Stimulating Hormone 2.11 uIU/mL (0.27-4.20)
[2023-04-18] MEDS: lactulose oral liq 20 gm/30 mL UDC 30 GM PO ×2 (15:15→18:43)
--- NOTE | 2023-04-18 16:00 | ECG_ITS ---
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 Measurements Intervals [place] Rate: 61 P: 71 RI: 164 QRS: 68 QRSD: 84 T: 66 QT: 420 QTc: 423 Interpretive Statements SINUS RHYTHM NONSPECIFIC T-WAVE ABNORMALITY Compared to ECG 04/18/2023 12:39:03 T-wave abnormality now present Electronically Signed On 04-19-2023 1:34:22 CDT by Kaitlyn Butler M.D. [email or web address] county joel pomerene memorial hospitalNeural Analytics/store/OM/[id number]
[2023-04-18 17:04] LABS: Glucose Point of Care 164 mg/dL (70-110)
[2023-04-18 17:08] LABS: Troponin 5 6HR 9.08 ng/L (0-10); Troponin 5 6HR Delta -1.92 ng/L (0-12)
[2023-04-18] MEDS: acetaminophen 500 mg Tablet PO (17:17)
[2023-04-18] MEDS: insulin lispro 100 unit/1 mL SUBCUT (17:18)
[2023-04-18] MEDS: pantoprazole 40 mg SDV IVP (17:18)
[2023-04-18 20:12] LABS: Glucose Point of Care 286 mg/dL (70-110)
[2023-04-18] MEDS: insulin glargine 100 units/1 mL 10 UNIT SUBCUT (21:52)
[2023-04-19] VITALS (10 sets, daily range): BP systolic 121–165; BP diastolic 63–83; PULSE 68–86; RESP 16–18; TEMP 36.5–36.9; O2SAT 95–98
[2023-04-19] MEDS: lactulose oral liq 20 gm/30 mL UDC 30 GM PO ×4 (01:29→20:21)
[2023-04-19] MEDS: acetaminophen 500 mg Tablet PO (04:27)
[2023-04-19 05:24] LABS: Basophils % 0.4 %; Eosinophils # 0.1 10^3/uL (0.0-0.8); Eosinophils % 4.2 %; Hematocrit 31.8 % (36-47); Lymphocytes % 38.2 %; Mean Corpuscular HGB Conc 32.4 g/dL (30-55); Mean Corpuscular Hemoglobin 30.7 pg (27-33); Mean Corpuscular Volume 94.6 fl (85-98); Mean Platelet Volume 12.4 fL (7.4-10.4); Monocytes # 0.5 10^3/uL (0.2-0.9); Monocytes % 17.6 %; Neutrophils # 1.04 10^3/uL (1.8-7.7); Neutrophils % 39.6 %; Nucleated Red Blood Cells % 0 %; Platelet Count 76 10^3/cmm (157-399); Red Blood Count 3.36 10^6/uL (3.85-5.65); Red Cell Distribution Width 13.7 % (12.1-15.1); White Blood Count 2.62 10^3/uL (3.29-11.43)
[2023-04-19] MEDS: ondansetron 2 mg/ML SDV 2 mL 4 MG IVP (06:14)
[2023-04-19 06:19] LABS: Alanine Aminotransferase 29 U/L (0-33); Albumin Level 2.7 g/dL (3.5-5.2); Alkaline Phosphatase 162 U/L (35-105); Aspartate Amino Transferase 43 U/L (0-32); Blood Urea Nitrogen 10 mg/dL (8-23); Calcium 8.7 mg/dL (8.5-10.5); Carbon Dioxide 20 mmol/L (22-29); Chloride 113 mmol/L (98-107); Glucose 145 mg/dL (65-115); Magnesium 1.9 mg/dL (1.7-2.3); Osmolality Calculated 296 mOsm/kg (285-295); Phosphorus 3.4 mg/dL (2.5-4.5); Sodium 142 mmol/L (136-145); Total Bilirubin 1.2 mg/dL (0.15-1.2); Total Protein 5.7 g/dL (6.6-8.7)
[2023-04-19 06:24] LABS: Glucose Point of Care 131 mg/dL (70-110)
--- NOTE | 2023-04-19 07:52 | PC.SOCIAL ---
IMM Update pg 2 of IMM not updated @ this time as patient is currently in observation status.
--- NOTE | 2023-04-19 08:52 | P.PN_ITS ---
Subjective Subjective: Patient endorsing feeling better Eating breakfast Vitals/I&O/Wt Last Vital Signs Temp 97.7 F 04/19/23 07:10 Pulse 70 04/19/23 07:10 Resp 17 04/19/23 07:10 BP 124/63 04/19/23 07:10 Pulse Ox 96 04/19/23 07:10 O2 Del Method Room Air 04/19/23 04:00 04/18/23 04/19/23 04/19/23 22:59 06:59 14:59 Intake Total 0 / 0 400 / 400 420 / 420 Output Total 0 / 0 250 / 250 Balance 0 / 0 150 / 150 420 / 420 Weight last 48 hrs Weight 77.111 kg Physical Exam Narrative: Patient pleasant cooperative Nonfocal neuro exam Awake and alert Nonfocal neuro exam Eating breakfast GCS 15 Watching television S1, S2 Currently on room air Abdomen nontender Data 04/19/23 05:00 04/19/23 05:00 Micro: Microbiology 04/18/23 09:12 Blood Culture - Preliminary Blood SPECIMEN COLLECTED 04/18/23 09:05 Blood Culture - Preliminary Blood SPECIMEN COLLECTED A&P Assessment and plan (1) Acute hepatic encephalopathy: (2) Gastric bypass status for obesity: (3) Portal vein thrombosis: (4) 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: (5) Incisional hernia: (6) Obesity (BMI 30.0-34.9): Plan Acute hepatic encephalopathy Related to high ammonia level Continue lactulose Planning to discharge by Saturday Hemodynamically stable Continue ceftriaxone for portal hypertension Not a good candidate for anticoagulating agent Chronic anemia: Stable Hemodynamic stable Attestations Medical Necessity Statement*: Discharge tomorrow Coding Level of Care Code 77624 Straight Forward/Low MDM includes number and complexity of problems actively addressed during encounter, amount and/or complexity of data reviewed/ordered and described risk of complication, morbidity or mortality of management as do cumented Diagnoses Acute hepatic encephalopathy K76.82 Gastric bypass status for obesity Z98.84 Portal vein thrombosis I81 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 K75.81; K74.60 Incisional hernia K43.2 Obesity (BMI 30.0-34.9) E66.9
[2023-04-19] MEDS: cefTRIAXone 2,000 MG in sodium chloride 0.9% (plus) 50 ML 100 MG IV (08:58)
[2023-04-19] MEDS: pantoprazole 40 mg SDV IVP ×2 (09:02→17:02)
--- NOTE | 2023-04-19 09:22 | PC.CHAP ---
Pastoral Care Encounter/Spiritual Assessment Type of Contact [] Declined household cook visit [] Patient/Family/Request visit [] Outpatient visit [] Follow-up visit [] Physician referral [] Code/Alert [x] Routine visit [] Staff referral [] Actively dying [] Patient sleeping [] Family support [] [] Out of room [] Palliative care [] [] Receiving care in room [] Pre-surgical visit [] Trauma [] Long length of stay [] ICU visit [] Other: Relational/Emotional Strength [] Patient feels connected with others/family/visitors/staff [x] Distress [] Loneliness/isolation [] Abandonment Spirituality of Patient [] Person of Chiquis [] Attends Synagogue of their Chiquis [x] Believes in Prayer [] Reads Bible or Mandaen materials [] There are Spiritual issues to be addressed Pack Worker Supervisor Interventions [x] Prayer [x] Active listening [x] Non-anxious presence [x] Spiritual/emotional support [] Crisis/trauma care [] Spiritual counseling [] Bereavement support [] Provided bereavement packet [] Provided Bible/devotional materials [] Provided toy/stuffed animal, coloring book to patient or family member [] Provided Communion [] Anointing/[place] [] Salvation [x] Completed spiritual assessment [] Other: Impact on Illness or Injury [] Angry [] Fearful [] Anxious [] Often cries [] Exhaustion [] Unable to work [] Unable to attend adventism [] Unable to walk/stand [] Unable to read [] Unable to drive [] Unable to eat/drink [] Unable to sleep [] Unable to be with family [] Patient intubated [] Other: Summary Time spent with patient 5 min
--- NOTE | 2023-04-19 11:20 | PC.NURSE ---
There was an IV in right AC and it was removed because it painful to the client. Site with bruising above insertion site and cath was intact and there was no S/S of infection at site.
[2023-04-19 11:41] LABS: Glucose Point of Care 214 mg/dL (70-110)
[2023-04-19] MEDS: insulin lispro 100 unit/1 mL SUBCUT (12:01)
[2023-04-19 17:12] LABS: Glucose Point of Care 137 mg/dL (70-110)
[2023-04-19] MEDS: insulin glargine 100 units/1 mL 10 UNIT SUBCUT (20:22)
[2023-04-19 20:42] LABS: Glucose Point of Care 240 mg/dL (70-110)
[2023-04-20] MEDS: lactulose oral liq 20 gm/30 mL UDC 30 GM PO ×2 (00:53→07:08)
[2023-04-20 04:01] VITALS: BP 129/65; PULSE 80; RESP 16; TEMP 36.8; O2SAT 98
[2023-04-20 05:51] VITALS: PULSE 83
[2023-04-20 06:45] LABS: Glucose Point of Care 127 mg/dL (70-110)
[2023-04-20 07:10] VITALS: BP 126/56; PULSE 78; RESP 16; TEMP 36.7; O2SAT 96
[2023-04-20] MEDS: acetaminophen 500 mg Tablet PO (07:30)
[2023-04-20 08:00] VITALS: PULSE 79; RESP 16; O2SAT 95
--- NOTE | 2023-04-20 08:07 | PM.DCS ---
Discharge Providers Date of Admission: 04/18/23 13:27 Date of Discharge: April 20, 2023 Attending Provider at Admission: Farooq Gibbs MD Attending Provider at Discharge: Farooq Gibbs MD Primary Care Provider: Pauline Pereira MD Diagnoses at Discharge Discharge Diagnosis (1) Acute hepatic encephalopathy: Status: Acute (2) Gastric bypass status for obesity: Status: Acute (3) Portal vein thrombosis: Status: Acute (4) 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: Status: Acute (5) Incisional hernia: Status: Acute (6) Obesity (BMI 30.0-34.9): Status: Acute Reason for Visit Reason for Visit: [facility] Hospital Course Hospital Course 67-year-old female with history of nonalcoholic hepatic cirrhosis, portal hypertension, gastritis, on Lasix and Spiriva combination along lactulose and rifaximin presented with chief complaint of confusion she was diagnosed with hepatic encephalopathy, she was not taking lactulose as scheduled I increased her lactulose dose to every 6 hours which improved her mentation significantly, she did not show any signs of dehydration, patient has been counseled to continue his rifaximin and lactulose as scheduled and not skip any days, she will be discharged home with stable hemodynamics, of note, she was put on ceftriaxone 2 g daily as empirical coverage she did not show I did not request paracentesis to rule out SBP, she remained afebrile my suspicion for SBP was low Physical Exam Narrative: Awake and alert GCS 15 Pleasant cooperative Euvolemic Abdomen soft Doing well on room air Discharge Data Studies Completed and Pending Completed Studies During Hospitalization Category Date Time Status CT head wo con* 77650 Stat Cat Scan 04/18/23 08:57 Completed CTA head neck [CT angio headneck* 52830/56090] Stat Cat Scan 04/18/23 10:38 Completed XR chest 1V portable [id number] Stat Exams 04/18/23 08:57 Completed Pending at discharge Category Date Time Status Blood Culture Stat Lab 04/18/23 09:12 Results Urine Culture Stat Lab 04/18/23 09:58 Results Radiology Impressions Chest X-Ray 04/18/23 08:57 IMPRESSION: No acute cardiopulmonary abnormality. Laboratory Results WBC 2.62 10^3/uL (3.29-11.43) L 04/19/23 05:00 RBC 3.36 10^6/uL (3.85-5.65) L 04/19/23 05:00 Hgb 10.30 g/dL (11.27-16.99) L 04/19/23 05:00 Hct 31.8 % (36-47) L 04/19/23 05:00 MCV 94.6 fl (85-98) 04/19/23 05:00 MCH 30.7 pg (27-33) 04/19/23 05:00 MCHC 32.4 g/dL (30-55) 04/19/23 05:00 RDW 13.7 % (12.1-15.1) 04/19/23 05:00 Plt Count 76 10^3/cmm (157-399) L 04/19/23 05:00 MPV 12.4 fL (7.4-10.4) H 04/19/23 05:00 Neut % (Auto) 39.6 % 04/19/23 05:00 Lymph % (Auto) 38.2 % 04/19/23 05:00 [place] % (Auto) 17.6 % 04/19/23 05:00 Eos % (Auto) 4.2 % 04/19/23 05:00 Baso % (Auto) 0.4 % 04/19/23 05:00 Neut # (Auto) 1.04 10^3/uL (1.8-7.7) L 04/19/23 05:00 Lymph # (Auto) 1.0 10^3/uL (0.8-4.8) 04/19/23 05:00 [place] # (Auto) 0.5 10^3/uL (0.2-0.9) 04/19/23 05:00 Eos # (Auto) 0.1 10^3/uL (0.0-0.8) 04/19/23 05:00 Baso # (Auto) 0.0 10^3/uL (0.0-0.1) 04/19/23 05:00 Nucleated RBC % (auto) 0 % 04/19/23 05:00 Nucleated RBCs # 0.0 /100WBC 04/19/23 05:00 Sodium 142 mmol/L (136-145) 04/19/23 05:00 Potassium 4.0 mmol/L (3.5-5.1) 04/19/23 05:00 Chloride 113 mmol/L (98-107) H 04/19/23 05:00 Carbon Dioxide 20 mmol/L (22-29) L 04/19/23 05:00 Anion Gap 13.0 (5-19) 04/19/23 05:00 BUN 10 mg/dL (8-23) 04/19/23 05:00 Creatinine 0.7 mg/dL (0.5-0.9) 04/19/23 05:00 GFR Calculation 84.0 mL/min (90-130) L 04/19/23 05:00 Glucose 145 mg/dL (65-115) H 04/19/23 05:00 POC Glucose 127 mg/dL (70-110) H 04/20/23 06:42 Calculated Osmolality 296 mOsm/kg (285-295) H 04/19/23 05:00 Lactic Acid 1.6 mmol/L (0.5-2.2) 04/18/23 09:05 Calcium 8.7 mg/dL (8.5-10.5) 04/19/23 05:00 Phosphorus 3.4 mg/dL (2.5-4.5) 04/19/23 05:00 Magnesium 1.9 mg/dL (1.7-2.3) 04/19/23 05:00 Total Bilirubin 1.2 mg/dL (0.15-1.2) 04/19/23 05:00 AST 43 U/L (0-32) H 04/19/23 05:00 ALT 29 U/L (0-33) 04/19/23 05:00 Alkaline Phosphatase 162 U/L (35-105) H 04/19/23 05:00 Ammonia 155 umol/L (11-51) H 04/18/23 12:37 Creatine Kinase 88 U/L (26-192) 04/18/23 09:05 Troponin T Baseline 11 ng/L (0-10) H 04/18/23 09:05 Troponin T 120 Minute 9.45 ng/L (0-10) 04/18/23 10:23 Delta Troponin T -1.55 ABS# (0-10) L 04/18/23 10:23 Troponin T Hi Sens 6Hr 9.08 ng/L (0-10) 04/18/23 15:53 Troponin T Hi Sens 6Hr Delta -1.92 ng/L (0-12) L 04/18/23 15:53 Total Protein 5.7 g/dL (6.6-8.7) L 04/19/23 05:00 Albumin 2.7 g/dL (3.5-5.2) L 04/19/23 05:00 Globulin 3.0 g/dL (1.3-4.6) 04/19/23 05:00 Lipase 74 U/L (13-60) H 04/18/23 09:05 Vitamin B12 1285 pg/mL (232-1245) H 04/18/23 09:05 Procalcitonin 0.12 ng/mL (0-0.5) 04/18/23 09:05 TSH 2.11 uIU/mL (0.27-4.20) 04/18/23 09:05 Urine Color Dark yellow (Yellow) 04/18/23 09:58 Urine Appearance Cloudy (CLEAR) A 04/18/23 09:58 Urine pH 6.5 (5-7) 04/18/23 09:58 Ur Specific Steen 1.020 (1.005-1.030) 04/18/23 09:58 Urine Protein Neg (Negative) 04/18/23 09:58 Urine Glucose (UA) Norm (Normal) 04/18/23 09:58 Urine Ketones 1+ (Negative) H 04/18/23 09:58 Urine Blood Trace (Negative) H 04/18/23 09:58 Urine Nitrate Negative (Negative) 04/18/23 09:58 Urine Bilirubin 1+ (Negative) H 04/18/23 09:58 Urine Urobilinogen 8 mg/dL (Negative) H 04/18/23 09:58 Ur Leukocyte Esterase Negative (Negative) 04/18/23 09:58 Urine RBC 0-4 /hpf (0-2) H 04/18/23 09:58 Urine WBC 0-4 /hpf (0-5) H 04/18/23 09:58 Ur Squamous Epith Cells 5-10 /hpf (0-5) H 04/18/23 09:58 Amorphous Sediment Not Reportable 04/18/23 09:58 Urine Bacteria 1+ /hpf (NONE) H 04/18/23 09:58 Urine Mucus None /hpf 04/18/23 09:58 Urine Yeast Trace /hpf 04/18/23 09:58 Serum Ketones Negative (Negative) 04/18/23 09:05 Vitals Last Vital Signs Temp 98.1 F 04/20/23 07:10 Pulse 78 04/20/23 07:10 Resp 16 04/20/23 07:10 BP 126/56 04/20/23 07:10 Pulse Ox 96 04/20/23 07:10 O2 Del Method Room Air 04/20/23 07:10 Discharge Plan Discharge Patient Disposition: Home Condition: Stable Prescriptions: Continued furosemide 40 mg tablet See Rx Instructions .ROUTE .COMPLEX Rx Instructions: 80mg po qam and 40mg po after lunch as needed calcium carbonate [Tums] 200 mg calcium (500 mg) tablet,chewable 200 mg PO TID PRN (Reason: Heartburn) multivitamin Tablet 1 tab PO QAM citalopram 10 mg tablet 10 mg PO DAILY omeprazole 40 mg capsule,delayed release(DR/EC) 40 mg PO DAILY potassium chloride 10 mEq tablet,ER particles/crystals 10 meq PO DAILY Qty: 30 0RF spironolactone 100 mg Tablet 100 mg PO DAILY Qty: 60 0RF propranolol 10 mg tablet 10 mg PO BID Xifaxan 550 mg tablet 550 mg PO BID ondansetron HCl 4 mg tablet 4 mg PO TID PRN (Reason: Nausea And Vomiting) acetaminophen 500 mg Tablet 500 mg PO Q6H PRN (Reason: Pain) Ozempic 0.25 mg or 0.5 mg (2 mg/3 mL) pen injector 0.25 mg SUBCUT Q7D Lantus Solostar U-100 Insulin 100 unit/mL (3 mL) insulin pen 20 unit SUBCUT DAILY Changed Constulose 10 gram/15 mL solution 45 ml PO TID Qty: 946 5RF Discharge Orders: Discharge Order (Routine); Ordered 04/20/23 Ordered By: Farooq Gibbs Referrals: Pauline Pereira MD [Primary Care Provider] - 7-10 days (We have notified your physician's clinic of the need for a follow-up appointment to be scheduled. If you have not heard from them within the next 2 business days, please call them directly. You may also reach out to our facility service manager at [phone] and she can assist you.) Patient Instructions: Lactulose (By mouth) (Shad Benavidesuloz, Myriam, Kayden, Bud), Cirrhosis of the Liver (DC), Hepatic Encephalopathy (DC) Discharge Attestations Time Spent in Discharge Care*: greater than 30 min Quality Metrics Clinical Quality Measures [ No reported AMI, CVA or VTE this stay] Coding Level of Care Code Acute Code for Chg Fwd Diagnoses Acute hepatic encephalopathy K76.82 Gastric bypass status for obesity Z98.84 Portal vein thrombosis I81 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 K75.81; K74.60 Incisional hernia K43.2 Obesity (BMI 30.0-34.9) E66.9
--- NOTE | 2023-04-20 10:16 | PC.NURSE ---
0900 meds not given, per Christy charge nurse
[2023-04-20 10:23] VITALS: PULSE 79; RESP 16; TEMP 36.4; O2SAT 95
== END 2023-04-20 09:55 | disposition home or self-care (01) ==
LOC: ER 13:35 → MEDSURG 16:29
PROVIDERS: Admitting Provider Internal Medicine; Emergency Provider Family Medicine; PCP Internal Medicine; Visit Provider Internal Medicine
DX: K76.82 Hepatic encephalopathy (principal); Z98.84 Bariatric surgery status; I81 Portal vein thrombosis; K75.81 Nonalcoholic steatohepatitis (NASH); K74.60 Unspecified cirrhosis of liver; K43.2 Incisional hernia without obstruction or gangrene; E66.9 Obesity, unspecified; Z68.28 Body mass index [BMI] 28.0-28.9, adult; E11.9 Type 2 diabetes mellitus without complications; Z87.891 Personal history of nicotine dependence
CPT/HCPCS: 36415; 36416; 70450; 70496; 70498; 71045; 80053; 81001; 82009; 82140; 82550; 82607; 82962; 83605; 83690; 83735; 84100; 84145; 84443; 84484; 85025; 87040; 87086; 93005; 96365; 96372; 96375; 99285; C9113; G0378; J0696; J1815; J2405; J3411; Q9967

== ENCOUNTER 2023-05-20 16:52 | Inpatient (IN) | payer MEDICARE, MEDICAID, SELFPAY ==
[2023-05-20 16:58] VITALS: BP 143/66; PULSE 65; RESP 16; TEMP 37.1; O2SAT 96; BMI 28.3
--- NOTE | 2023-05-20 17:08 | XRR_ITS ---
PROCEDURE INFORMATION: Exam: XR Chest Exam date and time: 05/20/2023 5:34 PM Age: 67 years old Clinical indication: Cough TECHNIQUE: Imaging protocol: Radiologic exam of the chest. Views: 1 view. COMPARISON: CR XR chest 1V portable [id number] 04/18/2023 9:21 AM FINDINGS: Lungs: Unremarkable. No consolidation. Pleural spaces: Unremarkable. No pleural effusion. No pneumothorax. Heart/Mediastinum: Unremarkable. No cardiomegaly. Bones/joints: Unremarkable. XR/XR chest 1V portable [id number] IMPRESSION: No acute findings.
--- NOTE | 2023-05-20 17:08 | W.ED.WEAKNES ---
HPI - Weakness General: Chief complaint: Weakness Stated complaint: Weakness Time Seen by Provider: 05/20/23 17:07 History of Present Illness: 67-year-old female presents emergency department with her . Patient states that she has felt increasingly weak over the previous 4 days. She states she has also had some upper abdominal pain to the left and right. She states she did try to make herself and her abdominal pain feel better by taking a hot bath and after she got hot baths she felt dizzy. Patient states that she feels like she is slightly improved but does complain of 4 out of 10 upper abdominal pain. She does have a longstanding history of nonalcoholic steatohepatitis and currently takes lactulose for that. She states that she feels like she is starting become more confused and this is very similar to what occurred previously when her ammonia level was elevated. She states she did have 2 episodes of nausea and vomiting. She denies chest pain or shortness of breath. Associated symptoms: Reports nausea and vomiting Review of Systems General: Reports: 10 or more systems reviewed and unremarkable except in HPI and below Const: Reports: fatigue GI: Reports: abdominal pain, nausea and vomiting Neuro: Reports: weakness in extremities PFS ED PFSH: Medical History Acute hepatic encephalopathy Acute hepatic encephalopathy Altered mental status Cirrhosis of liver Diabetes Diabetes mellitus type 2 in obese Hepatic encephalopathy Incisional hernia Kidney stones 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) Obesity (BMI 30.0-34.9) Pancytopenia Portal vein thrombosis Toe pain Type 2 diabetes mellitus Surgical History Gastric bypass status for obesity H/O gastric bypass H/O: hysterectomy cervical cancer History of colonoscopy History of esophagogastroduodenoscopy (EGD) Hx of cholecystectomy Family History Mother Hypertension Father Chronic kidney disease (CKD) Sleep apnea Other Bleeding disorder Denies family history of Anesthesia complication Social History Smoking and tobacco/nicotine status: former use of tobacco/nicotine Quit status (tobacco/nicotine): has quit using Year quit tobacco: 1986 Former quit date comment: smoked x 10+ years Alcohol intake: never Substance/Drug Use: never Physical Exam Narrative: EXAM NARRATIVE: Constitutional: the patient appears well nourished and with normal development. Vital signs reviewed as documented. She does appear to be mildly ill. HENMT: Normocephalic, atraumatic. Extermal ears with normal appearance without drainage. Nose without drainage, normal appearance. Mucus membranes moist. Neck is supple, No jugular venous distension, trachea is midline, no appreciable carotid bruits. No lymphadenopathy. No meningeal signs. Flexion, extension and lateral rotation is without pain. Eyes: Pupils are equal, round, reactive to light and accommodation. No scleral icterus. Extra-ocular movement are intact. Thorax is symmetrical and with equal rise and fall with respirations. Resp: Lungs are clear to auscultation. No wheezes, rales, crackles or ronchi at present. Cardio: Regular rate and rhythm. Positive S1, S2. No appreciable murmurs, rubs or gallops. GI: Abdominal exam reveals normal bowel sounds to all quadrants. Hepatomegaly approximately 3 cm below the right costal angle. Mild abdominal ascites noted. Soft, slightly tender to palpation to the right and left upper quadrant and epigastric region.. Extremity: Extremities are non-edematous and both femoral and pedal pulses are 2+ and equal bilaterally. Moves all extremities well, sensation in all extremities. Neuro: Alert and oriented x4, person, place, time and situation-although her mentation appears slowed.. Cranial nerves II through XII are grossly intact, there is no focal neurological deficits that I can appreciate at present. Motor strength in the upper and lower extremities are equal and bilateral 5/5. Psych: Cooperative, calm, normal thought process, appropriate judgment. Skin: No lesions, rashes. No gross abnormalities noted. Mild generalized jaundice Back: Symmetrical, no obvious deformity, No CVA tenderness Course Vital Signs: Vital signs: Vital Signs Temperature 98.0 F 05/23/23 07:07 Pulse Rate 66 05/23/23 11:51 Respiratory Rate 16 05/23/23 11:51 Blood Pressure 110/62 05/23/23 07:07 Pulse Oximetry 98 05/23/23 11:51 Oxygen Delivery Me thod Room Air 05/23/23 08:52 MDM - Weakness Medical Decision Making Physical exam completed and documented, I will obtain a CBC, lipase, CMP, ammonia level, and given the patient's history of hepatic encephalopathy I suspect most likely this is the cause of her presenting symptoms. Differential diagnosis includes hepatic encephalopathy, hyperammonemia, pancreatitis, gastroenteritis, dehydration, Medical Records I reviewed the patient's medical records. Lab Data I reviewed the patient's lab results. 05/23/23 05:51 05/23/23 05:51 Radiology Impressions Chest X-Ray 05/20/23 17:08 IMPRESSION: No acute findings. Abdomen/Pelvis CT 05/20/23 20:42 IMPRESSION: 1. Prominent fluid in the small bowel and colon suggestive of an enterocolitis in the appropriate clinical setting. 2. Supraumbilical ventral abdominal hernia containing bowel without dilation. 3. Cirrhotic liver suspected. 4. Cholecystectomy. 5. Gastric surgical sutures. 6. Apparent varices in the upper abdomen, largely in the splenic hilum, suggestive of portal venous hypertension. 7. Constipation. Head CT 05/21/23 10:59 IMPRESSION: No acute intracranial findings. [place] Stroke Program Early CT Score (ASPECTS) is 10. Laboratory Results WBC 5.27 10^3/uL (3.29-11.43) 05/20/23 17:53 RBC 4.26 10^6/uL (3.85-5.65) 05/20/23 17:53 Hgb 12.60 g/dL (11.27-16.99) 05/20/23 17:53 Hct 38.8 % (36-47) 05/20/23 17:53 MCV 91.1 fl (85-98) 05/20/23 17:53 MCH 29.6 pg (27-33) 05/20/23 17:53 MCHC 32.5 g/dL (30-55) 05/20/23 17:53 RDW 14.4 % (12.1-15.1) 05/20/23 17:53 Plt Count 95 10^3/cmm (157-399) L 05/20/23 17:53 MPV 13.0 fL (7.4-10.4) H 05/20/23 17:53 Neut % (Auto) 60.5 % 05/20/23 17:53 Lymph % (Auto) 24.3 % 05/20/23 17:53 [place] % (Auto) 12.1 % 05/20/23 17:53 Eos % (Auto) 2.3 % 05/20/23 17:53 Baso % (Auto) 0.6 % 05/20/23 17:53 Neut # (Auto) 3.19 10^3/uL (1.8-7.7) 05/20/23 17:53 Lymph # (Auto) 1.3 10^3/uL (0.8-4.8) 05/20/23 17:53 [place] # (Auto) 0.6 10^3/uL (0.2-0.9) 05/20/23 17:53 Eos # (Auto) 0.1 10^3/uL (0.0-0.8) 05/20/23 17:53 Baso # (Auto) 0.0 10^3/uL (0.0-0.1) 05/20/23 17:53 Nucleated RBC % (auto) 0 % 05/20/23 17:53 Nucleated RBCs # 0.0 /100WBC 05/20/23 17:53 Sodium 138 mmol/L (136-145) 05/20/23 17:53 Potassium 4.1 mmol/L (3.5-5.1) 05/20/23 17:53 Chloride 107 mmol/L (98-107) 05/20/23 17:53 Carbon Dioxide 21 mmol/L (22-29) L 05/20/23 17:53 Anion Gap 14.1 (5-19) 05/20/23 17:53 BUN 13 mg/dL (8-23) 05/20/23 17:53 Creatinine 0.8 mg/dL (0.5-0.9) 05/20/23 17:53 GFR Calculation 72.0 mL/min (90-130) L 05/20/23 17:53 Glucose 94 mg/dL (65-115) 05/20/23 17:53 POC Glucose 98 mg/dL (70-110) 05/20/23 17:32 Calculated Osmolality 286 mOsm/kg (285-295) 05/20/23 17:53 Calcium 9.3 mg/dL (8.5-10.5) 05/20/23 17:53 Total Bilirubin 1.3 mg/dL (0.15-1.2) H 05/20/23 17:53 AST 44 U/L (0-32) H 05/20/23 17:53 ALT 33 U/L (0-33) 05/20/23 17:53 Alkaline Phosphatase 179 U/L (35-105) H 05/20/23 17:53 Ammonia 110 umol/L (11-51) H 05/20/23 17:53 Total Protein 6.9 g/dL (6.6-8.7) 05/20/23 17:53 Albumin 3.1 g/dL (3.5-5.2) L 05/20/23 17:53 Globulin 3.8 g/dL (1.3-4.6) 05/20/23 17:53 Lipase 277 U/L (13-60) H 05/20/23 17:53 Tumor Marker AFP 7.8 ng/mL (0-8.3) 05/20/23 17:53 Urine Color [place] (Yellow) A 05/20/23 17:47 Urine Appearance Clear (CLEAR) 05/20/23 17:47 Urine pH 6 (5-7) 05/20/23 17:47 Ur Specific [place] 1.025 (1.005-1.030) 05/20/23 17:47 Urine Protein Neg (Negative) 05/20/23 17:47 Urine Glucose (UA) Norm (Normal) 05/20/23 17:47 Urine Ketones Negative (Negative) 05/20/23 17:47 Urine Blood Neg (Negative) 05/20/23 17:47 Urine Nitrate Negative (Negative) 05/20/23 17:47 Urine Bilirubin Neg (Negative) 05/20/23 17:47 Urine Urobilinogen 1 mg/dL (Negative) H 05/20/23 17:47 Ur Leukocyte Esterase Negative (Negative) 05/20/23 17:47 Influenza Type A Ag negative (Negative) 05/20/23 17:37 Influenza Type B Ag negative (Negative) 05/20/23 17:37 SARS-CoV-2 Ag (Rapid) negative (Negative) 05/20/23 17:37 All radiology interpretation(s) finalized by discharge Discharge Plan Discharge Patient Disposition: Admitted As Inpatient Admit Provider: Farooq Gibbs Clinical Impression: Encephalopathy, hepatic, Acute pancreatitis, Hyperammonemia Condition: Stable Discharge Diet: Cardiac Discharge Activity: Resume usual activity Coding Level of Care Code ED Erp Implementation Consultant for Chg Zaki
[2023-05-20 17:37] LABS: Glucose Point of Care 98 mg/dL (70-110)
[2023-05-20 18:05] LABS: Influenza A by IFA negative (Negative); Influenza B by IFA negative (Negative); SARS Covid-2 Antigen negative (Negative)
[2023-05-20 18:06] LABS: Basophils % 0.6 %; Eosinophils # 0.1 10^3/uL (0.0-0.8); Eosinophils % 2.3 %; Hematocrit 38.8 % (36-47); Lymphocytes # 1.3 10^3/uL (0.8-4.8); Lymphocytes % 24.3 %; Mean Corpuscular HGB Conc 32.5 g/dL (30-55); Mean Corpuscular Hemoglobin 29.6 pg (27-33); Mean Corpuscular Volume 91.1 fl (85-98); Monocytes # 0.6 10^3/uL (0.2-0.9); Monocytes % 12.1 %; Neutrophils # 3.19 10^3/uL (1.8-7.7); Neutrophils % 60.5 %; Nucleated Red Blood Cells % 0 %; Platelet Count 95 10^3/cmm (157-399); Red Blood Count 4.26 10^6/uL (3.85-5.65); Red Cell Distribution Width 14.4 % (12.1-15.1); White Blood Count 5.27 10^3/uL (3.29-11.43)
[2023-05-20 18:06] LABS: Add Urine Microscopic? NO; Charge for UA Resulting for Rev
[2023-05-20 18:16] LABS: Urine Color Orange (Yellow)
[2023-05-20 18:17] LABS: Bilirubin Urine Neg (Negative); Blood Urine Neg (Negative); Glucose Urine UA Norm (Normal); Ketones Urine Negative (Negative); Leukocyte Esterase Urine Negative (Negative); Nitrate Urine Negative (Negative); Protein Urine Neg (Negative); Specific Gravity, Urine 1.025 (1.005-1.030); Urine Appearance Clear (CLEAR); Urobilinogen Urine 1 mg/dL (Negative); pH Urine 6 (5-7)
[2023-05-20 18:30] LABS: Alanine Aminotransferase 33 U/L (0-33); Albumin Level 3.1 g/dL (3.5-5.2); Alkaline Phosphatase 179 U/L (35-105); Anion Gap 14.1 (5-19); Aspartate Amino Transferase 44 U/L (0-32); Blood Urea Nitrogen 13 mg/dL (8-23); Calcium 9.3 mg/dL (8.5-10.5); Carbon Dioxide 21 mmol/L (22-29); Chloride 107 mmol/L (98-107); Globulin 3.8 g/dL (1.3-4.6); Glucose 94 mg/dL (65-115); Lipase 277 U/L (13-60); Osmolality Calculated 286 mOsm/kg (285-295); Potassium 4.1 mmol/L (3.5-5.1); Sodium 138 mmol/L (136-145); Total Bilirubin 1.3 mg/dL (0.15-1.2); Total Protein 6.9 g/dL (6.6-8.7)
[2023-05-20 18:33] LABS: Ammonia 110 umol/L (11-51)
[2023-05-20 19:51] VITALS: BP 143/55; PULSE 70; O2SAT 98
--- NOTE | 2023-05-20 19:51 | PC.NURSE ---
NURSE ASSUMED CARE AT 1950
[2023-05-20] MEDS: lactulose oral liq 20 gm/30 mL UDC 60 GM PO (19:56)
[2023-05-20 20:25] VITALS: BP 134/80; PULSE 69; O2SAT 97
[2023-05-20] MEDS: sodium chloride 0.9% 1,000 ML 125 ML IV (20:34)
--- NOTE | 2023-05-20 20:39 | PM.HP ---
Providers/Chief Complaint Admitting Physician: Farooq Gibbs MD Primary Care Provider: Pauline Pereira MD Chief Complaint: Weakness History of Present Illness Gillian Gonzalez is a 67 year old female with remote history of gastric bypass, colon AVM, esophageal varices, recurrent admissions related to hepatic encephalopathy, BLAIR, presented with chief complaint of confusion and epigastric pain. In the ER she was diagnosed with hepatic encephalopathy with high ammonia level and high lipase. Patient does not have a gallbladder, prior history of cholecystectomy. He does have ventral wall hernia with a loop of bowel , I requested CT abdomen pelvis started patient on lactulose and rifaximin and ceftriaxone Patient is stating that she was fine until 2 PM when she took a shower, and then she lost energy completely and she could not walk on her own her gait was off and required assistance from her , that prompted her visit to the ER As per the patient has been using Ozempic for last 4 to 6 months No active episode of emesis Patient has been taking lactulose every 6 hours at home Her stools are not liquid they are semisolid Follows up at [facility] last visit was roughly a year ago TIPS was not recommended Review of Systems Const: Denies: fever(s) Eyes: Denies: change in vision ENMT: Denies: throat pain Card: Denies: chest pain Resp: Denies: dyspnea GI: Reports: nausea : Denies: flank pain Medications/Allergies Home Medications Medication Instructions Recorded Confirmed Last Taken Type furosemide 40 mg tablet See Rx Instructions .Route .COMPLEX 12/11/19 04/18/23 08/03/22 08:00 History multivitamin 1 tab PO QAM 09/04/21 04/18/23 08/03/22 09:00 History propranolol 10 mg tablet 10 mg PO BID 03/01/22 04/18/23 08/03/22 09:00 History rifaximin 550 mg tablet (Xifaxan) 550 mg PO BID 04/22/22 04/18/23 08/03/22 09:00 History citalopram 10 mg tablet 10 mg PO DAILY 11/23/22 04/18/23 Unknown History omeprazole 40 mg capsule,delayed 40 mg PO DAILY 11/23/22 04/18/23 Unknown History release potassium chloride 10 mEq 10 meq PO DAILY #30 tabs 11/26/22 04/18/23 Unknown Rx tablet,extended release(part/cryst) spironolactone 100 mg tablet 100 mg PO DAILY #60 tabs 11/26/22 04/18/23 08/03/22 09:00 Rx calcium carbonate 200 mg calcium 200 mg PO TID PRN Heartburn 01/07/23 04/18/23 Unknown History (500 mg) chewable tablet (Tums) acetaminophen 500 mg tablet 500 mg PO Q6H PRN Pain 04/18/23 04/18/23 Unknown History insulin glargine 100 unit/mL (3 20 unit SUBCUT DAILY 04/18/23 04/18/23 Unknown History mL) subcutaneous pen (Lantus Solostar U-100 Insulin) ondansetron HCl 4 mg tablet 4 mg PO TID PRN Nausea And Vomiting 04/18/23 04/18/23 Unknown History semaglutide 0.25 mg or 0.5 mg (2 0.25 mg SUBCUT Q7D 04/18/23 04/18/23 Unknown History mg/3 mL) subcutaneous pen injector (Ozempic) lactulose 10 gram/15 mL oral 45 ml PO TID #946 mL 04/20/23 04/18/23 Unknown Rx solution (Constulose) Allergies Allergy/AdvReac Type Severity Reaction Status Date / Time No Known Allergies Allergy Verified 04/18/23 09:23 PFSH Acute PFSH: Medical History Acute hepatic encephalopathy Acute hepatic encephalopathy Altered mental status Cirrhosis of liver Diabetes Diabetes mellitus type 2 in obese Hepatic encephalopathy Incisional hernia Kidney stones 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) Obesity (BMI 30.0-34.9) Pancytopenia Portal vein thrombosis Toe pain Type 2 diabetes mellitus Surgical History Gastric bypass status for obesity H/O gastric bypass H/O: hysterectomy cervical cancer History of colonoscopy History of esophagogastroduodenoscopy (EGD) Hx of cholecystectomy Family History Mother Hypertension Father Chronic kidney disease (CKD) Sleep apnea Other Bleeding disorder Denies family history of Anesthesia complication Social History Smoking and tobacco/nicotine status: former use of tobacco/nicotine Quit status (tobacco/nicotine): has quit using Year quit tobacco: 1986 Former quit date comment: smoked x 10+ years Alcohol intake: never Substance/Drug Use: never Vitals/I&O/Wt Last Vital Signs Temp 98.7 F 05/20/23 16:58 Pulse 69 05/20/23 20:25 Resp 16 05/20/23 16:58 BP 134/80 05/20/23 20:25 Pulse Ox 97 05/20/23 20:25 O2 Del Method Room Air 05/20/23 20:25 Weight last 48 hrs Weight 77.111 kg Physical Exam Narrative: Negative asterixis Awake and alert GCS 15 Nontender abdomen Pleasant cooperative Euvolemic S1, S2 Currently on room air I do not see increased confusion Data 05/20/23 17:53 05/20/23 17:53 A&P Assessment and plan (1) Encephalopathy, hepatic: (2) Acute pancreatitis: (3) Hyperammonemia: Plan Acute hepatic encephalopathy Decompensated liver cirrhosis Ascites History of portal hypertension with esophageal varices No active GI bleed Start ceftriaxone empirical coverage Pancreatitis however patient does not have a gallbladder my suspicion is low for cholangitis Lactulose every 6 hours along rifaximin Compliance with her medications is questionable Due to recurrent admissions due to hepatic encephalopathy she will be considered an ideal candidate for TIPS procedure Full code Cardiac diet once more awake and alert Would use low-dose sliding scale I will request alpha-fetoprotein to rule out hepatocellular cancer, Will require CT abdomen pelvis as well for epigastric pain and high lipase Patient is taking Ozempic which could be the cause of pancreatitis, please reevaluate before her discharge Thrombocytopenia avoid DVT prophylaxis with anticoagulating agent would use SCDs Patient has history of portal hypertension Hemoglobin is stable I do not suspect active GI bleed Attestations Medical Necessity Statement*: More than 2 midnights anticipated for management of pancreatitis and hepatic encephalopathy Diagnoses Encephalopathy, hepatic K76.82 Acute pancreatitis K85.90 Hyperammonemia E72.20
--- NOTE | 2023-05-20 20:42 | CTR_ITS ---
PROCEDURE INFORMATION: Exam: CT Abdomen And Pelvis Without Contrast Exam date and time: 05/20/2023 8:56 PM Age: 67 years old Clinical indication: Abdominal pain; Epigastric; Prior surgery; Surgery date: 6+ months; Surgery type: Gb, hyst, x 3; Additional info: Epigastric pain TECHNIQUE: Imaging protocol: Computed tomography of the abdomen and pelvis without contrast. Radiation optimization: All CT scans at this facility use at least one of these dose optimization techniques: automated exposure control; mA and/or kV adjustment per patient size (includes targeted exams where dose is matched to clinical indication); or iterative reconstruction. REPORTING DATA: Count of CT and Cardiac NM exams in prior 12 months: This patient has received 5 known CTs and 0 known cardiac nuclear medicine studies in the 12 months prior to the current study. COMPARISON: CT abdomen pelvis con [id number] 06/06/2022 2:39 PM RADIATION DOSE METRICS: Total DLP (mGy-cm): 593.33 FINDINGS: Liver: Cirrhotic liver suspected. Gallbladder and bile ducts: Cholecystectomy. Pancreas: Normal. No ductal dilation. Spleen: Apparent varices in the upper abdomen, largely in the splenic hilum, suggestive of portal venous hypertension. Adrenal glands: Normal. No mass. Kidneys and ureters: Normal. No hydronephrosis. Stomach and bowel: Prominent fluid in the small bowel and colon suggestive of an enterocolitis in the appropriate clinical setting. Gastric surgical sutures. Constipation. Appendix: No evidence of appendicitis. Intraperitoneal space: Unremarkable. No free air. No significant fluid collection. Vasculature: Unremarkable. No abdominal aortic aneurysm. Lymph nodes: Unremarkable. No enlarged lymph nodes. Urinary bladder: Unremarkable as visualized. Reproductive: Unremarkable as visualized. Bones/joints: Unremarkable. No acute fracture. Soft tissues: Supraumbilical ventral abdominal hernia containing bowel without dilation. CT/CT abdomen pelvis wo con [id number] IMPRESSION: 1. Prominent fluid in the small bowel and colon suggestive of an enterocolitis in the appropriate clinical setting. 2. Supraumbilical ventral abdominal hernia containing bowel without dilation. 3. Cirrhotic liver suspected. 4. Cholecystectomy. 5. Gastric surgical sutures. 6. Apparent varices in the upper abdomen, largely in the splenic hilum, suggestive of portal venous hypertension. 7. Constipation.
[2023-05-20 21:12] LABS: Tumor Marker Alpha Fetoprotein 7.8 ng/mL (0-8.3)
[2023-05-20 21:29] VITALS: BMI 28.3
[2023-05-20 21:40] VITALS: BP 132/78; PULSE 70; RESP 17; TEMP 37.2; O2SAT 97
[2023-05-20] MEDS: lactulose oral liq 20 gm/30 mL UDC PO (21:55)
[2023-05-20 23:18] VITALS: BP 119/68; PULSE 75; RESP 17; TEMP 37.3; O2SAT 98
[2023-05-21] VITALS (9 sets, daily range): BP systolic 111–132; BP diastolic 65–76; PULSE 60–67; RESP 16–17; TEMP 36.4–36.8; O2SAT 95–98; BMI 28.3
[2023-05-21] MEDS: morphine 4 mg/mL SDV 1 mL 2 MG IVP ×3 (00:20→11:26)
[2023-05-21] MEDS: lactulose oral liq 20 gm/30 mL UDC PO ×4 (03:24→20:34)
[2023-05-21 05:33] LABS: Basophils % 0.7 %; Eosinophils # 0.1 10^3/uL (0.0-0.8); Hematocrit 34.3 % (36-47); Lymphocytes # 1.3 10^3/uL (0.8-4.8); Lymphocytes % 32.9 %; Mean Corpuscular HGB Conc 32.1 g/dL (30-55); Mean Corpuscular Hemoglobin 29.6 pg (27-33); Mean Corpuscular Volume 92.5 fl (85-98); Mean Platelet Volume 12.5 fL (7.4-10.4); Monocytes # 0.6 10^3/uL (0.2-0.9); Monocytes % 14.5 %; Neutrophils # 1.99 10^3/uL (1.8-7.7); Neutrophils % 49.7 %; Nucleated Red Blood Cells % 0 %; Platelet Count 76 10^3/cmm (157-399); Red Blood Count 3.71 10^6/uL (3.85-5.65); Red Cell Distribution Width 14.2 % (12.1-15.1); White Blood Count 4.01 10^3/uL (3.29-11.43)
[2023-05-21 06:23] LABS: Alanine Aminotransferase 29 U/L (0-33); Albumin Level 2.8 g/dL (3.5-5.2); Alkaline Phosphatase 154 U/L (35-105); Anion Gap 13.9 (5-19); Aspartate Amino Transferase 41 U/L (0-32); Blood Urea Nitrogen 12 mg/dL (8-23); Calcium 8.8 mg/dL (8.5-10.5); Carbon Dioxide 20 mmol/L (22-29); Chloride 110 mmol/L (98-107); Glucose 142 mg/dL (65-115); Osmolality Calculated 292 mOsm/kg (285-295); Potassium 3.9 mmol/L (3.5-5.1); Sodium 140 mmol/L (136-145); Total Bilirubin 1.2 mg/dL (0.15-1.2); Total Protein 5.8 g/dL (6.6-8.7)
[2023-05-21 07:03] LABS: Glucose Point of Care 121 mg/dL (70-110)
[2023-05-21] MEDS: cefTRIAXone 2,000 MG in sodium chloride 0.9% (plus) 50 ML 100 MG IV (08:35)
[2023-05-21] MEDS: citalopram 20 mg Tablet 10 MG PO (09:47)
[2023-05-21] MEDS: FUROsemide 40 mg Tablet PO (09:47)
[2023-05-21] MEDS: insulin glargine 100 units/1 mL 10 UNIT SUBCUT (09:47)
[2023-05-21] MEDS: spironolactone 25 mg Tablet 100 MG PO (09:47)
[2023-05-21] MEDS: propranolol 20 mg Tablet 10 MG PO ×2 (09:47→17:30)
--- NOTE | 2023-05-21 09:51 | PC.CHAP ---
Pastoral Care Encounter/Spiritual Assessment Type of Contact [] Declined loan review officer visit [] Patient/Family/Request visit [] Outpatient visit [] Follow-up visit [] Physician referral [] Code/Alert [] Routine visit [] Staff referral [] Actively dying [] Patient sleeping [] Family support [] [] Out of room [] Palliative care [] [x] Receiving care in room [] Pre-surgical visit [] Trauma [] Long length of stay [] ICU visit [] Other: Relational/Emotional Strength [] Patient feels connected with others/family/visitors/staff [] Distress [] Loneliness/isolation [] Abandonment Spirituality of Patient [] Person of Chiquis [] Attends [employer] of their [place]iqu[place] [] Believes in Prayer [] Reads Bible or Scientology materials [] There are Spiritual issues to be addressed Toilet Attendant Interventions [] Prayer [] Active listening [] Non-anxious presence [] Spiritual/emotional support [] Crisis/trauma care [] Spiritual counseling [] Bereavement support [] Provided bereavement packet [] Provided Bible/devotional materials [] Provided toy/stuffed animal, coloring book to patient or family member [] Provided Communion [] Anointing/[place] [] Salvation [] Completed spiritual assessment [] Other: Impact on Illness or Injury [] Angry [] Fearful [] Anxious [] Often cries [] Exhaustion [] Unable to work [] Unable to attend baptism [] Unable to walk/stand [] Unable to read [] Unable to drive [] Unable to eat/drink [] Unable to sleep [] Unable to be with family [] Patient intubated [] Other: Summary Time spent with patient
--- NOTE | 2023-05-21 10:59 | CTR_ITS ---
PROCEDURE INFORMATION: Exam: CT Head Without Contrast Exam date and time: 05/21/2023 12:26 PM Age: 67 years old Clinical indication: Other: CVA TECHNIQUE: Imaging protocol: Computed tomography of the head without contrast. Radiation optimization: All CT scans at this facility use at least one of these dose optimization techniques: automated exposure control; mA and/or kV adjustment per patient size (includes targeted exams where dose is matched to clinical indication); or iterative reconstruction. REPORTING DATA: Count of CT and Cardiac NM exams in prior 12 months: This patient has received 6 known CTs and 0 known cardiac nuclear medicine studies in the 12 months prior to the current study. COMPARISON: CT head wo con* [id number] 04/18/2023 9:17 AM RADIATION DOSE METRICS: Total DLP (mGy-cm): 1122 FINDINGS: Brain: Stable cerebral atrophy. No hemorrhage. Preserved wilson-white matter differentiation. Mild patchy cerebral white matter hypoattenuation likely on the basis of chronic microvascular ischemic change. Old right basal ganglia lacunar infarct. Stable left external capsule hypodensity. No mass effect. Cerebral ventricles: Ventricles are in proportion to the degree of atrophy. Pituitary gland and sella: Partially empty sella. Paranasal sinuses: Visualized sinuses are unremarkable. No fluid levels. Mastoid air cells: Visualized mastoid air cells are well aerated. Bones/joints: Unremarkable. No acute fracture. Soft tissues: Unremarkable. Vasculature: Bilateral ICA calcification. CT/CT head wo con* [id number] IMPRESSION: No acute intracranial findings. [place] Stroke Program Early CT Score (ASPECTS) is 10.
[2023-05-21 11:32] LABS: Glucose Point of Care 223 mg/dL (70-110)
[2023-05-21 11:43] LABS: Ammonia 85 umol/L (11-51)
[2023-05-21] MEDS: insulin lispro 100 unit/1 mL SUBCUT ×2 (12:39→17:30)
--- NOTE | 2023-05-21 13:42 | P.PN_ITS ---
Subjective Subjective: Patient was seen this morning, she is alert to person, to place, to time, she can follow commands, she tells me that she recently she has been feeling more dizzy, lightheaded and weak, no fevers, no chills, no cough, she tells me that this been going on for the last few months, but has progressively worsened, Vitals/I&O/Wt Last Vital Signs Temp 98.0 F 05/21/23 12:00 Pulse 67 05/21/23 12:00 Resp 17 05/21/23 12:00 BP 118/65 05/21/23 12:00 Pulse Ox 97 05/21/23 12:00 O2 Del Method Room Air 05/21/23 12:00 05/20/23 05/21/23 05/21/23 22:59 06:59 14:59 Intake Total 1010 / 1010 Balance 1010 / 1010 Weight last 48 hrs Weight 77.224 kg Weight 77.383 kg Weight 77.111 kg Physical Exam Const: COMMON NORMALS: no acute distress and patient oriented x3 Resp: COMMON NORMALS: normal respiratory effort, No retractions, No use of accessory muscles and clear to auscultation bilaterally AUSCULTATION: clear to auscultation bilaterally Cardio: COMMON NORMALS: regular rate, regular rhythm, S1 normal heart sound present and S2 normal heart sound present RATE: regular rate RHYTHM: regular rhythm HEART SOUNDS: S1 normal heart sound present and S2 normal heart sound present GI: COMMON NORMALS: Normal to inspection, nondistended, normoactive bowel sounds present and non-tender Extremity: COMMON NORMALS: no pedal edema Neuro: COMMON NORMALS: patient oriented x3 Psych: COMMON NORMALS: mental status grossly normal Data 05/21/23 05:26 05/21/23 05:26 A&P Assessment and plan (1) Encephalopathy, hepatic: (2) Acute pancreatitis: (3) Hyperammonemia: (4) Weakness: Plan Acute hepatic encephalopathy Decompensated liver cirrhosis Ascites History of portal hypertension with esophageal varices No active GI bleed Start ceftriaxone empirical coverage Pancreatitis however patient does not have a gallbladder my suspicion is low for cholangitis Lactulose every 6 hours along rifaximin Compliance with her medications is questionable Due to recurrent admissions due to hepatic encephalopathy she will be considered an ideal candidate for TIPS procedure Full code Cardiac diet once more awake and alert Would use low-dose sliding scale Head CT, within normal limits, no focal neurologic deficits, no slurring of her words I will request alpha-fetoprotein to rule out hepatocellular cancer, ? CT scan abdomen pelvis CT/CT abdomen pelvis wo con [id number] IMPRESSION: 1. ? Prominent fluid in the small bowel and colon suggestive of an enterocolitis in the appropriate clinical setting. 2. ? Supraumbilical ventral abdominal hernia containing bowel without dilation. 3. ? Cirrhotic liver suspected. 4. ? Cholecystectomy. 5. ? Gastric surgical sutures. 6. ? Apparent varices in the upper abdomen, largely in the splenic hilum, suggestive of portal venous hypertension. 7. ? Constipation. ? Patient is taking Ozempic which could be the cause of pancreatitis, please reeva luate before her discharge Thrombocytopenia avoid DVT prophylaxis with anticoagulating agent would use SCDs Patient has history of portal hypertension Hemoglobin is stable I do not suspect active GI bleed Attestations Medical Necessity Statement*: Patient requires hospitalization for hepatic encephalopathy Diagnoses Encephalopathy, hepatic K76.82 Acute pancreatitis K85.90 Hyperammonemia E72.20 Weakness R53.1
[2023-05-21 16:29] LABS: Glucose Point of Care 166 mg/dL (70-110)
[2023-05-21 20:53] LABS: Glucose Point of Care 161 mg/dL (70-110)
[2023-05-22] VITALS (8 sets, daily range): BP systolic 100–119; BP diastolic 57–77; PULSE 60–76; RESP 16–18; TEMP 36.8–36.9; O2SAT 92–99
[2023-05-22] MEDS: lactulose oral liq 20 gm/30 mL UDC PO ×2 (02:54→08:28)
[2023-05-22 06:29] LABS: Glucose Point of Care 122 mg/dL (70-110)
[2023-05-22] MEDS: propranolol 20 mg Tablet 10 MG PO ×2 (08:28→17:51)
[2023-05-22] MEDS: citalopram 20 mg Tablet 10 MG PO (08:28)
[2023-05-22] MEDS: FUROsemide 40 mg Tablet PO (08:28)
[2023-05-22] MEDS: spironolactone 25 mg Tablet 100 MG PO (08:28)
[2023-05-22] MEDS: cefTRIAXone 2,000 MG in sodium chloride 0.9% (plus) 50 ML 100 MG IV (08:29)
[2023-05-22] MEDS: insulin glargine 100 units/1 mL 10 UNIT SUBCUT (08:31)
[2023-05-22 09:05] LABS: Basophils % 0.6 %; Eosinophils # 0.1 10^3/uL (0.0-0.8); Eosinophils % 2.7 %; Hematocrit 37.2 % (36-47); Lymphocytes # 1.1 10^3/uL (0.8-4.8); Lymphocytes % 33.4 %; Mean Corpuscular HGB Conc 30.9 g/dL (30-55); Mean Corpuscular Hemoglobin 29.4 pg (27-33); Mean Corpuscular Volume 95.1 fl (85-98); Mean Platelet Volume 12.8 fL (7.4-10.4); Monocytes # 0.5 10^3/uL (0.2-0.9); Monocytes % 14.8 %; Neutrophils # 1.63 10^3/uL (1.8-7.7); Neutrophils % 48.2 %; Nucleated Red Blood Cells % 0 %; Platelet Count 68 10^3/cmm (157-399); Red Blood Count 3.91 10^6/uL (3.85-5.65); Red Cell Distribution Width 14.5 % (12.1-15.1); White Blood Count 3.38 10^3/uL (3.29-11.43)
--- NOTE | 2023-05-22 09:05 | PC.SOCIAL ---
IMM Update Pg 2 of IMM Updated and reviewed with patient, copy provided.
[2023-05-22 09:22] LABS: Ammonia 150 umol/L (11-51)
[2023-05-22 09:23] LABS: Alanine Aminotransferase 31 U/L (0-33); Albumin Level 2.8 g/dL (3.5-5.2); Alkaline Phosphatase 158 U/L (35-105); Anion Gap 14.5 (5-19); Aspartate Amino Transferase 45 U/L (0-32); Blood Urea Nitrogen 12 mg/dL (8-23); Calcium 8.5 mg/dL (8.5-10.5); Carbon Dioxide 21 mmol/L (22-29); Chloride 105 mmol/L (98-107); Globulin 3.4 g/dL (1.3-4.6); Glomerular Filtration Rate 62.8 mL/min (90-130); Glucose 378 mg/dL (65-115); Osmolality Calculated 297 mOsm/kg (285-295); Potassium 4.5 mmol/L (3.5-5.1); Sodium 136 mmol/L (136-145); Total Bilirubin 1.1 mg/dL (0.15-1.2); Total Protein 6.2 g/dL (6.6-8.7)
[2023-05-22] MEDS: lactulose oral liq 20 gm/30 mL UDC 30 GM PO ×3 (10:15→22:19)
[2023-05-22 10:58] LABS: Glucose Point of Care 331 mg/dL (70-110)
--- NOTE | 2023-05-22 11:18 | PC.CHAP ---
Pastoral Care Encounter/Spiritual Assessment Type of Contact [] Declined special deputy sheriff visit [] Patient/Family/Request visit [] Outpatient visit [] Follow-up visit [] Physician referral [] Code/Alert [x] Routine visit [] Staff referral [] Actively dying [] Patient sleeping [] Family support [] [] Out of room [] Palliative care [] [] Receiving care in room [] Pre-surgical visit [] Trauma [] Long length of stay [] ICU visit [] Other: Relational/Emotional Strength [x] Patient feels connected with others/family/visitors/staff [] Distress [] Loneliness/isolation [] Abandonment Spirituality of Patient [] Person of Chiquis [] Attends Voodoo of their Chiquis [x] Believes in Prayer [] Reads Bible or Methodist materials [] There are Spiritual issues to be addressed Collision Worker Interventions [x] Prayer [] Active listening [] Non-anxious presence [x] Spiritual/emotional support [] Crisis/trauma care [x] Spiritual counseling [] Bereavement support [] Provided bereavement packet [] Provided Bible/devotional materials [] Provided toy/stuffed animal, coloring book to patient or family member [] Provided Communion [] Anointing/[place] [] Salvation [] Completed spiritual assessment [x] Other: got opportuntity to speak with Gillian, had a wonderful testimony , of how the Lord has brought her safely thus far. Had prayer with her, asked questions about her Salvation, gave her some scriptures to assure her , that if she has trusted Guillaume as her Savior, believe He , Buried , [place]any 3rd Day ...Heaven will be her ETERNAL HOME Impact on Illness or Injury [] Angry [] Fearful [] Anxious [] Often cries [] Exhaustion [] Unable to work [] Unable to attend zoroastrian [] Unable to walk/stand [] Unable to read [] Unable to drive [] Unable to eat/drink [] Unable to sleep [] Unable to be with family [] Patient intubated [] Other: Summary Ms French has an awesome testimony of the [facility]Ord has done in her life. Time spent with patient 25 min
--- NOTE | 2023-05-22 12:29 | P.PN_ITS ---
Subjective Subjective: Patient was seen this morning, she is alert to person, to place, not to time she can follow commands, she tells me that her weakness and fatigue has improved, she is quite concerned as she has to be in [place] to crab picker [place] airport we discussed monitoring her as inpatient, as her ammonia levels remain elevated but we will recheck them, as her morning labs are pending, but if it is elevated I recommend for her to stay as inpatient and monitor ammonia levels until they improve, Vitals/I&O/Wt Last Vital Signs Temp 98.3 F 05/22/23 11:29 Pulse 67 05/22/23 11:29 Resp 16 05/22/23 11:29 BP 112/57 05/22/23 11:29 Pulse Ox 95 05/22/23 11:29 O2 Del Method Room Air 05/22/23 11:29 05/21/23 05/22/23 05/22/23 22:59 06:59 14:59 Intake Total 480 / 1490 290 / 290 Balance 480 / 1490 290 / 290 Weight last 48 hrs Weight 76.459 kg Weight 77.224 kg Weight 77.383 kg Weight 77.111 kg Physical Exam Const: COMMON NORMALS: no acute distress and patient oriented x3 Resp: COMMON NORMALS: normal respiratory effort, No retractions, No use of accessory muscles and clear to auscultation bilaterally AUSCULTATION: clear to auscultation bilaterally Cardio: COMMON NORMALS: regular rate, regular rhythm, S1 normal heart sound present and S2 normal heart sound present RATE: regular rate RHYTHM: regular rhythm HEART SOUNDS: S1 normal heart sound present and S2 normal heart sound present GI: COMMON NORMALS: Normal to inspection, nondistended, normoactive bowel sounds present and non-tender Extremity: COMMON NORMALS: no pedal edema Neuro: COMMON NORMALS: patient oriented x3 Psych: COMMON NORMALS: mental status grossly normal Data 05/22/23 08:50 05/22/23 08:50 A&P Assessment and plan (1) Encephalopathy, hepatic: (2) Acute pancreatitis: (3) Hyperammonemia: (4) Weakness: Plan Acute hepatic encephalopathy, Hyperammonemia, ammonia levels still remain 150 Decompensated liver cirrhosis Ascites History of portal hypertension with esophageal varices No active GI bleed Start ceftriaxone empirical coverage Pancreatitis however patient does not have a gallbladder my suspicion is low for cholangitis Lactulose every 6 hours along rifaximin Compliance with her medications is questionable Due to recurrent admissions due to hepatic encephalopathy she will be considered an ideal candidate for TIPS procedure Full code Cardiac diet once more awake and alert Would use low-dose sliding scale Head CT, within normal limits, no focal neurologic deficits, no slurring of her words I will request alpha-fetoprotein to rule out hepatocellular cancer, ? CT scan abdomen pelvis CT/CT abdomen pelvis wo con [id number] IMPRESSION: 1. ? Prominent fluid in the small bowel and colon suggestive of an enterocolitis in the appropriate clinical setting. 2. ? Supraumbilical ventral abdominal hernia containing bowel without dilation. 3. ? Cirrhotic liver suspected. 4. ? Cholecystectomy. 5. ? Gastric surgical sutures. 6. ? Apparent varices in the upper abdomen, largely in the splenic hilum, suggestive of portal venous hypertension. 7. ? Constipation. ? Patient is taking Ozempic which could be the cause of pancreatitis, please ree valuate before her discharge Thrombocytopenia avoid DVT prophylaxis with anticoagulating agent would use SCDs Patient has history of portal hypertension Hemoglobin is stable I do not suspect active GI bleed Attestations Medical Necessity Statement*: Patient requires hospitalization for hyperammonemia requiring increased doses of lactulose, clinical monitoring Diagnoses Encephalopathy, hepatic K76.82 Acute pancreatitis K85.90 Hyperammonemia E72.20 Weakness R53.1
[2023-05-22] MEDS: insulin lispro 100 unit/1 mL SUBCUT (13:04)
[2023-05-22 15:54] LABS: Ammonia 96 umol/L (11-51)
[2023-05-22 17:32] LABS: Glucose Point of Care 115 mg/dL (70-110)
[2023-05-22 20:46] LABS: Glucose Point of Care 206 mg/dL (70-110)
[2023-05-23] VITALS: BP 114/67; PULSE 64; RESP 17; TEMP 36.7; O2SAT 96
[2023-05-23] MEDS: lactulose oral liq 20 gm/30 mL UDC 30 GM PO ×2 (03:47→10:00)
[2023-05-23 04:00] VITALS: BP 128/74; PULSE 60; RESP 18; TEMP 36.6; O2SAT 97
[2023-05-23 05:59] LABS: Basophils % 0.5 %; Eosinophils # 0.2 10^3/uL (0.0-0.8); Eosinophils % 3.6 %; Hematocrit 34.2 % (36-47); Lymphocytes # 1.3 10^3/uL (0.8-4.8); Lymphocytes % 31.8 %; Mean Corpuscular HGB Conc 32.5 g/dL (30-55); Mean Corpuscular Hemoglobin 29.8 pg (27-33); Mean Corpuscular Volume 91.9 fl (85-98); Mean Platelet Volume 12.3 fL (7.4-10.4); Monocytes # 0.7 10^3/uL (0.2-0.9); Monocytes % 17.1 %; Neutrophils # 1.98 10^3/uL (1.8-7.7); Neutrophils % 46.8 %; Nucleated Red Blood Cells % 0 %; Platelet Count 76 10^3/cmm (157-399); Red Blood Count 3.72 10^6/uL (3.85-5.65); Red Cell Distribution Width 14.1 % (12.1-15.1); White Blood Count 4.22 10^3/uL (3.29-11.43)
[2023-05-23] MEDS: ondansetron 2 mg/ML SDV 2 mL 4 MG IVP (06:11)
[2023-05-23 06:24] LABS: Glucose Point of Care 151 mg/dL (70-110)
[2023-05-23 06:26] LABS: Alanine Aminotransferase 29 U/L (0-33); Albumin Level 2.7 g/dL (3.5-5.2); Alkaline Phosphatase 157 U/L (35-105); Anion Gap 13.9 (5-19); Aspartate Amino Transferase 42 U/L (0-32); Blood Urea Nitrogen 12 mg/dL (8-23); Calcium 8.6 mg/dL (8.5-10.5); Carbon Dioxide 22 mmol/L (22-29); Chloride 110 mmol/L (98-107); Globulin 3.3 g/dL (1.3-4.6); Glucose 142 mg/dL (65-115); Osmolality Calculated 296 mOsm/kg (285-295); Phosphorus 2.8 mg/dL (2.5-4.5); Potassium 3.9 mmol/L (3.5-5.1); Sodium 142 mmol/L (136-145); Total Bilirubin 0.9 mg/dL (0.15-1.2)
[2023-05-23 06:28] LABS: Ammonia 43 umol/L (11-51)
[2023-05-23 07:07] VITALS: BP 110/62; PULSE 66; RESP 16; TEMP 36.7; O2SAT 97
[2023-05-23 08:52] VITALS: PULSE 66; RESP 16; O2SAT 98
--- NOTE | 2023-05-23 09:39 | PM.DCS ---
Discharge Providers Date of Admission: 05/20/23 20:34 Date of Discharge: May 23, 2023 Attending Provider at Admission: Farooq Gibbs MD Attending Provider at Discharge: Wesley Burgess MD Primary Care Provider: Pauline Pereira MD Diagnoses at Discharge Discharge Diagnosis (1) Encephalopathy, hepatic: Status: Acute (2) Acute pancreatitis: Status: Acute (3) Hyperammonemia: Status: Acute (4) Weakness: Status: Acute Reason for Visit Reason for Visit: Weakness Hospital Course Hospital Course Gillian Gonzalez is a 67 year old female with remote history of gastric bypass, colon AVM, esophageal varices, recurrent admissions related to hepatic encephalopathy, BLAIR, presented with chief complaint of confusion and epigastric pain.? In the ER she was diagnosed with hepatic encephalopathy with high ammonia level and high lipase.? Patient does not have a gallbladder, prior history of cholecystectomy.? He does have ventral wall hernia with a loop of bowel , I requested CT abdomen pelvis started patient on lactulose and rifaximin and ceftriaxone Patient is stating that she was fine until 2 PM when she took a shower, and then she lost energy completely and she could not walk on her own her gait was off and required assistance from her , that prompted her visit to the ER Acute hepatic encephalopathy, hyperammonemia, decompensated liver cirrhosis, history of portal hypertension with esophageal varices, admitted to [facility], received lactulose, empiric coverage with ceftriaxone remain afebrile, overall ammonia levels improved to 40, mentation improved, will be discharged on home lactulose, follow-up with the doctors at [facility] within the next week. I have discontinued her a Ozempic on discharge as there is a risk of pancreatitis. Patient was advised if she has any fevers, confusion, weakness to come back to the emergency room. - Take lactulose, as prescribed ?Follow-up with your transplant team at [facility] ? Please take 20 units of Lantus subcut daily, if you find that your blood sugars are consistently over 300, can increase it to 30 units Lantus subcu daily -Please monitor your blood sugars closely -Monitor your blood sugars 3 times daily as after meals -Please record your blood sugars, and a blood sugar log -If your blood sugar is greater than 500 go to the emergency room -If your blood sugar is less than 60 or at anytime you feel lightheaded or dizzy or diaphoretic or have chest palpitations check your blood sugar, and eat a hard candy or drink orange juice and go immediately to the emergency room -Remember hypoglycemia kills, so if his blood sugar is less than 60 we have to increase it by taking in a sugary meal such as a hard candy or orange juice and go to the emergency room -If you have any questions please call us where here to help Physical Exam Const: COMMON NORMALS: no acute distress and patient oriented x3 Resp: COMMON NORMALS: normal respiratory effort, No retractions, No use of accessory muscles and clear to auscultation bilaterally AUSCULTATION: clear to auscultation bilaterally Cardio: COMMON NORMALS: regular rate, regular rhythm, S1 normal heart sound present and S2 normal heart sound present RATE: regular rate RHYTHM: regular rhythm HEART SOUNDS: S1 normal heart sound present and S2 normal heart sound present GI: COMMON NORMALS: Normal to inspection, nondistended, normoactive bowel sounds present and non-tender Extremity: COMMON NORMALS: no pedal edema Neuro: COMMON NORMALS: patient oriented x3 Psych: COMMON NORMALS: mental status grossly normal Discharge Data Studies Completed and Pending Completed Studies During Hospitalization Category Date Time Status CT abdomen pelvis wo con [id number] Routine Cat Scan 05/20/23 20:[address] head wo con* [id number] Routine Cat Scan 05/21/23 10:59 Completed XR chest 1V portable [id number] Stat Exams 05/20/23 17:08 Completed Pending at discharge Category Date Time Status Ammonia AM LABS Lab 05/24/23 04:00 Ordered Ammonia AM LABS Lab 05/25/23 04:00 Ordered Complete Blood Count w/Auto AM LABS Lab 05/24/23 04:00 Ordered Complete Blood Count w/Auto AM LABS Lab 05/25/23 04:00 Ordered Comprehensive Metabolic Panel AM LABS Lab 05/24/23 04:00 Ordered Comprehensive Metabolic Panel AM LABS Lab 05/25/23 04:00 Ordered Magnesium AM LABS Lab 05/24/23 04:00 Ordered Magnesium AM LABS Lab 05/25/23 04:00 Ordered Phosphorus AM LABS Lab 05/24/23 04:00 Ordered Phosphorus AM LABS Lab 05/25/23 04:00 Ordered Radiology Impressions Chest X-Ray 05/20/23 17:08 IMPRESSION: No acute findings. Abdomen/Pelvis CT 05/20/23 20:42 IMPRESSION: 1. Prominent fluid in the small bowel and colon suggestive of an enterocolitis in the appropriate clinical setting. 2. Supraumbilical ventral abdominal hernia containing bowel without dilation. 3. Cirrhotic liver suspected. 4. Cholecystectomy. 5. Gastric surgical sutures. 6. Apparent varices in the upper abdomen, largely in the splenic hilum, suggestive of portal venous hypertension. 7. Constipation. Head CT 05/21/23 10:59 IMPRESSION: No acute intracranial findings. [place] Stroke Program Early CT Score (ASPECTS) is 10. Laboratory Results WBC 4.22 10^3/uL (3.29-11.43) 05/23/23 05:51 RBC 3.72 10^6/uL (3.85-5.65) L 05/23/23 05:51 Hgb 11.10 g/dL (11.27-16.99) L 05/23/23 05:51 Hct 34.2 % (36-47) L 05/23/23 05:51 MCV 91.9 fl (85-98) 05/23/23 05:51 MCH 29.8 pg (27-33) 05/23/23 05:51 MCHC 32.5 g/dL (30-55) D 05/23/23 05:51 RDW 14.1 % (12.1-15.1) 05/23/23 05:51 Plt Count 76 10^3/cmm (157-399) L 05/23/23 05:51 MPV 12.3 fL (7.4-10.4) H 05/23/23 05:51 Neut % (Auto) 46.8 % 05/23/23 05:51 Lymph % (Auto) 31.8 % 05/23/23 05:51 Jackson % (Auto) 17.1 % 05/23/23 05:51 Eos % (Auto) 3.6 % 05/23/23 05:51 Baso % (Auto) 0.5 % 05/23/23 05:51 Neut # (Auto) 1.98 10^3/uL (1.8-7.7) 05/23/23 05:51 Lymph # (Auto) 1.3 10^3/uL (0.8-4.8) 05/23/23 05:51 Jackson # (Auto) 0.7 10^3/uL (0.2-0.9) 05/23/23 05:51 Eos # (Auto) 0.2 10^3/uL (0.0-0.8) 05/23/23 05:51 Baso # (Auto) 0.0 10^3/uL (0.0-0.1) 05/23/23 05:51 Nucleated RBC % (auto) 0 % 05/23/23 05:51 Nucleated RBCs # 0.0 /100WBC 05/23/23 05:51 Sodium 142 mmol/L (136-145) 05/23/23 05:51 Potassium 3.9 mmol/L (3.5-5.1) 05/23/23 05:51 Chloride 110 mmol/L (98-107) H 05/23/23 05:51 Carbon Dioxide 22 mmol/L (22-29) 05/23/23 05:51 Anion Gap 13.9 (5-19) 05/23/23 05:51 BUN 12 mg/dL (8-23) 05/23/23 05:51 Creatinine 0.8 mg/dL (0.5-0.9) 05/23/23 05:51 GFR Calculation 72.0 mL/min (90-130) L 05/23/23 05:51 Glucose 142 mg/dL (65-115) H 05/23/23 05:51 POC Glucose 151 mg/dL (70-110) H 05/23/23 06:06 Calculated Osmolality 296 mOsm/kg (285-295) H 05/23/23 05:51 Calcium 8.6 mg/dL (8.5-10.5) 05/23/23 05:51 Phosphorus 2.8 mg/dL (2.5-4.5) 05/23/23 05:51 Magnesium 2.0 mg/dL (1.7-2.3) 05/23/23 05:51 Total Bilirubin 0.9 mg/dL (0.15-1.2) 05/23/23 05:51 AST 42 U/L (0-32) H 05/23/23 05:51 ALT 29 U/L (0-33) 05/23/23 05:51 Alkaline Phosphatase 157 U/L (35-105) H 05/23/23 05:51 Ammonia 43 umol/L (11-51) 05/23/23 05:51 Total Protein 6.0 g/dL (6.6-8.7) L 05/23/23 05:51 Albumin 2.7 g/dL (3.5-5.2) L 05/23/23 05:51 Globulin 3.3 g/dL (1.3-4.6) 05/23/23 05:51 Lipase 277 U/L (13-60) H 05/20/23 17:53 Tumor Marker AFP 7.8 ng/mL (0-8.3) 05/20/23 17:53 Urine Color [place] (Yellow) A 05/20/23 17:47 Urine Appearance Clear (CLEAR) 05/20/23 17:47 Urine pH 6 (5-7) 05/20/23 17:47 Ur Specific [place] 1.025 (1.005-1.030) 05/20/23 17:47 Urine Protein Neg (Negative) 05/20/23 17:47 Urine Glucose (UA) Norm (Normal) 05/20/23 17:47 Urine Ketones Negative (Negative) 05/20/23 17:47 Urine Blood Neg (Negative) 05/20/23 17:47 Urine Nitrate Negative (Negative) 05/20/23 17:47 Urine Bilirubin Neg (Negative) 05/20/23 17:47 Urine Urobilinogen 1 mg/dL (Negative) H 05/20/23 17:47 Ur Leukocyte Esterase Negative (Negative) 05/20/23 17:47 Influenza Type A Ag negative (Negative) 05/20/23 17:37 Influenza Type B Ag negative (Negative) 05/20/23 17:37 SARS-CoV-2 Ag (Rapid) negative (Negative) 05/20/23 17:37 Vitals Last Vital Signs Temp 98.0 F 05/23/23 07:07 Pulse 66 05/23/23 08:52 Resp 16 05/23/23 08:52 BP 110/62 05/23/23 07:07 Pulse Ox 98 05/23/23 08:52 O2 Del Method Room Air 05/23/23 08:52 Discharge Plan Discharge Patient Disposition: Home Condition: Stable Prescriptions: Continued furosemide 40 mg tablet 40 mg PO DAILY calcium carbonate [Tums] 200 mg calcium (500 mg) tablet,chewable 200 mg PO TID PRN (Reason: Heartburn) multivitamin Tablet 1 tab PO QAM citalopram 10 mg tablet 10 mg PO DAILY omeprazole 40 mg capsule,delayed release(DR/EC) 40 mg PO DAILY potassium chloride 10 mEq tablet,ER particles/crystals 10 meq PO DAILY Qty: 30 0RF spironolactone 100 mg Tablet 100 mg PO DAILY Qty: 60 0RF propranolol 10 mg tablet 10 mg PO BID Xifaxan 550 mg tablet 550 mg PO BID ondansetron HCl 4 mg tablet 4 mg PO TID PRN (Reason: Nausea And Vomiting) acetaminophen 500 mg Tablet 500 mg PO Q6H PRN (Reason: Pain) lactulose [Constulose] 10 gram/15 mL solution 45 ml PO TID Qty: 946 5RF Changed insulin glargine [Lantus Solostar U-100 Insulin] 100 unit/mL (3 mL) insulin pen 20 unit SUBCUT DAILY Qty: 15 0RF Discontinued Ozempic 0.25 mg or 0.5 mg (2 mg/3 mL) pen injector 0.25 mg SUBCUT Q7D Rx Instructions: ON SATURDAY Discharge Orders: Discharge Order (Routine); Ordered 05/23/23 Ordered By: Wesley Burgess Other Ambulatory Orders: Physical Therapy Eval and Treat Outpatient (Order) Timeframe: 2 Weeks Facility: [facility] - Location: Physical Therapy Ordered By: Wesley Burgess Referrals: Pauline Pereira MD [Primary Care Provider] - Discharge Diet: Cardiac Discharge Activity: Resume usual activity Patient Instructions: Opioid Safety Activity Restrictions/Additional Instructions: - Take lactulose, as prescribed ?Follow-up with your transplant team at [facility] ? Please take 20 units of Lantus subcut daily, if you find that your blood sugars are consistently over 300, can increase it to 30 units Lantus subcu daily -Please monitor your blood sugars closely -Monitor your blood sugars 3 times daily as after meals -Please record your blood sugars, and a blood sugar log -If your blood sugar is greater than 500 go to the emergency room -If your blood sugar is less than 60 or at anytime you feel lightheaded or dizzy or diaphoretic or have chest palpitations check your blood sugar, and eat a hard candy or drink orange juice and go immediately to the emergency room -Remember hypoglycemia kills, so if his blood sugar is less than 60 we have to increase it by taking in a sugary meal such as a hard candy or orange juice and go to the emergency room -If you have any questions please call us where here to help Discharge Attestations Time Spent in Discharge Care*: greater than 30 min Quality Metrics Clinical Quality Measures [ No reported AMI, CVA or VTE this stay] Coding Level of Care Code 06484 Total time (in minutes) for Discharge: 45 Diagnoses Encephalopathy, hepatic K76.82 Acute pancreatitis K85.90 Hyperammonemia E72.20 Weakness R53.1
[2023-05-23] MEDS: FUROsemide 40 mg Tablet PO (10:00)
[2023-05-23] MEDS: spironolactone 25 mg Tablet 100 MG PO (10:00)
[2023-05-23] MEDS: insulin lispro 100 unit/1 mL SUBCUT (10:01)
[2023-05-23] MEDS: propranolol 20 mg Tablet 10 MG PO (10:01)
[2023-05-23] MEDS: insulin glargine 100 units/1 mL 10 UNIT SUBCUT (10:02)
[2023-05-23] MEDS: citalopram 20 mg Tablet 10 MG PO (10:02)
[2023-05-23 11:51] VITALS: PULSE 66; RESP 16; O2SAT 98
== END 2023-05-23 11:52 | disposition home or self-care (01) | DRG 441 ==
LOC: ER 20:26 → MEDSURG 20:34
PROVIDERS: Admitting Provider Internal Medicine; Emergency Provider Internal Medicine; PCP Internal Medicine; Visit Provider Family Medicine
DX: K76.82 Hepatic encephalopathy (principal); K85.90 Acute pancreatitis without necrosis or infection, unspecified; R18.8 Other ascites; E72.20 Disorder of urea cycle metabolism, unspecified; K76.6 Portal hypertension; K75.81 Nonalcoholic steatohepatitis (NASH); K74.69 Other cirrhosis of liver; E11.9 Type 2 diabetes mellitus without complications; Z98.84 Bariatric surgery status; Z87.891 Personal history of nicotine dependence; K43.9 Ventral hernia without obstruction or gangrene
CPT/HCPCS: 36415; 36416; 70450; 71045; 74176; 80053; 81003; 82105; 82140; 82962; 83690; 83735; 84100; 85025; 87426; 87804; 96360; 96372; 97161; 97165; 97530; 99285; J0696; J1815; J2270; J2405; J7030

== ENCOUNTER 2023-05-29 08:15 | Outpatient (CLI) | payer MEDICARE, MEDICAID, SELFPAY ==
--- NOTE | 2023-05-29 | US_ITS ---
WS: [id number] ULTRASOUND ABDOMEN LIMITED CLINICAL INFORMATION: CIRRHOSIS OF LIVER HCC SCREEN COMPARISON: Ultrasound 04/16/2023 FINDINGS: Liver Size: Normal. Craniocaudal length: 13.9 cm. Echogenicity: Coarse Surface nodularity: Cirrhotic mass (size and location): None. Small amount of perihepatic fluid. Bile ducts Intrahepatic ducts: Normal. Common bile duct diameter: 0.6 cm. Gallbladder Cholecystectomy Pancreas Normal as visualized. Right kidney: Normal. Hydronephrosis: None. Size: 9.1 cm x 4.2 cm x 4.3 cm. Abdominal aorta and IVC Visualized portions are normal. IMPRESSION: 1. Advanced liver cirrhosis with a small amount of perihepatic ascites 2. Pulsatile portal vein suggestive of portal hypertension with varices in the upper abdomen 3. No visualized hepatic lesions. 4. Prior cholecystectomy. 5. Normal common bile duct. 6. No hydronephrosis in the RIGHT kidney.
== END 2023-05-29 08:16 | disposition home or self-care (01) ==
LOC: RAD 08:17
PROVIDERS: PCP Internal Medicine; Visit Provider Internal Medicine Gastroenterology
DX: K75.81 Nonalcoholic steatohepatitis (NASH) (principal); K74.60 Unspecified cirrhosis of liver; R18.8 Other ascites; Z90.49 Acquired absence of other specified parts of digestive tract
CPT/HCPCS: 76705

== ENCOUNTER 2023-05-29 08:17 | Outpatient (CLI) | payer MEDICARE, MEDICAID, SELFPAY ==
--- NOTE | 2023-05-29 08:39 | MM_ITS ---
WS: [id number] BILATERAL SCREENING DIGITAL TOMOSYNTHESIS MAMMOGRAM WITH CAD HISTORY: SCREENING COMPARISON: 12/25/2021 and 06/07/2020 Bilateral CC and MLO views with tomosynthesis and synthetic mammography submitted. Computer aided det ection analyzed. Breast composition: There are scattered areas of fibroglandular density. No suspicious masses, microc alcifications or architectural distortion. Benign calcifications in each breast. IMPRESSION: MM/[place] [id number] BI-RADS: 2-Benign FOLLOW UP: 1 Year Follow-up
== END 2023-05-29 08:18 | disposition home or self-care (01) ==
LOC: RAD 08:17
PROVIDERS: PCP Internal Medicine; Visit Provider Internal Medicine
DX: Z12.31 Encounter for screening mammogram for malignant neoplasm of breast (principal)
CPT/HCPCS: 77063; 77067

== ENCOUNTER 2023-06-05 14:07 | Oncology outpatient (recurring) (ONCR) | payer MEDICARE, MEDICAID, SELFPAY ==
[2023-06-05 15:08] VITALS: BP 132/66; PULSE 50; O2SAT 99
[2023-06-05 15:16] LABS: Eosinophils # 0.1 10^3/uL (0.0-0.8); Eosinophils % 2.2 %; Hematocrit 35.7 % (36-47); Lymphocytes # 1.2 10^3/uL (0.8-4.8); Lymphocytes % 29.1 %; Mean Corpuscular HGB Conc 31.7 g/dL (30-55); Mean Corpuscular Hemoglobin 29.5 pg (27-33); Mean Corpuscular Volume 93.2 fl (85-98); Mean Platelet Volume 12.5 fL (7.4-10.4); Monocytes # 0.5 10^3/uL (0.2-0.9); Monocytes % 12.7 %; Neutrophils % 54.8 %; Nucleated Red Blood Cells % 0 %; Platelet Count 84 10^3/cmm (157-399); Red Blood Count 3.83 10^6/uL (3.85-5.65); Red Cell Distribution Width 15.1 % (12.1-15.1); White Blood Count 4.02 10^3/uL (3.29-11.43)
[2023-06-05 15:36] LABS: Alanine Aminotransferase 32 U/L (0-33); Alkaline Phosphatase 148 U/L (35-105); Anion Gap 13.6 (5-19); Aspartate Amino Transferase 45 U/L (0-32); Blood Urea Nitrogen 10 mg/dL (8-23); Calcium 8.4 mg/dL (8.5-10.5); Carbon Dioxide 22 mmol/L (22-29); Chloride 110 mmol/L (98-107); Ferritin 17 ng/mL (15-150); Globulin 3.4 g/dL (1.3-4.6); Glomerular Filtration Rate 62.8 mL/min (90-130); Glucose 139 mg/dL (65-115); Iron 62 ug/dL (37-145); Osmolality Calculated 293 mOsm/kg (285-295); Percent Saturation 19.8 % (20-50); Potassium 4.6 mmol/L (3.5-5.1); Sodium 141 mmol/L (136-145); Total Bilirubin 1.2 mg/dL (0.15-1.2); Total Iron Binding Capacity 312 mcg/dl; Total Protein 6.4 g/dL (6.6-8.7); Unsaturated Iron Binding 250 ug/dL (112-347)
--- NOTE | 2023-06-05 15:40 | PC.NURSE ---
Pt stated at 1330 today when she was brushing her teeth, she noticed her mouth appeared to be drooping. Pt also states she had some numbness and tingling. Pt in infusion suite at approx. 1500, staff noticed pts right side appeared to be slightly drooping. Pt able to squeeze eyes shut equally, lift both arms while holding them mostly equal. Pt able to smile with minimal drooping. Decision was made to call stroke alert, staff took pt to CT to be assessed.
[2023-06-05 15:54] LABS: Glucose Point of Care 129 mg/dL (70-110)
== END 2023-06-30 23:59 | disposition home or self-care (01) ==
PROVIDERS: Internal Medicine; PCP Internal Medicine; Visit Provider Nurse Practitioner Family
DX: D61.818 Other pancytopenia (principal); D64.9 Anemia, unspecified
CPT/HCPCS: 36415; 36416; 80053; 82728; 82962; 83540; 83550; 85025

== ENCOUNTER 2023-06-05 15:38 | Emergency (ER) | payer MEDICARE, MEDICAID, SELFPAY ==
--- NOTE | 2023-06-05 15:41 | CT_ITS ---
WS: [id number] CT HEAD NONCONTRAST HISTORY: AMS TECHNIQUE: Contiguous axial imaging performed through the brain in 2.5 mm imaging. Bone and soft tiss ue windows. Sagittal and coronal reformats reviewed. All CT scans at [facility] use at least one of these dose optimization techniques: automated exposure control; mA and/or kV adjustment per pa tient size (includes targeted exams where dose is matched to clinical indication); or iterative recon struction. DLP: 1060.48 mGy COMPARISON: 05/21/2023 No acute intracranial hemorrhage, midline shift or mass effect. Mild atrophy and small vessel ischemic disease. There are several lacunar infarcts involving the LEFT frontal and temporal lobes. Ischemic changes within the basal ganglia. As compared to the prior stud y there is been no obvious interval change. No focal sulcal effacement. Ventricles: Normal size with no hydrocephalus. Paranasal sinuses: As visualized are clear. Mastoid air cells: Well pneumatized. Calvarium and scalp: Skull is intact with no soft tissue edema or swelling. IMPRESSION: 1. No acute intracranial hemorrhage or edema. 2. Small vessel ischemic disease and lacunar infarcts greater within the LEFT cerebrum but very simil ar to the prior study of 05/21/2023. No obvious acute interval change. Notified Masoud Mosqueda MD at 06/05/2023 3:51 PM.
--- NOTE | 2023-06-05 15:43 | XR_ITS ---
WS: [id number] Portable AP upright chest, 06/05/2023 Clinical Data: AMS Comparison: Portable chest, 05/20/2023 Findings: No nodules, masses or effusions are seen. The heart is normal. The pulmonary vascularity is not increased. No pneumonia or pneumothorax is seen. The aortic arch shows minimal tortuosity. There are monitor leads on the chest wall. Impression: Atherosclerosis.
[2023-06-05 15:54] VITALS: BP 147/71; PULSE 56; RESP 23; O2SAT 99; BMI 27.9
--- NOTE | 2023-06-05 15:57 | ED_ITS ---
HPI - Altered Mental Status 2 General: Chief Complaint: Neuro Symptoms/Deficit Stated Complaint: Stroke Time Seen by Provider: 06/05/23 15:41 History of Present Illness: 67-year-old female presents to the emerg ency department from her oncology physicians office. The nurse that is accompanying her states that she was concerned that the patient's had right-sided facial drooping approximately 1330 while at home. The patient presented to the [facility] at approximately 1400. 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 The [facility] nursing staff states that the patient may have a history of a stroke. Initially evaluated and interviewed the patient at the time she was placed into the CT scanner after a stroke alert was called. Patient at present has no acute neurological deficits. 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) Obesity (BMI 30.0-34.9) Pancytopenia Portal vein thrombosis Toe pain Type 2 diabetes mellitus Surgical History Gastric bypass status for obesity H/O gastric bypass H/O: hysterectomy cervical cancer History of colonoscopy History of esophagogastroduodenoscopy (EGD) Hx of cholecystectomy Family History Mother Hypertension Father Chronic kidney disease (CKD) Sleep apnea Other Bleeding disorder Denies family history of Anesthesia complication Social History Smoking and tobacco/nicotine status: former use of tobacco/nicotine Quit status (tobacco/nicotine): has quit using Year quit tobacco: 1986 Former quit date comment: smoked x 10+ years Alcohol intake: never Substance/Drug Use: never Physical Exam 2 Narrative: Constitutional: the patient appears well nourished and with normal development. Vital signs reviewed as documented. HENMT: Normocephalic, atraumatic. Extermal ears with normal appearance without drainage. Nose without drainage, normal appearance. Mucus membranes moist. Neck is supple, No jugular venous distension, trachea is midline, no appreciable carotid bruits. No lymphadenopathy. No meningeal signs. Flexion, extension and lateral rotation is without pain. Eyes: Pupils are equal, round, reactive to light and accommodation. No scleral icterus. Extra-ocular movement are intact. Thorax is symmetrical and with equal rise and fall with respirations. Resp: Lungs are clear to auscultation. No wheezes, rales, crackles or ronchi at present. Cardio: Regular rate and rhythm. Positive S1, S2. No appreciable murmurs, rubs or gallops. GI: Abdominal exam reveals normal bowel sounds to all quadrants. No organomegaly. No obvious palpable masses noted. No hepatomegally appreciated. Soft, nontender to palpation. Extremity: Extremities are non-edematous and both femoral and pedal pulses are 2+ and equal bilaterally. Moves all extremities well, sensation in all extremities. Neuro: Alert and oriented x4, person, place, time and situation. Cranial nerves II through XII are grossly intact, there is no focal neurological deficits that I can appreciate at present. Motor strength in the upper and lower extremities are equal and bilateral 5/5. Slight right facial droop-which per the patient has been persistent since her Olsen's palsy previously. Psych: Cooperative, calm, normal thought process, appropriate judgment. Skin: No lesions, rashes. No gross abnormalities noted. Back: Symmetrical, no obvious deformity, No CVA tenderness Course 2 Vital Signs: Vital signs: Vital Signs Pulse Rate 57 L 06/05/23 18:06 Respiratory Rate 22 H 06/05/23 18:06 Blood Pressure 121/60 06/05/23 18:06 Pulse Oximetry 99 06/05/23 18:06 Oxygen Delivery Me thod Room Air 06/05/23 18:06 MDM - Altered Mental Status Medical Decision Making Physical exam completed and documented, I will obtain serial cardiac enzymes, serial twelve-lead EKGs, chest x-ray, CBC, CMP, urinalysis with culture if indicated, B-type natriuretic peptide, PT/PTT/INR, Procalcitonin and serial lactic acid levels and blood cultures if indictated. I will obtain POC glucose check and treat accordingly. I will obtain a chest x-ray and if indicated a CT scan of the head without contrast to evaluate for intracranial hemorrhage and if indicated a CTA scan of the head and neck for evaluation of acute ischemic vessel occlusion. I have reviewed previous and pertinent medical records for assist in obtaining beneficial medical information to improved the care and treatment of the patient. Lab Data 06/05/23 15:52 Radiology Impressions Head/Neck CTA 06/05/23 16:40 IMPRESSION: No large vessel occlusion. IMPRESSION: 1. Dominant right vertebral artery with patent left vertebral artery. 2. S shaped tortuosity of the upper left cervical ICA with kinking of the proximal curve measuring 3 mm in minimum diameter. 4 mm diameter more distally. Coronal series 10, images 41-42. 3. Mild 25% left ICA stenosis in the proximal kink of the cervical ICA by direct measurement using NASCET criteria. 4. No right ICA stenosis by NASCET/SRU criteria. REFERENCES: NASCET CRITERIA. The degree of stenosis in the cervical segment of the internal carotid artery is based on NASCET criteria. Normal is no stenosis. Mild is less than 50% stenosis. Moderate is 50-69% stenosis. Severe is 70% to 99% stenosis. Total occlusion is no detectable patent lumen. Laboratory Results PT 15.90 SECONDS (12.1-14.9) H 06/05/23 15:52 INR 1.23 (0.8-1.2) H 06/05/23 15:52 APTT 32.2 SECONDS (23.9-36.7) 06/05/23 15:52 Sodium Cancelled 06/05/23 15:52 Potassium Cancelled 06/05/23 15:52 Chloride Cancelled 06/05/23 15:52 Carbon Dioxide Cancelled 06/05/23 15:52 Anion Gap Cancelled 06/05/23 15:52 BUN Cancelled 06/05/23 15:52 Creatinine Cancelled 06/05/23 15:52 GFR Calculation Cancelled 06/05/23 15:52 Glucose Cancelled 06/05/23 15:52 Calculated Osmolality Cancelled 06/05/23 15:52 Calcium Cancelled 06/05/23 15:52 Total Bilirubin Cancelled 06/05/23 15:52 AST Cancelled 06/05/23 15:52 ALT Cancelled 06/05/23 15:52 Alkaline Phosphatase Cancelled 06/05/23 15:52 Ammonia 53 umol/L (11-51) H 06/05/23 15:52 Total Protein Cancelled 06/05/23 15:52 Albumin Cancelled 06/05/23 15:52 Globulin Cancelled 06/05/23 15:52 Lipase 45 U/L (13-60) 06/05/23 15:52 All radiology interpretation(s) finalized by discharge Critical Care Time 2 Critical Care Time: Critical Care Time: Yes Total Critical Care Time: 65 Attestation: This case had a high probability of a clinically significant, sudden, or life threatening deterioration of this patient's condition which required my full and direct attention, intervention and personal management. Discharge Plan Discharge Patient Disposition: Home Clinical Impression: Facial paralysis/[place] palsy Condition: Stable Prescriptions: No Action furosemide 40 mg tablet 40 mg PO DAILY calcium carbonate [Tums] 200 mg calcium (500 mg) tablet,chewable 200 mg PO TID PRN (Reason: Heartburn) multivitamin Tablet 1 tab PO QAM citalopram 10 mg tablet 10 mg PO DAILY omeprazole 40 mg capsule,delayed release(DR/EC) 40 mg PO DAILY potassium chloride 10 mEq tablet,ER particles/crystals 10 meq PO DAILY Qty: 30 0RF spironolactone 100 mg Tablet 100 mg PO DAILY Qty: 60 0RF Lantus Solostar U-100 Insulin 100 unit/mL (3 mL) insulin pen 20 unit SUBCUT DAILY Qty: 15 0RF propranolol 10 mg tablet 10 mg PO BID Xifaxan 550 mg tablet 550 mg PO BID ondansetron HCl 4 mg tablet 4 mg PO TID PRN (Reason: Nausea And Vomiting) acetaminophen 500 mg Tablet 500 mg PO Q6H PRN (Reason: Pain) lactulose [Constulose] 10 gram/15 mL solution 45 ml PO TID Qty: 946 5RF Discharge Orders: Discharge ED (Routine); Ordered 06/05/23 Ordered By: Masoud Mosqueda Referrals: Pauline Pereira MD [Primary Care Provider] - Discharge Diet: Advance as tolerated Discharge Activity: Resume usual activity Patient Instructions: Opioid Safety, Pain Management Activity Restrictions/Additional Instructions: Activity Restrictions/Additional Instructions: Thank you for choosing [facility] for your healthcare needs today. Please realize that you were seen in the Emergency Department and that we are providing you with an emergency medical screening exam and this may not be a complete and all inclusive of all the testing and or medical work-up that you may need to determine your ailment or severity of your illness. It is very important that you follow-up as instructed with your Primary care provider or Specialist for additional evaluation and to discuss your medical treatment plan. You may return to the Emergency Department should you have concerns or if your condition changes or worsens in any way. Coding Level of Care Code ED Residential Fee Appraiser for Trevon Haines
[2023-06-05 16:02] VITALS: PULSE 55; RESP 19; O2SAT 98
--- NOTE | 2023-06-05 16:04 | ECG_ITS ---
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 Measurements Intervals [place] Rate: 50 P: 67 DC: 159 QRS: 55 QRSD: 94 T: 37 QT: 449 QTc: 412 Interpretive Statements SINUS BRADYCARDIA Compared to ECG 04/18/2023 16:00:55 Sinus rhythm no longer present T-wave abnormality no longer present Electronically Signed On 06-05-2023 16:40:39 SENIOR SALES ADMINISTRATOR by John Olmedo M.D. [id number]
--- NOTE | 2023-06-05 16:08 | P.CONIM_ITS ---
Providers/Reason For Consult 2 Consulting Physician/Specialty*: Memo Melgar MD neurology and epilepsy Reason for Consult*: Acute care/code stroke 06/05/2023 at 3:24 PM in the Infusion center and patient transferred to emergency department room #10 Neurology evaluation performed at 3:30 PM NIH score =0 Blood [id number]=204 Primary Care Provider: Pauline Pereira MD History of Present Illness History of Present Illness Gillian Gonzalez is a 67 year old female With a history of type 2 diabetes mellitus, iron deficiency anemia, cirrhosis, nonalcoholic, pancreatitis reported to be secondary to Ozempic, abdominal hernia, and chronic migraine headaches. 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 Patient was reported to be receiving IV iron infusion and was reported to have some right facial weakness. Therefore code stroke was initiated and the patient was transferred to [facility] emergency department. Noncontrast head CT was obtained and revealed no acute findings. There was cortical atrophy. NIH score =0. There was no obvious facial weakness on examination and the patient was stable. Therefore patient was not a candidate for thrombolytics and no thrombolytics were administered. Head CT scan without contrast 06/05/2023: IMPRESSION: 1. No acute intracranial hemorrhage or edema. 2. Small vessel ischemic disease and lacunar infarcts greater within the LEFT cerebrum but very similar to the prior study of 05/21/2023. No obvious acute interval change. Past medical history: Type 2 diabetes mellitus Iron deficiency anemia requiring IV iron infusions Cirrhosis of the liver, nonalcoholic Pancreatitis reported to be secondary to Ozempic Abdominal hernia History of gastric perforation Intractable migraine headache Drug allergies: None Outpatient medications: Calcium carbonate 200 mg p.o. 3 times daily as needed for heartburn Celexa 10 mg p.o. daily Lasix 40 mg p.o. daily Lactulose 45 mL p.o. 3 times daily Lantus insulin 20 unit subcutaneously daily Omeprazole 40 mg p.o. daily Zofran 4 mg p.o. 3 times daily as needed for nausea vomiting Propranolol 10 mg p.o. twice daily Spironolactone 100 mg p.o. daily Potassium chloride 10 mEq p.o. daily Xifaxan 550 mg p.o. twice daily Multivitamin 1 p.o. daily Habits: Unknown Review of Systems 2 General: Reports: 10 or more systems reviewed and unremarkable except in HPI and below Medications/Allergies Home Medications Medication Instructions Recorded Confirmed Last Taken Type furosemide 40 mg tablet 40 mg PO DAILY 12/11/19 05/21/23 08/03/22 08:00 History multivitamin 1 tab PO QAM 09/04/21 05/21/23 08/03/22 09:00 History propranolol 10 mg tablet 10 mg PO BID 03/01/22 05/21/23 08/03/22 09:00 History rifaximin 550 mg tablet (Xifaxan) 550 mg PO BID 04/22/22 05/21/23 08/03/22 09:00 History citalopram 10 mg tablet 10 mg PO DAILY 11/23/22 05/21/23 Unknown History omeprazole 40 mg capsule,delayed 40 mg PO DAILY 11/23/22 05/21/23 Unknown History release potassium chloride 10 mEq 10 meq PO DAILY #30 tabs 11/26/22 05/21/23 Unknown Rx tablet,extended release(part/cryst) spironolactone 100 mg tablet 100 mg PO DAILY #60 tabs 11/26/22 05/21/23 08/03/22 09:00 Rx calcium carbonate 200 mg calcium 200 mg PO TID PRN Heartburn 01/07/23 05/21/23 Unknown History (500 mg) chewable tablet (Tums) acetaminophen 500 mg tablet 500 mg PO Q6H PRN Pain 04/18/23 05/21/23 Unknown History ondansetron HCl 4 mg tablet 4 mg PO TID PRN Nausea And Vomiting 04/18/23 05/21/23 Unknown History lactulose 10 gram/15 mL oral 45 ml PO TID #946 mL 04/20/23 05/21/23 Unknown Rx solution (Constulose) insulin glargine 100 unit/mL (3 20 unit (0.2 mL) SUBCUT DAILY #15 05/23/23 05/21/23 Unknown Rx mL) subcutaneous pen (Lantus mL Solostar U-100 Insulin) Allergies Allergy/AdvReac Type Severity Reaction Status Date / Time No Known Allergies Allergy Verified 05/21/23 08:13 PFSH Acute 2 PFSH: Medical History Acute hepatic encephalopathy Acute hepatic encephalopathy Altered mental status Cirrhosis of liver Diabetes Diabetes mellitus type 2 in obese Hepatic encephalopathy Incisional hernia Kidney stones 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) Obesity (BMI 30.0-34.9) Pancytopenia Portal vein thrombosis Toe pain Type 2 diabetes mellitus Surgical History Gastric bypass status for obesity H/O gastric bypass H/O: hysterectomy cervical cancer History of colonoscopy History of esophagogastroduodenoscopy (EGD) Hx of cholecystectomy Family History Mother Hypertension Father Chronic kidney disease (CKD) Sleep apnea Other Bleeding disorder Denies family history of Anesthesia complication Social History Smoking and tobacco/nicotine status: former use of tobacco/nicotine Quit status (tobacco/nicotine): has quit using Year quit tobacco: 1986 Former quit date comment: smoked x 10+ years Alcohol intake: never Substance/Drug Use: never Vitals/I&O/Wt Last Vital Signs Pulse 55 L 06/05/23 16:02 Resp 19 H 06/05/23 16:02 BP 147/71 06/05/23 15:54 Pulse Ox 98 06/05/23 16:02 O2 Del Method Nasal Cannula 06/05/23 16:02 Weight last 48 hrs Weight 168 lb Physical Exam 2 Narrative: NIH score: = 0 Blood pressure 141/71 O2 saturations 94% on room air The patient is alert and oriented x 3. Speech fluent. Head normocephalic neck supple cranial nerves II through XII intact pupils equal round and reactive light accommodation extraocular movements intact pupils 4 mm. There were no nystagmus. Motor testing 5/5 bilaterally. There was no ataxia. There was no drift. Deep tendon reflexes 1-2+ bilaterally. Plantar responses flexor bilaterally. There was no clonus. Sensory examination was intact to gross modalities. There was no extinction on double sensory stimulation. Throat clear. Patient is missing some teeth. Tongue midline. There was no obvious tongue weakness. Lungs clear. Heart regular rhythm and rate. Abdomen reveals signs of surgery and an abdominal hernia which is a chronic issue. Extremities were negative for clubbing or cyanosis or edema Data 06/05/23 15:52 A&P Assessment and plan (1) TIA (transient ischemic attack): Impression: 1. Possible Transient ischemic attack manifested as right facial weakness, resolved. NIH score = 0. The patient was not a candidate for thrombolytics and no thrombolytics was administered Plan: 1. Recommend patient undergo carotid duplex study to assess for carotid or vertebral artery stenosis if not recently performed 2. Recommend patient undergo 2D echocardiogram to assess for embolic source for TIA if not recently performed 3. Recommend starting low-dose aspirin 81 mg p.o. every morning with a cholesterol-lowering agent per NIH stroke protocol if no contraindications Consult Attestations 2 Medical Necessity Statement: The patient was evaluated by neurology for code stroke emergency room bed #10 on 06/05/2023 Coding Level of Care Code 60916 Diagnoses TIA (transient ischemic attack) G45.9
[2023-06-05 16:22] LABS: Ammonia 53 umol/L (11-51)
[2023-06-05 16:26] LABS: INR 1.23 (0.8-1.2); Partial Thromboplastin Time 32.2 SECONDS (23.9-36.7)
[2023-06-05 16:27] LABS: Lipase 45 U/L (13-60)
--- NOTE | 2023-06-05 16:40 | CTR_ITS ---
PROCEDURE INFORMATION: Exam: CTA Head With Contrast, Arteriography Exam date and time: 06/05/2023 5:06 PM Age: 67 years old Clinical indication: Other: Deactivated stroke activation; Additional info: Ams/cva, RT side weakness TECHNIQUE: Imaging protocol: Computed tomographic angiography of the head with contrast. Exam focused on the arteries. 3D rendering (Not supervised by radiologist): MIP and/or 3D reconstructed images were created by the technologist. Radiation optimization: All CT scans at this facility use at least one of these dose optimization techniques: automated exposure control; mA and/or kV adjustment per patient size (includes targeted exams where dose is matched to clinical indication); or iterative reconstruction. Contrast material: OMNI 350; Contrast volume: 100 ml; Contrast route: INTRAVENOUS (IV); REPORTING DATA: Count of CT and Cardiac NM exams in prior 12 months: This patient has received 7 known CTs and 0 known cardiac nuclear medicine studies in the 12 months prior to the current study. COMPARISON: CT angio headneck* [id number] 04/18/2023 11:06 AM RADIATION DOSE METRICS: Total DLP (mGy-cm): 502 FINDINGS: ANTERIOR CIRCULATION: Right internal carotid artery: Intracranial segment is patent with no significant stenosis. No aneurysm. Right middle cerebral artery: No occlusion or significant stenosis. No aneurysm. Right anterior cerebral artery: Dominant right A1 segment with patent left A1 segment. Anterior communicating artery: Patent anterior communicating artery. Left internal carotid artery: Intracranial segment is patent with no significant stenosis. No aneurysm. Left middle cerebral artery: No occlusion or significant stenosis. No aneurysm. Left anterior cerebral artery: See Right anterior cerebral artery finding. POSTERIOR CIRCULATION: Right vertebral artery: Dominant right vertebral artery with patent left vertebral artery. Left vertebral artery: See Right vertebral artery finding. Basilar artery: No occlusion or significant stenosis. No aneurysm. Right posterior cerebral artery: No occlusion or significant stenosis. No aneurysm. Left posterior cerebral artery: No occlusion or significant stenosis. No aneurysm. Left posterior communicating artery: Left posterior communicating artery. Right common carotid artery: Right carotid bifurcation calcified plaque. Left common carotid artery: Left carotid bifurcation calcified plaque. Brain: No definite mass, mass effect, or midline shift. Cerebral ventricles: No ventriculomegaly. Bones/joints: Unremarkable. No acute fracture. Soft tissues: Unremarkable. PROCEDURE INFORMATION: Exam: CTA Neck With Contrast Exam date and time: 06/05/2023 5:06 PM Age: 67 years old Clinical indication: Other: Deactivated stroke activation; Additional info: Ams/cva, RT side weakness TECHNIQUE: Imaging protocol: Computed tomographic angiography of the neck with contrast. Exam focused on the cervical segments of the vasculature. 3D rendering (Not supervised by radiologist): MIP and/or 3D reconstructed images were created by the technologist. Radiation optimization: All CT scans at this facility use at least one of these dose optimization techniques: automated exposure control; mA and/or kV adjustment per patient size (includes targeted exams where dose is matched to clinical indication); or iterative reconstruction. Contrast material: OMNI 350; Contrast volume: 100 ml; Contrast route: INTRAVENOUS (IV); REPORTING DATA: Count of CT and Cardiac NM exams in prior 12 months: This patient has received 7 known CTs and 0 known cardiac nuclear medicine studies in the 12 months prior to the current study. COMPARISON: CT angio headneck* [id number] 04/18/2023 11:06 AM RADIATION DOSE METRICS: Total DLP (mGy-cm): 502 FINDINGS: Right common carotid artery: Right carotid bifurcation calcified plaque. Right internal carotid artery: No right ICA stenosis by NASCET/SRU criteria. Right external carotid artery: No occlusion or stenosis of the origin. Left common carotid artery: Left carotid bifurcation calcified plaque. Left internal carotid artery: S shaped tortuosity of the upper left cervical ICA with kinking of the proximal curve measuring 3 mm in minimum diameter. 4 mm diameter more distally. Coronal series 10, images 41-42. Mild 25% left ICA stenosis in the proximal kink of the cervical ICA by direct measurement using NASCET criteria. Left external carotid artery: No occlusion or stenosis of the origin. Right vertebral artery: Dominant right vertebral artery with patent left vertebral artery. Left vertebral artery: See Right vertebral artery finding. Dental: Examination is limited secondary to metallic artifact from dental fillings and/or dental hardware. Soft tissues: Normal. No significant soft tissue swelling. Bones/joints: No acute fracture. Other findings: . CT/CT angio headneck* [id number] IMPRESSION: No large vessel occlusion. IMPRESSION: 1. Dominant right vertebral artery with patent left vertebral artery. 2. S shaped tortuosity of the upper left cervical ICA with kinking of the proximal curve measuring 3 mm in minimum diameter. 4 mm diameter more distally. Coronal series 10, images 41-42. 3. Mild 25% left ICA stenosis in the proximal kink of the cervical ICA by direct measurement using NASCET criteria. 4. No right ICA stenosis by NASCET/SRU criteria. REFERENCES: NASCET CRITERIA. The degree of stenosis in the cervical segment of the internal carotid artery is based on NASCET criteria. Normal is no stenosis. Mild is less than 50% stenosis. Moderate is 50-69% stenosis. Severe is 70% to 99% stenosis. Total occlusion is no detectable patent lumen.
[2023-06-05 18:06] VITALS: BP 121/60; PULSE 57; RESP 22; O2SAT 99
[2023-06-05 19:03] VITALS: BP 121/60; PULSE 57; RESP 22; O2SAT 99
== END 2023-06-05 19:04 | disposition home or self-care (01) ==
PROVIDERS: Emergency Provider Internal Medicine; PCP Internal Medicine
DX: G51.0 Bell's palsy (principal); Z79.4 Long term (current) use of insulin; Z87.891 Personal history of nicotine dependence; E11.9 Type 2 diabetes mellitus without complications
CPT/HCPCS: 36415; 36416; 70450; 70496; 70498; 71045; 80053; 82140; 82728; 82962; 83540; 83550; 83690; 85025; 85610; 85730; 93005; 99285; Q9967

== ENCOUNTER → 2023-06-10 10:47 | Outpatient (BNVA) | payer MEDICARE, MEDICAID, SELFPAY | PROVIDERS: PCP Internal Medicine; Visit Provider Podiatrist Foot & Ankle Surgery | DX: B35.1 Tinea unguium (principal); R60.9 Edema, unspecified; E11.9 Type 2 diabetes mellitus without complications; M19.071 Primary osteoarthritis, right ankle and foot; Z79.4 Long term (current) use of insulin | CPT/HCPCS: 11721 ==

== ENCOUNTER → 2023-07-05 13:25 | Outpatient (BNVA) | payer MEDICARE, MEDICAID, SELFPAY | PROVIDERS: Absent Provider Specialist; PCP Internal Medicine; Referring Provider Internal Medicine; Visit Provider Specialist | DX: G43.711 Chronic migraine without aura, intractable, with status migrainosus (principal); G31.84 Mild cognitive impairment of uncertain or unknown etiology; G24.4 Idiopathic orofacial dystonia; M79.7 Fibromyalgia | CPT/HCPCS: 96116; 99215 ==

== ENCOUNTER 2023-07-09 13:45 | Outpatient (CLI) | payer MEDICARE, MEDICAID, SELFPAY ==
--- NOTE | 2023-07-09 13:51 | MR_ITS ---
WS: [id number] MRI RIGHT SHOULDER HISTORY: PAIN IN R SHOULDER COMPARISON: None available. TECHNIQUE: Multiplanar sequences of the shoulder joint are submitted. Mild AC joint hypertrophy. There is mild encroachment upon the posterior most aspect of the supraspin atus. No subacromial or subdeltoid fluid. There is very slight subacromial impingement. Biceps tendon is not identified in the bicipital groove and is probably dislocated or torn. No os acromion. Very slight tendinopathy in the distal supraspinatus tendon. There is mild fraying along the bursal a nd articular surfaces of the supraspinatus. No full-thickness tear or retraction. No muscle atrophy o r edema. No labral tear. No joint effusion. IMPRESSION: 1. Fraying along the distal bursal and articular surfaces of the supraspinatus but no tear. Mild tend inopathy in the distal supraspinatus tendon. 2. Mild subacromial impingement and mild AC joint arthritis. 3. Biceps tendon is not identified in the bicipital groove. Suspect it may be dislocated or torn.
== END 2023-07-09 13:46 | disposition home or self-care (01) ==
LOC: RAD 13:45
PROVIDERS: PCP Internal Medicine; Visit Provider Internal Medicine
DX: M67.811 Other specified disorders of synovium, right shoulder (principal); M19.011 Primary osteoarthritis, right shoulder; M75.41 Impingement syndrome of right shoulder
CPT/HCPCS: 11721; 73221

== ENCOUNTER 2023-07-30 12:41 | Oncology outpatient (recurring) (ONCR) | payer MEDICARE, MEDICAID, SELFPAY ==
[2023-07-30 13:08] LABS: Basophils % 0.8 %; Eosinophils # 0.1 10^3/uL (0.0-0.8); Eosinophils % 2.7 %; Hematocrit 34.4 % (36-47); Lymphocytes % 27.4 %; Mean Corpuscular HGB Conc 31.7 g/dL (30-55); Mean Corpuscular Hemoglobin 28.4 pg (27-33); Mean Corpuscular Volume 89.6 fl (85-98); Mean Platelet Volume 12.7 fL (7.4-10.4); Monocytes # 0.4 10^3/uL (0.2-0.9); Monocytes % 11.9 %; Neutrophils % 56.9 %; Nucleated Red Blood Cells % 0 %; Platelet Count 89 10^3/cmm (157-399); Red Blood Count 3.84 10^6/uL (3.85-5.65); Red Cell Distribution Width 15.5 % (12.1-15.1); White Blood Count 3.69 10^3/uL (3.29-11.43)
[2023-07-30 13:29] LABS: Alanine Aminotransferase 36 U/L (0-33); Alkaline Phosphatase 180 U/L (35-105); Aspartate Amino Transferase 50 U/L (0-32); Blood Urea Nitrogen 11 mg/dL (8-23); Calcium 8.6 mg/dL (8.5-10.5); Carbon Dioxide 24 mmol/L (22-29); Chloride 107 mmol/L (98-107); Ferritin 15 ng/mL (15-150); Globulin 3.3 g/dL (1.3-4.6); Glucose 213 mg/dL (65-115); Iron 37 ug/dL (37-145); Osmolality Calculated 294 mOsm/kg (285-295); Sodium 139 mmol/L (136-145); Total Bilirubin 0.8 mg/dL (0.15-1.2); Total Iron Binding Capacity 306 mcg/dl; Total Protein 6.3 g/dL (6.6-8.7); Unsaturated Iron Binding 269 ug/dL (112-347)
[2023-07-30 15:08] LABS: Tumor Marker Alpha Fetoprotein 5.3 ng/mL (0-8.3)
== END 2023-07-31 23:59 | disposition home or self-care (01) ==
PROVIDERS: Internal Medicine; Internal Medicine Medical Oncology; PCP Internal Medicine; Visit Provider Nurse Practitioner Family
DX: D61.818 Other pancytopenia (principal); D64.9 Anemia, unspecified; K74.60 Unspecified cirrhosis of liver
CPT/HCPCS: 36415; 80053; 82105; 82728; 83540; 83550; 85025; 99213

== ENCOUNTER 2023-08-06 16:59 | Emergency (ER) | payer MEDICARE, MEDICAID, SELFPAY ==
[2023-08-06 17:04] VITALS: BP 147/75; PULSE 54; RESP 14; TEMP 36.7; O2SAT 99; BMI 30.4
--- NOTE | 2023-08-06 17:25 | ECG_ITS ---
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 Measurements Intervals [place] Rate: 50 P: 68 WV: 166 QRS: 62 QRSD: 86 T: 53 QT: 447 QTc: 409 Interpretive Statements SINUS BRADYCARDIA Compared to ECG 04/27/2020 22:04:59 Sinus rhythm no longer present T-wave abnormality no longer present Electronically Signed On 08-07-2023 7:18:35 WOOD HEEL CEMENTER by John Olmedo M.D. [id number]
[2023-08-06 18:19] LABS: Basophils % 1.1 %; Eosinophils # 0.1 10^3/uL (0.0-0.8); Eosinophils % 3.7 %; Hematocrit 32.6 % (36-47); Lymphocytes # 0.9 10^3/uL (0.8-4.8); Lymphocytes % 34.8 %; Mean Corpuscular HGB Conc 31.6 g/dL (30-55); Mean Corpuscular Hemoglobin 29.1 pg (27-33); Mean Corpuscular Volume 92.1 fl (85-98); Mean Platelet Volume 12.7 fL (7.4-10.4); Monocytes # 0.4 10^3/uL (0.2-0.9); Monocytes % 13.9 %; Neutrophils # 1.23 10^3/uL (1.8-7.7); Neutrophils % 46.1 %; Nucleated Red Blood Cells % 0 %; Platelet Count 70 10^3/cmm (157-399); Red Blood Count 3.54 10^6/uL (3.85-5.65); Red Cell Distribution Width 15.8 % (12.1-15.1); White Blood Count 2.67 10^3/uL (3.29-11.43)
[2023-08-06 18:37] VITALS: BP 122/61; PULSE 56; RESP 13; O2SAT 97
[2023-08-06 18:38] LABS: Alanine Aminotransferase 27 U/L (0-33); Albumin Level 2.8 g/dL (3.5-5.2); Alkaline Phosphatase 147 U/L (35-105); Anion Gap 10.2 (5-19); Aspartate Amino Transferase 37 U/L (0-32); Blood Urea Nitrogen 11 mg/dL (8-23); Calcium 8.5 mg/dL (8.5-10.5); Carbon Dioxide 23 mmol/L (22-29); Chloride 108 mmol/L (98-107); Globulin 3.1 g/dL (1.3-4.6); Glomerular Filtration Rate 62.8 mL/min (90-130); Glucose 252 mg/dL (65-115); Osmolality Calculated 292 mOsm/kg (285-295); Potassium 4.2 mmol/L (3.5-5.1); Sodium 137 mmol/L (136-145); Total Bilirubin 0.9 mg/dL (0.15-1.2); Total Protein 5.9 g/dL (6.6-8.7)
--- NOTE | 2023-08-06 18:46 | XRR_ITS ---
PROCEDURE INFORMATION: Exam: XR Chest Exam date and time: 08/06/2023 6:50 PM Age: 67 years old Clinical indication: Other: Bradycardia TECHNIQUE: Imaging protocol: Radiologic exam of the chest. Views: 1 view. COMPARISON: CR XR chest 1V portable [id number] 06/05/2023 3:59 PM FINDINGS: Lungs: Unremarkable. No consolidation. Pleural spaces: Unremarkable. No pleural effusion. No pneumothorax. Heart/Mediastinum: Unremarkable. No cardiomegaly. Bones/joints: Unremarkable. XR/XR chest 1V portable [id number] IMPRESSION: No acute findings.
--- NOTE | 2023-08-06 18:59 | ED_ITS ---
HPI - Dizziness 2 General: Chief Complaint: Dizziness Stated Complaint: light headed, low hr Time Seen by Provider: 08/06/23 17:59 History of Present Illness: HPI Narrative: Patient presents to the ER with complaints of lightheadedness and dizziness low heart rate and having some chest pressure patient had always before off and on. But these been going on more frequently off and on for the last several days so patient decided to come be checked out. Patient states her normal heart rates in the 60s and when she had her iron infusion it dropped all the way down into the 40s. Patient had an angiogram approximately 30 years ago and was told she had coronary spasms but has not seen a spanish professor since then. 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 Review of Systems 2 General: Reports: 10 or more systems reviewed and unremarkable except in HPI and below PFSH ED 2 PFSH: Medical History Acute hepatic encephalopathy Toe pain Acute hepatic encephalopathy Altered mental status Pancytopenia Type 2 diabetes mellitus Obesity (BMI 30.0-34.9) Diabetes mellitus type 2 in obese Portal vein thrombosis 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 Incisional hernia Hepatic encephalopathy Cirrhosis of liver Kidney stones Diabetes BLAIR (nonalcoholic steatohepatitis) Surgical History Gastric bypass status for obesity History of colonoscopy History of esophagogastroduodenoscopy (EGD) H/O: hysterectomy cervical cancer H/O gastric bypass Hx of cholecystectomy Family History Mother Hypertension Father Chronic kidney disease (CKD) Sleep apnea Other Bleeding disorder Denies family history of Anesthesia complication Social History Smoking and tobacco/nicotine status: former use of tobacco/nicotine Quit status (tobacco/nicotine): has quit using Year quit tobacco: 1986 Former quit date comment: smoked x 10+ years Alcohol intake: never Substance/Drug Use: never Physical Exam 2 Const: COMMON NORMALS: no acute distress, average body habitus, patient oriented x3, no limitations, healthy appearing, alert and well nourished HENMT: COMMON NORMALS: normocephalic, atraumatic, hearing grossly normal bilaterally, external ears normal, Normal external nose present, moist oral mucous membranes and oropharynx normal HEAD & SCALP: normocephalic and atraumatic NOSE: Normal external nose present EXTERNAL EAR: Yes external ears normal Neck/C-Spine: COMMON NORMALS: full ROM, no lymphadenopathy, supple, no meningeal signs, no JVD and Thyroid normal THYROID: Thyroid normal Chest: COMMONS NORMALS: normal inspection of the chest and normal palpation of entire chest wall Resp: COMMON NORMALS: normal respiratory effort, No retractions, No use of accessory muscles and clear to auscultation bilaterally AUSCULTATION: clear to auscultation bilaterally Cardio: COMMON NORMALS: no JVD, regular rate, regular rhythm, S1 normal heart sound present, S2 normal heart sound present, No gallops present (Cardio), No clicks present (Cardio) and No rub (Cardio); negative for No murmurs present (Cardio) (3 out of 6 systolic ejection murmur) RATE: regular rate RHYTHM: regular rhythm HEART SOUNDS: S1 normal heart sound present and S2 normal heart sound present GI: COMMON NORMALS: Normal to inspection, nondistended, normoactive bowel sounds present, Soft to palpation, non-tender, No hepatosplenomegaly present and no masses PALPATION: Yes Soft to palpation and Yes No hepatosplenomegaly present Neuro: COMMON NORMALS: patient oriented x3 SENSORIUM/ORIENTATION: Yes alert MENINGEAL SIGNS: Yes no meningeal signs Course 2 Vital Signs: Vital signs: Vital Signs Temperature 98.0 F 08/06/23 17:04 Pulse Rate 52 L 08/06/23 21:45 Respiratory Rate 13 08/06/23 18:37 Blood Pressure 120/69 08/06/23 21:45 Pulse Oximetry 95 08/06/23 21:45 Oxygen Delivery Me thod Room Air 08/06/23 17:04 MDM - Dizziness Medical Decision Making Patient presents to the ER with complaints of intermittent chest pain. Patient was worked up in a standard chest pain fashion. This included serial EKGs, cardiac enzymes, chest x-ray, urinalysis, patient is known to have pancytopenia her CBC is stable, CMP was benign. Troponin baseline was ten 2-hour troponin was 10.10 with for delta of 0.10. Patient was stable during her entire stay in the hospital however she was bradycardic in the 50s. Patient is on propranolol. We will discharge the patient to follow-up with her PCP. For further evaluation and treatment. She may benefit from deseeding her propranolol secondary to bradycardia. Will leave this up to the discretion of the primary care doctor. Differential Diagnosis Unlikely adverse reaction to drug, benign paroxysmal positional vertigo, orthostatic hypotension, vertebral basilar insufficiency, cerebrovascular accident, acute vestibular neuronitis or transient cerebral ischemia Medical Records I reviewed the patient's medical records. Lab Data I reviewed the patient's lab results. 08/06/23 18:09 08/06/23 18:09 Radiology Impressions Chest X-Ray 08/06/23 18:46 IMPRESSION: No acute findings. Laboratory Results WBC 2.67 10^3/uL (3.29-11.43) L 08/06/23 18:09 RBC 3.54 10^6/uL (3.85-5.65) L 08/06/23 18:09 Hgb 10.30 g/dL (11.27-16.99) L 08/06/23 18:09 Hct 32.6 % (36-47) L 08/06/23 18:09 MCV 92.1 fl (85-98) 08/06/23 18:09 MCH 29.1 pg (27-33) 08/06/23 18:09 MCHC 31.6 g/dL (30-55) 08/06/23 18:09 RDW 15.8 % (12.1-15.1) H 08/06/23 18:09 Plt Count 70 10^3/cmm (157-399) L 08/06/23 18:09 MPV 12.7 fL (7.4-10.4) H 08/06/23 18:09 Neut % (Auto) 46.1 % 08/06/23 18:09 Lymph % (Auto) 34.8 % 08/06/23 18:09 [place] % (Auto) 13.9 % 08/06/23 18:09 Eos % (Auto) 3.7 % 08/06/23 18:09 Baso % (Auto) 1.1 % 08/06/23 18:09 Neut # (Auto) 1.23 10^3/uL (1.8-7.7) L 08/06/23 18:09 Lymph # (Auto) 0.9 10^3/uL (0.8-4.8) 08/06/23 18:09 [place] # (Auto) 0.4 10^3/uL (0.2-0.9) 08/06/23 18:09 Eos # (Auto) 0.1 10^3/uL (0.0-0.8) 08/06/23 18:09 Baso # (Auto) 0.0 10^3/uL (0.0-0.1) 08/06/23 18:09 Nucleated RBC % (auto) 0 % 08/06/23 18:09 Nucleated RBCs # 0.0 /100WBC 08/06/23 18:09 Sodium 137 mmol/L (136-145) 08/06/23 18:09 Potassium 4.2 mmol/L (3.5-5.1) 08/06/23 18:09 Chloride 108 mmol/L (98-107) H 08/06/23 18:09 Carbon Dioxide 23 mmol/L (22-29) 08/06/23 18:09 Anion Gap 10.2 (5-19) 08/06/23 18:09 BUN 11 mg/dL (8-23) 08/06/23 18:09 Creatinine 0.9 mg/dL (0.5-0.9) 08/06/23 18:09 GFR Calculation 62.8 mL/min (90-130) L 08/06/23 18:09 Glucose 252 mg/dL (65-115) H 08/06/23 18:09 Calculated Osmolality 292 mOsm/kg (285-295) 08/06/23 18:09 Calcium 8.5 mg/dL (8.5-10.5) 08/06/23 18:09 Total Bilirubin 0.9 mg/dL (0.15-1.2) 08/06/23 18:09 AST 37 U/L (0-32) H 08/06/23 18:09 ALT 27 U/L (0-33) 08/06/23 18:09 Alkaline Phosphatase 147 U/L (35-105) H 08/06/23 18:09 Troponin T Baseline 10 ng/L (0-10) 08/06/23 18:09 Troponin T 120 Minute 10.10 ng/L (0-10) H 08/06/23 20:28 Delta Troponin T 0.10 ABS# (0-10) 08/06/23 20:28 Total Protein 5.9 g/dL (6.6-8.7) L 08/06/23 18:09 Albumin 2.8 g/dL (3.5-5.2) L 08/06/23 18:09 Globulin 3.1 g/dL (1.3-4.6) 08/06/23 18:09 Urine Color Yellow (Yellow) 08/06/23 20:26 Urine Appearance Clear (CLEAR) 08/06/23 20:26 Urine pH 5 (5-7) 08/06/23 20:26 Ur Specific [place] 1.020 (1.005-1.030) 08/06/23 20:26 Urine Protein Trace (Negative) 08/06/23 20:26 Urine Glucose (UA) Norm (Normal) 08/06/23 20:26 Urine Ketones 1+ (Negative) H 08/06/23 20:26 Urine Blood 2+ (Negative) H 08/06/23 20:26 Urine Nitrate Negative (Negative) 08/06/23 20:26 Urine Bilirubin Neg (Negative) 08/06/23 20:26 Urine Urobilinogen 1 mg/dL (Negative) H 08/06/23 20:26 Ur Leukocyte Esterase Trace (Negative) H 08/06/23 20:26 Urine RBC 0-4 /hpf (0-2) H 08/06/23 20:26 Urine WBC 0-4 /hpf (0-5) H 08/06/23 20:26 Ur Squamous Epith Cells 0-4 /hpf (0-5) H 08/06/23 20:26 Amorphous Sediment Not Reportable 08/06/23 20:26 Urine Bacteria 1+ /hpf (NONE) H 08/06/23 20:26 Urine Mucus 2+ /hpf 08/06/23 20:26 All radiology interpretation(s) finalized by discharge EKG Data EKG 1: I personally reviewed and interpreted this EKG as follows: EKG interpretation date: 08/06/23 EKG interpretation time: 18:30 Prior EKG tracings: not available for review Interpretation: EKG shows ventricular rate 50 bpm, HI interval 166, QRS duration 86, QTc of 420, sinus bradycardia, no ST-T wave changes Discharge Plan Discharge Patient Disposition: Home Clinical Impression: Pancytopenia, Bradycardia, drug induced, Atypical chest pain Condition: Stable Prescriptions: No Action furosemide 40 mg tablet 40 mg PO DAILY calcium carbonate [Tums] 200 mg calcium (500 mg) tablet,chewable 200 mg PO TID PRN (Reason: Heartburn) (DME) diabetic shoes with 3 inserts See Rx Instructions .Route .MEDSUPPLY Qty: 1 0RF Rx Instructions: As directed to the shoe rusty sucralfate [Carafate] 100 mg/mL suspension 5 ml PO QID Rx Instructions: swish in mouth and swallow; use after food/drink multivitamin Tablet 1 tab PO QAM citalopram 10 mg tablet 10 mg PO DAILY omeprazole 40 mg capsule,delayed release(DR/EC) 40 mg PO DAILY potassium chloride 10 mEq tablet,ER particles/crystals 10 meq PO DAILY Qty: 30 0RF spironolactone 100 mg Tablet 100 mg PO DAILY Qty: 60 0RF Lantus Solostar U-100 Insulin 100 unit/mL (3 mL) insulin pen 20 unit SUBCUT DAILY Qty: 15 0RF propranolol 10 mg tablet 10 mg PO BID Xifaxan 550 mg tablet 550 mg PO BID ondansetron HCl 4 mg tablet 4 mg PO TID PRN (Reason: Nausea And Vomiting) acetaminophen 500 mg Tablet 500 mg PO Q6H PRN (Reason: Pain) lactulose [Constulose] 10 gram/15 mL solution 45 ml PO TID Qty: 946 5RF Discharge Orders: Discharge ED (Routine); Ordered 08/06/23 Ordered By: Steve Martines Referrals: Pauline Pereira MD [Primary Care Provider] - 1 week Patient Instructions: Chest Pain (ED), Bradycardia (ED), Pancytopenia (DC) Activity Restrictions/Additional Instructions: Your workup in ER did not show any acute cardiac causes of your atypical chest pain. You are pancytopenic which means your white blood cell count red blood cell count and platelets were all low. You have been this way in the past. Your bradycardia or slow heart rate may be worsened by your propranolol which is a beta-hunter. Please follow-up with your family practice physician within the next 7 to 10 days to discuss your beta-hunter usage and your slow heart rate. If your problems worsen please return to the ER. Your urinalysis showed some bacteria in your urine we will wait till we get the culture back on this to see if it needs treated. If it does he will receive a call and be placed on antibiotics. Coding Level of Care Code ED Track Supervisor for Trevon Haines
[2023-08-06 19:23] LABS: Troponin(5th) Baseline 10 ng/L (0-10)
[2023-08-06 21:19] LABS: Add Urine Microscopic? YES; Bacteria Urine 1+ /hpf; Bilirubin Urine Neg (Negative); Blood Urine 2+ (Negative); Glucose Urine UA Norm (Normal); Ketones Urine 1+ (Negative); Leukocyte Esterase Urine Trace (Negative); Mucus Urine 2+ /hpf; Nitrate Urine Negative (Negative); Protein Urine Trace (Negative); RBC Urine 0-4 /hpf (0-2); Squamous Epithelial Cell Urine 0-4 /hpf (0-5); Urine Appearance Clear (CLEAR); Urine Color Yellow (Yellow); Urobilinogen Urine 1 mg/dL (Negative); WBC Urine 0-4 /hpf (0-5); pH Urine 5 (5-7)
[2023-08-06 21:20] LABS: Add Urine Culture? No
[2023-08-06 21:45] VITALS: BP 120/69; PULSE 52; O2SAT 95
== END 2023-08-06 21:47 | disposition home or self-care (01) ==
PROVIDERS: Emergency Medicine; Emergency Provider Emergency Medicine; PCP Internal Medicine
DX: R07.89 Other chest pain (principal); R00.1 Bradycardia, unspecified; D61.818 Other pancytopenia; Z79.4 Long term (current) use of insulin; Z87.891 Personal history of nicotine dependence; E11.9 Type 2 diabetes mellitus without complications
CPT/HCPCS: 36415; 71045; 80053; 81001; 84484; 85025; 93005; 99285

== ENCOUNTER 2023-08-28 13:50 | Oncology outpatient (recurring) (ONCR) | payer MEDICARE, MEDICAID, SELFPAY ==
[2023-08-06 13:14] VITALS: BP 141/82; PULSE 50; RESP 18; TEMP 36.6; O2SAT 98
[2023-08-06] MEDS: sodium chloride 0.9% 250 ML 75 ML IV (13:36)
[2023-08-06] MEDS: ferric carboxy (IVPB) 750 MG in sodium chloride 0.9% (100 ml) 100 ML 345 MG IV (13:36)
[2023-08-06 14:20] VITALS: BP 121/78; PULSE 48; RESP 18; TEMP 36.6; O2SAT 98
[2023-08-13] MEDS: ferric carboxy (IVPB) 750 MG in sodium chloride 0.9% (100 ml) 100 ML 345 MG IV (10:41)
[2023-08-13 11:39] VITALS: BP 131/78; PULSE 56; RESP 14; TEMP 36.4; O2SAT 96; O2SAT 98
--- NOTE | 2023-08-28 15:10 | N.ONRAD NP_ITS ---
Radiation Oncology New Patient Visit Patient: Gillian Kohli MR#: [id number] : 1955> Age: 67> Sex: Female> Dictated by: Dr. Radha Espinoza Date of Service: 08/28/2023 Referring Physician(s) : José Miguel Elizabeth M.D. Diagnosis: C44.319 - basal cell carcinoma of skin of other parts of face, Diagnosed 08/06/2023 (active) and D61.818 - other pancytopenia, Diagnosed 12/16/2018 (active). Radiotherapy to date: Summary > No prior radiation therapy. Chief Complaint / History of Present Illness: Patient has been diagnosed with 2 basal cell carcinomas. 1 was located on her right cheek and the other on her left forearm. She has had excisional biopsy of both of these areas. She was given the option of radiation therapy delivered in [place] or referral here. Secondary to she only lives 3 blocks from our center she is opted to receive treatment here. She does have some concern that the area around the lesion on her arm has began to change and she thinks it is already growing back. Current Medications: Acetaminophen, amoxicillin, calcium Antacid Ultra, citalopram Hydrobromide, clarithromycin, flucelvax, furosemide, lasix, multivitamins, pantoprazole Sodium, potassium, propranolol HCl, spironolactone, tresiba, zinc. Allergies: No Known Allergies Medical History: Cervical Cancer (cervical carcinoma in situ, status post abdominal hysterectomy.) , Chronic Tendonitis, diabetes type II, Fibromyalgia, History of small bowel GI bleed, hypertension, Kidney Stones, Liver cirrhosis (biopsy proven in 2004, due to a non alcoholic steatohepatitis) , osteoarthritis, osteoporosis, Portal Hypertension, Sarcoidosis. No history of collagen vascular disease. No previous radiation therapy. Surgical History: Caesarean section (x2 1982 & 1986), cholecystectomy, hysterectomy in 1984, incisional Ventral Hernia Repair, oopherectomy 1998 and rNY Gastric Bypass. Family History: Father is alive having experienced coronary artery disease and hypertension. Mother is alive having experienced hypertension. Social History: Last screened on 09/14/2020 - Yes - but has quit for 31 years. Smoked 1.5 packs/day for 12 years (18 pack years). Last screened on 09/14/2020 - Drinks occasionally. Patient indicated access to the following support systems: lives with spouse, significant other, family, or friends, lives in own house, supportive family/friends willing to assist with needs, and adequate transportation available for expected visits. Patient indicated the following nutritional habits: regular meals. Patient indicated participation in the following forms of activity: sedentary. Current Complaints / Review of Systems: . Vital Signs: Performed on 08/28/2023 2:20 PM BMI - 31.019 kg/m2 (high), Height - 65 in, Weight - 186.4 lbs, Temperature - 97.8 f, Pulse - 62 /min, Respiration - 16 /min, O2 Sat - 95 % (low), Pain - 3, Fatigue - 0 and BP - 167/ 77 mm(hg)(high/). Physical Exam: General patient is a pleasant 67-year-old lady she is accompanied by her ex- HEENT: Normocephalic atraumatic. Pupils are equal, sclera clear, extraocular muscles intact. Examination of the right cheek reveals an area that is slightly erythematous and has dry scaly tissue across the top it measures approximately 1 x 1 cm in size. It is just inferior to the medial canthus. Pulmonary: Respiratory rate is regular nonlabored Cardiovascular: Regular rate and rhythm Abdomen: She has notable hernia in the right upper quadrant. Her abdomen is otherwise soft and nontender. Extremities without obvious edema in the upper extremities Skin: The area on her left forearm measures approximately 1 x 0.9 centimeters in size. It is erythematous and dry. It does appear to be slightly raised on 1 edge. Neurologic: Alert and orient x 3. Gait and speech within normal limits Psych: Affect appropriate for current situation Performance Status: 80 Pathology: Primary, c44.319 - basal cell carcinoma of skin of other parts of face, Diagnosed 08/06/2023 (active) and Primary, d61.818 - other pancytopenia, Diagnosed 12/16/2018 (active) . Lab: Imaging: See HPI Impression: Basal cell carcinoma of the cheek and forearm Plan: I reviewed with Ms. Edmonds the various options for skin cancer. We talked about how with lesions around the eyes nose and mouth that radiation is actually the preferred treatment. Treatment with radiation allows the patient to keep their skin intact and thereby not pull on any the surrounding sensitive structures. We talked about the planning process. We reviewed the daily treatment regiment. We discussed the risk and side effects both acute and long-term. At this point she is in agreement with undergoing treatment. Her main concern was not having to travel back and forth and having no pain for treatment. I reviewed with her the skin care regiment and of asked her to check to see what lotion she is has at home to see if there is any of those that we might be able to use. At this point we will coordinate with her schedule which she will be able to return next Saturday for simulation. Signed by: 08/28/2023 3:08:56 PM <<Signature on File>> Time spent with patient:45 CPT Code: CPT Code:
== END 2023-08-29 23:59 | disposition home or self-care (01) ==
PROVIDERS: PCP Internal Medicine; Visit Provider Radiology Radiation Oncology
DX: D61.818 Other pancytopenia (principal); D64.9 Anemia, unspecified; D50.9 Iron deficiency anemia, unspecified; Z79.899 Other long term (current) drug therapy
CPT/HCPCS: 11102; 96365; 99203; 99205; J1439; J7050

== ENCOUNTER 2023-09-06 11:13 | Oncology outpatient (recurring) (ONCR) | payer MEDICARE, MEDICAID, SELFPAY | END 2023-09-29 23:59 | disposition home or self-care (01) | PROVIDERS: PCP Internal Medicine; Visit Provider Radiology Radiation Oncology | DX: D61.818 Other pancytopenia (principal); D64.9 Anemia, unspecified; D50.9 Iron deficiency anemia, unspecified; Z79.899 Other long term (current) drug therapy; Z53.9 Procedure and treatment not carried out, unspecified reason; L82.1 Other seborrheic keratosis; L57.8 Other skin changes due to chronic exposure to nonionizing radiation; D49.2 Neoplasm of unspecified behavior of bone, soft tissue, and skin; D69.2 Other nonthrombocytopenic purpura | CPT/HCPCS: 77280; 77290; 77321; 77331; 77334; 77412 ==

== ENCOUNTER 2023-09-07 11:29 | Inpatient (IN) | payer MEDICARE, MEDICAID, SELFPAY ==
[2023-09-07] VITALS (7 sets, daily range): BP systolic 171–185; BP diastolic 79–83; PULSE 78–105; RESP 14–17; TEMP 36.7–37.2; O2SAT 92–95; BMI 30.7; BMI 31.9
--- NOTE | 2023-09-07 11:49 | CTR_ITS ---
PROCEDURE INFORMATION: Exam: CT Head Without Contrast Exam date and time: 09/07/2023 12:15 PM Age: 67 years old Clinical indication: Injury or trauma; Fall; Blunt trauma (contusions or hematomas); Additional info: Fall/ams TECHNIQUE: Imaging protocol: Computed tomography of the head without contrast. Radiation optimization: All CT scans at this facility use at least one of these dose optimization techniques: automated exposure control; mA and/or kV adjustment per patient size (includes targeted exams where dose is matched to clinical indication); or iterative reconstruction. COMPARISON: CT angio headneck* [id number] 06/05/2023 5:06 PM RADIATION DOSE METRICS: Total DLP (mGy-cm): 1374.79 FINDINGS: Brain: No hemorrhage. Morales-white matter differentiation is maintained. Cerebral ventricles: No ventriculomegaly. Paranasal sinuses: Visualized sinuses are grossly clear with minimal mucosal thickening and/or retention cyst formation. Mastoid air cells: No mastoid effusion. Bones/joints: No acute findings. Soft tissues: No acute findings. CT/CT head wo con* [id number] IMPRESSION: No acute intracranial abnormality.
--- NOTE | 2023-09-07 11:49 | CTR_ITS ---
PROCEDURE INFORMATION: Exam: CT Cervical Spine Without Contrast Exam date and time: 09/07/2023 12:15 PM Age: 67 years old Clinical indication: Injury or trauma; Fall; Blunt trauma; Additional info: Fall/ams TECHNIQUE: Imaging protocol: Computed tomography of the cervical spine without contrast. Radiation optimization: All CT scans at this facility use at least one of these dose optimization techniques: automated exposure control; mA and/or kV adjustment per patient size (includes targeted exams where dose is matched to clinical indication); or iterative reconstruction. COMPARISON: CT cervical spin wo con* [id number] 11/23/2022 5:51 AM RADIATION DOSE METRICS: Total DLP (mGy-cm): 230.6 FINDINGS: Bones/joints: No acute fracture or sagittal malalignment. Overall mild multilevel degenerative changes. No severe canal stenosis. Lungs: Lung apices are clear. Soft tissues: No acute findings. CT/CT cervical spin wo con* [id number] IMPRESSION: No acute findings.
--- NOTE | 2023-09-07 12:03 | PC.PHAR ---
NURIAIFED MEDICATIONS WITH [facility]. SHE SHOULD BE OUT OF SEVERAL OF HER MEDICATIONS (OVERDUE TO FILL) PER PHARMACY.
[2023-09-07 12:05] LABS: Basophils % 0.6 %; Eosinophils % 0.2 %; Hematocrit 41.7 % (36-47); Lymphocytes # 1.3 10^3/uL (0.8-4.8); Lymphocytes % 24.8 %; Mean Corpuscular HGB Conc 32.9 g/dL (30-55); Mean Corpuscular Volume 94.3 fl (85-98); Mean Platelet Volume 12.5 fL (7.4-10.4); Monocytes # 0.4 10^3/uL (0.2-0.9); Neutrophils # 3.42 10^3/uL (1.8-7.7); Neutrophils % 66.6 %; Nucleated Red Blood Cells % 0 %; Platelet Count 86 10^3/cmm (157-399); Red Blood Count 4.42 10^6/uL (3.85-5.65); White Blood Count 5.13 10^3/uL (3.29-11.43)
[2023-09-07 12:12] LABS: INR 1.17 (0.8-1.2)
[2023-09-07 12:13] LABS: Partial Thromboplastin Time 30.4 SECONDS (23.9-36.7)
[2023-09-07 12:13] LABS: Glucose Point of Care 166 mg/dL (70-110)
[2023-09-07 12:18] LABS: Alanine Aminotransferase 35 U/L (0-33); Albumin Level 3.4 g/dL (3.5-5.2); Alkaline Phosphatase 158 U/L (35-105); Anion Gap 16.6 (5-19); Aspartate Amino Transferase 46 U/L (0-32); Blood Urea Nitrogen 17 mg/dL (8-23); Calcium 8.7 mg/dL (8.5-10.5); Carbon Dioxide 21 mmol/L (22-29); Chloride 105 mmol/L (98-107); Creatinine Clr Calc Pharmacy 75.0014; Globulin 3.2 g/dL (1.3-4.6); Glucose 159 mg/dL (65-115); Lipase 80 U/L (13-60); Osmolality Calculated 293 mOsm/kg (285-295); Potassium 3.6 mmol/L (3.5-5.1); Sodium 139 mmol/L (136-145); Total Bilirubin 1.5 mg/dL (0.15-1.2); Total Protein 6.6 g/dL (6.6-8.7)
[2023-09-07 12:25] LABS: Procalcitonin 0.24 ng/mL (0-0.5)
[2023-09-07 12:57] LABS: Lactic Sepsis W/Reflex 4.3 mmol/L (0.5-2.2)
--- NOTE | 2023-09-07 13:06 | XRR_ITS ---
PROCEDURE INFORMATION: Exam: XR Bilateral Hips Exam date and time: 09/07/2023 1:14 PM Age: 67 years old Clinical indication: Injury or trauma; Fall; Other: Pain; Additional info: Fall/pain TECHNIQUE: Imaging protocol: Radiologic exam of the bilateral hips. Views: 2 views of hips with pelvis when performed. COMPARISON: CT abdomen pelvis wo con [id number] 05/20/2023 8:56 PM FINDINGS: Bones/joints: Large displaced fracture fragment of the left femur at the lesser trochanter level. No hip dislocation. Soft tissues: No acute findings. XR/XR hip BI 3-4V wo/w pel [id number] IMPRESSION: Left femur trochanteric fracture.
--- NOTE | 2023-09-07 13:07 | W.ED.EXTPRO ---
HPI - Extremity Problem General: Chief complaint: Extremity Injury, Lower Stated complaint: LEFT HIP PAIN Time Seen by Provider: 09/07/23 11:35 History of Present Illness: 67-year-old female presents to the emergency department via EMS personnel after having an accidental fall while at home. Her family member states that they heard her fall in the bedroom from what appeared to be a standing position onto the carpeted floor and she immediately had left hip pain. EMS personnel provided the patient 100 mcg of fentanyl as well as Zofran prior to arrival which has resulted in significant inability to obtain inpatient medical history from the patient. The patient's family member states that she recently started radiation therapy basal cell carcinoma of the cheek and forearm. He has been states that she also has history of insulin-dependent diabetes as well as cirrhosis of the liver secondary to nonalcoholic steatohepatitis. Review of Systems General: Reports: ROS unobtainable due to mental status [facility] ED PFSH: Medical History TIA (transient ischemic attack) Acute posterior circulation transient ischemic attack Acute hepatic encephalopathy Free intraperitoneal air Gastric perforation Fall Thrombocytopenia Altered mental status Pancytopenia Type 2 diabetes mellitus Obesity (BMI 30.0-34.9) Diabetes mellitus type 2 in obese Portal vein thrombosis 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 Incisional hernia Hepatic encephalopathy Kidney stones Diabetes BLAIR (nonalcoholic steatohepatitis) Surgical History Gastric bypass status for obesity History of colonoscopy History of esophagogastroduodenoscopy (EGD) H/O: hysterectomy cervical cancer H/O gastric bypass Hx of cholecystectomy Family History Mother Hypertension Father Chronic kidney disease (CKD) Sleep apnea Other Bleeding disorder Denies family history of Anesthesia complication Social History Smoking and tobacco/nicotine status: former use of tobacco/nicotine Quit status (tobacco/nicotine): has quit using Year quit tobacco: 1986 Former quit date comment: smoked x 10+ years Alcohol intake: never Substance/Drug Use: never Physical Exam Narrative: EXAM NARRATIVE: Constitutional: the patient is ill-appearing, in no obvious distress at present. She is very lethargic information. Vital signs reviewed as documented. HENMT: Normocephalic, atraumatic. External ears normal appearance without drainage. Nose without drainage, normal appearance. Mucus membranes moist. Neck is supple, No jugular venous distension, trachea is midline, no appreciable carotid bruits. No lymphadenopathy. No meningeal signs. Flexion, extension and lateral rotation is without pain. No crepitus or palpable step-offs, normal alignment Eyes: Pupils are equal, round, reactive to light and accommodation. No scleral icterus. Extra-ocular movement are intact. Thorax is symmetrical and with equal rise and fall with respirations. Resp: Lungs are clear to auscultation. No wheezes, rales, crackles or ronchi at present. Cardio: Regular rate and rhythm. Positive S1, S2. No appreciable murmurs, rubs or gallops. GI: Abdominal exam reveals normal bowel sounds to all quadrants. No organomegaly. Ventral hernia noted. Mild hepatomegally appreciated. Soft, non-tender to palpation. Extremity: Extremities are with 1+ bilateral lower extremity edema. Femoral and pedal pulses are 2+ and equal bilaterally. Increased pain to palpation to the left greater trochanter, obvious shortening and internal rotation noted of the left lower extremity. Remainder of the extremities she moves well, sensation in all extremities. Neuro: Lethargic/sedated responsive to noxious stimuli, maintaining her airway at present. Sensation intact to all extremities. Psych: Cooperative, calm, normal thought process, appropriate judgment. Skin: Left forearm lesion. Rashes. No gross abnormalities noted. Back: Symmetrical, no obvious deformity, No CVA tenderness Course Consultations: Consultation #1: Dr. Newsoem--Orthopedics RE Left femur Fx Vital Signs: Vital signs: Vital Signs Temperature 98.0 F 09/08/23 10:30 Pulse Rate 86 09/08/23 10:30 Respiratory Rate 16 09/08/23 10:30 Blood Pressure 144/83 09/08/23 10:30 Pulse Oximetry 94 09/08/23 10:30 Oxygen Delivery Me thod Room Air 09/08/23 10:30 Oxygen Flow Rate 6 09/08/23 09:43 MDM - Extremity (Nontraumatic) Medical Decision Making Physical exam completed and documented, I will obtain POC glucose check and treat accordingly. I will obtain a chest x-ray and if indicated a CT scan of the head without contrast to evaluate for intracranial hemorrhage, mass or other trauma. I will obtain radiographic examination of her bilateral hips and pelvis without suspect given her physical exam she most likely has a femur fracture. I have reviewed previous and pertinent medical records for assist in obtaining beneficial medical information to improved the care and treatment of the patient. Will obtain a CBC, CMP, PT, PTT, INR as well as ammonia level, urinalysis and have the nursing staff placed a Borges catheter and obtain a urine sample at that time. Medical Records I reviewed the patient's medical records. Lab Data I reviewed the patient's lab results. 09/08/23 05:20 09/08/23 05:20 Radiology Impressions Cervical Spine CT 09/07/23 11:49 IMPRESSION: No acute findings. Head CT 09/07/23 11:49 IMPRESSION: No acute intracranial abnormality. Chest X-Ray 09/07/23 13:27 IMPRESSION: Prominent interstitial markings could be secondary to small airways process or mild pulmonary edema. No focal consolidation. Abdomen X-Ray 09/07/23 14:37 IMPRESSION: As above. Laboratory Results WBC 5.13 10^3/uL (3.29-11.43) 09/07/23 11:12 RBC 4.42 10^6/uL (3.85-5.65) 09/07/23 11:12 Hgb 13.70 g/dL (11.27-16.99) 09/07/23 11:12 Hct 41.7 % (36-47) 09/07/23 11:12 MCV 94.3 fl (85-98) 09/07/23 11:12 MCH 31.0 pg (27-33) 09/07/23 11:12 MCHC 32.9 g/dL (30-55) 09/07/23 11:12 RDW 19.0 % (12.1-15.1) H 09/07/23 11:12 Plt Count 86 10^3/cmm (157-399) L 09/07/23 11:12 MPV 12.5 fL (7.4-10.4) H 09/07/23 11:12 Neut % (Auto) 66.6 % 09/07/23 11:12 Lymph % (Auto) 24.8 % 09/07/23 11:12 [place] % (Auto) 7.0 % 09/07/23 11:12 Eos % (Auto) 0.2 % 09/07/23 11:12 Baso % (Auto) 0.6 % 09/07/23 11:12 Neut # (Auto) 3.42 10^3/uL (1.8-7.7) 09/07/23 11:12 Lymph # (Auto) 1.3 10^3/uL (0.8-4.8) 09/07/23 11:12 [place] # (Auto) 0.4 10^3/uL (0.2-0.9) 09/07/23 11:12 Eos # (Auto) 0.0 10^3/uL (0.0-0.8) 09/07/23 11:12 Baso # (Auto) 0.0 10^3/uL (0.0-0.1) 09/07/23 11:12 Nucleated RBC % (auto) 0 % 09/07/23 11:12 Nucleated RBCs # 0.0 /100WBC 09/07/23 11:12 PT 15.30 SECONDS (12.1-14.9) H 09/07/23 11:12 INR 1.17 (0.8-1.2) 09/07/23 11:12 APTT 30.4 SECONDS (23.9-36.7) 09/07/23 11:12 Sodium 139 mmol/L (136-145) 09/07/23 11:12 Potassium 3.6 mmol/L (3.5-5.1) 09/07/23 11:12 Chloride 105 mmol/L (98-107) 09/07/23 11:12 Carbon Dioxide 21 mmol/L (22-29) L 09/07/23 11:12 Anion Gap 16.6 (5-19) 09/07/23 11:12 BUN 17 mg/dL (8-23) 09/07/23 11:12 Creatinine 0.7 mg/dL (0.5-0.9) 09/07/23 11:12 GFR Calculation 84.0 mL/min (90-130) L 09/07/23 11:12 Glucose 159 mg/dL (65-115) H 09/07/23 11:12 POC Glucose 210 mg/dL (70-110) H 09/07/23 13:07 Calculated Osmolality 293 mOsm/kg (285-295) 09/07/23 11:12 Lactic Acid 4.3 mmol/L (0.5-2.2) H* 09/07/23 11:12 Lactic Acid (Sepsis) 2.9 mmol/L (0.5-2.2) H 09/07/23 14:26 Calcium 8.7 mg/dL (8.5-10.5) 09/07/23 11:12 Total Bilirubin 1.5 mg/dL (0.15-1.2) H 09/07/23 11:12 AST 46 U/L (0-32) H 09/07/23 11:12 ALT 35 U/L (0-33) H 09/07/23 11:12 Alkaline Phosphatase 158 U/L (35-105) H 09/07/23 11:12 Ammonia 116 umol/L (11-51) H 09/07/23 13:52 Total Protein 6.6 g/dL (6.6-8.7) 09/07/23 11:12 Albumin 3.4 g/dL (3.5-5.2) L 09/07/23 11:12 Globulin 3.2 g/dL (1.3-4.6) 09/07/23 11:12 Lipase 80 U/L (13-60) H 09/07/23 11:12 Procalcitonin 0.24 ng/mL (0-0.5) 09/07/23 11:12 Urine Color Yellow (Yellow) 09/07/23 14:15 Urine Appearance Clear (CLEAR) 09/07/23 14:15 Urine pH 6 (5-7) 09/07/23 14:15 Ur Specific [place] 1.015 (1.005-1.030) 09/07/23 14:15 Urine Protein Trace (Negative) 09/07/23 14:15 Urine Glucose (UA) 1+ (Normal) H 09/07/23 14:15 Urine Ketones 1+ (Negative) H 09/07/23 14:15 Urine Blood Neg (Negative) 09/07/23 14:15 Urine Nitrate Negative (Negative) 09/07/23 14:15 Urine Bilirubin Neg (Negative) 09/07/23 14:15 Urine Urobilinogen 1 mg/dL (Negative) H 09/07/23 14:15 Ur Leukocyte Esterase Negative (Negative) 09/07/23 14:15 Urine RBC None /hpf (0-2) 09/07/23 14:15 Urine WBC Rare /hpf (0-5) 09/07/23 14:15 Ur Squamous Epith Cells 0-4 /hpf (0-5) H 09/07/23 14:15 Amorphous Sediment Not Reportable 09/07/23 14:15 Urine Bacteria Trace /hpf (NONE) 09/07/23 14:15 All radiology interpretation(s) finalized by discharge Discharge Plan Discharge Patient Disposition: Admitted As Inpatient Admit Provider: Brandon Bean Clinical Impression: Hyperammonemia, Thrombocytopenia, Encephalopathy, hepatic Femur fracture, left Qualifiers: Encounter type: initial encounter Femur location: intertrochanteric Fracture type: closed Fracture alignment: displaced Qualified Code(s): S72.142A - Displaced intertrochanteric fracture of left femur, initial encounter for closed fracture Condition: Stable Coding Level of Care Code ED [employer] 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
[2023-09-07 13:11] LABS: Glucose Point of Care 210 mg/dL (70-110)
--- NOTE | 2023-09-07 13:27 | XRR_ITS ---
PROCEDURE INFORMATION: Exam: XR Chest Exam date and time: 09/07/2023 1:28 PM Age: 67 years old Clinical indication: Shortness of breath; Patient HX: SOB; Cough; Elevated ammonia level; Pre op high risk procedure TECHNIQUE: Imaging protocol: Radiologic exam of the chest. Views: 1 view. COMPARISON: CR (CHEST, ) 08/06/2023 6:50 PM FINDINGS: Lungs: Increased interstitial markings. No focal consolidation. Pleural spaces: No pleural effusion. No pneumothorax. Heart/Mediastinum: No cardiomegaly. Bones/joints: No acute findings. XR/XR chest 1V portable [id number] IMPRESSION: Prominent interstitial markings could be secondary to small airways process or mild pulmonary edema. No focal consolidation.
[2023-09-07] MEDS: cefTRIAXone 1,000 MG in sodium chloride 0.9% (plus) 50 ML 100 MG IV (13:35)
[2023-09-07 13:49] LABS: Reflex Lactate Order REFLEX LACTIC ORDERD
[2023-09-07 14:20] LABS: Ammonia 116 umol/L (11-51)
--- NOTE | 2023-09-07 14:37 | XRR_ITS ---
PROCEDURE INFORMATION: Exam: XR Abdomen Exam date and time: 09/07/2023 3:21 PM Age: 67 years old Clinical indication: Device placement; Gi device; Nasogastric tube; Patient HX: Ng tube placement TECHNIQUE: Imaging protocol: Radiologic exam of the abdomen. Views: Frontal supine view of the abdomen. 1 View. COMPARISON: CT abdomen pelvis con [id number] 05/20/2023 8:56 PM FINDINGS: Enteric tube tip projects within the proximal gastric body with side port at the level of the diaphragm, recommend advancing to ensure adequate positioning. XR/XR abdomen 1V* [id number] IMPRESSION: As above.
[2023-09-07 14:54] LABS: Urine Appearance Clear (CLEAR); Urine Color Yellow (Yellow); pH Urine 6 (5-7)
[2023-09-07 14:54] LABS: Lactic Acid level (Lactate) 2.9 mmol/L (0.5-2.2)
[2023-09-07 14:55] LABS: Add Urine Culture? No; Add Urine Microscopic? YES; Bacteria Urine TRACE /hpf; Bilirubin Urine Neg (Negative); Blood Urine Neg (Negative); Glucose Urine UA 1+ (Normal); Ketones Urine 1+ (Negative); Leukocyte Esterase Urine Negative (Negative); Nitrate Urine Negative (Negative); Protein Urine Trace (Negative); Specific Gravity, Urine 1.015 (1.005-1.030); Squamous Epithelial Cell Urine 0-4 /hpf (0-5); Urobilinogen Urine 1 mg/dL (Negative); WBC Urine RARE /hpf (0-5)
--- NOTE | 2023-09-07 15:50 | P.HP_ITS ---
Providers/Chief Complaint 2 Admitting Physician: Brandon Bean MD Primary Care Provider: Pauline Pereira MD Chief Complaint: LEFT HIP PAIN History of Present Illness Gillian Kohli is a 67 year old female with past medical history of [place] leading to liver cirrhosis, hepatic encephalopathy on lactulose and rifaximin, gastric bypass, colonic AVMs, type 2 diabetes mellitus, basal cell carcinoma of the cheek on radiation therapy recently who presents to the ER after sustaining what sounds like a mechanical fall followed by left hip pain. Patient was given 100 mcg of fentanyl en route by EMS. On presentation in the ER patient was somnolent though maintaining her airway, responding only to noxious stimulus. Imaging done in the ER showed patient had a femur fracture along with elevated ammonia levels. Have requested NG tube to be placed for continuing oral lactulose. Review of Systems 2 General: Reports: ROS unobtainable due to mental status Medications/Allergies Home Medications Medication Instructions Recorded Confirmed Last Taken Type furosemide 40 mg tablet 40 mg PO DAILY 12/11/19 09/07/23 08/03/22 08:00 History propranolol 10 mg tablet 10 mg PO BID 03/01/22 09/07/23 08/03/22 09:00 History rifaximin 550 mg tablet (Xifaxan) 550 mg PO BID 04/22/22 09/07/23 08/03/22 09:00 History citalopram 10 mg tablet 10 mg PO DAILY 11/23/22 09/07/23 Unknown History omeprazole 40 mg capsule,delayed 40 mg PO DAILY 11/23/22 09/07/23 Unknown History release potassium chloride 10 mEq 10 meq PO DAILY #30 tabs 11/26/22 09/07/23 Unknown Rx tablet,extended release(part/cryst) spironolactone 100 mg tablet 100 mg PO DAILY #60 tabs 11/26/22 09/07/23 08/03/22 09:00 Rx acetaminophen 500 mg tablet 500 mg PO Q6H PRN Pain 04/18/23 09/07/23 Unknown History ondansetron HCl 4 mg tablet 4 mg PO TID PRN Nausea And Vomiting 04/18/23 09/07/23 Unknown History lactulose 10 gram/15 mL oral 45 ml PO TID #946 mL 04/20/23 09/07/23 Unknown Rx solution (Constulose) diabetic shoes with 3 inserts #1 ea 06/10/23 09/07/23 Unknown Rx sucralfate 100 mg/mL oral 5 ml PO QID 07/05/23 09/07/23 Unknown History suspension (Carafate) insulin degludec 100 unit/mL (3 44 unit SUBCUT DAILY 09/07/23 09/07/23 Unknown History mL) subcutaneous pen (Tresiba FlexTouch U-100 insulin) Allergies Allergy/AdvReac Type Severity Reaction Status Date / Time No Known Allergies Allergy Verified 07/30/23 14:09 PFSH Acute 2 PFSH: Medical History (Updated 09/07/23 @ 18:22 by Brandon Bean MD) TIA (transient ischemic attack) Acute posterior circulation transient ischemic attack Acute hepatic encephalopathy Free intraperitoneal air Gastric perforation Fall Thrombocytopenia Altered mental status Pancytopenia Type 2 diabetes mellitus Obesity (BMI 30.0-34.9) Diabetes mellitus type 2 in obese Portal vein thrombosis Liver cirrhosis secondary to [place] Incisional hernia Hepatic encephalopathy Kidney stones Diabetes [place] (nonalcoholic steatohepatitis) Surgical History Gastric bypass status for obesity History of colonoscopy History of esophagogastroduodenoscopy (EGD) H/O: hysterectomy cervical cancer H/O gastric bypass Hx of cholecystectomy Family History Mother Hypertension Father Chronic kidney disease (CKD) Sleep apnea Other Bleeding disorder Denies family history of Anesthesia complication Social History Smoking and tobacco/nicotine status: former use of tobacco/nicotine Quit status (tobacco/nicotine): has quit using Year quit tobacco: 1986 Former quit date comment: smoked x 10+ years Alcohol intake: never Substance/Drug Use: never Vitals/I&O/Wt Last Vital Signs Temp 98.0 F 09/07/23 11:34 Pulse 83 09/07/23 11:34 Resp 16 09/07/23 11:34 BP 171/83 09/07/23 11:34 Pulse Ox 92 09/07/23 11:34 O2 Del Method Room Air 09/07/23 11:34 09/07/23 09/07/23 09/07/23 06:59 14:59 22:59 Intake Total 50 / 50 Balance 50 / 50 Weight last 48 hrs Weight 83.915 kg Physical Exam 2 Narrative: General: No acute distress, somnolent, E2 M2V1, maintaining airway HEENT: PERRLA, pupils bilaterally equal and reactive Chest: Normal vesicular breath sounds, no added sounds, equal good air entry bilaterally CVS: S1-S2 regular, no murmurs, no tachycardia, no gallops, no rubs Abdomen: Soft, distended, nontender, no organomegaly, bowel sounds present but sluggish Neuro: No focal deficits, no facial deformity, Urinary Catheter Management: Borges: Cath Placed During This Visit: yes Urinary Catheter Date of Insertion: 09/07/23 Data 09/07/23 11:12 09/07/23 11:12 Micro: Microbiology 09/07/23 13:52 Blood Culture - Preliminary Blood SPECIMEN COLLECTED 09/07/23 13:48 Blood Culture - Preliminary Blood SPECIMEN COLLECTED A&P Assessment and plan (1) Femur fracture, left: Orthopedics has been consulted from the ER. Plan for ORIF. Morphine 2 mg every 4 hours as needed for pain. Qualifiers: Encounter type: initial encounter Femur location: intertrochanteric F racture alignment: displaced Fracture type: closed Qualified Code(s): S72.142A - Displaced intertrochanteric fracture of left femur, initial encounter for closed fracture (2) Fall: Sounds mechanical. Could be in setting of acute hepatic encephalopathy. Physical therapy after ORIF. (3) Hyperammonemia: Recurrent. Patient takes home dose of lactulose and rifaximin. Ammonia levels of 116. NG tube placed in ER. Continue lactulose 45 mL every 6 hours for now. Continue with home dose of rifaximin Repeat ammonia level in AM. (4) Acute hepatic encephalopathy: (5) Cirrhosis of liver: Continue with home dose of propranolol, rifaximin. Increase dose of lactulose as above. (6) Thrombocytopenia: Chronic. Most likely in setting of liver disease. Plan History of upper GI bleed, anemia History of gastric perforation History of type 2 diabetes mellitus: Insulin sliding scale at low-dose protocol every 6 hours. Hold off on long-acting insulin as patient will be NPO. Patient takes 44 units of Tresiba at home. Continue with home dose of Protonix twice daily along with Carafate ACHS. Full code N.p.o. Heparin 5000 every 12 for DVT prophylaxis Protonix will be sufficient for PUD prophylaxis as well Attestations 2 Medical Necessity Statement*: Admission for more than 2 midnights for management of hip fracture post fall, hepatic encephalopathy in a patient with history of [place] Diagnoses Femur fracture, left S72.142A Encounter type: initial encounter Femur location: intertrochanteric Fracture alignment: displaced Fracture type: closed Fall W19.XXXA Hyperammonemia E72.20 Acute hepatic encephalopathy K76.82 Cirrhosis of liver K74.60 Thrombocytopenia D69.6
[2023-09-07] MEDS: lactulose oral liq 20 gm/30 mL UDC 30 GM PO (16:31)
--- NOTE | 2023-09-07 17:29 | PC.PT ---
Physical therapy treatment on hold awaiting surgical repair of left femur.
[2023-09-07 17:46] LABS: Glucose Point of Care 242 mg/dL (70-110)
[2023-09-07] MEDS: pantoprazole 40 mg SDV IVP (19:52)
[2023-09-07] MEDS: sodium chloride 0.9% 1,000 ML 75 ML IV (19:52)
[2023-09-07] MEDS: insulin lispro 100 unit/1 mL SUBCUT (19:58)
[2023-09-07] MEDS: heparin 5,000 unit/mL INJ 1 mL 5000 UNIT SUBCUT (19:58)
[2023-09-07] MEDS: propranolol 20 mg Tablet 10 MG PO (20:00)
[2023-09-07] MEDS: docusate sodium 100 mg Capsule PO (20:01)
[2023-09-07] MEDS: lactulose oral liq 20 gm/30 mL UDC 45 GM PO (20:01)
[2023-09-07 20:06] LABS: Ammonia 77 umol/L (11-51)
--- NOTE | 2023-09-07 20:20 | PC.NURSE ---
Patient had her NG tube pulled out enough that it was coiled up in her mouth. Nursing staff removed it and patient is now awake enough to swallow orally. Patient swallow oral medications and tolerated well. Dr. Bean ordered okay to leave NG tube out as long as patient takes all of her lactulose.
--- NOTE | 2023-09-07 20:23 | PC.NURSE ---
NG tube curled in back of pts throat. Removed NG tube without complications. Administered bedside nursing dysphagia screen, pt swallowed without issues. Medication administered.
[2023-09-07] MEDS: sucralfate 1 gm/10 mL Oral Liq UDC PO (20:27)
--- NOTE | 2023-09-07 20:41 | PC.NURSE ---
Dr. Bean ordered to not give patient [place]. Ordered to give patient 1 mg Morphine q4hr PRN for pain.
[2023-09-07 20:44] LABS: Glucose Point of Care 236 mg/dL (70-110)
[2023-09-07] MEDS: morphine 4 mg/mL SDV 1 mL 1 MG IVP (21:13)
[2023-09-08] VITALS (23 sets, daily range): BP systolic 144–192; BP diastolic 78–135; PULSE 74–102; RESP 10–19; TEMP 36.3–37.6; O2SAT 90–97; BMI 31.7
[2023-09-08] MEDS: lactulose oral liq 20 gm/30 mL UDC 45 GM PO ×4 (01:29→20:00)
[2023-09-08] MEDS: morphine 4 mg/mL SDV 1 mL 1 MG IVP ×2 (01:44→05:53)
[2023-09-08 03:30] LABS: Glucose Point of Care 211 mg/dL (70-110)
[2023-09-08 05:45] LABS: Basophils % 0.1 %; Hematocrit 35.8 % (36-47); Lymphocytes # 1.1 10^3/uL (0.8-4.8); Lymphocytes % 10.9 %; Mean Corpuscular HGB Conc 32.1 g/dL (30-55); Mean Corpuscular Hemoglobin 30.7 pg (27-33); Mean Corpuscular Volume 95.5 fl (85-98); Mean Platelet Volume 12.8 fL (7.4-10.4); Monocytes # 1.3 10^3/uL (0.2-0.9); Monocytes % 13.1 %; Neutrophils # 7.55 10^3/uL (1.8-7.7); Neutrophils % 75.5 %; Nucleated Red Blood Cells % 0 %; Platelet Count 113 10^3/cmm (157-399); Red Blood Count 3.75 10^6/uL (3.85-5.65); Red Cell Distribution Width 19.8 % (12.1-15.1)
[2023-09-08] MEDS: lanolin oint 7 gm 1 APPLIC TOPICAL (05:53)
[2023-09-08 06:05] LABS: Chol HDL Ratio 2.19 mg/dL (0.0-4.40); Cholesterol 136 mg/dL (0-200); HDL Cholesterol 62 mg/dL (60-100); LDL Cholesterol Calculated 63 mg/dL (50-129); Magnesium 1.9 mg/dL (1.7-2.3); Triglycerides 53 mg/dL (0-150); VLDL Cholestrol Calculation 11 mg/dL (0-30)
[2023-09-08 06:07] LABS: Alanine Aminotransferase 38 U/L (0-33); Albumin Level 2.9 g/dL (3.5-5.2); Alkaline Phosphatase 120 U/L (35-105); Anion Gap 11.6 (5-19); Aspartate Amino Transferase 52 U/L (0-32); Blood Urea Nitrogen 19 mg/dL (8-23); Calcium 8.4 mg/dL (8.5-10.5); Carbon Dioxide 20 mmol/L (22-29); Chloride 117 mmol/L (98-107); Creatinine Clr Calc Pharmacy 76.1861; Globulin 2.8 g/dL (1.3-4.6); Glucose 202 mg/dL (65-115); Osmolality Calculated 306 mOsm/kg (285-295); Phosphorus 1.4 mg/dL (2.5-4.5); Potassium 4.6 mmol/L (3.5-5.1); Sodium 144 mmol/L (136-145); Total Bilirubin 1.6 mg/dL (0.15-1.2); Total Protein 5.7 g/dL (6.6-8.7)
--- NOTE | 2023-09-08 07:39 | P.CONIM_ITS ---
Providers/Reason For Consult 2 Consulting Physician/Specialty*: Hospitalist Reason for Consult*: Left hip fracture Attending Physician: Brandon Bean MD Primary Care Provider: Pauline Pereira MD History of Present Illness History of Present Illness Gillian Kohli is a 67 year old female with multiple medical problems sustained a left intertrochanteric hip fracture after a fall. Review of Systems 2 General: Reports: ROS unobtainable due to mental status Medications/Allergies Home Medications Medication Instructions Recorded Confirmed Last Taken Type furosemide 40 mg tablet 40 mg PO DAILY 12/11/19 09/07/23 08/03/22 08:00 History propranolol 10 mg tablet 10 mg PO BID 03/01/22 09/07/23 08/03/22 09:00 History rifaximin 550 mg tablet (Xifaxan) 550 mg PO BID 04/22/22 09/07/23 08/03/22 09:00 History citalopram 10 mg tablet 10 mg PO DAILY 11/23/22 09/07/23 Unknown History omeprazole 40 mg capsule,delayed 40 mg PO DAILY 11/23/22 09/07/23 Unknown History release potassium chloride 10 mEq 10 meq PO DAILY #30 tabs 11/26/22 09/07/23 Unknown Rx tablet,extended release(part/cryst) spironolactone 100 mg tablet 100 mg PO DAILY #60 tabs 11/26/22 09/07/23 08/03/22 09:00 Rx acetaminophen 500 mg tablet 500 mg PO Q6H PRN Pain 04/18/23 09/07/23 Unknown History ondansetron HCl 4 mg tablet 4 mg PO TID PRN Nausea And Vomiting 04/18/23 09/07/23 Unknown History lactulose 10 gram/15 mL oral 45 ml PO TID #946 mL 04/20/23 09/07/23 Unknown Rx solution (Constulose) diabetic shoes with 3 inserts #1 ea 06/10/23 09/07/23 Unknown Rx sucralfate 100 mg/mL oral 5 ml PO QID 07/05/23 09/07/23 Unknown History suspension (Carafate) insulin degludec 100 unit/mL (3 44 unit SUBCUT DAILY 09/07/23 09/07/23 Unknown History mL) subcutaneous pen (Tresiba FlexTouch U-100 insulin) Allergies Allergy/AdvReac Type Severity Reaction Status Date / Time No Known Allergies Allergy Verified 07/30/23 14:09 Current Medications Generic Name Dose Route Start Last Admin Trade Name Freq PRN Reason Stop Dose Admin Docusate Sodium 100 mg 09/07/23 18:00 09/07/23 20:01 Docusate Sodium 100 Mg Capsule PO 100 mg BID KATERINE Administration Sodium Chloride 1,000 mls @ 75 mls/hr 09/07/23 16:41 09/07/23 19:52 Sodium Chloride 0.9% IV 75 mls/hr .[id number] KATERINE Administration Insulin Human Lispro 0 unit 09/07/23 18:30 09/08/23 01:47 Insulin Lispro 100 Unit/1 Ml SUBCUT Not Given Q6H [facility] Protocol Lactulose 45 gm 09/07/23 18:30 09/08/23 01:29 Lactulose Oral Liq 20 Gm/30 Ml Udc PO 45 gm Q6H KATERINE Administration Lanolin 1 applic 09/08/23 01:48 09/08/23 05:53 Lanolin Oint 7 Gm TOPICAL 1 applic PRN PRN Administration DRYNESS Morphine Sulfate 1 mg 09/07/23 20:41 09/08/23 05:53 Morphine 4 Mg/Ml Sdv 1 Ml IVP 1 mg Q4H PRN Administration SEVERE PAIN Pantoprazole Sodium 40 mg 09/07/23 16:41 09/07/23 19:52 Pantoprazole 40 Mg Sdv IVP 40 mg Q12H KATERINE Administration Propranolol HCl 10 mg 09/07/23 18:00 09/07/23 20:00 Propranolol 20 Mg Tablet PO 10 mg BID KATERINE Administration Rifaximin 550 mg 09/07/23 18:00 09/07/23 20:00 Rifaximin 550 Mg Tablet PO 550 mg BID KATERINE Administration Protocol Sucralfate 1 gm 09/07/23 21:00 09/07/23 20:27 Sucralfate 1 Gm/10 Ml Oral Liq Udc PO 1 gm QID KATERINE Administration PFSH Acute 2 PFSH: Medical History (Updated 09/07/23 @ 18:22 by Brandon Bean MD) TIA (transient ischemic attack) Acute posterior circulation transient ischemic attack Acute hepatic encephalopathy Free intraperitoneal air Gastric perforation Fall Thrombocytopenia Altered mental status Pancytopenia Type 2 diabetes mellitus Obesity (BMI 30.0-34.9) Diabetes mellitus type 2 in obese Portal vein thrombosis 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 Incisional hernia Hepatic encephalopathy Kidney stones Diabetes BLAIR (nonalcoholic steatohepatitis) Surgical History Gastric bypass status for obesity History of colonoscopy History of esophagogastroduodenoscopy (EGD) H/O: hysterectomy cervical cancer H/O gastric bypass Hx of cholecystectomy Family History Mother Hypertension Father Chronic kidney disease (CKD) Sleep apnea Other Bleeding disorder Denies family history of Anesthesia complication Social History Smoking and tobacco/nicotine status: former use of tobacco/nicotine Quit status (tobacco/nicotine): has quit using Year quit tobacco: 1986 Former quit date comment: smoked x 10+ years Alcohol intake: never Substance/Drug Use: never Vitals/I&O/Wt Last Vital Signs Temp 99.7 F H 09/08/23 04:00 Pulse 84 09/08/23 07:29 Resp 18 09/08/23 07:29 BP 186/83 09/08/23 07:29 Pulse Ox 92 09/08/23 07:29 O2 Del Method Room Air 09/08/23 07:29 09/07/23 09/08/23 09/08/23 21:59 06:59 14:59 Intake Total Output Total Balance Weight last 48 hrs Weight 190 lb 14.4 oz Weight 191 lb 14.4 oz Weight 185 lb Physical Exam 2 Narrative: Left leg externally rotated and shortened Urinary Catheter Management: Borges: Cath Placed During This Visit: yes Reason for Continuing Indwelling Catheter: Required Immobilization for Trauma or Surgery or Anesthesia Urinary Catheter Date of Insertion: 09/07/23 Data 09/08/23 05:20 09/08/23 05:20 Micro: Microbiology 09/07/23 13:52 Blood Culture - Preliminary Blood SPECIMEN COLLECTED 09/07/23 13:48 Blood Culture - Preliminary Blood SPECIMEN COLLECTED A&P Assessment and plan (1) Femur fracture, left: Left hip nail this morning Qualifiers: Encounter type: initial encounter Femur location: intertrochanteric F racture alignment: displaced Fracture type: closed Qualified Code(s): S72.142A - Displaced intertrochanteric fracture of left femur, initial encounter for closed fracture Coding Level of Care Code Acute Code for g Fwd Diagnoses Femur fracture, left S72.142A Encounter type: initial encounter Femur location: intertrochanteric Fracture alignment: displaced Fracture type: closed
--- NOTE | 2023-09-08 07:41 | ANES.PREANE2 ---
Pre-Anesthetic Assessment Height/Weight: Height 1.65 m Weight 86.591 kg Temp Pulse Resp BP Pulse Ox O2 Del Method 99.7 F H 84 18 186/83 92 Room Air 09/08/23 04:00 09/08/23 07:29 09/08/23 07:29 09/08/23 07:29 09/08/23 07:29 09/08/23 07:29 Operation Date: 09/08/23 08:30 Proposed Procedures p Left hip Athrex nail(Left) - Rene H Mercedez, Familial anesthetic complications: None Was Beta Carlos taken within 24 hours: N/A Was Clonidine taken within 24 hours: N/A Social No alcohol and No tobacco Exam clear to auscultation bilaterally and regular rate & rhythm Airway Submandibular: Other (Unable to assess due to patients condition) Cervical ROM: Other (Unable to assess due to patients condition) Dentition: full History/ROS No significant history except as noted and No significant complaints Pulmonary None reported CV/HEM Hypertension and Murmur None reported Hepatic Cirrhosis (BLAIR) GI Gastric bypass Metabolic Diabetes Mellitus and Morbid Obesity [facility] [place] Weakness Neuropsych Cerebrovascular Accident Anesthetic Plan ASA status: 3 Anesthesia: Anesthesia Evaluation and General Risk of > 500 ml blood loss (7ml/kg in children): No Medications/Allergies Home Medications Medication Instructions Recorded Confirmed Last Taken Type furosemide 40 mg tablet 40 mg PO DAILY 12/11/19 09/07/23 08/03/22 08:00 History propranolol 10 mg tablet 10 mg PO BID 03/01/22 09/07/23 08/03/22 09:00 History rifaximin 550 mg tablet (Xifaxan) 550 mg PO BID 04/22/22 09/07/23 08/03/22 09:00 History citalopram 10 mg tablet 10 mg PO DAILY 11/23/22 09/07/23 Unknown History omeprazole 40 mg capsule,delayed 40 mg PO DAILY 11/23/22 09/07/23 Unknown History release potassium chloride 10 mEq 10 meq PO DAILY #30 tabs 11/26/22 09/07/23 Unknown Rx tablet,extended release(part/cryst) spironolactone 100 mg tablet 100 mg PO DAILY #60 tabs 11/26/22 09/07/23 08/03/22 09:00 Rx acetaminophen 500 mg tablet 500 mg PO Q6H PRN Pain 04/18/23 09/07/23 Unknown History ondansetron HCl 4 mg tablet 4 mg PO TID PRN Nausea And Vomiting 04/18/23 09/07/23 Unknown History lactulose 10 gram/15 mL oral 45 ml PO TID #946 mL 04/20/23 09/07/23 Unknown Rx solution (Constulose) diabetic shoes with 3 inserts #1 ea 06/10/23 09/07/23 Unknown Rx sucralfate 100 mg/mL oral 5 ml PO QID 07/05/23 09/07/23 Unknown History suspension (Carafate) insulin degludec 100 unit/mL (3 44 unit SUBCUT DAILY 09/07/23 09/07/23 Unknown History mL) subcutaneous pen (Tresiba FlexTouch U-100 insulin) Allergies Allergy/AdvReac Type Severity Reaction Status Date / Time No Known Allergies Allergy Verified 07/30/23 14:09 Current Medications Generic Name Dose Route Start Last Admin Trade Name Freq PRN Reason Stop Dose Admin Docusate Sodium 100 mg 09/07/23 18:00 09/07/23 20:01 Docusate Sodium 100 Mg Capsule PO 100 mg BID KATERINE Administration Sodium Chloride 1,000 mls @ 75 mls/hr 09/07/23 16:41 09/07/23 19:52 Sodium Chloride 0.9% IV 75 mls/hr .[id number] KATERINE Administration Insulin Human Lispro 0 unit 09/07/23 18:30 09/08/23 01:47 Insulin Lispro 100 Unit/1 Ml SUBCUT Not Given Q6H KATERINE Protocol Lactulose 45 gm 09/07/23 18:30 09/08/23 01:29 Lactulose Oral Liq 20 Gm/30 Ml Udc PO 45 gm Q6H KATERINE Administration Lanolin 1 applic 09/08/23 01:48 09/08/23 05:53 Lanolin Oint 7 Gm TOPICAL 1 applic PRN PRN Administration DRYNESS Morphine Sulfate 1 mg 09/07/23 20:41 09/08/23 05:53 Morphine 4 Mg/Ml Sdv 1 Ml IVP 1 mg Q4H PRN Administration SEVERE PAIN Pantoprazole Sodium 40 mg 09/07/23 16:41 09/07/23 19:52 Pantoprazole 40 Mg Sdv IVP 40 mg Q12H KATERINE Administration Propranolol HCl 10 mg 09/07/23 18:00 09/07/23 20:00 Propranolol 20 Mg Tablet PO 10 mg BID KATERINE Administration Rifaximin 550 mg 09/07/23 18:00 09/07/23 20:00 Rifaximin 550 Mg Tablet PO 550 mg BID KATERINE Administration Protocol Sucralfate 1 gm 09/07/23 21:00 09/07/23 20:27 Sucralfate 1 Gm/10 Ml Oral Liq Udc PO 1 gm QID KATERINE Administration [facility] Anesthesia Medical History (Updated 09/07/23 @ 18:22 by Brandon Bean MD) TIA (transient ischemic attack) Acute posterior circulation transient ischemic attack Acute hepatic encephalopathy Free intraperitoneal air Gastric perforation Fall Thrombocytopenia Altered mental status Pancytopenia Type 2 diabetes mellitus Obesity (BMI 30.0-34.9) Diabetes mellitus type 2 in obese Portal vein thrombosis 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 Incisional hernia Hepatic encephalopathy Kidney stones Diabetes BLAIR (nonalcoholic steatohepatitis) Surgical History Gastric bypass status for obesity History of colonoscopy History of esophagogastroduodenoscopy (EGD) H/O: hysterectomy cervical cancer H/O gastric bypass Hx of cholecystectomy Family History Mother Hypertension Father Chronic kidney disease (CKD) Sleep apnea Other Bleeding disorder Denies family history of Anesthesia complication Social History Smoking and tobacco/nicotine status: former use of tobacco/nicotine Quit status (tobacco/nicotine): has quit using Year quit tobacco: 1986 Former quit date comment: smoked x 10+ years Alcohol intake: never Substance/Drug Use: never Data Anesthesia 09/08/23 05:20 09/08/23 05:20 Short CBC 09/07/23 09/08/23 Range/Units 11:12 05:20 WBC 5.13 10.00 (3.29-11.43) 10^3/uL Hgb 13.70 11.50 (11.27-16.99) g/dL Hct 41.7 35.8 L (36-47) % MCV 94.3 95.5 (85-98) fl Plt Count 86 L 113 L D (157-399) 10^3/cmm Neut % (Auto) 66.6 75.5 % Neut # (Auto) 3.42 7.55 (1.8-7.7) 10^3/uL BMP 09/07/23 09/08/23 11:12 05:20 Sodium 139 144 Potassium 3.6 4.6 Chloride 105 117 H Carbon Dioxide 21 L 20 L BUN 17 19 Creatinine 0.7 0.7 Glucose 159 H 202 H Calcium 8.7 8.4 L Liver Function 09/07/23 09/08/23 Range/Units 11:12 05:20 Total Bilirubin 1.5 H 1.6 H (0.15-1.2) mg/dL AST 46 H 52 H (0-32) U/L ALT 35 H 38 H (0-33) U/L Alkaline Phosphatase 158 H 120 H (35-105) U/L Albumin 3.4 L 2.9 L (3.5-5.2) g/dL Urine 09/07/23 Range/Units 14:15 Urine Color Yellow (Yellow) Urine Appearance Clear (CLEAR) Urine pH 6 (5-7) Ur Specific [place] 1.015 (1.005-1.030) Urine Protein Trace (Negative) Urine Glucose (UA) 1+ H (Normal) Urine Ketones 1+ H (Negative) Urine Nitrate Negative (Negative) Urine Bilirubin Neg (Negative) Ur Leukocyte Esterase Negative (Negative) Urine RBC None (0-2) /hpf Urine WBC Rare (0-5) /hpf Coags 09/07/23 11:12 PT 15.30 H INR 1.17 APTT 30.4 Microbiology 09/07/23 13:52 Blood Culture - Preliminary Blood SPECIMEN COLLECTED 09/07/23 13:48 Blood Culture - Preliminary Blood SPECIMEN COLLECTED Cardiac Studies: No Data to Display
[2023-09-08] MEDS: ceFAZolin 2,000 MG in sodium chloride 0.9% (plus) 50 ML 100 MG IV ×2 (07:59→18:32)
--- NOTE | 2023-09-08 09:21 | XR_ITS ---
WS: [id number] INTRAOPERATIVE TECHNIQUE: 5 Spot fluoroscopic images for intraoperative purposes. FLUOROSCOPY TIME: 104.3 seconds CLINICAL INFORMATION: LEFT HIP TFN; OR PICS FINDINGS: Intraoperative changes intramedullary yasmine and screw fixation LEFT hip. Hardware appears in good posit ion. Femoral yasmine extends to the mid-distal shaft. IMPRESSION: Images obtained for intraoperative purposes.
--- NOTE | 2023-09-08 09:28 | PM.OP ---
Operative Report Date of procedure: September 08, 2023 Pre-op diagnosis: Left intertrochanteric hip fracture Post-op diagnosis: same Procedure done: Left intramedullary hip nail Surgeon: Rene Newsome DO Estimated blood loss (mL): 50 Procedure: Left intramedullary hip nail Patient brought the op suite after undergoing his use placed supine on the [place] table. All pressure well-padded. C-arm was used to help x-ray while the fracture was reduced with traction and internal rotation. Once this was completed the patient was prepped and draped no sterile fashion. Skin incision was made proximal to greater trochanter. The opening reamer was then inserted after the guidewire was passed. The intramedullary nail from [employer] was inserted. This was a 30 cm nail. The guidewire was then passed up into the center center position of the femoral head. And then the lag screw was placed and compressed 5 mm. Then the distal locking screw was placed this is a 40 mm screw. AP lateral fluoroscopy of the fracture and hardware showed that the implant was in good position. Wounds were irrigated and closed in layered fashion with Vicryl and marilin. Sterile dressings applied patient transferred to PACU in stable addition.
[2023-09-08 11:57] LABS: Glucose Point of Care 188 mg/dL (70-110)
--- NOTE | 2023-09-08 12:57 | PC.OT ---
patient was attempted to be seen for evaluation. she is under the effect of anesthesia and nursig staff was doing a procedure. OT EVAL TO BE HELD TODAY.
[2023-09-08] MEDS: naloxone 0.4 mg/ml SDV 0.100000000000000006 MG IVP (12:58)
--- NOTE | 2023-09-08 13:10 | XRR_ITS ---
PROCEDURE INFORMATION: Exam: XR Chest Exam date and time: 09/08/2023 12:18 PM Age: 67 years old Clinical indication: Shortness of breath; Patient HX: Post op respiratory distress; Ng tube confirmation TECHNIQUE: Imaging protocol: Radiologic exam of the chest. Views: 1 view. COMPARISON: CR XR chest 1V portable [id number] 09/07/2023 1:28 PM FINDINGS: Tubes, catheters and devices: NG tube extends into the stomach. Lungs: Unremarkable. No consolidation. Pleural spaces: Unremarkable. No pleural effusion. No pneumothorax. Heart/Mediastinum: Unremarkable. No cardiomegaly. Bones/joints: Unremarkable. XR/XR chest 1V portable [id number] IMPRESSION: 1. No acute findings. 2. NG tube extends into the stomach.
--- NOTE | 2023-09-08 13:23 | PC.NURSE ---
Placed NG tube per Dr. Bean. Xray ordered to confirm placement. Pt non responsive while NG tube being placed. RN also notes respirations to be 10-12 and shallow. This RN notifies NANDO Angulo. This RN gives narcan. Slight improvement noted with responsiveness; however, she still does not open eyes. Pt noted to move, cough, and groan. Heavy perspiration noted. Pt tele reapplied. NSR with a HR of 82. BS checked - BS 193. Dr. Bean notified of events.
[2023-09-08 13:27] LABS: Glucose Point of Care 193 mg/dL (70-110)
[2023-09-08 13:42] LABS: ABG PCO2 32.8 mmHg (35-45); ABG PH Result 7.39 (7.35-7.45); Alveolar-Arterial Oxygen Gradi 5.8 mmHg (5-10); Arterial Blood Gas Hematocrit 35.4 % (37-47); Base Excess ABG -4.6 mmol/L (-2.0-2.0); Blood Gas Allen Test Pos; Blood Gas Operator Identificat BROMA; Blood Gas Sample Site Radial, right; Blood Gas Sample Type Arterial; Carboxyhemoglobin 1.2 %THgb (0.4-20.1); HCO3 ABG 19.7 mmol/L (22-26); HGB O2 Sat 92.4 % (95-100); Ionized Calcium Level - ABG 1.3 mmol/L (1.1-1.4); Methemoglobin < 0.0 % (0.4-1.5); Oxygen Device ROOM AIR; PO2 ABG 64.9 mmHg (80.0-100.0); Potassium Level - ABG 5.1 mmol/L (3.5-5.0); Total Hemoglobin 11.5 g/dL (12-16)
--- NOTE | 2023-09-08 14:11 | PC.NURSE ---
1300 meds pending x-ray of NG placement
[2023-09-08] MEDS: sucralfate 1 gm/10 mL Oral Liq UDC PO ×3 (14:40→20:00)
--- NOTE | 2023-09-08 14:40 | P.PN_ITS ---
Subjective 2 Subjective: Noted vents overnight. Patient underwent ORIF today. Post-ORIF patient had difficulty in waking up for which she was given 2 doses of Narcan as per the anesthesiologist to which she was able to maintain her airway on room air. Today morning seen with multiple family members at bedside. Patient is somnolent but saturating well on room air. Hemodynamically stable. Overnight patient had removed NG tube. Seems she was able to take her oral lactulose and rifaximin. Vitals/I&O/Wt Last Vital Signs Temp 98.2 F 09/08/23 13:00 Pulse 85 09/08/23 13:00 Resp 10 L 09/08/23 13:00 BP 147/78 09/08/23 13:00 Pulse Ox 97 09/08/23 13:00 O2 Del Method Room Air 09/08/23 13:00 O2 Flow Rate 6 09/08/23 09:43 09/07/23 09/08/23 09/08/23 21:59 06:59 14:59 Intake Total 50 / 50 Output Total 100 / 100 Balance -50 / -50 Weight last 48 hrs Weight 86.591 kg Weight 87.044 kg Weight 83.915 kg Physical Exam 2 Narrative: General: No acute distress, somnolent, E2 M2V1, maintaining airway HEENT: PERRLA, pupils bilaterally equal and reactive Chest: Normal vesicular breath sounds, no added sounds, equal good air entry bilaterally CVS: S1-S2 regular, no murmurs, no tachycardia, no gallops, no rubs Abdomen: Soft, distended, nontender, no organomegaly, bowel sounds present but sluggish Neuro: No focal deficits, no facial deformity, Urinary Catheter Management: Borges: Cath Placed During This Visit: yes Reason for Continuing Indwelling Catheter: Required Immobilization for Trauma or Surgery or Anesthesia Urinary Catheter Date of Insertion: 09/07/23 Data 09/08/23 05:20 09/08/23 05:20 Micro: Microbiology 09/07/23 13:52 Blood Culture - Preliminary Blood NEGATIVE TO DATE 09/07/23 13:48 Blood Culture - Preliminary Blood NEGATIVE TO DATE A&P Assessment and plan (1) Femur fracture, left: Post-ORIF on 09/07. Monitor hemoglobin. PT, anticoagulation, perioperative antibiotics as per orthopedic team. Hold off on pain medications for now patient remains somnolent. Otherwise morphine 2 mg every 4 hours as needed for pain. Qualifiers: Encounter type: initial encounter Femur location: intertrochanteric F racture alignment: displaced Fracture type: closed Qualified Code(s): S72.142A - Displaced intertrochanteric fracture of left femur, initial encounter for closed fracture (2) Fall: Sounds mechanical. Could be in setting of acute hepatic encephalopathy. Management of hepatic encephalopathy as below. Physical therapy after ORIF. (3) Acute hepatic encephalopathy: Encephalopathy most likely hepatic in nature. Also being contributed by pain medications. Check ABG. CT head done yesterday along with CT cervical spine without any acute abnormality. (4) Hyperammonemia: Recurrent. Patient takes home dose of lactulose and rifaximin. Repeat ammonia levels. As patient is somnolent again will place NG tube again. Continue lactulose 45 mL every 6 hours for now. Continue with home dose of rifaximin Repeat ammonia level in AM. (5) Cirrhosis of liver: Continue with home dose of propranolol, rifaximin. Increase dose of lactulose as above. (6) Thrombocytopenia: Chronic. Most likely in setting of liver disease. Plan History of upper GI bleed, anemia: Continue with Protonix twice daily along with Carafate ACHS History of gastric perforation History of type 2 diabetes mellitus: Insulin sliding scale at low-dose protocol every 6 hours. Hold off on long-acting insulin as patient will be NPO. Patient takes 44 units of Tresiba at home. Continue with other home medications. Full code N.p.o. Heparin 5000 every 12 for DVT prophylaxis Protonix will be sufficient for PUD prophylaxis as well Attestations 2 Medical Necessity Statement*: Requires further hospitalization for post-ORIF care in a patient who presented to the hospital post mechanical fall found to have hepatic encephalopathy in setting of liver cirrhosis Diagnoses Femur fracture, left S72.142A Encounter type: initial encounter Femur location: intertrochanteric Fracture alignment: displaced Fracture type: closed Fall W19.XXXA Acute hepatic encephalopathy K76.82 Hyperammonemia E72.20 Cirrhosis of liver K74.60 Thrombocytopenia D69.6
[2023-09-08 15:27] LABS: Ammonia 103 umol/L (11-51)
[2023-09-08 17:02] LABS: Glucose Point of Care 245 mg/dL (70-110)
[2023-09-08] MEDS: pantoprazole 40 mg SDV IVP (18:29)
[2023-09-08] MEDS: propranolol 20 mg Tablet 10 MG PO (18:31)
[2023-09-08] MEDS: heparin 5,000 unit/mL INJ 1 mL 5000 UNIT SUBCUT (20:01)
[2023-09-08 20:08] LABS: Glucose Point of Care 273 mg/dL (70-110)
[2023-09-08] MEDS: insulin lispro 100 unit/1 mL SUBCUT (20:09)
[2023-09-08 22:09] LABS: Glucose Point of Care 286 mg/dL (70-110)
[2023-09-09] VITALS (9 sets, daily range): BP systolic 147–166; BP diastolic 71–80; PULSE 70–86; RESP 16–19; TEMP 36.8–37.9; O2SAT 93–98
[2023-09-09] MEDS: ceFAZolin 2,000 MG in sodium chloride 0.9% (plus) 50 ML 100 MG IV ×2 (00:11→08:54)
[2023-09-09 01:09] LABS: Glucose Point of Care 238 mg/dL (70-110)
[2023-09-09] MEDS: insulin lispro 100 unit/1 mL SUBCUT ×4 (01:12→21:07)
[2023-09-09] MEDS: lactulose oral liq 20 gm/30 mL UDC 45 GM PO ×4 (01:13→19:54)
[2023-09-09] MEDS: sodium chloride 0.9% 1,000 ML 75 ML IV ×2 (03:09→18:02)
[2023-09-09 04:44] LABS: Glucose Point of Care 278 mg/dL (70-110)
[2023-09-09 05:25] LABS: Basophils % 0.2 %; Hematocrit 32.6 % (36-47); Lymphocytes # 1.5 10^3/uL (0.8-4.8); Lymphocytes % 12.3 %; Mean Corpuscular HGB Conc 31.9 g/dL (30-55); Mean Corpuscular Hemoglobin 31.5 pg (27-33); Mean Corpuscular Volume 98.8 fl (85-98); Monocytes # 1.5 10^3/uL (0.2-0.9); Neutrophils % 74.9 %; Nucleated Red Blood Cells % 0 %; Platelet Count 95 10^3/cmm (157-399); Red Cell Distribution Width 19.7 % (12.1-15.1); White Blood Count 12.14 10^3/uL (3.29-11.43)
[2023-09-09 05:40] LABS: Ammonia 82 umol/L (11-51)
[2023-09-09] MEDS: pantoprazole 40 mg SDV IVP ×2 (05:40→17:59)
[2023-09-09 05:43] LABS: Alanine Aminotransferase 39 U/L (0-33); Albumin Level 2.7 g/dL (3.5-5.2); Alkaline Phosphatase 109 U/L (35-105); Anion Gap 12.8 (5-19); Aspartate Amino Transferase 49 U/L (0-32); Blood Urea Nitrogen 29 mg/dL (8-23); Calcium 8.6 mg/dL (8.5-10.5); Carbon Dioxide 18 mmol/L (22-29); Chloride 118 mmol/L (98-107); Creatinine Clr Calc Pharmacy 69.3631; Globulin 2.7 g/dL (1.3-4.6); Glomerular Filtration Rate 62.8 mL/min (90-130); Glucose 260 mg/dL (65-115); Osmolality Calculated 313 mOsm/kg (285-295); Potassium 4.8 mmol/L (3.5-5.1); Sodium 144 mmol/L (136-145); Total Bilirubin 1.1 mg/dL (0.15-1.2); Total Protein 5.4 g/dL (6.6-8.7)
[2023-09-09] MEDS: heparin 5,000 unit/mL INJ 1 mL 5000 UNIT SUBCUT ×2 (08:52→19:55)
[2023-09-09] MEDS: docusate sodium 100 mg Capsule PO ×2 (08:52→17:59)
[2023-09-09] MEDS: sucralfate 1 gm/10 mL Oral Liq UDC PO ×3 (08:53→20:06)
[2023-09-09] MEDS: propranolol 20 mg Tablet 10 MG PO ×2 (08:53→18:00)
[2023-09-09] MEDS: citalopram 20 mg Tablet 10 MG PO (08:53)
[2023-09-09] MEDS: acetaminophen 325 mg Tablet 650 MG PO ×2 (08:54→15:50)
--- NOTE | 2023-09-09 09:54 | P.PN_ITS ---
Subjective 2 Subjective: Patient sitting up in bed with NG tube in place in the TV. Does not respond to questioning. Eyes are open. Vitals/I&O/Wt Last Vital Signs Temp 98.3 F 09/09/23 07:22 Pulse 84 09/09/23 07:22 Resp 16 09/09/23 07:22 BP 156/80 09/09/23 07:22 Pulse Ox 94 09/09/23 07:22 O2 Del Method Simple Mask 09/09/23 07:22 O2 Flow Rate 2 09/08/23 23:44 09/08/23 09/09/23 09/09/23 22:59 06:59 14:59 Intake Total 50 / 1100 50 / 1150 Output Total 250 / 350 650 / 1000 Balance -200 / 750 -600 / 150 Weight last 48 hrs Weight 200 lb 1.6 oz Weight 200 lb 1.6 oz Weight 190 lb 14.4 oz Weight 191 lb 14.4 oz Weight 185 lb Physical Exam 2 Narrative: Dressing clean dry and intact Urinary Catheter Management: Borges: Cath Placed During This Visit: yes Reason for Continuing Indwelling Catheter: Perioperative Use in Selected Surgeries Urinary Catheter Date of Insertion: 09/07/23 Data 09/09/23 05:08 09/09/23 05:08 Micro: Microbiology 09/07/23 13:52 Blood Culture - Preliminary Blood NEGATIVE TO DATE 09/07/23 13:48 Blood Culture - Preliminary Blood NEGATIVE TO DATE A&P Assessment and plan (1) Femur fracture, left: Postop day #1 left hip nail Up with physical therapy Weight-bear as tolerated Qualifiers: Encounter type: initial encounter Femur location: intertrochanteric F racture alignment: displaced Fracture type: closed Qualified Code(s): S72.142A - Displaced intertrochanteric fracture of left femur, initial encounter for closed fracture Attestations 2 Medical Necessity Statement*: Per primary service Coding Level of Care Code Acute Code for [facility] Fwd Diagnoses Femur fracture, left S72.142A Encounter type: initial encounter Femur location: intertrochanteric Fracture alignment: displaced Fracture type: closed
--- NOTE | 2023-09-09 09:57 | PC.CHAP ---
Pastoral Care Encounter/Spiritual Assessment Type of Contact [] Declined ultrasonic welding machine operator visit [] Patient/Family/Request visit [] Outpatient visit [] Follow-up visit [] Physician referral [] Code/Alert [x] Routine visit [] Staff referral [] Actively dying [] Patient sleeping [] Family support [] [] Out of room [] Palliative care [] [] Receiving care in room [] Pre-surgical visit [] Trauma [] Long length of stay [] ICU visit [x] Other: Relational/Emotional Strength [] Patient feels connected with others/family/visitors/staff [] Distress [] Loneliness/isolation [] Abandonment Spirituality of Patient [] Person of Chiquis [] Attends Faith of their Chiquis [] Believes in Prayer [] Reads Bible or Mormonism materials [] There are Spiritual issues to be addressed Windows Technical Specialist Interventions [x] Prayer [] Active listening [] Non-anxious presence [] Spiritual/emotional support [] Crisis/trauma care [] Spiritual counseling [] Bereavement support [] Provided bereavement packet [] Provided Bible/devotional materials [] Provided toy/stuffed animal, coloring book to patient or family member [] Provided Communion [] Anointing/[place] [] Salvation [] Completed spiritual assessment [] Other: Impact on Illness or Injury [] Angry [] Fearful [] Anxious [] Often cries [] Exhaustion [] Unable to work [] Unable to attend methodist [] Unable to walk/stand [] Unable to read [] Unable to drive [] Unable to eat/drink [] Unable to sleep [] Unable to be with family [] Patient intubated [] Other: Summary unresponsive Time spent with patient 5 min
--- NOTE | 2023-09-09 11:17 | PC.OT ---
OT EVALUATION ATTEMPTED. PATIENT UNABLE TO MAINTAIN ALERTNESS AND GIVE NAME AND TO PARTICIPATE IN EVALUATION. WILL ATTEMPT AGAIN AT A LATER TIME.
[2023-09-09 12:27] LABS: Folate Level 16.1 ng/mL (4.8-37.3)
[2023-09-09 14:39] LABS: Glucose Point of Care 227 mg/dL (70-110)
[2023-09-09 20:22] LABS: Glucose Point of Care 238 mg/dL (70-110)
--- NOTE | 2023-09-09 21:14 | P.PN_ITS ---
Subjective 2 Subjective: Opens her eyes to voice, turns her head, use eye contact, slow to respond, appears to answer questions by nodding, but only 1 or 2 questions, falls back asleep. Vitals/I&O/Wt Last Vital Signs Temp 98.6 F 09/09/23 19:56 Pulse 72 09/09/23 19:56 Resp 16 09/09/23 19:56 BP 148/75 09/09/23 19:56 Pulse Ox 93 09/09/23 19:56 O2 Del Method Room Air 09/09/23 16:00 O2 Flow Rate 2 09/08/23 23:44 09/09/23 09/09/23 09/09/23 06:59 14:59 22:59 Intake Total 50 / 1150 50 / 50 1000 / 1050 Output Total 650 / 1000 200 / 200 Balance -600 / 150 -150 / -150 1000 / 850 Weight last 48 hrs Weight 90.764 kg Weight 90.764 kg Weight 86.591 kg Physical Exam 2 Const: COMMON NORMALS: negative for patient oriented x3 and negative for alert GENERAL APPEARANCE: cooperative ORIENTATION/CONSCIOUSNESS: Yes awake (Wakes up to voice) HENMT: COMMON NORMALS: oropharynx normal Neck/C-Spine: COMMON NORMALS: no JVD Resp: COMMON NORMALS: normal respiratory effort and clear to auscultation bilaterally AUSCULTATION: clear to auscultation bilaterally Cardio: COMMON NORMALS: no JVD, regular rhythm, S1 normal heart sound present, S2 normal heart sound present and No murmurs present (Cardio) RHYTHM: regular rhythm HEART SOUNDS: S1 normal heart sound present and S2 normal heart sound present GI: COMMON NORMALS: Normal to inspection, nondistended, normoactive bowel sounds present, Soft to palpation and non-tender PALPATION: Yes Soft to palpation Extremity: COMMON NORMALS: no joint enlargement and no pedal edema Neuro: COMMON NORMALS: moves all extremities; negative for patient oriented x3 SENSORIUM/ORIENTATION: No alert Skin: COMMON NORMALS: no rashes or lesions noted GENERAL SKIN EXAM: no rashes or lesions noted Urinary Catheter Management: Borges: Cath Placed During This Visit: yes Reason for Continuing Indwelling Catheter: Other Urinary Catheter Date of Insertion: 09/07/23 Data 09/09/23 05:08 09/09/23 05:08 A&P Assessment and plan (1) Acute hepatic encephalopathy: Persistent encephalopathy although with some mild improvement per history obtained from nursing staff. Reviewed vitals, CBC, CMP, ammonia, magnesium. Ammonia still elevated at 82. Did have a couple bowel movements overnight. Continue lactulose. Encephalopathy most likely hepatic in nature. Also being contributed by pain medications. Discussed with pillowcase turner. She is noted to have leukocytosis today, possibly reactive. He did have a low- grade temp however 100.3. At some risk of aspiration with encephalopathy. Repeat chest x-ray, will request UA. Reviewed ABG. Without hypercapnia. CT head along with CT cervical spine without any acute abnormality. (2) Femur fracture, left: Post-ORIF on 09/07. Monitor hemoglobin. PT, anticoagulation, perioperative antibiotics as per orthopedic team. Hold off on pain medications for now patient remains somnolent. Otherwise morphine 2 mg every 4 hours as needed for pain. Qualifiers: Encounter type: initial encounter Femur location: intertrochanteric F racture alignment: displaced Fracture type: closed Qualified Code(s): S72.142A - Displaced intertrochanteric fracture of left femur, initial encounter for closed fracture (3) Fall: Sounds mechanical. Could be in setting of acute hepatic encephalopathy. Management of hepatic encephalopathy as below. Physical therapy after ORIF. (4) Hyperammonemia: Recurrent. Continue lactulose and rifaximin. Target 2-3 bowel movements per day. Repeat ammonia levels. As patient is somnolent again will place NG tube again. Continue lactulose 45 mL every 6 hours for now. Continue with home dose of rifaximin Repeat ammonia level in AM. (5) Cirrhosis of liver: Continue with home dose of propranolol, rifaximin. Increase dose of lactulose as above. (6) Thrombocytopenia: Chronic. Most likely in setting of liver disease. Plan History of upper GI bleed, anemia: Continue with Protonix twice daily along with Carafate ACHS History of gastric perforation History of type 2 diabetes mellitus: Insulin sliding scale at low-dose protocol every 6 hours. Hold off on long-acting insulin as patient will be NPO. Patient takes 44 units of Tresiba at home. Continue with other home medications. Full code N.p.o. Heparin 5000 every 12 for DVT prophylaxis Protonix will be sufficient for PUD prophylaxis as well Attestations 2 Medical Necessity Statement*: Continue admission for assessment and management of acute encephalopathy, additional assessment of perioperative fever. Diagnoses Acute hepatic encephalopathy K76.82 Femur fracture, left S72.142A Encounter type: initial encounter Femur location: intertrochanteric Fracture alignment: displaced Fracture type: closed Fall W19.XXXA Hyperammonemia E72.20 Cirrhosis of liver K74.60 Thrombocytopenia D69.6
--- NOTE | 2023-09-09 21:18 | XRR_ITS ---
PROCEDURE INFORMATION: Exam: XR Chest Exam date and time: 09/09/2023 9:37 PM Age: 67 years old Clinical indication: Other: HX of respiratory distress; Additional info: Fever TECHNIQUE: Imaging protocol: Radiologic exam of the chest. Views: 1 view. COMPARISON: CR (CHEST, ) 09/08/2023 12:18 PM FINDINGS: Tubes, catheters and devices: Enteric tube tip extending inferiorly off the field of view. Lungs: See Heart/Mediastinum finding. Pleural spaces: Unremarkable. No pleural effusion. No pneumothorax. Heart/Mediastinum: Cardiomegaly and mild pulmonary vascular congestion. Bones/joints: Unremarkable. XR/XR chest 1V portable [id number] IMPRESSION: 1. Cardiomegaly and mild pulmonary vascular congestion. 2. Enteric tube tip extending inferiorly off the field of view.
[2023-09-10] VITALS (10 sets, daily range): BP systolic 124–179; BP diastolic 67–86; PULSE 55–90; RESP 15–22; TEMP 36.4–37; O2SAT 90–98
[2023-09-10 02:05] LABS: Glucose Point of Care 180 mg/dL (70-110)
[2023-09-10] MEDS: insulin lispro 100 unit/1 mL SUBCUT ×4 (02:30→21:56)
--- NOTE | 2023-09-10 02:32 | XRR_ITS ---
PROCEDURE INFORMATION: Exam: XR Chest Exam date and time: 09/10/2023 1:41 AM Age: 67 years old Clinical indication: Device placement; Ng tube; Additional info: Ng tube placement TECHNIQUE: Imaging protocol: Radiologic exam of the chest. Views: 1 view. COMPARISON: CR (CHEST, ) 09/09/2023 9:37 PM FINDINGS: Tubes, catheters and devices: Enteric tube traverses inferiorly midline, catheter tip within the left upper quadrant, side port at the gastroesophageal junction. Lungs: Unchanged nodular density of the right lower lobe. Unchanged vascular congestion. Pleural spaces: Unchanged. Heart/Mediastinum: Unchanged. Bones/joints: Unchanged. XR/XR chest 1V portable [id number] IMPRESSION: 1. Unchanged cardiopulmonary findings. 2. Medical devices as above, recommend advancement of the enteric tube.
--- NOTE | 2023-09-10 02:32 | PC.NURSE ---
Upon rounding in patient room, nurse noted NG tube was withdrawn several inches, NG tube advanced, upon aspiration of tube no gastric content was visualized, chest x-ray ordered for verification of placement.
[2023-09-10 04:45] LABS: Basophils % 0.1 %; Hematocrit 29.4 % (36-47); Lymphocytes # 1.4 10^3/uL (0.8-4.8); Lymphocytes % 13.6 %; Mean Platelet Volume 11.8 fL (7.4-10.4); Monocytes # 1.1 10^3/uL (0.2-0.9); Monocytes % 11.1 %; Neutrophils # 7.48 10^3/uL (1.8-7.7); Neutrophils % 74.8 %; Nucleated Red Blood Cells % 0 %; Platelet Count 74 10^3/cmm (157-399); Red Blood Count 2.94 10^6/uL (3.85-5.65); Red Cell Distribution Width 19.2 % (12.1-15.1)
[2023-09-10 05:05] LABS: Ammonia 55 umol/L (11-51)
[2023-09-10 05:11] LABS: Alanine Aminotransferase 37 U/L (0-33); Albumin Level 2.6 g/dL (3.5-5.2); Alkaline Phosphatase 115 U/L (35-105); Anion Gap 10.3 (5-19); Aspartate Amino Transferase 56 U/L (0-32); Blood Urea Nitrogen 27 mg/dL (8-23); Calcium 8.4 mg/dL (8.5-10.5); Carbon Dioxide 20 mmol/L (22-29); Chloride 118 mmol/L (98-107); Creatinine Clr Calc Pharmacy 77.8928; Globulin 2.7 g/dL (1.3-4.6); Glucose 164 mg/dL (65-115); Osmolality Calculated 307 mOsm/kg (285-295); Potassium 4.3 mmol/L (3.5-5.1); Sodium 144 mmol/L (136-145); Total Bilirubin 1.5 mg/dL (0.15-1.2); Total Protein 5.3 g/dL (6.6-8.7)
[2023-09-10 05:17] LABS: Magnesium 2.1 mg/dL (1.7-2.3)
[2023-09-10] MEDS: sodium chloride 0.9% 1,000 ML 75 ML IV (05:28)
[2023-09-10] MEDS: pantoprazole 40 mg SDV IVP (05:34)
[2023-09-10 06:00] LABS: Add Urine Microscopic? NO; Charge for UA Resulting for Rev
[2023-09-10 06:09] LABS: Bilirubin Urine Neg (Negative); Blood Urine Neg (Negative); Glucose Urine UA Norm (Normal); Ketones Urine Negative (Negative); Leukocyte Esterase Urine Negative (Negative); Nitrate Urine Negative (Negative); Protein Urine Neg (Negative); Urine Appearance Clear (CLEAR); Urine Color Yellow (Yellow); Urobilinogen Urine Neg (Negative); pH Urine 6 (5-7)
--- NOTE | 2023-09-10 07:50 | P.PN_ITS ---
Subjective 2 Subjective: Patient more alert this morning. No complaints of pain Vitals/I&O/Wt Last Vital Signs Temp 98.2 F 09/10/23 04:00 Pulse 72 09/10/23 06:00 Resp 15 09/10/23 04:00 BP 151/69 09/10/23 04:00 Pulse Ox 94 09/10/23 04:00 O2 Del Method Room Air 09/09/23 16:00 O2 Flow Rate 2 09/08/23 23:44 09/09/23 09/10/23 09/10/23 22:59 06:59 14:59 Intake Total 1000 / 1050 857.5 / 1907.5 Output Total 550 / 750 Balance 1000 / 850 307.5 / 1157.5 Weight last 48 hrs Weight 199 lb 6.4 oz Weight 200 lb 1.6 oz Weight 200 lb 1.6 oz Physical Exam 2 Narrative: Dressing clean dry intact Urinary Catheter Management: Borges: Cath Placed During This Visit: yes Reason for Continuing Indwelling Catheter: Other Urinary Catheter Date of Insertion: 09/07/23 Data 09/10/23 04:37 09/10/23 04:37 A&P Assessment and plan (1) Femur fracture, left: Postop day #2 left hip nail Continue physical therapy Discharge planning Qualifiers: Encounter type: initial encounter Femur location: intertrochanteric F racture alignment: displaced Fracture type: closed Qualified Code(s): S72.142A - Displaced intertrochanteric fracture of left femur, initial encounter for closed fracture Attestations 2 Medical Necessity Statement*: Per primary service Coding Level of Care Code Acute Code for [facility] Diagnoses Femur fracture, left S72.142A Encounter type: initial encounter Femur location: intertrochanteric Fracture alignment: displaced Fracture type: closed
[2023-09-10] MEDS: heparin 5,000 unit/mL INJ 1 mL 5000 UNIT SUBCUT ×2 (08:20→20:01)
[2023-09-10] MEDS: citalopram 20 mg Tablet 10 MG PO (08:21)
[2023-09-10] MEDS: lactulose oral liq 20 gm/30 mL UDC 45 GM PO ×3 (08:21→20:01)
[2023-09-10] MEDS: propranolol 20 mg Tablet 10 MG PO ×2 (08:21→17:22)
[2023-09-10] MEDS: docusate sodium 100 mg Capsule PO ×2 (08:21→17:21)
[2023-09-10] MEDS: sucralfate 1 gm/10 mL Oral Liq UDC PO ×4 (08:22→20:01)
[2023-09-10] MEDS: HYDROcodone-acetaminophen 5-325 mg Tablet 1 TAB PO ×3 (08:23→22:22)
[2023-09-10 10:23] LABS: Glucose Point of Care 182 mg/dL (70-110)
--- NOTE | 2023-09-10 11:06 | ECG_ITS ---
[facility] Test Date: 2023-09-10 Pat Name: Gillian Kohli Department: Room: 272 Gender: Female Local City Driver: : 1955 Requested By: Luis Pantoja Order Number: [id number] Reading MD: Kaitlyn Butler M.D. Measurements Intervals [place] Rate: 64 P: 62 [place]: 134 QRS: 52 QRSD: 90 T: 50 QT: 416 QTc: 430 Interpretive Statements SINUS RHYTHM WITH OCCASIONAL SUPRAVENTRICULAR PREMATURE COMPLEXES Compared to ECG 08/06/2023 18:30:45 Sinus bradycardia no longer present Electronically Signed On 09-10-2023 23:05:23 CDT by Kaitlyn Butler M.D. [email or web address].[employer]/store/OM/[id number]
[2023-09-10] MEDS: morphine 4 mg/mL SDV 1 mL 1 MG IVP (16:23)
[2023-09-10 16:32] LABS: Glucose Point of Care 264 mg/dL (70-110)
[2023-09-10] MEDS: pantoprazole DR 40 mg Tablet PO (17:21)
--- NOTE | 2023-09-10 20:44 | P.PN_ITS ---
Subjective 2 Subjective: Today she is more awake, alert, states she is feeling somewhat rough , but no specific symptoms. Does not recall much from the last several days. Reports she is thirsty and hungry. Discussed with her regarding events including encephalopathy, hip fracture and ORIF. Vitals/I&O/Wt Last Vital Signs Temp 98.6 F 09/10/23 19:58 Pulse 62 09/10/23 19:58 Resp 16 09/10/23 19:58 BP 124/73 09/10/23 19:58 Pulse Ox 97 09/10/23 19:58 O2 Del Method Room Air 09/10/23 15:41 O2 Flow Rate 2 09/08/23 23:44 09/10/23 09/10/23 09/10/23 06:59 14:59 22:59 Intake Total 857.5 / 1907.5 532.5 / 532.5 Output Total 550 / 750 300 / 300 Balance 307.5 / 1157.5 532.5 / 532.5 -300 / 232.5 Weight last 48 hrs Weight 90.492 kg Weight 90.446 kg Weight 90.764 kg Weight 90.764 kg Physical Exam 2 Const: COMMON NORMALS: patient oriented x3 GENERAL APPEARANCE: cooperative ORIENTATION/CONSCIOUSNESS: Yes awake (Wakes up to voice) OTHER: She is now awake, still somewhat sluggish but is now oriented. HENMT: COMMON NORMALS: oropharynx normal Neck/C-Spine: COMMON NORMALS: no JVD Resp: COMMON NORMALS: normal respiratory effort and clear to auscultation bilaterally AUSCULTATION: clear to auscultation bilaterally Cardio: COMMON NORMALS: no JVD, regular rhythm, S1 normal heart sound present, S2 normal heart sound present and No murmurs present (Cardio) RHYTHM: regular rhythm HEART SOUNDS: S1 normal heart sound present and S2 normal heart sound present GI: COMMON NORMALS: Normal to inspection, nondistended, normoactive bowel sounds present, Soft to palpation and non-tender PALPATION: Yes Soft to palpation Extremity: COMMON NORMALS: no joint enlargement and no pedal edema Neuro: COMMON NORMALS: patient oriented x3 and moves all extremities Skin: COMMON NORMALS: no rashes or lesions noted GENERAL SKIN EXAM: no rashes or lesions noted Urinary Catheter Management: Borges: Cath Placed During This Visit: yes Reason for Continuing Indwelling Catheter: Other Urinary Catheter Date of Insertion: 09/07/23 Data 09/10/23 04:37 09/10/23 04:37 A&P Assessment and plan (1) Acute hepatic encephalopathy: Improving encephalopathy. Reviewed vitals, CBC, leukocytosis resolved. No further fever. Reviewed ammonia, noted improving. Reviewed CMP, persistent mild transaminitis. Noted low albumin 2.6. Magnesium reviewed, 2.1. Follow-up CBC, chemistry and ammonia. Continue lactulose. Trial of oral diet. Stop IV fluid Discussed with comp field case manager. Encephalopathy most likely hepatic in nature. Also being contributed by pain medications. Discussed with comp field case manager. She is noted to have leukocytosis today, possibly reactive. He did have a low- grade temp however 100.3. At some risk of aspiration with encephalopathy. Repeat chest x-ray, will request UA. Reviewed ABG. Without hypercapnia. CT head along with CT cervical spine without any acute abnormality. (2) Femur fracture, left: Post-ORIF on 09/07. Monitor hemoglobin. PT, anticoagulation, perioperative antibiotics as per orthopedic team. Hold off on pain medications for now patient remains somnolent. Otherwise morphine 2 mg every 4 hours as needed for pain. Qualifiers: Encounter type: initial encounter Femur location: intertrochanteric F racture alignment: displaced Fracture type: closed Qualified Code(s): S72.142A - Displaced intertrochanteric fracture of left femur, initial encounter for closed fracture (3) Fall: Sounds mechanical. Could be in setting of acute hepatic encephalopathy. Management of hepatic encephalopathy as below. Physical therapy after ORIF. (4) Hyperammonemia: Recurrent. Continue lactulose and rifaximin. Target 2-3 bowel movements per day. Repeat ammonia levels. As patient is somnolent again will place NG tube again. Continue lactulose 45 mL every 6 hours for now. Continue with home dose of rifaximin Repeat ammonia level in AM. (5) Cirrhosis of liver: Continue with home dose of propranolol, rifaximin. Increase dose of lactulose as above. (6) Thrombocytopenia: Chronic. Most likely in setting of liver disease. Plan History of upper GI bleed, anemia: Continue with Protonix twice daily along with Carafate ACHS History of gastric perforation History of type 2 diabetes mellitus: Insulin sliding scale at low-dose protocol every 6 hours. Hold off on long-acting insulin as patient will be NPO. Patient takes 44 units of Tresiba at home. Continue with other home medications. Full code Heparin 5000 every 12 for DVT prophylaxis Protonix will be sufficient for PUD prophylaxis as well Attestations 2 Medical Necessity Statement*: Continue admission for assessment management of acute encephalopathy. and High MDM includes amount and/or complexity of data reviewed/ordered [ resulted lab(s)/test(s), ordered lab(s)/test(s) and other healthcare professional discussion] as documented Diagnoses Acute hepatic encephalopathy K76.82 Femur fracture, left S72.142A Encounter type: initial encounter Femur location: intertrochanteric Fracture alignment: displaced Fracture type: closed Fall W19.XXXA Hyperammonemia E72.20 Cirrhosis of liver K74.60 Thrombocytopenia D69.6
[2023-09-10 21:42] LABS: Glucose Point of Care 241 mg/dL (70-110)
--- NOTE | 2023-09-10 22:15 | ECG_ITS ---
[facility] Test Date: 2023-09-10 Pat Name: Gillian Kohli Department: Room: 272 Gender: Female Protohistorian: : 1955 Requested By: Luis Pantoja Order Number: [id number] Reading MD: Kaitlyn Butler M.D. Measurements Intervals [place] Rate: 65 P: 66 [place]: 129 QRS: 61 QRSD: 90 T: 52 QT: 400 QTc: 418 Interpretive Statements SINUS RHYTHM WITH OCCASIONAL SUPRAVENTRICULAR PREMATURE COMPLEXES Compared to ECG 09/10/2023 11:06:52 No significant changes Electronically Signed On 09-10-2023 23:06:42 CDT by Kaitlyn Butler M.D. [email or web address].[facility] companyMedivance/store/OM/[id number]
--- NOTE | 2023-09-10 22:34 | PC.NURSE ---
Addendum entered by Whitney Fontenot RN 09/10/23 23:08: Patient states that her chest pain and hip pain is now gone. Addendum entered by Whitney Fontenot RN 09/10/23 22:56: Troponin x1 ordered. Original Note: Patient was cleaned and had linen change due to having a BM in bed. She began c/o left hip pain and chest pain 10/10 right after we were done cleaning her up. EKG showed SR with PVCs. Her vitals are stable other than her blood pressure being a little high. She is on room air. Her bowel sounds are hyperactive and she is passing a lot of gas. Patient given PRN [place]. Dr. Gibbs notified of all of the above.
[2023-09-10 23:39] LABS: Troponin T (5th) Once 15 ng/L (0-10)
[2023-09-11] VITALS (9 sets, daily range): BP systolic 106–148; BP diastolic 63–79; PULSE 52–64; RESP 13–18; TEMP 36.5–36.9; O2SAT 97–99; BMI 33.1
[2023-09-11] MEDS: lactulose oral liq 20 gm/30 mL UDC 45 GM PO ×4 (02:03→19:16)
[2023-09-11] MEDS: morphine 4 mg/mL SDV 1 mL 1 MG IVP ×2 (03:58→15:31)
[2023-09-11] MEDS: HYDROcodone-acetaminophen 5-325 mg Tablet 1 TAB PO ×4 (04:19→21:28)
--- NOTE | 2023-09-11 04:36 | PC.NURSE ---
Attempt to get patient to bedside commode with 2 assist. Patient was able to sit on side of bed with total assistance from 2 nurses. Patient unable to stand.
[2023-09-11 05:23] LABS: Basophils % 0.3 %; Eosinophils # 0.1 10^3/uL (0.0-0.8); Eosinophils % 1.3 %; Hematocrit 28.3 % (36-47); Lymphocytes # 1.2 10^3/uL (0.8-4.8); Lymphocytes % 19.5 %; Mean Corpuscular HGB Conc 31.8 g/dL (30-55); Mean Corpuscular Hemoglobin 31.7 pg (27-33); Mean Corpuscular Volume 99.6 fl (85-98); Monocytes # 0.7 10^3/uL (0.2-0.9); Neutrophils # 4.27 10^3/uL (1.8-7.7); Neutrophils % 67.3 %; Nucleated Red Blood Cells % 0 %; Platelet Count 70 10^3/cmm (157-399); Red Blood Count 2.84 10^6/uL (3.85-5.65); Red Cell Distribution Width 19.3 % (12.1-15.1); White Blood Count 6.35 10^3/uL (3.29-11.43)
[2023-09-11 05:51] LABS: Ammonia 24 umol/L (11-51)
[2023-09-11 05:52] LABS: Alanine Aminotransferase 41 U/L (0-33); Albumin Level 2.5 g/dL (3.5-5.2); Alkaline Phosphatase 119 U/L (35-105); Anion Gap 12.9 (5-19); Aspartate Amino Transferase 58 U/L (0-32); Blood Urea Nitrogen 17 mg/dL (8-23); Carbon Dioxide 20 mmol/L (22-29); Chloride 110 mmol/L (98-107); Creatinine Clr Calc Pharmacy 77.9131; Globulin 2.5 g/dL (1.3-4.6); Glucose 147 mg/dL (65-115); Osmolality Calculated 292 mOsm/kg (285-295); Potassium 3.9 mmol/L (3.5-5.1); Sodium 139 mmol/L (136-145); Total Bilirubin 1.6 mg/dL (0.15-1.2)
[2023-09-11 06:37] LABS: Glucose Point of Care 145 mg/dL (70-110)
[2023-09-11] MEDS: propranolol 20 mg Tablet 10 MG PO ×2 (08:36→17:16)
[2023-09-11] MEDS: sucralfate 1 gm/10 mL Oral Liq UDC PO ×4 (08:37→19:16)
[2023-09-11] MEDS: pantoprazole DR 40 mg Tablet PO ×2 (08:37→17:16)
[2023-09-11] MEDS: docusate sodium 100 mg Capsule PO ×2 (08:37→17:16)
[2023-09-11] MEDS: citalopram 20 mg Tablet 10 MG PO (08:37)
[2023-09-11] MEDS: heparin 5,000 unit/mL INJ 1 mL 5000 UNIT SUBCUT ×2 (08:40→19:16)
[2023-09-11] MEDS: insulin lispro 100 unit/1 mL SUBCUT ×4 (08:40→20:31)
[2023-09-11 12:35] LABS: Glucose Point of Care 341 mg/dL (70-110)
[2023-09-11 15:21] LABS: C.Diff PCR (Lab) NEGATIVE (Negative)
--- NOTE | 2023-09-11 15:38 | ECG_ITS ---
[facility] Test Date: 2023-09-11 Pat Name: Gillian Kohli Department: Room: 272 Gender: Female Shank Taper: : 1955 Requested By: Luis Pantoja Order Number: [id number] Reading MD: John Olmedo M.D. Measurements Intervals [place] Rate: 62 P: 63 [place]: 134 QRS: 57 QRSD: 93 T: 44 QT: 413 QTc: 421 Interpretive Statements SINUS RHYTHM WITH SINUS ARRHYTHMIA Compared to ECG 09/10/2023 22:15:00 No significant changes Electronically Signed On 09-11-2023 16:13:02 CDT by John Olmedo M.D. [email or web address]/OM/[id number]
--- NOTE | 2023-09-11 15:51 | XRR_ITS ---
PROCEDURE INFORMATION: Exam: XR Chest Exam date and time: 09/11/2023 3:21 PM Age: 67 years old Clinical indication: Pain; Angina pectoris; Additional info: Chest pain TECHNIQUE: Imaging protocol: Radiologic exam of the chest. Views: 1 view. COMPARISON: CR (CHEST, ) 09/10/2023 1:41 AM FINDINGS: Lungs: Unremarkable. No consolidation or mass. Pleural spaces: Unremarkable. No pleural effusion. No pneumothorax. Heart/Mediastinum: Unremarkable. No cardiomegaly. Bones/joints: Unremarkable. XR/XR chest 1V portable [id number] IMPRESSION: No acute findings.
[2023-09-11 16:10] LABS: Add Urine Microscopic? NO; Charge for UA Resulting for Rev
[2023-09-11 16:38] LABS: Protein Urine Neg (Negative); Urine Appearance Clear (CLEAR); Urine Color Yellow (Yellow); pH Urine 6 (5-7)
[2023-09-11 16:39] LABS: Bilirubin Urine Neg (Negative); Blood Urine Neg (Negative); Glucose Urine UA 4+ (Normal); Ketones Urine Negative (Negative); Leukocyte Esterase Urine Negative (Negative); Nitrate Urine Negative (Negative); Urobilinogen Urine Norm (Negative)
[2023-09-11 17:09] LABS: Glucose Point of Care 187 mg/dL (70-110)
--- NOTE | 2023-09-11 17:50 | ECG_ITS ---
[facility] Test Date: 2023-09-11 Pat Name: Gillian Kohli Department: Room: 272 Gender: Female Ticket Printer And Tagger: : 1955 Requested By: Luis Pantoja Order Number: [id number] Reading MD: John Olmedo M.D. Measurements Intervals [place] Rate: 62 P: 52 [place]: 129 QRS: 66 QRSD: 93 T: 41 QT: 428 QTc: 437 Interpretive Statements SINUS RHYTHM WITH MARKED SINUS ARRHYTHMIA Compared to ECG 09/11/2023 15:42:22 No significant changes Electronically Signed On 09-12-2023 8:35:44 CDT by John Olmedo M.D. [email or web address].[employer]/store/OM/[id number]
[2023-09-11 17:53] LABS: Troponin(5th) Baseline 13 ng/L (0-10)
[2023-09-11 20:25] LABS: Glucose Point of Care 286 mg/dL (70-110)
--- NOTE | 2023-09-11 20:42 | PM.PN ---
Subjective Subjective: She is oriented x 3 but does not remember seeing me yesterday. Tells me she is in the hospital due to broken hip. Denies pain at the moment. Stomach has been rambling. Vitals/I&O/Wt Last Vital Signs Temp 98.4 F 09/11/23 19:37 Pulse 60 09/11/23 19:37 Resp 15 09/11/23 19:37 BP 106/65 09/11/23 19:37 Pulse Ox 97 09/11/23 19:37 O2 Del Method Room Air 09/11/23 09:19 O2 Flow Rate 2 09/08/23 23:44 09/11/23 09/11/23 09/11/23 06:59 14:59 22:59 Intake Total 720 / 720 Output Total 650 / 950 Balance -650 / -417.5 720 / 720 Weight last 48 hrs Weight 90.265 kg Weight 90.492 kg Weight 90.446 kg Physical Exam Narrative: Working with OT. Const: COMMON NORMALS: patient oriented x3 GENERAL APPEARANCE: cooperative ORIENTATION/CONSCIOUSNESS: Yes awake HENMT: COMMON NORMALS: oropharynx normal Neck/C-Spine: COMMON NORMALS: no JVD Resp: COMMON NORMALS: normal respiratory effort and clear to auscultation bilaterally AUSCULTATION: clear to auscultation bilaterally Cardio: COMMON NORMALS: no JVD, regular rhythm, S1 normal heart sound present, S2 normal heart sound present and No murmurs present (Cardio) RHYTHM: regular rhythm HEART SOUNDS: S1 normal heart sound present and S2 normal heart sound present GI: COMMON NORMALS: Normal to inspection, nondistended, normoactive bowel sounds present, Soft to palpation and non-tender PALPATION: Yes Soft to palpation Extremity: COMMON NORMALS: no joint enlargement and no pedal edema Neuro: COMMON NORMALS: patient oriented x3 and moves all extremities Skin: COMMON NORMALS: no rashes or lesions noted GENERAL SKIN EXAM: no rashes or lesions noted Urinary Catheter Management: Borges: Cath Placed During This Visit: yes, but has since been removed by the nurse Reason for Continuing Indwelling Catheter: Acute Urinary Retention or Obstruction Urinary Catheter Date of Insertion: 09/11/23 Urinary Catheter Time of Insertion: 16:04 Date Urinary Catheter Removed: 09/11/23 Time Urinary Catheter Discontinued: 04:37 Data 09/11/23 05:15 09/11/23 05:15 Micro: Microbiology 09/11/23 13:50 Occult Blood (FIT) - Final Stool Routine Collection A&P Assessment and plan (1) Acute hepatic encephalopathy: Reviewed vitals, CBC, CMP, ammonia, UA, chest x-ray, C. difficile. She is more alert, more oriented, although does not remember our conversation from yesterday. Yesterday on Review of PT notes still confused trying to drink out of the end of the spoon. Seems to be more lucid today, although transitions are still somewhat slow. Ammonia now appears to have normalized. Leukocytosis resolved. Afebrile. However, requiring maximum assist on assessment by PT. Discussed with her and telephonic nurse case manager would benefit from SNF to which she is agreeable. Arrangements underway. Encephalopathy most likely hepatic in nature. Also being contributed by pain medications. Discussed with telephonic nurse case manager. She is noted to have leukocytosis today, possibly reactive. He did have a low-grade temp however 100.3. At some risk of aspiration with encephalopathy. Repeat chest x-ray, will request UA. Reviewed ABG. Without hypercapnia. CT head along with CT cervical spine without any acute abnormality. (2) Femur fracture, left: Would benefit from SNF. Arrangements underway. Still requiring IV morphine for pain, wean down as tolerating. Hydrocodone as needed for moderate pain. Noted acute anemia, hemoglobin down to 9. Requested Hemoccult. Started PPI. Reassess CBC. Post-ORIF on 09/07. Monitor hemoglobin. PT, anticoagulation, perioperative antibiotics as per orthopedic team. Hold off on pain medications for now patient remains somnolent. Otherwise morphine 2 mg every 4 hours as needed for pain. Qualifiers: Encounter type: initial encounter Femur location: intertrochanteric Fracture alignment: displaced Fracture type: closed Qualified Code(s): S72.142A - Displaced intertrochanteric fracture of left femur, initial encounter for closed fracture (3) Fall: Sounds mechanical. Could be in setting of acute hepatic encephalopathy. Management of hepatic encephalopathy as below. Physical therapy after ORIF. (4) Hyperammonemia: Improving. Recurrent. Continue lactulose and rifaximin. Target 2-3 bowel movements per day. Repeat ammonia levels. As patient is somnolent again will place NG tube again. Continue lactulose 45 mL every 6 hours for now. Continue with home dose of rifaximin Repeat ammonia level in AM. (5) Cirrhosis of liver: Continue with home dose of propranolol, rifaximin. Increase dose of lactulose as above. (6) Thrombocytopenia: Chronic. Most likely in setting of liver disease. Plan History of upper GI bleed, anemia: Continue with Protonix twice daily along with Carafate ACHS History of gastric perforation History of type 2 diabetes mellitus: Insulin sliding scale at low-dose protocol every 6 hours. Hold off on long-acting insulin as patient will be NPO. Patient takes 44 units of Tresiba at home. Continue with other home medications. Full code Heparin 5000 every 12 for DVT prophylaxis Protonix will be sufficient for PUD prophylaxis as well Attestations Medical Necessity Statement*: Continue hospitalization following acute encephalopathy and hip fracture and repair, acute anemia, post discharge planning and arrangements. and High MDM includes amount and/or complexity of data reviewed/ordered [ previous or external records, resulted lab(s)/test(s), ordered lab(s)/test(s) and other healthcare professional discussion] and described risk of complication, morbidity or mortality of management as documented Diagnoses Acute hepatic encephalopathy K76.82 Femur fracture, left S72.142A Encounter type: initial encounter Femur location: intertrochanteric Fracture alignment: displaced Fracture type: closed Fall W19.XXXA Hyperammonemia E72.20 Cirrhosis of liver K74.60 Thrombocytopenia D69.6
[2023-09-11 21:06] LABS: Troponin 5 2HR 13.77 ng/L (0-10); Troponin 5 2HR Delta 0.77 ABS# (0-10)
--- NOTE | 2023-09-11 21:49 | ECG_ITS ---
[facility] Test Date: 2023-09-11 Pat Name: Gillian Kohli Department: Room: 272 Gender: Female Instructor Of Spanish: : 1955 Requested By: Luis Pantoja Order Number: [id number] Reading MD: John Olmedo M.D. Measurements Intervals [place] Rate: 62 P: 72 [place]: 138 QRS: 68 QRSD: 95 T: 49 QT: 417 QTc: 424 Interpretive Statements SINUS RHYTHM WITH MARKED SINUS ARRHYTHMIA Compared to ECG 09/11/2023 17:50:58 No significant changes Electronically Signed On 09-12-2023 8:38:01 CDT by John Olmedo M.D. [email or web address] river county hospitalOne Hour Translationuniversity hospitals [facility].[employer]/store/OM/[id number]
[2023-09-11 23:50] LABS: Troponin 5 6HR 14.27 ng/L (0-10); Troponin 5 6HR Delta 1.27 ng/L (0-12)
[2023-09-12] VITALS (9 sets, daily range): BP systolic 121–131; BP diastolic 67–78; PULSE 58–63; RESP 16–17; TEMP 36.3–36.8; O2SAT 97–100
[2023-09-12] MEDS: morphine 4 mg/mL SDV 1 mL 1 MG IVP (00:51)
[2023-09-12] MEDS: lactulose oral liq 20 gm/30 mL UDC 45 GM PO ×2 (02:01→08:18)
[2023-09-12] MEDS: HYDROcodone-acetaminophen 5-325 mg Tablet 1 TAB PO ×3 (02:02→10:41)
[2023-09-12 05:06] LABS: Basophils % 0.4 %; Eosinophils # 0.2 10^3/uL (0.0-0.8); Eosinophils % 3.2 %; Hematocrit 28.8 % (36-47); Lymphocytes # 1.2 10^3/uL (0.8-4.8); Lymphocytes % 22.8 %; Mean Corpuscular HGB Conc 31.9 g/dL (30-55); Mean Corpuscular Hemoglobin 32.2 pg (27-33); Mean Corpuscular Volume 100.7 fl (85-98); Monocytes # 0.6 10^3/uL (0.2-0.9); Monocytes % 11.9 %; Neutrophils # 3.05 10^3/uL (1.8-7.7); Neutrophils % 60.5 %; Nucleated Red Blood Cells % 0.4 %; Platelet Count 75 10^3/cmm (157-399); Red Blood Count 2.86 10^6/uL (3.85-5.65); Red Cell Distribution Width 19.2 % (12.1-15.1); White Blood Count 5.04 10^3/uL (3.29-11.43)
[2023-09-12 05:20] LABS: Ammonia 38 umol/L (11-51)
[2023-09-12 05:36] LABS: Alanine Aminotransferase 42 U/L (0-33); Albumin Level 2.4 g/dL (3.5-5.2); Alkaline Phosphatase 125 U/L (35-105); Anion Gap 12.1 (5-19); Aspartate Amino Transferase 56 U/L (0-32); Blood Urea Nitrogen 11 mg/dL (8-23); Calcium 7.8 mg/dL (8.5-10.5); Carbon Dioxide 20 mmol/L (22-29); Chloride 110 mmol/L (98-107); Creatinine Clr Calc Pharmacy 79.6198; Globulin 2.5 g/dL (1.3-4.6); Glomerular Filtration Rate 100.3 mL/min (90-130); Glucose 140 mg/dL (65-115); Osmolality Calculated 288 mOsm/kg (285-295); Potassium 4.1 mmol/L (3.5-5.1); Sodium 138 mmol/L (136-145); Total Bilirubin 1.8 mg/dL (0.15-1.2); Total Protein 4.9 g/dL (6.6-8.7)
[2023-09-12 06:45] LABS: Glucose Point of Care 157 mg/dL (70-110)
[2023-09-12] MEDS: insulin lispro 100 unit/1 mL SUBCUT ×2 (08:17→11:36)
[2023-09-12] MEDS: docusate sodium 100 mg Capsule PO (08:18)
[2023-09-12] MEDS: heparin 5,000 unit/mL INJ 1 mL 5000 UNIT SUBCUT (08:18)
[2023-09-12] MEDS: citalopram 20 mg Tablet 10 MG PO (08:18)
[2023-09-12] MEDS: sucralfate 1 gm/10 mL Oral Liq UDC PO (08:18)
[2023-09-12] MEDS: pantoprazole DR 40 mg Tablet PO (08:18)
[2023-09-12] MEDS: propranolol 20 mg Tablet 10 MG PO (08:18)
[2023-09-12 10:51] LABS: Glucose Point of Care 229 mg/dL (70-110)
[2023-09-12 11:11] LABS: SARS Covid-2 Antigen negative (Negative)
--- NOTE | 2023-09-12 12:52 | P.DS_ITS ---
Discharge Providers Date of Admission: 09/07/23 14:38 Date of Discharge: September 12, 2023 Attending Provider at Admission: Brandon Bean MD Attending Provider at Discharge: Luis Pantoja Primary Care Provider: Pauline Pereira MD Diagnoses at Discharge Discharge Diagnosis (1) Acute hepatic encephalopathy: Status: Acute (2) Femur fracture, left: Status: Acute Qualifiers: Encounter type: initial encounter Femur location: intertrochanteric Fracture alignment: displaced Fracture type: closed Qualified Code(s): S72.142A - Displaced intertrochanteric fracture of left femur, initial encounter for closed fracture (3) Fall: Status: Acute (4) Hyperammonemia: Status: Acute (5) Cirrhosis of liver: Status: Acute (6) Thrombocytopenia: Status: Acute Reason for Visit Reason for Visit: LEFT HIP PAIN Hospital Course Hospital Course Pleasant 67-year-old lady with history of liver cirrhosis secondary to [place], GI bleeding, hepatic encephalopathy on lactulose, rifaximin, Protonix twice daily, Carafate, was admitted after a mechanical fall at home with resulting femoral fracture. Was assessed by orthopedics and treated by intramedullary nail, admission complicated by hepatic encephalopathy as well as mild hypercapnia, with lethargy, elevated ammonia, required treatment with NG tube insertion, lactulose via NG, continue rifaximin, encephalopathy gradually improved, resolved. During hospitalization DVT prophylaxis was continued with heparin, blood counts were monitored, she has had some gradual worsening of anemia, hemoglobin down to 9, with thrombocytopenia 70-75, GI bleeding, worsened anemia, anticoagulation is not continued, she is proceeding to rehabilitation to assist with regaining mobility. Please reassess blood counts. Follow-up with orthopedics. Continue lactulose, rifaximin, target 2-3 soft bowel movements per day to avoid recurrence of encephalopathy. Maintain fall prevention precautions. During hospitalization she did have urinary retention after removal of Borges catheter with noted 400 mL on bladder scan, Borges catheter was reinserted, please reassess and attempt a voiding trial in several days. UA was not suggestive of UTI. May be secondary to pain medication and hopefully should resolve with improving pain. Physical Exam Narrative: Sitting up in a chair. Const: COMMON NORMALS: patient oriented x3; negative for alert GENERAL APPEARANCE: cooperative ORIENTATION/CONSCIOUSNESS: Yes awake OTHER: She is awake, alert and oriented. HENMT: COMMON NORMALS: oropharynx normal Neck/C-Spine: COMMON NORMALS: no JVD Resp: COMMON NORMALS: normal respiratory effort and clear to auscultation bilaterally AUSCULTATION: clear to auscultation bilaterally Cardio: COMMON NORMALS: no JVD, regular rhythm, S1 normal heart sound present, S2 normal heart sound present and No murmurs present (Cardio) RHYTHM: regular rhythm HEART SOUNDS: S1 normal heart sound present and S2 normal heart sound present GI: COMMON NORMALS: Normal to inspection, nondistended, normoactive bowel so unds present, Soft to palpation and non-tender PALPATION: Yes Soft to palpation Extremity: COMMON NORMALS: no joint enlargement and no pedal edema Neuro: COMMON NORMALS: patient oriented x3 and moves all extremities SENSORIUM/ORIENTATION: No alert Skin: COMMON NORMALS: no rashes or lesions noted GENERAL SKIN EXAM: no rashes or lesions noted Urinary Catheter Management: Borges: Cath Placed During This Visit: yes, but has since been removed by the nurse Reason for Continuing Indwelling Catheter: Acute Urinary Retention or Obstruction Urinary Catheter Date of Insertion: 09/11/23 Urinary Catheter Time of Insertion: 16:04 Date Urinary Catheter Removed: 09/11/23 Time Urinary Catheter Discontinued: 04:37 Discharge Data Studies Completed and Pending Completed Studies During Hospitalization Category Date Time Status CT cervical spin wo con* 74242 Stat Cat Scan 09/07/23 11:[address] head wo con* 33001 Stat Cat Scan 09/07/23 11:49 Completed CXRP [XR chest 1V portable [id number]] Routine Exams 09/09/23 21:18 Completed CXRP [XR chest 1V portable 11389] Stat Exams 09/08/23 13:10 Completed CXRP [XR chest 1V portable 40509] Stat Exams 09/10/23 02:32 Completed XR abdomen 1V* [id number] Stat Exams 09/07/23 14:37 Completed XR chest 1V portable 14364 Stat Exams 09/07/23 13:27 Completed XR chest 1V portable [id number] Stat Exams 09/11/23 15:51 Completed XR hip BI 3-4V wo/w pel 95055 Stat Exams 09/07/23 13:06 Completed XR hip LT 2-3V wo/w pel* [id number] Routine Exams 09/08/23 09:21 Completed Pending at discharge Category Date Time Status Blood Culture Stat Lab 09/07/23 13:52 Results Complete Blood Count w/Auto AM LABS Lab 09/13/23 04:00 Ordered Comprehensive Metabolic Panel AM LABS Lab 09/13/23 04:00 Ordered Radiology Impressions Cervical Spine CT 09/07/23 11:49 IMPRESSION: No acute findings. Head CT 09/07/23 11:49 IMPRESSION: No acute intracranial abnormality. Abdomen X-Ray 09/07/23 14:37 IMPRESSION: As above. Chest X-Ray 09/11/23 15:51 IMPRESSION: No acute findings. Laboratory Results WBC 5.04 10^3/uL (3.29-11.43) 09/12/23 04:45 RBC 2.86 10^6/uL (3.85-5.65) L 09/12/23 04:45 Hgb 9.20 g/dL (11.27-16.99) L 09/12/23 04:45 Hct 28.8 % (36-47) L 09/12/23 04:45 MCV 100.7 fl (85-98) H 09/12/23 04:45 MCH 32.2 pg (27-33) 09/12/23 04:45 MCHC 31.9 g/dL (30-55) 09/12/23 04:45 RDW 19.2 % (12.1-15.1) H 09/12/23 04:45 Plt Count 75 10^3/cmm (157-399) L 09/12/23 04:45 MPV 12.0 fL (7.4-10.4) H 09/12/23 04:45 Neut % (Auto) 60.5 % 09/12/23 04:45 Lymph % (Auto) 22.8 % 09/12/23 04:45 [place] % (Auto) 11.9 % 09/12/23 04:45 Eos % (Auto) 3.2 % 09/12/23 04:45 Baso % (Auto) 0.4 % 09/12/23 04:45 Neut # (Auto) 3.05 10^3/uL (1.8-7.7) 09/12/23 04:45 Lymph # (Auto) 1.2 10^3/uL (0.8-4.8) 09/12/23 04:45 [place] # (Auto) 0.6 10^3/uL (0.2-0.9) 09/12/23 04:45 Eos # (Auto) 0.2 10^3/uL (0.0-0.8) 09/12/23 04:45 Baso # (Auto) 0.0 10^3/uL (0.0-0.1) 09/12/23 04:45 Nucleated RBC % (auto) 0.4 % 09/12/23 04:45 Nucleated RBCs # 0.0 /100WBC 09/12/23 04:45 PT 15.30 SECONDS (12.1-14.9) H 09/07/23 11:12 INR 1.17 (0.8-1.2) 09/07/23 11:12 APTT 30.4 SECONDS (23.9-36.7) 09/07/23 11:12 Specimen Type Arterial 09/08/23 13:30 Sample Site Radial, right 09/08/23 13:30 ABG pH 7.39 (7.35-7.45) 09/08/23 13:30 ABG pCO2 32.8 mmHg (35-45) L 09/08/23 13:30 ABG pO2 64.9 mmHg (80.0-100.0) L 09/08/23 13:30 ABG HCO3 19.7 mmol/L (22-26) L 09/08/23 13:30 ABG O2 Saturation 93.0 09/08/23 13:30 ABG Base Excess -4.6 mmol/L (-2.0-2.0) L 09/08/23 13:30 Tyrese Test Pos 09/08/23 13:30 A-a O2 Gradient 5.8 mmHg (5-10) 09/08/23 13:30 Hematocrit 35.4 % (37-47) L 09/08/23 13:30 Hgb O2 Saturation 92.4 % (95-100) L 09/08/23 13:30 Carboxyhemoglobin 1.2 %THgb (0.4-20.1) 09/08/23 13:30 Methemoglobin < 0.0 % (0.4-1.5) L 09/08/23 13:30 Total Hemoglobin 11.5 g/dL (12-16) L 09/08/23 13:30 Sodium 142.0 mmol/L (131-143) 09/08/23 13:30 Potassium 5.1 mmol/L (3.5-5.0) H 09/08/23 13:30 Glucose 218.0 mg/dL (70-115) H 09/08/23 13:30 Ionized Calcium 1.3 mmol/L (1.1-1.4) 09/08/23 13:30 O2 Delivery Device Room air 09/08/23 13:30 Roving Carrier ID Broma 09/08/23 13:30 Sodium 138 mmol/L (136-145) 09/12/23 04:45 Potassium 4.1 mmol/L (3.5-5.1) 09/12/23 04:45 Chloride 110 mmol/L (98-107) H 09/12/23 04:45 Carbon Dioxide 20 mmol/L (22-29) L 09/12/23 04:45 Anion Gap 12.1 (5-19) 09/12/23 04:45 BUN 11 mg/dL (8-23) 09/12/23 04:45 Creatinine 0.6 mg/dL (0.5-0.9) 09/12/23 04:45 GFR Calculation 100.3 mL/min (90-130) 09/12/23 04:45 Glucose 140 mg/dL (65-115) H 09/12/23 04:45 POC Glucose 229 mg/dL (70-110) H 09/12/23 10:43 Calculated Osmolality 288 mOsm/kg (285-295) 09/12/23 04:45 Lactic Acid 4.3 mmol/L (0.5-2.2) H* 09/07/23 11:12 Lactic Acid (Sepsis) 2.9 mmol/L (0.5-2.2) H 09/07/23 14:26 Calcium 7.8 mg/dL (8.5-10.5) L 09/12/23 04:45 Phosphorus 1.4 mg/dL (2.5-4.5) L 09/08/23 05:20 Magnesium 2.1 mg/dL (1.7-2.3) 09/10/23 04:37 Total Bilirubin 1.8 mg/dL (0.15-1.2) H 09/12/23 04:45 AST 56 U/L (0-32) H 09/12/23 04:45 ALT 42 U/L (0-33) H 09/12/23 04:45 Alkaline Phosphatase 125 U/L (35-105) H 09/12/23 04:45 Ammonia 38 umol/L (11-51) 09/12/23 04:45 Troponin T 5th Gen ng/L 15 ng/L (0-10) H 09/10/23 23:08 Troponin T Baseline 13 ng/L (0-10) H 09/11/23 17:05 Troponin T 120 Minute 13.77 ng/L (0-10) H 09/11/23 20:22 Delta Troponin T 0.77 ABS# (0-10) 09/11/23 20:22 Troponin T Hi Sens 6Hr 14.27 ng/L (0-10) H 09/11/23 23:19 Troponin T Hi Sens 6Hr Delta 1.27 ng/L (0-12) 09/11/23 23:19 Total Protein 4.9 g/dL (6.6-8.7) L 09/12/23 04:45 Albumin 2.4 g/dL (3.5-5.2) L 09/12/23 04:45 Globulin 2.5 g/dL (1.3-4.6) 09/12/23 04:45 Triglycerides 53 mg/dL (0-150) 09/08/23 05:20 Cholesterol 136 mg/dL (0-200) 09/08/23 05:20 LDL Cholesterol, Calc 63 mg/dL (50-129) 09/08/23 05:20 Total VLDL Cholesterol 11 mg/dL (0-30) 09/08/23 05:20 HDL Cholesterol 62 mg/dL (60-100) 09/08/23 05:20 Cholesterol/HDL Ratio 2.19 mg/dL (0.0-4.40) 09/08/23 05:20 Lipase 80 U/L (13-60) H 09/07/23 11:12 Folate 16.1 ng/mL (4.8-37.3) 09/08/23 05:20 Procalcitonin 0.24 ng/mL (0-0.5) 09/07/23 11:12 Urine Color Yellow (Yellow) 09/11/23 15:49 Urine Appearance Clear (CLEAR) 09/11/23 15:49 Urine pH 6 (5-7) 09/11/23 15:49 Ur Specific [place] 1.020 (1.005-1.030) 09/11/23 15:49 Urine Protein Neg (Negative) 09/11/23 15:49 Urine Glucose (UA) 4+ (Normal) H 09/11/23 15:49 Urine Ketones Negative (Negative) 09/11/23 15:49 Urine Blood Neg (Negative) 09/11/23 15:49 Urine Nitrate Negative (Negative) 09/11/23 15:49 Urine Bilirubin Neg (Negative) 09/11/23 15:49 Urine Urobilinogen Norm mg/dL (Negative) 09/11/23 15:49 Ur Leukocyte Esterase Negative (Negative) 09/11/23 15:49 Urine RBC None /hpf (0-2) 09/07/23 14:15 Urine WBC Rare /hpf (0-5) 09/07/23 14:15 Ur Squamous Epith Cells 0-4 /hpf (0-5) H 09/07/23 14:15 Amorphous Sediment Not Reportable 09/07/23 14:15 Urine Bacteria Trace /hpf (NONE) 09/07/23 14:15 C. difficile (PCR) Negative (Negative) 09/11/23 13:50 SARS-CoV-2 Ag (Rapid) negative (Negative) 09/12/23 10:38 Vitals Last Vital Signs Temp 97.6 F 09/12/23 11:27 Pulse 59 L 09/12/23 11:27 Resp 17 09/12/23 11:27 BP 129/76 09/12/23 11:27 Pulse Ox 98 09/12/23 11:27 O2 Del Method Room Air 09/12/23 11:27 O2 Flow Rate 2 09/08/23 23:44 Discharge Plan Discharge Patient Disposition: Xfer SNF Condition: Stable Prescriptions: New hydrocodone-acetaminophen 5-325 mg Tablet 1 tab PO Q4H PRN (Reason: Moderate To Severe Pain) Qty: 10 0RF Continued furosemide 40 mg tablet 40 mg PO DAILY (DME) diabetic shoes with 3 inserts See Rx Instructions .Route .MEDSUPPLY Qty: 1 0RF Rx Instructions: As directed to the shoe rusty sucralfate [Carafate] 100 mg/mL suspension 5 ml PO QID Rx Instructions: swish in mouth and swallow; use after food/drink citalopram 10 mg tablet 10 mg PO DAILY omeprazole 40 mg capsule,delayed release(DR/EC) 40 mg PO DAILY potassium chloride 10 mEq tablet,ER particles/crystals 10 meq PO DAILY Qty: 30 0RF spironolactone 100 mg Tablet 100 mg PO DAILY Qty: 60 0RF propranolol 10 mg tablet 10 mg PO BID Xifaxan 550 mg tablet 550 mg PO BID ondansetron HCl 4 mg tablet 4 mg PO TID PRN (Reason: Nausea And Vomiting) acetaminophen 500 mg Tablet 500 mg PO Q6H PRN (Reason: Pain) lactulose [Constulose] 10 gram/15 mL solution 45 ml PO TID Qty: 946 5RF Changed Tresiba FlexTouch U-100 100 unit/mL (3 mL) insulin pen 10 unit SUBCUT DAILY Qty: 3 0RF Rx Instructions: Dose change only Discharge Orders: Discharge Order (Routine); Ordered 09/12/23 Ordered By: Luis Pantoja Referrals: Pauline Pereira MD [Primary Care Provider] - 09/16/23 4:00 pm Rene Newsome DO [Physician] - 09/19/23 11:00 am Discharge Diet: As Directed Patient Instructions: Hydrocodone/Acetaminophen (By mouth), Hepatic Encephalopathy (GEN), Acute Urinary Retention in Women (ED), Fall Prevention (GEN), Intramedullary Nailing (GEN), Aspiration Precautions (GEN), Opioid Safety Activity Restrictions/Additional Instructions: Due to risk of bleeding with low platelet level, anemia, recently decompensated live cirrhosis, blood thinner or aspirin are not started for concern of life threatening bleeding, although there is still risk of clotting. Revisit with your primary doctor. Continue lactulose 3 times daily targeting 2-3 soft bowel movements in a day to keep ammonia level down and prevent recurrence of encephalopathy. Continue rifaximin. Continue regular screenings and assessments recommended for liver cirrhosis. Discuss with your primary doctor follow-up with hepatology. Avoid any NSAIDs. Borges kept in place due to urine retention after removal. Please perform voiding trial within the next couple of days and discontinue if possible. You are being discharged from the hospital today during which time you have been under the care of Dr. Newsome. You had a left hip fracture fracture. You were treated for this injury with left hip nail. You may resume you normal diet (including any special diets as directed by your primary doctor) as well as your home medications. You should follow up with you primary doctor if you have any questions regarding medication you took prior to your stay in the hospital. You may take your pain medication as prescribed. After the first few days, take your pain medication as needed. Do not drive or drink alcohol while taking your pain medication. Your injury may increase your risk of developing a blood clot,or DVT, in your arm or leg. This could potentially dislodge and travel to your lungs and become a life threatening condition called apulmonary embolus,or PE. You have been prescribed per hospitalist to be taken to prevent this. Frequent movement of the legs will also help prevent this from occurring. If you develop any new or worsening cough, chestpain, bloody sputum or shortness of breath, call 911 or go to the EmergencyRoom. Always keep your surgical incision/dressing clean and dry. If you experience increasing pain at your incision site, redness, swelling, increasing discharge, foul odors, or fevers (greater than 100.4), night sweats or chills you should call the office at the above number. If you feel this is an emergency you should be evaluated in the Emergency Department of a nearby hospital. Orthopedic Patient Instructions Summary: Weight Bearing: As tolerated Activity: As tolerated. Diet: Regular. Wound Care: Keep dressing clean and dry. Anticoagulation: Per hospitalist Pain Medication: Take only as needed. Ice, rest and elevation will be of great benefit. Please plan to follow-up [facility] Dr Newsome in 2 weeks. You will need to call the clinic [phone] to schedule this visit. Thank you far allowing me to parti cipate in your care. Do not hesitate to call the office with any questions or concerns. Discharge Attestations Time Spent in Discharge Care*: greater than 30 min Quality Metrics Clinical Quality Measures [ No reported AMI, CVA or VTE this stay] Coding Level of Care Code 52046 Total time (in minutes) for Discharge: 45 Diagnoses Acute hepatic encephalopathy K76.82 Femur fracture, left S72.142A Encounter type: initial encounter Femur location: intertrochanteric Fracture alignment: displaced Fracture type: closed Fall W19.XXXA Hyperammonemia E72.20 Cirrhosis of liver K74.60 Thrombocytopenia D69.6
--- NOTE | 2023-09-12 14:54 | PC.NURSE ---
Called report to Joaquina Ash LPN at [facility] at 1355. Went over last BM, Where IV's were removed, hip surgery incision, WB status, weight, height, diet, immunizations, code status, clifford with urine retention and when last pain medication was given.
== END 2023-09-12 13:50 | disposition skilled nursing facility (03) | DRG 481 ==
LOC: ER 14:46 → MEDSURG 15:31
PROVIDERS: Internal Medicine; Orthopaedic Surgery; Admitting Provider Student in an Organized Health Care Education/Training Program; Emergency Provider Internal Medicine; PCP Internal Medicine; Visit Provider Internal Medicine
PROC: 0QS736Z Reposition Left Upper Femur with Intramedullary Internal Fixation Device, Percutaneous Approach (ICD-10-PCS; principal; 2023-09-08 08:00)
DX: S72.142A Displaced intertrochanteric fracture of left femur, initial encounter for closed fracture (principal); E72.20 Disorder of urea cycle metabolism, unspecified; W19.XXXA Unspecified fall, initial encounter; K76.82 Hepatic encephalopathy; K74.60 Unspecified cirrhosis of liver; K75.81 Nonalcoholic steatohepatitis (NASH); D69.6 Thrombocytopenia, unspecified; R06.89 Other abnormalities of breathing; D64.9 Anemia, unspecified; R33.0 Drug induced retention of urine; Z87.891 Personal history of nicotine dependence; D72.829 Elevated white blood cell count, unspecified; E11.9 Type 2 diabetes mellitus without complications; Z79.4 Long term (current) use of insulin; E66.9 Obesity, unspecified; Z68.35 Body mass index [BMI] 35.0-35.9, adult; Z85.828 Personal history of other malignant neoplasm of skin
CPT/HCPCS: 36415; 36416; 36600; 51702; 70450; 71045; 72125; 73502; 73522; 74018; 76000; 77280; 77321; 77331; 77334; 77412; 80051; 80053; 80061; 81001; 81003; 82140; 82274; 82330; 82746; 82805; 82962; 83605; 83690; 83735; 84100; 84145; 84484; 85025; 85610; 85730; 87040; 87426; 87493; 92523; 92526; 92610; 93005; 94664; 96365; 96372; 97110; 97162; 97165; 97530; 97535; 99285; C1713; C9113; J0330; J0690; J0696; J1100; J1200; J1644; J1815; J2270; J2310; J2405; J2704; J3010; J3490; J7030

== ENCOUNTER → 2023-09-19 11:01 | Outpatient (BNVA) | payer MEDICARE, MEDICAID, SELFPAY | PROVIDERS: PCP Internal Medicine; Visit Provider Orthopaedic Surgery | DX: S72.142A Displaced intertrochanteric fracture of left femur, initial encounter for closed fracture (principal); X58.XXXA Exposure to other specified factors, initial encounter | CPT/HCPCS: 73502; 99024 ==

== ENCOUNTER → 2023-10-31 13:03 | Outpatient (BNVA) | payer MEDICARE, MEDICAID, SELFPAY | PROVIDERS: PCP Internal Medicine; Visit Provider Orthopaedic Surgery | DX: S72.142A Displaced intertrochanteric fracture of left femur, initial encounter for closed fracture (principal); X58.XXXA Exposure to other specified factors, initial encounter | CPT/HCPCS: 73502; 99024 ==

== ENCOUNTER → 2023-11-29 14:27 | Outpatient (BNVA) | payer MEDICARE, MEDICAID, SELFPAY | PROVIDERS: PCP Internal Medicine; Visit Provider Specialist | DX: I10 Essential (primary) hypertension (principal); K76.82 Hepatic encephalopathy; G63 Polyneuropathy in diseases classified elsewhere | CPT/HCPCS: 99214; 99215 ==

== ENCOUNTER → 2023-12-05 12:51 | Outpatient (BNVA) | payer MEDICARE, MEDICAID, SELFPAY | PROVIDERS: PCP Internal Medicine; Visit Provider Orthopaedic Surgery | DX: S72.142A Displaced intertrochanteric fracture of left femur, initial encounter for closed fracture (principal); W18.30XA Fall on same level, unspecified, initial encounter; Y92.003 Bedroom of unspecified non-institutional (private) residence as the place of occurrence of the external cause | CPT/HCPCS: 73502; 99024 ==

== ENCOUNTER 2023-12-12 12:13 | Day surgery (SDC) | payer MEDICARE, MEDICAID, SELFPAY ==
[2023-12-12 12:35] VITALS: BP 167/108; PULSE 103; RESP 18; TEMP 36.5; O2SAT 96
[2023-12-12 12:39] VITALS: BMI 29.9
--- NOTE | 2023-12-12 12:59 | US_ITS ---
WS: [id number] ULTRASOUND-GUIDED THERAPEUTIC PARACENTESIS Procedure, risks, and complications have been explained to the patient. Consent is obtained. Utilizing aseptic technique and 1% buffered lidocaine, a small dermatome was made through which a 5 F rench Yueh catheter was inserted. Approximately 4700 ml of clear peritoneal fluid was obtained witho ut difficulty. No complications encountered. US/US paracentesis abd w [id number] IMPRESSION: Uncomplicated paracentesis yielding 4700 ml of peritoneal fluid.
[2023-12-12 13:55] VITALS: BP 182/102; PULSE 101; RESP 18; O2SAT 96
== END 2023-12-12 14:02 | disposition home or self-care (01) ==
LOC: GILAB 12:15
PROVIDERS: Radiology Diagnostic Radiology; PCP Internal Medicine; Visit Provider Nurse Practitioner Family
PROC: (CPT 49082; principal; 2023-12-12 13:30)
DX: R18.8 Other ascites (principal)
CPT/HCPCS: 49083

== ENCOUNTER 2023-12-15 11:57 | Emergency (ER) | payer MEDICARE, MEDICAID, SELFPAY ==
[2023-12-15 12:05] VITALS: PULSE 106; RESP 18; TEMP 36.6; O2SAT 96; BMI 31.4
[2023-12-15 12:14] VITALS: BP 166/81; PULSE 105; O2SAT 97
[2023-12-15 12:21] LABS: Basophils # 0.1 10^3/uL (0.0-0.1); Basophils % 0.7 %; Eosinophils # 0.2 10^3/uL (0.0-0.8); Eosinophils % 2.6 %; Hematocrit 40.7 % (36-47); Lymphocytes # 1.4 10^3/uL (0.8-4.8); Lymphocytes % 16.3 %; Mean Corpuscular HGB Conc 34.2 g/dL (30-55); Mean Corpuscular Hemoglobin 32.6 pg (27-33); Mean Corpuscular Volume 95.5 fl (85-98); Mean Platelet Volume 10.6 fL (7.4-10.4); Monocytes % 12.4 %; Neutrophils # 5.67 10^3/uL (1.8-7.7); Neutrophils % 67.4 %; Nucleated Red Blood Cells % 0 %; Platelet Count 139 10^3/cmm (157-399); Red Blood Count 4.26 10^6/uL (3.85-5.65); White Blood Count 8.41 10^3/uL (3.29-11.43)
[2023-12-15 12:31] LABS: INR 1.32 (0.8-1.2)
[2023-12-15 12:33] LABS: Partial Thromboplastin Time 33.1 SECONDS (23.9-36.7)
[2023-12-15 12:36] LABS: Alanine Aminotransferase 38 U/L (0-33); Albumin Level 2.5 g/dL (3.5-5.2); Alkaline Phosphatase 382 U/L (35-105); Anion Gap 14.1 (5-19); Aspartate Amino Transferase 48 U/L (0-32); Blood Urea Nitrogen 11 mg/dL (8-23); Calcium 8.7 mg/dL (8.5-10.5); Carbon Dioxide 23 mmol/L (22-29); Chloride 99 mmol/L (98-107); Glomerular Filtration Rate 55.5 mL/min (90-130); Glucose 171 mg/dL (65-115); Osmolality Calculated 277 mOsm/kg (285-295); Potassium 4.1 mmol/L (3.5-5.1); Sodium 132 mmol/L (136-145); Total Bilirubin 2.8 mg/dL (0.15-1.2); Total Protein 6.5 g/dL (6.6-8.7)
--- NOTE | 2023-12-15 12:49 | ED_ITS ---
HPI - Abdominal Pain 2 General: Chief Complaint: Abdominal Pain Stated Complaint: ABD PAIN Time Seen by Provider: 12/15/23 12:00 History of Present Illness: 68-year-old female with a history of cir rhosis and ascites who presents to the emergency room by ambulance from [facility] with complaints of ascites. Apparently she had 5 L off 2 days ago but feels like she is been swelling more and requested she come to the ER to be evaluated and is requesting paracentesis. She also notes some edema in her legs. I discussed that paracentesis would need to be done with whoever she had it done with on Saturday. She does not so distended and tight that it would be causing compartment syndrome and at this point is nonemergent. Review of Systems 2 Narrative: Constitutional symptoms: Negative except as documented in HPI. Skin symptoms: Negative except as documented in HPI. Eye symptoms: Negative except as documented in HPI. ENMT symptoms: Negative except as documented in HPI. Respiratory symptoms: Negative except as documented in HPI. Cardiovascular symptoms: Negative except as documented in HPI. Gastrointestinal symptoms: Negative except as documented in HPI. Genitourinary symptoms: Negative except as documented in HPI. Musculoskeletal symptoms: Negative except as documented in HPI. Neurologic symptoms: Negative except as documented in HPI. Psychiatric symptoms: Negative except as documented in HPI. Endocrine symptoms: Negative except as documented in HPI. PFSH ED 2 PFSH: Medical History TIA (transient ischemic attack) Acute posterior circulation transient ischemic attack Acute hepatic encephalopathy Free intraperitoneal air Gastric perforation Fall Thrombocytopenia Altered mental status Pancytopenia Type 2 diabetes mellitus Obesity (BMI 30.0-34.9) Diabetes mellitus type 2 in obese Portal vein thrombosis 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 Incisional hernia Hepatic encephalopathy Kidney stones Diabetes BLAIR (nonalcoholic steatohepatitis) Surgical History Gastric bypass status for obesity History of colonoscopy History of esophagogastroduodenoscopy (EGD) H/O: hysterectomy cervical cancer H/O gastric bypass Hx of cholecystectomy Family History Mother Hypertension Father Chronic kidney disease (CKD) Sleep apnea Other Bleeding disorder Denies family history of Anesthesia complication Social History Smoking and tobacco/nicotine status: former use of tobacco/nicotine Quit status (tobacco/nicotine): has quit using Year quit tobacco: 1986 Former quit date comment: smoked x 10+ years Alcohol intake: never Substance/Drug Use: never Physical Exam 2 Narrative: EXAM NARRATIVE: General: Alert, no acute distress. Skin: Warm, dry. Head: Normocephalic, atraumatic. Neck: Supple, trachea midline. Eye: Extraocular movements are intact. Ears, nose, mouth and throat: mucosa moist. Cardiovascular: Regular, Normal peripheral perfusion. Respiratory: Lungs are clear to auscultation, respirations are non-labored, breath sounds are equal, Symmetrical chest wall expansion. Gastrointestinal: Soft, minimal tenderness to palpation, distended, fluid wave, Normal bowel sounds. Musculoskeletal: Normal ROM, no deformity. Neurological: Alert and oriented, No focal neurological deficit observed. Psychiatric: Cooperative, appropriate mood & affect. Course 2 Vital Signs: Vital signs: Vital Signs Temperature 97.9 F 12/15/23 12:05 Pulse Rate 105 H 12/15/23 12:14 Respiratory Rate 18 12/15/23 12:05 Blood Pressure 166/81 12/15/23 12:14 Pulse Oximetry 97 12/15/23 12:14 Oxygen Delivery Me thod Room Air 12/15/23 12:14 MDM - Abdominal Pain Medical Decision Making Basic lab work is being done. And coags. She does not appear at all confused so not checking an ammonia today. Patient does appear to be having worsening cirrhosis. Her bilirubin is up. She is having worsening ascites. She needs prompt follow-up with her liver doctor. She says she follows with [address] [place]. Patient does not yet warrant emergent paracentesis but will need paracentesis in the near future. Assessment and plan: Cirrhosis Ascites ?I did give the patient 80 mg of IV Lasix to help with her diuresis. She is on 40 daily a at home - Discharged home - Discussed plan with patient. Answered any questions. - Evaluation and treatment of this problem were appropriate in the emergency setting. Lab Data 12/15/23 12:10 12/15/23 12:10 Labs/Radiology: Laboratory Results WBC 8.41 10^3/uL (3.29-11.43) 12/15/23 12:10 RBC 4.26 10^6/uL (3.85-5.65) 12/15/23 12:10 Hgb 13.90 g/dL (11.27-16.99) 12/15/23 12:10 Hct 40.7 % (36-47) 12/15/23 12:10 MCV 95.5 fl (85-98) 12/15/23 12:10 MCH 32.6 pg (27-33) 12/15/23 12:10 MCHC 34.2 g/dL (30-55) 12/15/23 12:10 RDW 14.0 % (12.1-15.1) 12/15/23 12:10 Plt Count 139 10^3/cmm (157-399) L 12/15/23 12:10 MPV 10.6 fL (7.4-10.4) H 12/15/23 12:10 Neut % (Auto) 67.4 % 12/15/23 12:10 Lymph % (Auto) 16.3 % 12/15/23 12:10 Beaver % (Auto) 12.4 % 12/15/23 12:10 Eos % (Auto) 2.6 % 12/15/23 12:10 Baso % (Auto) 0.7 % 12/15/23 12:10 Neut # (Auto) 5.67 10^3/uL (1.8-7.7) 12/15/23 12:10 Lymph # (Auto) 1.4 10^3/uL (0.8-4.8) 12/15/23 12:10 Beaver # (Auto) 1.0 10^3/uL (0.2-0.9) H 12/15/23 12:10 Eos # (Auto) 0.2 10^3/uL (0.0-0.8) 12/15/23 12:10 Baso # (Auto) 0.1 10^3/uL (0.0-0.1) 12/15/23 12:10 Nucleated RBC % (auto) 0 % 12/15/23 12:10 Nucleated RBCs # 0.0 /100WBC 12/15/23 12:10 PT 16.80 SECONDS (12.1-14.9) H 12/15/23 12:10 INR 1.32 (0.8-1.2) H 12/15/23 12:10 APTT 33.1 SECONDS (23.9-36.7) 12/15/23 12:10 Sodium 132 mmol/L (136-145) L 12/15/23 12:10 Potassium 4.1 mmol/L (3.5-5.1) 12/15/23 12:10 Chloride 99 mmol/L (98-107) 12/15/23 12:10 Carbon Dioxide 23 mmol/L (22-29) 12/15/23 12:10 Anion Gap 14.1 (5-19) 12/15/23 12:10 BUN 11 mg/dL (8-23) 12/15/23 12:10 Creatinine 1.0 mg/dL (0.5-0.9) H 12/15/23 12:10 GFR Calculation 55.5 mL/min (90-130) L 12/15/23 12:10 Glucose 171 mg/dL (65-115) H 12/15/23 12:10 Calculated Osmolality 277 mOsm/kg (285-295) L 12/15/23 12:10 Calcium 8.7 mg/dL (8.5-10.5) 12/15/23 12:10 Total Bilirubin 2.8 mg/dL (0.15-1.2) H 12/15/23 12:10 AST 48 U/L (0-32) H 12/15/23 12:10 ALT 38 U/L (0-33) H 12/15/23 12:10 Alkaline Phosphatase 382 U/L (35-105) H 12/15/23 12:10 Total Protein 6.5 g/dL (6.6-8.7) L 12/15/23 12:10 Albumin 2.5 g/dL (3.5-5.2) L 12/15/23 12:10 Globulin 4.0 g/dL (1.3-4.6) 12/15/23 12:10 No radiology studies performed this visit Discharge Plan Discharge Patient Disposition: Home Clinical Impression: Cirrhosis Qualifiers: Hepatic cirrhosis type: unspecified hepatic cirrhosis Ascites presence: with ascites Qualified Code(s): K74.60 - Unspecified cirrhosis of liver Ascites Qualifiers: Ascites type: other type Qualified Code(s): R18.8 - Other ascites Condition: Stable Prescriptions: No Action furosemide 40 mg tablet 40 mg PO DAILY (DME) diabetic shoes with 3 inserts See Rx Instructions .Route .MEDSUPPLY Qty: 1 0RF Rx Instructions: As directed to the timi ojeda sucralfate [Carafate] 100 mg/mL suspension 5 ml PO QID Rx Instructions: swish in mouth and swallow; use after food/drink omeprazole 40 mg capsule,delayed release(DR/EC) 40 mg PO DAILY spironolactone 100 mg Tablet 100 mg PO DAILY Qty: 60 0RF Xifaxan 550 mg tablet 550 mg PO BID ondansetron HCl 4 mg tablet 4 mg PO TID PRN (Reason: Nausea And Vomiting) acetaminophen 500 mg Tablet 500 mg PO Q6H PRN (Reason: Pain) lactulose [Constulose] 10 gram/15 mL solution 45 ml PO TID Qty: 946 5RF insulin degludec [Tresiba FlexTouch U-100] 100 unit/mL (3 mL) insulin pen 10 unit SUBCUT DAILY Qty: 3 0RF Rx Instructions: Dose change only hydrocodone-acetaminophen 5-325 mg Tablet 1 tab PO Q4H PRN (Reason: Moderate To Severe Pain) Qty: 10 0RF potassium chloride 10 mEq tablet,ER particles/crystals 20 meq PO DAILY Cymbalta 30 mg Capsule,Delayed Release(Dr/Ec) 30 mg PO DAILY Xifaxan 550 mg Tablet 550 mg PO BID Discharge Orders: Discharge ED (Routine); Ordered 12/15/23 Ordered By: Belgica Keenan Referrals: Pauline Pereira MD [Primary Care Provider] - 1-3 days (Please schedule paracentesis with radiology in the next day or 2.) Discharge Diet: Usual diet Discharge Activity: Increase activity as tolerated Patient Instructions: Ascites (ED) Activity Restrictions/Additional Instructions: Thank you for choosing [facility] for your healthcare needs today. Please realize this is an emergency room and that we are providing you with a medical screening exam and this may not be complete and all inclusive of all the testing and or work up that you may need to determine your ailment or severity of your illness. You have been screened and evaluated and felt safe for discharge. Health conditions do change or evolve sometimes and as such it is important that you follow up with your Primary Doctor to be re checked, 3-5 days is a general good time frame for follow up. You are always welcome to return to the ED for re assessment if your symptoms are worsening or you have new concerns Coding Level of Care Code ED Manager Utility for Trevon Haines
[2023-12-15] MEDS: FUROsemide 10 mg/mL SDV 10mL 80 MG IVP (13:34)
[2023-12-15 13:35] VITALS: BP 166/81; PULSE 106; O2SAT 97
[2023-12-15 13:44] VITALS: BP 166/81; PULSE 106; RESP 18; TEMP 36.6; O2SAT 97
== END 2023-12-15 13:51 | disposition home or self-care (01) ==
PROVIDERS: Emergency Provider Emergency Medicine; PCP Internal Medicine
DX: K74.60 Unspecified cirrhosis of liver (principal); R18.8 Other ascites; Z79.4 Long term (current) use of insulin; Z87.891 Personal history of nicotine dependence; Z86.73 Personal history of transient ischemic attack (TIA), and cerebral infarction without residual deficits; E11.9 Type 2 diabetes mellitus without complications
CPT/HCPCS: 80053; 85025; 85610; 85730; 96374; 99284; J1940

== ENCOUNTER → 2023-12-17 13:15 | Outpatient (BNVA) | payer MEDICARE, MEDICAID, SELFPAY | PROVIDERS: PCP Internal Medicine; Visit Provider Podiatrist Foot & Ankle Surgery | DX: B35.1 Tinea unguium (principal); R60.9 Edema, unspecified; M19.071 Primary osteoarthritis, right ankle and foot; E11.69 Type 2 diabetes mellitus with other specified complication; Z79.4 Long term (current) use of insulin | CPT/HCPCS: 99213 ==

== ENCOUNTER 2023-12-22 10:10 | Emergency (ER) | payer MEDICARE, MEDICAID, SELFPAY ==
[2023-12-22 10:13] VITALS: BP 158/88; PULSE 96; RESP 18; TEMP 36.4; O2SAT 97
--- NOTE | 2023-12-22 10:32 | ED_ITS ---
HPI - Abdominal Pain 2 General: Chief Complaint: Abdominal Pain Stated Complaint: DISTENDED ABD Time Seen by Provider: 12/22/23 10:11 Source: patient Mode of arrival: ambulatory Limitations: no limitations History of Present Illness: 68-year-old female who has a history of cirrhosis states she feels like her abdomen has been more distended she has not seen her liver specialist at [place] that she has not seen her PCP she is got some mild pain she denies any severe pain denies any fever denies any shortness of breath denies any worse improved factors Associated Symptoms: Denies chills, diarrhea, dysuria, fever(s), nausea and vomiting Review of Systems 2 Const: Denies: fever(s), chills, body aches or change in appetite ENMT: Denies: throat pain or dental pain Card: Denies: chest pain Resp: Denies: dyspnea GI: Reports: abdominal pain; Denies: nausea, vomiting or diarrhea : Denies: dysuria Musc: Denies: neck pain or back pain Skin/Breast: Denies: rash Neuro: Denies: headache(s) PFSH ED 2 PFSH: Medical History TIA (transient ischemic attack) Acute posterior circulation transient ischemic attack Acute hepatic encephalopathy Free intraperitoneal air Gastric perforation Fall Thrombocytopenia Altered mental status Pancytopenia Type 2 diabetes mellitus Obesity (BMI 30.0-34.9) Diabetes mellitus type 2 in obese Portal vein thrombosis 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 Incisional hernia Hepatic encephalopathy Kidney stones Diabetes BLAIR (nonalcoholic steatohepatitis) Surgical History Gastric bypass status for obesity History of colonoscopy History of esophagogastroduodenoscopy (EGD) H/O: hysterectomy cervical cancer H/O gastric bypass Hx of cholecystectomy Family History Mother Hypertension Father Chronic kidney disease (CKD) Sleep apnea Other Bleeding disorder Denies family history of Anesthesia complication Social History Smoking and tobacco/nicotine status: former use of tobacco/nicotine Quit status (tobacco/nicotine): has quit using Year quit tobacco: 1986 Former quit date comment: smoked x 10+ years Alcohol intake: never Substance/Drug Use: never Physical Exam 2 Const: COMMON NORMALS: no acute distress, patient oriented x3 and healthy appearing HENMT: COMMON NORMALS: normocephalic and atraumatic HEAD & SCALP: n ormocephalic and atraumatic Neck/C-Spine: COMMON NORMALS: full ROM and supple Chest: COMMONS NORMALS: normal inspection of the chest Resp: COMMON NORMALS: normal respiratory effort Cardio: COMMON NORMALS: regular rate, regular rhythm and No murmurs present (Cardio) RATE: regular rate RHYTHM: regular rhythm GI: COMMON NORMALS: Soft to palpation, non-tender and no masses PALPATION: Yes Soft to palpation OTHER: Distended abdomen does have a umbilical hernia is easily reduced no tenderness Extremity: COMMON NORMALS: normal to inspection and full ROM Neuro: COMMON NORMALS: patient oriented x3, moves all extremities and no focal motor deficits Psych: COMMON NORMALS: mental status grossly normal, Normal thought process present and cooperative THOUGHT PROCESS: Normal thought process present Skin: COMMON NORMALS: no rashes or lesions noted and no wounds GENERAL SKIN EXAM: no rashes or lesions noted Course 2 Vital Signs: Vital signs: Vital Signs Temperature 97.6 F 12/22/23 10:13 Pulse Rate 96 12/22/23 10:13 Respiratory Rate 18 12/22/23 10:13 Blood Pressure 158/88 12/22/23 10:13 Pulse Oximetry 97 12/22/23 10:13 Oxygen Delivery Me thod Room Air 12/22/23 10:13 MDM - Abdominal Pain Medical Decision Making Patient presents here with abdominal swelling and pain is chronic in nature from his cirrhosis no changes blood work here is normal exams benign no signs of SBP she is to follow-up with her PCP or her liver specialist she stable for discharge. Medical Records I reviewed the patient's medical records. Lab Data I reviewed the patient's lab results. 12/22/23 10:55 12/22/23 10:55 Labs/Radiology: Laboratory Results WBC 6.39 10^3/uL (3.29-11.43) 12/22/23 10:55 RBC 4.34 10^6/uL (3.85-5.65) 12/22/23 10:55 Hgb 13.90 g/dL (11.27-16.99) 12/22/23 10:55 Hct 41.0 % (36-47) 12/22/23 10:55 MCV 94.5 fl (85-98) 12/22/23 10:55 MCH 32.0 pg (27-33) 12/22/23 10:55 MCHC 33.9 g/dL (30-55) 12/22/23 10:55 RDW 14.1 % (12.1-15.1) 12/22/23 10:55 Plt Count 144 10^3/cmm (157-399) L 12/22/23 10:55 MPV 10.4 fL (7.4-10.4) 12/22/23 10:55 Neut % (Auto) 66.5 % 12/22/23 10:55 Lymph % (Auto) 16.0 % 12/22/23 10:55 Dolores % (Auto) 13.0 % 12/22/23 10:55 Eos % (Auto) 3.1 % 12/22/23 10:55 Baso % (Auto) 0.9 % 12/22/23 10:55 Neut # (Auto) 4.25 10^3/uL (1.8-7.7) 12/22/23 10:55 Lymph # (Auto) 1.0 10^3/uL (0.8-4.8) 12/22/23 10:55 Dolores # (Auto) 0.8 10^3/uL (0.2-0.9) 12/22/23 10:55 Eos # (Auto) 0.2 10^3/uL (0.0-0.8) 12/22/23 10:55 Baso # (Auto) 0.1 10^3/uL (0.0-0.1) 12/22/23 10:55 Nucleated RBC % (auto) 0 % 12/22/23 10:55 Nucleated RBCs # 0.0 /100WBC 12/22/23 10:55 Sodium 135 mmol/L (136-145) L 12/22/23 10:55 Potassium 3.7 mmol/L (3.5-5.1) 12/22/23 10:55 Chloride 98 mmol/L (98-107) 12/22/23 10:55 Carbon Dioxide 26 mmol/L (22-29) 12/22/23 10:55 Anion Gap 14.7 (5-19) 12/22/23 10:55 BUN 9 mg/dL (8-23) 12/22/23 10:55 Creatinine 0.9 mg/dL (0.5-0.9) 12/22/23 10:55 GFR Calculation 62.6 mL/min (90-130) L 12/22/23 10:55 Glucose 194 mg/dL (65-115) H 12/22/23 10:55 Calculated Osmolality 284 mOsm/kg (285-295) L 12/22/23 10:55 Calcium 8.5 mg/dL (8.5-10.5) 12/22/23 10:55 Total Bilirubin 2.4 mg/dL (0.15-1.2) H 12/22/23 10:55 AST 54 U/L (0-32) H 12/22/23 10:55 ALT 42 U/L (0-33) H 12/22/23 10:55 Alkaline Phosphatase 378 U/L (35-105) H 12/22/23 10:55 Total Protein 6.7 g/dL (6.6-8.7) 12/22/23 10:55 Albumin 2.5 g/dL (3.5-5.2) L 12/22/23 10:55 Globulin 4.2 g/dL (1.3-4.6) 12/22/23 10:55 No radiology studies performed this visit Discharge Plan Discharge Patient Disposition: Home Clinical Impression: Abdominal pain Cirrhosis Qualifiers: Hepatic cirrhosis type: unspecified hepatic cirrhosis Ascites presence: with ascites Qualified Code(s): K74.60 - Unspecified cirrhosis of liver Condition: Stable Prescriptions: No Action furosemide 40 mg tablet 40 mg PO DAILY (DME) diabetic shoes with 3 inserts See Rx Instructions .Route .MEDSUPPLY Qty: 1 0RF Rx Instructions: As directed to the shoe rusty sucralfate [Carafate] 100 mg/mL suspension 5 ml PO QID Rx Instructions: swish in mouth and swallow; use after food/drink omeprazole 40 mg capsule,delayed release(DR/EC) 40 mg PO DAILY spironolactone 100 mg Tablet 100 mg PO DAILY Qty: 60 0RF Xifaxan 550 mg tablet 550 mg PO BID ondansetron HCl 4 mg tablet 4 mg PO TID PRN (Reason: Nausea And Vomiting) acetaminophen 500 mg Tablet 500 mg PO Q6H PRN (Reason: Pain) lactulose [Constulose] 10 gram/15 mL solution 45 ml PO TID Qty: 946 5RF insulin degludec [Tresiba FlexTouch U-100] 100 unit/mL (3 mL) insulin pen 10 unit SUBCUT DAILY Qty: 3 0RF Rx Instructions: Dose change only hydrocodone-acetaminophen 5-325 mg Tablet 1 tab PO Q4H PRN (Reason: Moderate To Severe Pain) Qty: 10 0RF potassium chloride 10 mEq tablet,ER particles/crystals 20 meq PO DAILY Cymbalta 30 mg Capsule,Delayed Release(Dr/Ec) 30 mg PO DAILY Xifaxan 550 mg Tablet 550 mg PO BID Discharge Orders: Discharge ED (Routine); Ordered 12/22/23 Ordered By: Parmjit Fernandez Referrals: Pauline Pereira MD [Primary Care Provider] - Discharge Diet: Advance as tolerated Discharge Activity: Resume usual activity Patient Instructions: Cirrhosis Coding Level of Care Code ED Wildlife Rehabilitator for [facility]
[2023-12-22 11:00] LABS: Basophils # 0.1 10^3/uL (0.0-0.1); Basophils % 0.9 %; Eosinophils # 0.2 10^3/uL (0.0-0.8); Eosinophils % 3.1 %; Mean Corpuscular HGB Conc 33.9 g/dL (30-55); Mean Corpuscular Volume 94.5 fl (85-98); Mean Platelet Volume 10.4 fL (7.4-10.4); Monocytes # 0.8 10^3/uL (0.2-0.9); Neutrophils # 4.25 10^3/uL (1.8-7.7); Neutrophils % 66.5 %; Nucleated Red Blood Cells % 0 %; Platelet Count 144 10^3/cmm (157-399); Red Blood Count 4.34 10^6/uL (3.85-5.65); Red Cell Distribution Width 14.1 % (12.1-15.1); White Blood Count 6.39 10^3/uL (3.29-11.43)
[2023-12-22] MEDS: FUROsemide 10 mg/mL SDV 4mL 40 MG IVP (11:02)
[2023-12-22 11:17] LABS: Alanine Aminotransferase 42 U/L (0-33); Albumin Level 2.5 g/dL (3.5-5.2); Alkaline Phosphatase 378 U/L (35-105); Anion Gap 14.7 (5-19); Aspartate Amino Transferase 54 U/L (0-32); Blood Urea Nitrogen 9 mg/dL (8-23); Calcium 8.5 mg/dL (8.5-10.5); Carbon Dioxide 26 mmol/L (22-29); Chloride 98 mmol/L (98-107); Globulin 4.2 g/dL (1.3-4.6); Glomerular Filtration Rate 62.6 mL/min (90-130); Glucose 194 mg/dL (65-115); Osmolality Calculated 284 mOsm/kg (285-295); Potassium 3.7 mmol/L (3.5-5.1); Sodium 135 mmol/L (136-145); Total Bilirubin 2.4 mg/dL (0.15-1.2); Total Protein 6.7 g/dL (6.6-8.7)
[2023-12-22 11:52] VITALS: BP 157/91; PULSE 100; O2SAT 94
== END 2023-12-22 11:53 | disposition home or self-care (01) ==
PROVIDERS: Emergency Provider Emergency Medicine; PCP Internal Medicine
DX: K74.60 Unspecified cirrhosis of liver (principal); Z79.4 Long term (current) use of insulin; R10.9 Unspecified abdominal pain; K42.9 Umbilical hernia without obstruction or gangrene; Z87.891 Personal history of nicotine dependence; Z86.73 Personal history of transient ischemic attack (TIA), and cerebral infarction without residual deficits; E11.9 Type 2 diabetes mellitus without complications
CPT/HCPCS: 36415; 80053; 85025; 96374; 99284; J1940

== ENCOUNTER 2023-12-25 09:19 | Oncology outpatient (recurring) (ONCR) | payer MEDICARE, MEDICAID, SELFPAY ==
[2023-12-25 10:39] LABS: Basophils # 0.1 10^3/uL (0.0-0.1); Basophils % 0.8 %; Eosinophils # 0.2 10^3/uL (0.0-0.8); Eosinophils % 3.2 %; Hematocrit 38.4 % (36-47); Lymphocytes # 1.3 10^3/uL (0.8-4.8); Lymphocytes % 20.3 %; Mean Corpuscular HGB Conc 33.9 g/dL (30-55); Mean Corpuscular Hemoglobin 31.7 pg (27-33); Mean Corpuscular Volume 93.7 fl (85-98); Mean Platelet Volume 10.8 fL (7.4-10.4); Monocytes # 0.9 10^3/uL (0.2-0.9); Monocytes % 14.1 %; Neutrophils # 3.85 10^3/uL (1.8-7.7); Nucleated Red Blood Cells % 0 %; Platelet Count 143 10^3/cmm (157-399); Red Cell Distribution Width 14.5 % (12.1-15.1); White Blood Count 6.31 10^3/uL (3.29-11.43)
[2023-12-25 10:40] LABS: Reticulocyte % 2.7 % (0.5-2.0)
[2023-12-25 11:07] LABS: Tumor Marker Alpha Fetoprotein 4.8 ng/mL (0-8.3)
[2023-12-25 11:24] LABS: Alanine Aminotransferase 41 U/L (0-33); Albumin Level 2.4 g/dL (3.5-5.2); Alkaline Phosphatase 365 U/L (35-105); Anion Gap 14.9 (5-19); Aspartate Amino Transferase 51 U/L (0-32); Blood Urea Nitrogen 11 mg/dL (8-23); Calcium 8.1 mg/dL (8.5-10.5); Carbon Dioxide 24 mmol/L (22-29); Chloride 98 mmol/L (98-107); Creatinine Clr Calc Pharmacy 75.3883; Globulin 3.9 g/dL (1.3-4.6); Glomerular Filtration Rate 71.8 mL/min (90-130); Glucose 230 mg/dL (65-115); Osmolality Calculated 283 mOsm/kg (285-295); Potassium 3.9 mmol/L (3.5-5.1); Sodium 133 mmol/L (136-145); Total Bilirubin 2.4 mg/dL (0.15-1.2); Total Protein 6.3 g/dL (6.6-8.7)
[2023-12-25 11:39] LABS: Ferritin 509 ng/mL (15-150); Iron 71 ug/dL (37-145); Percent Saturation 78.8 % (20-50); Total Iron Binding Capacity 90 mcg/dl; Unsaturated Iron Binding 19 ug/dL (112-347)
[2023-12-28 14:38] LABS: Soluble Transferrin Receptor 2.54 mg/L (0.76-1.76)
== END 2023-12-29 23:59 | disposition home or self-care (01) ==
PROVIDERS: Internal Medicine; PCP Internal Medicine; Visit Provider Radiology Radiation Oncology
DX: D64.9 Anemia, unspecified (principal); K75.81 Nonalcoholic steatohepatitis (NASH); K74.60 Unspecified cirrhosis of liver; D69.6 Thrombocytopenia, unspecified
CPT/HCPCS: 36415; 80053; 82105; 82728; 83540; 83550; 84238; 85025; 85045; 99213

== ENCOUNTER 2023-12-26 14:03 | Emergency (ER) | payer MEDICARE, MEDICAID, SELFPAY ==
[2023-12-26 14:07] VITALS: BP 164/97; PULSE 93; RESP 20; TEMP 36.8; O2SAT 97; BMI 30.7
--- NOTE | 2023-12-26 14:17 | CTR_ITS ---
PROCEDURE INFORMATION: Exam: CT Abdomen And Pelvis With Contrast Exam date and time: 12/26/2023 3:10 PM Age: 68 years old Clinical indication: Abdominal pain; Generalized; Prior surgery; Surgery date: 6+ months; Surgery type: Gastric bypass, hyster, gb; Additional info: Acute on chronic abd pain TECHNIQUE: Imaging protocol: Computed tomography of the abdomen and pelvis with contrast. Radiation optimization: All CT scans at this facility use at least one of these dose optimization techniques: automated exposure control; mA and/or kV adjustment per patient size (includes targeted exams where dose is matched to clinical indication); or iterative reconstruction. Contrast material: OMNI 350; Contrast volume: 100 ml; Contrast route: INTRAVENOUS (IV); COMPARISON: CT abdomen pelvis wo con [id number] 05/20/2023 8:56 PM RADIATION DOSE METRICS: Total DLP (mGy-cm): 841.93 FINDINGS: Lungs: Left lower lobe atelectasis subjacent to the effusion. No significant pathology in the imaged right lung base Pleural spaces: [id number] left pleural effusion, incompletely imaged. Esophagus: Mural thickening distal thoracic esophagus. Diaphragm: Small hiatal hernia. Liver: Interval progression of severe hepatic cirrhosis. Mildly inhomogeneous liver parenchyma without discrete lesion visualized Gallbladder and biliary ducts: Prior cholecystectomy. No biliary dilatation. Pancreas: No significant pancreatic pathology. Spleen: Spleen is normal in size. Adrenal glands: Right adrenal gland is unremarkable. The left adrenal is not well visualized, possibly obscured by abundant varices in this region. Kidneys and ureters: No significant renal pathology. Stomach and bowel: Prior gastric bypass. Moderate amount of colonic stool. Colonic diverticulosis without evidence of focal inflammatory change. Appendix: No appendiceal pathology evident. Intraperitoneal space: Interval appearance of the large amount of abdominopelvic ascites. Vasculature: There are extensive varices present with dilatation of the splenic vein and SMA also seen. Varices are located throughout the left upper retroperitoneum. Lymph nodes: No lymphadenopathy. Urinary bladder: Urinary bladder is nondistended limiting assessment of the wall. Reproductive: Prior hysterectomy. No significant adnexal pathology. Bones/joints: Left proximal femoral fixation hardware is present. Features of both DISH and degenerative change noted in the spine. Soft tissues: Again noted is a right paramedian moderate-sized ventral hernia containing nonobstructed portion of the proximal transverse colon there is a small amount of fluid within the hernia sac. Small fat containing ventral hernia is present on series 3, image 32. CT/CT abdomen pelvis w con* [id number] IMPRESSION: 1. Interval progression of features of hepatic cirrhosis and portal hypertension including marked abdominopelvic ascites and extensive upper abdominal varices. 2. Interval appearance of [id number] left pleural effusion, incompletely imaged. 3. Unchanged moderate ventral hernia containing nonobstructed transverse colon.
[2023-12-26 14:19] VITALS: BP 164/97; PULSE 101; O2SAT 100
--- NOTE | 2023-12-26 14:22 | ED_ITS ---
HPI - Abdominal Pain 2 General: Chief Complaint: Abdominal Pain Stated Complaint: abd pain Time Seen by Provider: 12/26/23 14:07 Source: patient Mode of arrival: EMS Limitations: no limitations History of Present Illness: Patient is a 68-year-old female past medical history of cirrhosis and diabetes who presents to the emergency department by EMS due to acute on chronic abdominal pain. Per EMS, with [facility] patient was asymptomatic, however subsequent rounds found her to be in worsening diffuse abdominal pain, worse in the right upper quadrant. She does note that it is worse with taking deep breaths, however is not having any chest pain or shortness of breath at this time. She was seen here in the emergency department 4 days ago for the same issue, was found to have a normal laboratory workup and was referred to her intertype operator. Hepatology subsequently upped her Lasix to 80 mg, which reportedly was helping the patient up until today. She did take an oxycodone prior to presenting here. No reported history of spontaneous bacterial peritonitis, but she does note a history of esophageal varices. She is not having any hematemesis or hemoptysis at this time. Patient does note that her pain is diffuse, she has not had any fevers. No other symptoms reported at this time. MD elicited complaint: abdominal pain Pertinent past history: other (Cirrhosis of the liver) Pain Consistency: constant Location: Diffuse Severity: moderate Exacerbating factors: other (Deep breaths) Relieving factors: nothing Associated Symptoms: Denies bloating, change in stool character, chills, constipation, diarrhea, dysuria, fever(s), hematochezia, nausea and vomiting Treatments prior to arrival: prescription analgesics Review of Systems 2 General: Reports: 10 or more systems reviewed and unremarkable except in HPI and below Const: Denies: fever(s), chills, change in appetite, change in weight or diaphoresis ENMT: Denies: throat pain or hoarseness Card: Denies: chest pain, palpitations or lightheadedness Resp: Reports: pain on inspiration; Denies: dyspnea, productive cough or wheezing GI: Reports: abdominal pain; Denies: nausea, vomiting, diarrhea, constipation, bloating, change in stool character or hematochezia : Denies: flank pain, difficulty voiding, dysuria, urinary frequency or urinary urgency Musc: Denies: neck pain or back pain Skin/Breast: Denies: rash or new lesions Neuro: Denies: headache(s) or dizziness PFSH ED 2 PFSH: Medical History TIA (transient ischemic attack) Acute posterior circulation transient ischemic attack Acute hepatic encephalopathy Free intraperitoneal air Gastric perforation Fall Thrombocytopenia Altered mental status Pancytopenia Type 2 diabetes mellitus Obesity (BMI 30.0-34.9) Diabetes mellitus type 2 in obese Portal vein thrombosis 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 Incisional hernia Hepatic encephalopathy Kidney stones Diabetes BLAIR (nonalcoholic steatohepatitis) Surgical History Gastric bypass status for obesity History of colonoscopy History of esophagogastroduodenoscopy (EGD) H/O: hysterectomy cervical cancer H/O gastric bypass Hx of cholecystectomy Family History Mother Hypertension Father Chronic kidney disease (CKD) Sleep apnea Other Bleeding disorder Denies family history of Anesthesia complication Social History Smoking and tobacco/nicotine status: unknown if used tobacco/nicotine Quit status (tobacco/nicotine): has quit using Year quit tobacco: 1986 Former quit date comment: smoked x 10+ years Alcohol intake: never Substance/Drug Use: never Physical Exam 2 Const: COMMON NORMALS: patient oriented x3, no limitations, alert and well nourished GENERAL APPEARANCE: cooperative, in distress (From pain) and appears older than stated age NUTRITIONAL APPEARANCE: obese O RIENTATION/CONSCIOUSNESS: Yes awake HENMT: COMMON NORMALS: normocephalic, atraumatic, hearing grossly normal bilaterally, external ears normal, Normal external nose present, Normal nasal mucous membranes and turbinates present and moist oral mucous membranes HEAD & SCALP: normocephalic and atraumatic NOSE: Normal external nose present and Normal nasal mucous membranes and turbinates present EXTERNAL EAR: Yes external ears normal OTHER: Moist oral mucosa no signs of bleeding Eye: COMMON NORMALS: Equal, round and reactive pupils present, EOMs intact bilaterally, conjunctivae normal and normal visual vasquez by confrontation C ONJUNCTIVA: Yes conjunctivae normal PUPIL: Yes Equal, round and reactive pupils present Neck/C-Spine: COMMON NORMALS: full ROM, supple, no meningeal signs and no JVD Resp: COMMON NORMALS: normal respiratory effort, No retractions, No use of accessory muscles and clear to auscultation bilaterally AUSCULTATION: clear to auscultation bilaterally, no crackles, no rales, no rhonchi and no wheezes Cardio: COMMON NORMALS: no JVD, regular rate, regular rhythm, S1 normal heart sound present, S2 normal heart sound present, No gallops present (Cardio), No clicks present (Cardio), No murmurs present (Cardio), No rub (Cardio) and Peripheral pulses 2+ throughout RATE: regular rate RHYTHM: regular rhythm HEART SOUNDS: S1 normal heart sound present and S2 normal heart sound present PERIPHERAL PULSES: Peripheral pulses 2+ throughout GI: COMMON NORMALS: no masses INSPECTION: Yes central obesity, Yes scar and No Fluid wave present AUSCULTATION: Yes normoactive bowel sounds P ALPATION: Yes Tenderness to palpation present (GI) (Diffuse), No Rigid due to palpation, Yes Hernia present ventral and Yes Ascites present PERCUSSION: no fluid wave RECTAL EXAM: deferred OTHER: Central postoperative scar : COMMON NORMALS: Yes no CVA tenderness BLADDER/KIDNEY EXAM: Yes no CVA tenderness EXTERNAL FEMALE EXAM: Yes Hernia present Back/Pelvis: COMMON NORMALS: no CVA tenderness Extremity: COMMON NORMALS: normal to inspection and full ROM NARRATIVE EXTREMITY EXAM: 2+ pitting pedal edema bilaterally Neuro: COMMON NORMALS: patient oriented x3, moves all extremities, no focal motor deficits and no sensory deficits noted SENSORIUM/ORIENTATION: Yes alert MENINGEAL SIGNS: Yes no meningeal signs Psych: COMMON NORMALS: mental status grossly normal, cooperative and speech normal SPEECH: Yes normal speech Skin: COMMON NORMALS: no rashes or lesions noted GENERAL SKIN EXAM: no rashes or lesions noted Course 2 Vital Signs: Vital signs: Vital Signs Temperature 98.2 F 12/26/23 14:07 Pulse Rate 106 H 12/26/23 15:16 Respiratory Rate 18 12/26/23 14:30 Blood Pressure 171/84 12/26/23 15:16 Pulse Oximetry 98 12/26/23 15:16 Oxygen Delivery Me thod Room Air 12/26/23 14:19 MDM - Abdominal Pain Medical Decision Making Patient brought in by EMS for acute on chronic abdominal pain, history of hepatic cirrhosis with ascites. She has had fluid drained off her abdomen in the past. Her vitals on arrival overall unremarkable. Her examination did reveal presence of ascites though there was no positivity on fluid wave testing and clinically she does not present as an SBP patient, as her lab work also is all within normal limits for her. CT did reveal progression of fluid buildup as patient would benefit greatly from drainage, there is no one that can drain her abdomen at this time. Because of this she will follow-up with primary care by calling the office tomorrow to schedule an appointment for drainage. Her pain is in control right now after receiving morphine and she will be [facility] and instructed to continue her Lasix as well as pain medication. Strict return precautions given. Care of this patient discussed with supervising ED physician, Dr. Salcedo, who agrees with disposition. Lab Data 12/26/23 14:28 12/26/23 14:28 Labs/Radiology: Radiology Impressions Abdomen/Pelvis CT 12/26/23 14:17 IMPRESSION: 1. Interval progression of features of hepatic cirrhosis and portal hypertension including marked abdominopelvic ascites and extensive upper abdominal varices. 2. Interval appearance of [id number] left pleural effusion, incompletely imaged. 3. Unchanged moderate ventral hernia containing nonobstructed transverse colon. Laboratory Results WBC 6.39 10^3/uL (3.29-11.43) 12/26/23 14: RBC 3.91 10^6/uL (3.85-5.65) 12/26/23 14:28 Hgb 12.50 g/dL (11.27-16.99) 12/26/23 14:28 Hct 37.1 % (36-47) 12/26/23 14:28 MCV 94.9 fl (85-98) 12/26/23 14:28 MCH 32.0 pg (27-33) 12/26/23 14:28 MCHC 33.7 g/dL (30-55) 12/26/23 14:28 RDW 14.6 % (12.1-15.1) 12/26/23 14:28 Plt Count 134 10^3/cmm (157-399) L 12/26/23 14:28 MPV 10.6 fL (7.4-10.4) H 12/26/23 14:28 Neut % (Auto) 61.3 % 12/26/23 14:28 Lymph % (Auto) 20.5 % 12/26/23 14:28 [place] % (Auto) 14.4 % 12/26/23 14:28 Eos % (Auto) 2.5 % 12/26/23 14:28 Baso % (Auto) 0.8 % 12/26/23 14:28 Neut # (Auto) 3.92 10^3/uL (1.8-7.7) 12/26/23 14:28 Lymph # (Auto) 1.3 10^3/uL (0.8-4.8) 12/26/23 14:28 [place] # (Auto) 0.9 10^3/uL (0.2-0.9) 12/26/23 14:28 Eos # (Auto) 0.2 10^3/uL (0.0-0.8) 12/26/23 14:28 Baso # (Auto) 0.1 10^3/uL (0.0-0.1) 12/26/23 14:28 Nucleated RBC % (auto) 0 % 12/26/23 14:28 Nucleated RBCs # 0.0 /100WBC 12/26/23 14:28 PT 17.60 SECONDS (12.1-14.9) H 12/26/23 14:28 INR 1.40 (0.8-1.2) H 12/26/23 14:28 APTT 35.0 SECONDS (23.9-36.7) 12/26/23 14:28 Sodium 132 mmol/L (136-145) L 12/26/23 14:28 Potassium 3.9 mmol/L (3.5-5.1) 12/26/23 14:28 Chloride 97 mmol/L (98-107) L 12/26/23 14:28 Carbon Dioxide 28 mmol/L (22-29) 12/26/23 14:28 Anion Gap 10.9 (5-19) 12/26/23 14:28 BUN 10 mg/dL (8-23) 12/26/23 14:28 Creatinine 0.9 mg/dL (0.5-0.9) 12/26/23 14:28 GFR Calculation 62.6 mL/min (90-130) L 12/26/23 14:28 Glucose 240 mg/dL (65-115) H 12/26/23 14:28 Calculated Osmolality 281 mOsm/kg (285-295) L 12/26/23 14:28 Lactic Acid 2.6 mmol/L (0.5-2.2) H 12/26/23 14:28 Calcium 8.0 mg/dL (8.5-10.5) L 12/26/23 14:28 Total Bilirubin 2.1 mg/dL (0.15-1.2) H 12/26/23 14:28 AST 50 U/L (0-32) H 12/26/23 14:28 ALT 40 U/L (0-33) H 12/26/23 14:28 Alkaline Phosphatase 357 U/L (35-105) H 12/26/23 14:28 Total Protein 6.0 g/dL (6.6-8.7) L 12/26/23 14:28 Albumin 2.3 g/dL (3.5-5.2) L 12/26/23 14:28 Globulin 3.7 g/dL (1.3-4.6) 12/26/23 14:28 Lipase 43 U/L (13-60) 12/26/23 14:28 Urine Color Yellow (Yellow) 12/26/23 14:50 Urine Appearance Clear (CLEAR) 12/26/23 14:50 Urine pH 7 (5-7) 12/26/23 14:50 Ur Specific [place] 1.010 (1.005-1.030) 12/26/23 14:50 Urine Protein Neg (Negative) 12/26/23 14:50 Urine Glucose (UA) Norm (Normal) 12/26/23 14:50 Urine Ketones Negative (Negative) 12/26/23 14:50 Urine Blood Neg (Negative) 12/26/23 14:50 Urine Nitrate Negative (Negative) 12/26/23 14:50 Urine Bilirubin Neg (Negative) 12/26/23 14:50 Urine Urobilinogen Norm mg/dL (Negative) 12/26/23 14:50 Ur Leukocyte Esterase Negative (Negative) 12/26/23 14:50 All radiology interpretation(s) finalized by discharge Discharge Plan Discharge Patient Disposition: Home Clinical Impression: Cirrhosis of liver Condition: Stable Prescriptions: No Action furosemide 40 mg tablet 40 mg PO DAILY (DME) diabetic shoes with 3 inserts See Rx Instructions .Route .MEDSUPPLY Qty: 1 0RF Rx Instructions: As directed to the timi ojeda sucralfate [Carafate] 100 mg/mL suspension 5 ml PO QID Rx Instructions: swish in mouth and swallow; use after food/drink omeprazole 40 mg capsule,delayed release(DR/EC) 40 mg PO DAILY spironolactone 100 mg Tablet 100 mg PO DAILY Qty: 60 0RF Xifaxan 550 mg tablet 550 mg PO BID ondansetron HCl 4 mg tablet 4 mg PO TID PRN (Reason: Nausea And Vomiting) acetaminophen 500 mg Tablet 500 mg PO Q6H PRN (Reason: Pain) lactulose [Constulose] 10 gram/15 mL solution 45 ml PO TID Qty: 946 5RF insulin degludec [Tresiba FlexTouch U-100] 100 unit/mL (3 mL) insulin pen 10 unit SUBCUT DAILY Qty: 3 0RF Rx Instructions: Dose change only hydrocodone-acetaminophen 5-325 mg Tablet 1 tab PO Q4H PRN (Reason: Moderate To Severe Pain) Qty: 10 0RF potassium chloride 10 mEq tablet,ER particles/crystals 20 meq PO DAILY Cymbalta 30 mg Capsule,Delayed Release(Dr/Ec) 30 mg PO DAILY Xifaxan 550 mg Tablet 550 mg PO BID Discharge Orders: Discharge ED (Routine); Ordered 12/26/23 Ordered By: Reddy Thornton Referrals: Pauline Pereira MD [Primary Care Provider] - Discharge Diet: As Directed Discharge Activity: Increase activity as tolerated Patient Instructions: Cirrhosis of the Liver (ED) Activity Restrictions/Additional Instructions: Please call your primary care tomorrow to schedule appointment for abdominal fluid drainage. Continue taking your pain medications at home. Return with any new or worsening symptoms. Continue medications as usual. Coding Level of Care Code ED Platform Stapler for Trevon Haines
[2023-12-26 14:30] VITALS: RESP 18; O2SAT 99
[2023-12-26] MEDS: ondansetron 2 mg/ML SDV 2 mL 4 MG IVP (14:30)
[2023-12-26] MEDS: morphine 4 mg/mL SDV 1 mL IVP (14:30)
[2023-12-26 14:42] LABS: Basophils # 0.1 10^3/uL (0.0-0.1); Basophils % 0.8 %; Eosinophils # 0.2 10^3/uL (0.0-0.8); Eosinophils % 2.5 %; Hematocrit 37.1 % (36-47); Lymphocytes # 1.3 10^3/uL (0.8-4.8); Lymphocytes % 20.5 %; Mean Corpuscular HGB Conc 33.7 g/dL (30-55); Mean Corpuscular Volume 94.9 fl (85-98); Mean Platelet Volume 10.6 fL (7.4-10.4); Monocytes # 0.9 10^3/uL (0.2-0.9); Monocytes % 14.4 %; Neutrophils # 3.92 10^3/uL (1.8-7.7); Neutrophils % 61.3 %; Nucleated Red Blood Cells % 0 %; Platelet Count 134 10^3/cmm (157-399); Red Blood Count 3.91 10^6/uL (3.85-5.65); Red Cell Distribution Width 14.6 % (12.1-15.1); White Blood Count 6.39 10^3/uL (3.29-11.43)
[2023-12-26 14:58] LABS: Add Urine Microscopic? NO; Charge for UA Resulting for Rev
[2023-12-26 14:58] LABS: Alanine Aminotransferase 40 U/L (0-33); Albumin Level 2.3 g/dL (3.5-5.2); Alkaline Phosphatase 357 U/L (35-105); Anion Gap 10.9 (5-19); Aspartate Amino Transferase 50 U/L (0-32); Blood Urea Nitrogen 10 mg/dL (8-23); Carbon Dioxide 28 mmol/L (22-29); Chloride 97 mmol/L (98-107); Globulin 3.7 g/dL (1.3-4.6); Glomerular Filtration Rate 62.6 mL/min (90-130); Glucose 240 mg/dL (65-115); Lipase 43 U/L (13-60); Osmolality Calculated 281 mOsm/kg (285-295); Potassium 3.9 mmol/L (3.5-5.1); Sodium 132 mmol/L (136-145); Total Bilirubin 2.1 mg/dL (0.15-1.2)
[2023-12-26 14:59] LABS: Lactic Sepsis W/Reflex 2.6 mmol/L (0.5-2.2)
[2023-12-26 15:03] LABS: Bilirubin Urine Neg (Negative); Blood Urine Neg (Negative); Glucose Urine UA Norm (Normal); Ketones Urine Negative (Negative); Leukocyte Esterase Urine Negative (Negative); Nitrate Urine Negative (Negative); Protein Urine Neg (Negative); Urine Appearance Clear (CLEAR); Urine Color Yellow (Yellow); Urobilinogen Urine Norm (Negative); pH Urine 7 (5-7)
[2023-12-26] MEDS: iohexol 350 mg/mL 500 mL Btl (per mL) IV (15:12)
[2023-12-26 15:16] VITALS: BP 171/84; PULSE 106; O2SAT 98
--- NOTE | 2023-12-26 15:55 | USR_ITS ---
PROCEDURE INFORMATION: Exam: US Abdomen Complete Exam date and time: 12/26/2023 4:15 PM Age: 68 years old Clinical indication: Abdominal pain; Additional info: Abdominal pain/hx of cirrhosis TECHNIQUE: Imaging protocol: Real-time ultrasound of the abdomen with image documentation. Complete exam. COMPARISON: US paracentesis jeremias yeh [id number] 12/12/2023 1:05 PM FINDINGS: Liver: Features of hepatic cirrhosis are present. Decreased hepatic volume. Gallbladder: Normal. No gallstones. There is no gallbladder wall thickening. Biliary ducts: Normal. No stones. No dilation. Pancreas: Visualized pancreas is unremarkable. Right kidney: Normal. No mass. No hydronephrosis. Left kidney: Normal. No mass. No hydronephrosis. Spleen: Normal. No splenomegaly. Aorta: Normal. No aneurysm. Inferior vena cava: Normal. US/US abdomen complete* [id number] IMPRESSION: 1. Hepatic cirrhosis with splenomegaly and large amount of ascites consistent with portal hypertension. 2. Prior cholecystectomy. 3. No evidence of biliary dilatation with the common bile duct measuring 7 mm. 4. Pancreas obscured by bowel gas. 5. Right kidney measures 10.9 cm in length and is unremarkable. No calculus, mass, or obstruction. Renal echogenicity is within normal limits. 6. Marked ascites. 7. Spleen is enlarged measuring up to 13.1 cm in length with volume of 470 mL. 8. Left kidney measures 9.5 cm in length. No calculus, mass, or obstruction. Renal echogenicity is within normal limits. 9. Visualized aorta is unremarkable. 10. Visualized IVC is unremarkable.
[2023-12-26 16:21] LABS: Reflex Lactate Order REFLEX LACTIC ORDERD
[2023-12-26 17:30] VITALS: BP 156/89; PULSE 101; RESP 14; O2SAT 99
[2023-12-26 17:41] LABS: Lactic Acid level (Lactate) 2.1 mmol/L (0.5-2.2)
[2023-12-26 18:01] VITALS: BP 145/85; PULSE 107; RESP 20; O2SAT 97
== END 2023-12-26 18:04 | disposition home or self-care (01) ==
PROVIDERS: Emergency Provider Physician Assistant; PCP Internal Medicine
DX: K74.60 Unspecified cirrhosis of liver (principal); Z79.4 Long term (current) use of insulin; Z87.891 Personal history of nicotine dependence; Z86.73 Personal history of transient ischemic attack (TIA), and cerebral infarction without residual deficits; E11.9 Type 2 diabetes mellitus without complications
CPT/HCPCS: 36415; 74177; 76700; 80053; 81003; 83605; 83690; 85025; 85610; 85730; 96374; 96375; 99285; J2270; J2405; Q9967

== ENCOUNTER 2023-12-30 09:54 | Day surgery (SDC) | payer MEDICARE, MEDICAID, SELFPAY ==
--- NOTE | 2023-12-30 10:09 | US_ITS ---
WS: [id number] ULTRASOUND-GUIDED THERAPEUTIC PARACENTESIS Procedure, risks, and complications have been explained to the patient. Consent is obtained. Utilizing aseptic technique and 1% buffered lidocaine, a small dermatome was made through which a 5 F rench Yueh catheter was inserted. Approximately 4500 ml of clear peritoneal fluid was obtained witho ut difficulty. No complications encountered. US/US paracentesis abd w [id number] IMPRESSION: Uncomplicated paracentesis yielding 4500 ml of peritoneal fluid.
[2023-12-30 10:10] VITALS: BP 161/84; PULSE 103; RESP 16; TEMP 36.6; O2SAT 98
== END 2023-12-30 11:28 | disposition home or self-care (01) ==
PROVIDERS: Radiology Diagnostic Radiology; PCP Internal Medicine; Visit Provider Nurse Practitioner Family
PROC: (CPT 49082; principal; 2023-12-30 11:00)
DX: R18.8 Other ascites (principal)
CPT/HCPCS: 49083

== ENCOUNTER 2024-01-01 13:46 | Oncology outpatient (recurring) (ONCR) | payer MEDICARE, MEDICAID, SELFPAY ==
--- NOTE | 2024-01-01 14:37 | ONCRAD EPV_ITS ---
Radiation Oncology Established Patient Visit Patient: Gillian Kohli [id number] : 8Age: 68 Sex: Female Dictated by: Dr. Radha Espinoza Date of Service: 01/01/2024 Referring Physician(s) : José Miguel Elizabeth M.D. Diagnosis: C44.319 - Basal cell carcinoma of skin of other parts of face, Diagnosed 08/06/2023 (Active) D61.818 - Other pancytopenia, Diagnosed 12/16/2018 (Active) Patient returns today after being initially evaluated back in August. Shortly after that she fell and broke her femur and has been in and out of the hospital with that as well as ascites and is now is [place]. She continues to have extensive medical issues and remains perpetually confused. She has had paracentesis done in the last several days and had 4 -5 L removed. She came back today with the consideration of perhaps starting her postop treatment for her skin cancers. Radiotherapy to Date: Course: E beam 2023, Treatment Site: Rt [id number], Ref. ID: [id number] Energy: 9E, Dose/Fx (cGy): 250, #Fx: 2 / 20, Dose Correction (cGy): 0, Total Dose Delivered (cGy): 500, Start Date: 09/05/2023, End Date: 09/06/2023, Elapsed Days: 1 E beam 2023, Treatment Site: LT [id number], Ref. ID: [id number], Energy: 6E, Dose/Fx (cGy): 300, #Fx: 2 15, Dose Correction (cGy): 0, Total Dose Delivered (cGy): 600, Start Date: 09/05/2023, End Date: 09/06/2023, Elapsed Days: 1 Current History: Current Medications: Acetaminophen, amoxicillin, calcium Antacid Ultra, citalopram Hydrobromide, clarithromycin, flucelvax, furosemide, lasix, multivitamins, pantoprazole Sodium, potassium, propranolol HCl, spironolactone, tresiba, zinc. Allergies: No Known Allergies Current Complaints / Review of Systems: . Vital Signs: Performed on 01/01/2024 2:13 PM BMI - 33.282 kg/m2 (high), Height - 65 in, Weight - 200 lbs, Temperature - 97.9 f, Pulse - 109 /min (high), Respiration - 18 /min, O2 Sat - 97 %, Pain - 0, Fatigue - 2 and BP - 142/ 82 mm(hg)(high/). Physical Exam: On exam her skin has multiple cuts and slashes across her forearms. The area where the skin cancer was removed on the left wrist area appears to be smoothed with scar tissue and no signs of recurrence. The area across her right nose and into the cheek also appears to be nicely healed with no signs of recurrence. It smooth and the scar tissue is shiny white. . Performance Status: 50 Lab: None pending. Pathology: Primary, c44.319 - basal cell carcinoma of skin of other parts of face, Diagnosed 08/06/2023 (active) and Primary, d61.818 - other pancytopenia, Diagnosed 12/16/2018 (active) . Imaging: See HPI Impression: Skin cancer in the patient's with progressive comorbidities Plan: At this time her 2 skin cancers are the least of the issues she is dealing with. She talked at length about all of the issues and the problems she has as well as how her other appointments or not being capped. I have encouraged her to let her doctors know if she needs anything. She has a cell phone so she should be able to call. She feels like no one is checked on her at [place]. At this point I have asked her to return in 6 months and we will keep an eye on these 2 areas. Signed by: 01/01/2024 2:36:15 PM <<Signature on File>> Time spent with patient: 25 CPT Code: CPT Code:
== END 2024-01-29 23:59 | disposition home or self-care (01) ==
LOC: ONCMED 13:46
PROVIDERS: PCP Internal Medicine; Visit Provider Radiology Radiation Oncology
DX: D61.818 Other pancytopenia (principal); D64.9 Anemia, unspecified; D50.9 Iron deficiency anemia, unspecified; Z79.899 Other long term (current) drug therapy; Z53.9 Procedure and treatment not carried out, unspecified reason; L82.1 Other seborrheic keratosis; L57.8 Other skin changes due to chronic exposure to nonionizing radiation; D49.2 Neoplasm of unspecified behavior of bone, soft tissue, and skin; D69.2 Other nonthrombocytopenic purpura; Z51.0 Encounter for antineoplastic radiation therapy; C44.319 Basal cell carcinoma of skin of other parts of face; C44.619 Basal cell carcinoma of skin of left upper limb, including shoulder
CPT/HCPCS: 99024

== ENCOUNTER 2024-01-23 11:09 | Day surgery (SDC) | payer MEDICARE, MEDICAID, SELFPAY ==
[2024-01-23 11:22] VITALS: BP 169/81; PULSE 102; RESP 18; TEMP 36.5; O2SAT 96; BMI 30.7
--- NOTE | 2024-01-23 11:26 | US_ITS ---
WS: [id number] ULTRASOUND-GUIDED PARACENTESIS CLINICAL INFORMATION: ascites COMPARISON: None. Procedure Informed consent: The risks, benefits, and alternatives of the procedure were discussed with the shanda ent. Verbal and written consent was obtained. Timeout: A timeout was performed to confirm the correct patient, procedure, and site. Preparation: A suitable skin site was identified. The patient was prepped and draped in usual sterile fashion. Lidocaine 1% was used for local anesthesia. Catheter: 4 [place] One-step Yueh catheter. Side: RIGHT lower quadrant. Fluid Volume: 3800 ml Color: Clear yellow Complications: None. US/[place] paracentesis abd w [id number] IMPRESSION: Uncomplicated ultrasound-guided paracentesis. Removal of 3800 cc
== END 2024-01-23 12:31 | disposition home or self-care (01) ==
LOC: GILAB 11:10
PROVIDERS: Radiology Neuroradiology; PCP Internal Medicine; Visit Provider Internal Medicine
PROC: (CPT 49082; principal; 2024-01-23 12:30)
DX: R18.8 Other ascites (principal)
CPT/HCPCS: 49083

== ENCOUNTER 2024-01-23 20:32 | Emergency (ER) | payer MEDICARE, MEDICAID, SELFPAY ==
[2024-01-23 20:36] VITALS: BP 135/100; PULSE 102; RESP 18; TEMP 37.2; O2SAT 95; BMI 30.7
--- NOTE | 2024-01-23 20:39 | CTR_ITS ---
PROCEDURE INFORMATION: Exam: CT Head Without Contrast Exam date and time: 01/23/2024 9:21 PM Age: 68 years old Clinical indication: Injury or trauma; Blunt trauma (contusions or hematomas); Patient HX: EMS arrival from intermediate for unwitnessed fall. Lac with hematoma to left parietal. C/O left chest wall pain and left hip pain. History of cirrhosis. ; Additional info: Fall left head trauma TECHNIQUE: Imaging protocol: Computed tomography of the head without contrast. Radiation optimization: All CT scans at this facility use at least one of these dose optimization techniques: automated exposure control; mA and/or kV adjustment per patient size (includes targeted exams where dose is matched to clinical indication); or iterative reconstruction. COMPARISON: CT head wo con* [id number] 09/07/2023 12:15 PM RADIATION DOSE METRICS: Total DLP (mGy-cm): 1059.58 FINDINGS: Brain: No acute intracranial hemorrhage or territorial infarction.There is moderate diffuse heterogeneity of the white matter attenuation, consistent with chronic white matter ischemic changes. Chronic lacunar infarct within the right caudate and left external capsule Cerebral ventricles: No ventriculomegaly. Paranasal sinuses: Visualized sinuses are unremarkable. No fluid levels. Mastoid air cells: Visualized mastoid air cells are well aerated. Bones: Unremarkable. No acute fracture. Soft tissues: Small hematoma involving the left parietal scalp. CT/CT head wo con* [id number] IMPRESSION: 1. No acute intracranial hemorrhage. 2. Microangiopathy and global cerebral volume loss. 3. Chronic lacunar infarcts within the right caudate and left external capsule. 4. Small hematoma involving the left parietal scalp. No acute fractures.
--- NOTE | 2024-01-23 20:39 | XRR_ITS ---
PROCEDURE INFORMATION: Exam: XR Left Hip Exam date and time: 01/23/2024 9:13 PM Age: 68 years old Clinical indication: Injury or trauma; Fall; Blunt trauma (contusions or hematomas); Left; Prior surgery; Surgery date: 1-6 months; Surgery type: Devan in hip/femur; Additional info: Fall left hip pain TECHNIQUE: Imaging protocol: Radiologic exam of the left hip. Views: 2 or 3 views hip with pelvis when performed. COMPARISON: CT abdomen pelvis w con* [id number] 12/26/2023 3:10 PM FINDINGS: Bones/joints: Intramedullary devan with nail fixation overlies a chronic intertrochanteric femoral fracture with medial displacement of the lesser trochanteric fracture fragment, similar compared to prior radiograph December 05, 2023. The femoral head is well seated within the acetabula. The pubic symphysis is well aligned. Soft tissues: Unremarkable. Vasculature: Atherosclerotic calcifications. XR/XR hip LT 2-3V wo/w pel* [id number] IMPRESSION: Intramedullary devan with nail fixation overlies a chronic intertrochanteric femoral fracture with medial displacement of the lesser trochanteric fracture fragment, similar compared to prior radiograph December 05, 2023.
[2024-01-23 20:40] VITALS: BP 135/100; PULSE 104; RESP 22; O2SAT 96
--- NOTE | 2024-01-23 20:40 | ECG_ITS ---
[facility] Test Date: 2024-01-23 Pat Name: Gillian Kohli Department: Room: Gender: Female [employer] Work[employer]: : 1955 Requested By: Steve Martines Order Number: [id number] Marquis MD: Kaitlyn Butler M.D. Measurements Intervals [place] Rate: 109 P: 0 ID: 0 QRS: 64 QRSD: 86 T: 79 QT: 343 QTc: 462 Interpretive Statements ATRIAL FIBRILLATION WITH RAPID VENTRICULAR RESPONSE MODERATE ST DEPRESSION [0.05+ mV ST DEPRESSION] Compared to ECG 09/11/2023 21:49:16 ST (T wave) deviation now present Sinus rhythm no longer present Sinus arrhythmia no longer present Electronically Signed On 01-24-2024 1:01:10 CDT by Kaitlyn Butler M.D. [id number]
--- NOTE | 2024-01-23 20:41 | XRR_ITS ---
PROCEDURE INFORMATION: Exam: XR Chest Exam date and time: 01/23/2024 9:16 PM Age: 68 years old Clinical indication: Injury or trauma; Fall; Blunt trauma (contusions or hematomas) TECHNIQUE: Imaging protocol: Radiologic exam of the chest. Views: 1 view. COMPARISON: CR XR chest 1V portable [id number] 09/11/2023 3:21 PM FINDINGS: Lungs: Near complete opacification of the left hemithorax, which may represent a large pleural effusion versus lobar atelectasis/pneumonia. The right lung is clear. Pleural spaces: See Lungs finding. No pneumothorax. Heart/Mediastinum: Unremarkable. No cardiomegaly. Bones/joints: Unremarkable. XR/XR chest 1V portable [id number] IMPRESSION: Near complete opacification of the left hemithorax, which may represent a large pleural effusion versus lobar atelectasis/pneumonia.
--- NOTE | 2024-01-23 20:42 | ED_ITS ---
HPI - Fall 2 General: Chief Complaint: Fall Stated Complaint: FALL Time Seen by Provider: 01/23/24 20:35 History of Present Illness: Patient brought in by [facility] from [facility], facility, complaint fall left head pain laceration and left hip pain. Patient was found down an unknown fall and downtime. Patient is complaining of left hip pain severe has laceration with dried blood on her left side of her hip in her hair. Patient does not appear to be on any anticoagulation. Patient has a history of cirrhosis and hepatic encephalopathy. Patient is also insulin-dependent diabetic on Lasix. Review of Systems 2 General: Reports: 10 or more systems reviewed and unremarkable except in HPI and below PFSH ED 2 PFSH: Medical History TIA (transient ischemic attack) Acute posterior circulation transient ischemic attack Acute hepatic encephalopathy Free intraperitoneal air Gastric perforation Fall Thrombocytopenia Altered mental status Pancytopenia Type 2 diabetes mellitus Obesity (BMI 30.0-34.9) Diabetes mellitus type 2 in obese Portal vein thrombosis 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 Incisional hernia Hepatic encephalopathy Kidney stones Diabetes BLAIR (nonalcoholic steatohepatitis) Surgical History Gastric bypass status for obesity History of colonoscopy History of esophagogastroduodenoscopy (EGD) H/O: hysterectomy cervical cancer H/O gastric bypass Hx of cholecystectomy Family History Mother Hypertension Father Chronic kidney disease (CKD) Sleep apnea Other Bleeding disorder Denies family history of Anesthesia complication Social History Smoking and tobacco/nicotine status: unknown if used tobacco/nicotine Quit status (tobacco/nicotine): has quit using Year quit tobacco: 1986 Former quit date comment: smoked x 10+ years Alcohol intake: never Substance/Drug Use: never Physical Exam 2 Const: COMMON NORMALS: no acute distress, average body habitus, no limitations, healthy appearing, alert and well nourished HENMT: COMMON NORMALS: normocephalic, hearing grossly normal bilaterally, external ears normal, Normal external nose present and moist oral mucous membranes; head/scalp not atraumatic (Laceration on the left side of scalp) HEAD & SCALP: normocephalic; not atraumatic (Laceration on the left side of scalp) NOSE: Normal external nose present EXTERNAL EAR: Yes external ears normal Eye: COMMON NORMALS: Equal, round and reactive pupils present, EOMs intact bilaterally, conjunctivae normal and no scleral icterus CONJUNCTIVA: Yes conjunctivae normal PUPIL: Yes Equal, round and reactive pupils present Neck/C-Spine: COMMON NORMALS: full ROM, no lymphadenopathy, supple, no meningeal signs, no JVD and Thyroid normal THYROID: Thyroid normal Chest: COMMONS NORMALS: normal inspection of the chest and normal palpation of entire chest wall Resp: COMMON NORMALS: normal respiratory effort, No retractions, No use of accessory muscles and clear to auscultation bilaterally AUSCULTATION: clear to auscultation bilaterally Cardio: COMMON NORMALS: no JVD, regular rate, regular rhythm, S1 normal heart sound present, S2 normal heart sound present, No gallops present (Cardio), No clicks present (Cardio), No murmurs present (Cardio) and No rub (Cardio) R ATE: regular rate RHYTHM: regular rhythm HEART SOUNDS: S1 normal heart sound present and S2 normal heart sound present GI: COMMON NORMALS: Normal to inspection, nondistended, normoactive bowel sounds present, Soft to palpation, non-tender, No hepatosplenomegaly present and no masses PALPATION: Yes Soft to palpation and Yes No hepatosplenomegaly present Extremity: NARRATIVE EXTREMITY EXAM: Very tender to palpate over the left lateral hip trochanter region, probable deformity, limited range of motion secondary to pain. Neuro: SENSORIUM/ORIENTATION: Yes alert MENINGEAL SIGNS: Yes no meningeal signs Course 2 Vital Signs: Vital signs: Vital Signs Temperature 99 F 01/23/24 20:36 Pulse Rate 77 01/23/24 22:55 Respiratory Rate 16 01/23/24 22:55 Blood Pressure 144/72 01/23/24 22:55 Pulse Oximetry 94 01/23/24 22:55 Oxygen Delivery Me thod Nasal Cannula 01/23/24 22:55 Oxygen Flow Rate 1 01/23/24 22:55 MDM - Fall Medical Decision Making Patient fell with nursing and was found down. Patient's complaining of left hip pain. Left side of head pain. These areas were CT scan as well as her chest, patient is multiple rib fracture on her left side as well as a large pleural effusion. Patient is requiring about 2 L of oxygen to keep her O2 sat up in the mid 90s. These results was discussed with the . Patient be transferred to [facility] in [place] to Dr. Buitrago in the ER. Medical Records I reviewed the patient's medical records. Lab Data I reviewed the patient's lab results. 01/23/24 20:51 01/23/24 20:[address] 01/23/24 20:39 IMPRESSION: 1. No acute intracranial hemorrhage. 2. Microangiopathy and global cerebral volume loss. 3. Chronic lacunar infarcts within the right caudate and left external capsule. 4. Small hematoma involving the left parietal scalp. No acute fractures. Hip/Pelvis X-Ray 01/23/24 20:39 IMPRESSION: Intramedullary yasmine with nail fixation overlies a chronic intertrochanteric femoral fracture with medial displacement of the lesser trochanteric fracture fragment, similar compared to prior radiograph December 05, 2023. Chest X-Ray 01/23/24 20:41 IMPRESSION: Near complete opacification of the left hemithorax, which may represent a large pleural effusion versus lobar atelectasis/pneumonia. Chest CT 01/23/24 21:20 IMPRESSION: 1. Large left-sided pleural effusion with subjacent compressive atelectasis of the left lower lobe. 2. Acute nondisplaced fractures of the left ribs 6 through 8. 3. Limited abdominal views demonstrates cirrhotic morphology of the liver with varices and moderate volume ascites. Pelvis CT 01/23/24 21:20 IMPRESSION: Intramedullary yasmine and femoral nail overlies the chronic left femoral intertrochanteric fracture with unchanged medial displacement of the lesser trochanter. No acute fractures. Laboratory Results WBC 7.08 10^3/uL (3.29-11.43) 01/23/24 20:51 RBC 3.88 10^6/uL (3.85-5.65) 01/23/24 20:51 Hgb 12.70 g/dL (11.27-16.99) 01/23/24 20:51 Hct 37.9 % (36-47) 01/23/24 20:51 MCV 97.7 fl (85-98) 01/23/24 20:51 MCH 32.7 pg (27-33) 01/23/24 20:51 MCHC 33.5 g/dL (30-55) 01/23/24 20:51 RDW 16.0 % (12.1-15.1) H 01/23/24 20:51 Plt Count 148 10^3/cmm (157-399) L 01/23/24 20:51 MPV 10.7 fL (7.4-10.4) H 01/23/24 20:51 Neut % (Auto) 56.9 % 01/23/24 20:51 Lymph % (Auto) 22.2 % 01/23/24 20:51 Wake % (Auto) 16.5 % 01/23/24 20:51 Eos % (Auto) 2.7 % 01/23/24 20:51 Baso % (Auto) 1.0 % 01/23/24 20:51 Neut # (Auto) 4.03 10^3/uL (1.8-7.7) 01/23/24 20:51 Lymph # (Auto) 1.6 10^3/uL (0.8-4.8) 01/23/24 20:51 Wake # (Auto) 1.2 10^3/uL (0.2-0.9) H 01/23/24 20:51 Eos # (Auto) 0.2 10^3/uL (0.0-0.8) 01/23/24 20:51 Baso # (Auto) 0.1 10^3/uL (0.0-0.1) 01/23/24 20:51 Nucleated RBC % (auto) 0 % 01/23/24 20:51 Nucleated RBCs # 0.0 /100WBC 01/23/24 20:51 PT 17.70 SECONDS (12.1-14.9) H 01/23/24 21:00 INR 1.40 (0.8-1.2) H 01/23/24 21:00 Sodium 136 mmol/L (136-145) 01/23/24 20:51 Potassium 4.0 mmol/L (3.5-5.1) 01/23/24 20:51 Chloride 95 mmol/L (98-107) L 01/23/24 20:51 Carbon Dioxide 27 mmol/L (22-29) 01/23/24 20:51 Anion Gap 18.0 (5-19) 01/23/24 20:51 BUN 13 mg/dL (8-23) 01/23/24 20:51 Creatinine 1.1 mg/dL (0.5-0.9) H 01/23/24 20:51 GFR Calculation 49.7 mL/min (90-130) L 01/23/24 20:51 Glucose 128 mg/dL (65-115) H 01/23/24 20:51 Calculated Osmolality 284 mOsm/kg (285-295) L 01/23/24 20:51 Calcium 8.7 mg/dL (8.5-10.5) 01/23/24 20:51 Magnesium 2.0 mg/dL (1.7-2.3) 01/23/24 20:51 Total Bilirubin 2.5 mg/dL (0.15-1.2) H 01/23/24 20:51 AST 67 U/L (0-32) H 01/23/24 20:51 ALT 41 U/L (0-33) H 01/23/24 20:51 Alkaline Phosphatase 362 U/L (35-105) H 01/23/24 20:51 Ammonia 33 umol/L (11-51) 01/23/24 20:51 Creatine Kinase 131 U/L (26-192) 01/23/24 20:51 Troponin T Baseline 32 ng/L (0-10) H 01/23/24 20:51 C-Reactive Protein 29.2 mg/L (0.0-4.9) H 01/23/24 20:51 NT-Pro-B Natriuret Pep 326 pg/mL (0-125) H 01/23/24 20:51 Total Protein 6.8 g/dL (6.6-8.7) 01/23/24 20:51 Albumin 2.5 g/dL (3.5-5.2) L 01/23/24 20:51 Globulin 4.3 g/dL (1.3-4.6) 01/23/24 20:51 All radiology interpretation(s) finalized by discharge Discharge Plan Discharge Patient Disposition: Xfer Short-Term Hosp Clinical Impression: Large pleural effusion Fall Qualifiers: Encounter type: initial encounter Qualified Code(s): W19.XXXA - Unspecified fall, initial encounter Fracture, ribs Qualifiers: Encounter type: initial encounter Fracture type: closed Laterality: left Q ualified Code(s): S22.42XA - Multiple fractures of ribs, left side, initial encounter for closed fracture Condition: Stable Referrals: Pauline Pereira MD [Primary Care Provider] - Coding Level of Care Code ED Jointer Operator for Trevon Haines
[2024-01-23 20:55] LABS: Basophils # 0.1 10^3/uL (0.0-0.1); Eosinophils # 0.2 10^3/uL (0.0-0.8); Eosinophils % 2.7 %; Hematocrit 37.9 % (36-47); Lymphocytes # 1.6 10^3/uL (0.8-4.8); Lymphocytes % 22.2 %; Mean Corpuscular HGB Conc 33.5 g/dL (30-55); Mean Corpuscular Hemoglobin 32.7 pg (27-33); Mean Corpuscular Volume 97.7 fl (85-98); Mean Platelet Volume 10.7 fL (7.4-10.4); Monocytes # 1.2 10^3/uL (0.2-0.9); Monocytes % 16.5 %; Neutrophils # 4.03 10^3/uL (1.8-7.7); Neutrophils % 56.9 %; Nucleated Red Blood Cells % 0 %; Platelet Count 148 10^3/cmm (157-399); Red Blood Count 3.88 10^6/uL (3.85-5.65); White Blood Count 7.08 10^3/uL (3.29-11.43)
[2024-01-23] MEDS: fentaNYL 50 mcg/mL INJ 2mL IVP (20:57)
[2024-01-23] MEDS: ondansetron 2 mg/ML SDV 2 mL 4 MG IVP (20:57)
[2024-01-23 21:10] VITALS: BP 135/100; PULSE 105; RESP 22; O2SAT 95
[2024-01-23 21:12] LABS: Troponin(5th) Baseline 32 ng/L (0-10)
[2024-01-23 21:16] LABS: Ammonia 33 umol/L (11-51)
--- NOTE | 2024-01-23 21:20 | CTR_ITS ---
PROCEDURE INFORMATION: Exam: CT Chest Without Contrast; Diagnostic Exam date and time: 01/23/2024 9:24 PM Age: 68 years old Clinical indication: Injury or trauma; Blunt trauma (contusions or hematomas); Prior surgery; Surgery date: 6+ months; Surgery type: Gastric bypass. Gb. Patient HX: EMS arrival from [facility] for unwitnessed fall. Lac with hematoma to left parietal. C/O left chest wall pain and left hip pain. History of cirrhosis. ; Additional info: Fall, left rib pain TECHNIQUE: Imaging protocol: Diagnostic computed tomography of the chest without contrast. Radiation optimization: All CT scans at this facility use at least one of these dose optimization techniques: automated exposure control; mA and/or kV adjustment per patient size (includes targeted exams where dose is matched to clinical indication); or iterative reconstruction. COMPARISON: CT [facility] [id number] 04/22/2022 2:34 PM RADIATION DOSE METRICS: Total DLP (mGy-cm): 1087.75 FINDINGS: Lungs: See Pleural spaces finding. Pleural spaces: Large left-sided pleural effusion with subjacent compressive atelectasis of the left lower lobe. Scattered calcified granulomas. Heart: Unremarkable. No cardiomegaly. No pericardial effusion. Coronary arteries: Coronary artery calcifications. Lymph nodes: Calcified hilar and mediastinal lymph nodes. Vasculature: Prominent abdominal varices. Liver: Cirrhotic morphology of the liver. Spleen: Calcified granulomas in the spleen. Stomach: Postsurgical changes status post gastric surgery. Intraperitoneal space: Moderate volume ascites. Bones/joints: Acute nondisplaced fractures of the left ribs 6 through 8. Soft tissues: Unremarkable. CT/CT chest con [id number] IMPRESSION: 1. Large left-sided pleural effusion with subjacent compressive atelectasis of the left lower lobe. 2. Acute nondisplaced fractures of the left ribs 6 through 8. 3. Limited abdominal views demonstrates cirrhotic morphology of the liver with varices and moderate volume ascites.
--- NOTE | 2024-01-23 21:20 | CTR_ITS ---
PROCEDURE INFORMATION: Exam: CT Pelvis Without Contrast; Skeletal Exam date and time: 01/23/2024 9:27 PM Age: 68 years old Clinical indication: Injury or trauma; Blunt trauma (contusions or hematomas); Prior surgery; Surgery date: 6+ months; Surgery type: Hysterectomy. Left hip. Patient HX: EMS arrival from [facility] for unwitnessed fall. Lac with hematoma to left parietal. C/O left chest wall pain and left hip pain. History of cirrhosis. ; Additional info: Fall, left hip pain TECHNIQUE: Imaging protocol: Computed tomography of the pelvis without contrast. Exam focused on the skeleton. Radiation optimization: All CT scans at this facility use at least one of these dose optimization techniques: automated exposure control; mA and/or kV adjustment per patient size (includes targeted exams where dose is matched to clinical indication); or iterative reconstruction. COMPARISON: CT abdomen pelvis w con* [id number] 12/26/2023 3:10 PM RADIATION DOSE METRICS: Total DLP (mGy-cm): 699.11 FINDINGS: Intraperitoneal space: Moderate volume ascites. Vasculature: Moderate atherosclerotic calcifications. Bones/joints: Intramedullary yasmine and femoral nail overlies the chronic left femoral intertrochanteric fracture with unchanged medial displacement of the lesser trochanter. No acute fractures. The pubic symphysis and sacroiliac joints are well aligned. The right hip is intact. Soft tissues: Partially visualized ventral hernia. CT/CT bony pelvis [id number] IMPRESSION: Intramedullary yasmine and femoral nail overlies the chronic left femoral intertrochanteric fracture with unchanged medial displacement of the lesser trochanter. No acute fractures.
[2024-01-23 21:28] LABS: Alanine Aminotransferase 41 U/L (0-33); Albumin Level 2.5 g/dL (3.5-5.2); Alkaline Phosphatase 362 U/L (35-105); Aspartate Amino Transferase 67 U/L (0-32); Blood Urea Nitrogen 13 mg/dL (8-23); C Reactive Protein 29.2 mg/L (0.0-4.9); Calcium 8.7 mg/dL (8.5-10.5); Carbon Dioxide 27 mmol/L (22-29); Chloride 95 mmol/L (98-107); Creatine Phosphokinase 131 U/L (26-192); Creatinine Clr Calc Pharmacy 53.8192; Globulin 4.3 g/dL (1.3-4.6); Glomerular Filtration Rate 49.7 mL/min (90-130); Glucose 128 mg/dL (65-115); NT Pro B Type Natriuretic Pept 326 pg/mL (0-125); Osmolality Calculated 284 mOsm/kg (285-295); Sodium 136 mmol/L (136-145); Total Bilirubin 2.5 mg/dL (0.15-1.2); Total Protein 6.8 g/dL (6.6-8.7)
[2024-01-23 22:00] VITALS: PULSE 101; RESP 16; O2SAT 92
--- NOTE | 2024-01-23 22:54 | ECG_ITS ---
[facility] Test Date: 2024-01-23 Pat Name: Gillian Kohli Department: Room: Gender: Female Physician Executive: : 1955 Requested By: Steve Martines Order Number: [id number] Marquis MD: Kaitlyn Butler M.D. Measurements Intervals [place] Rate: 105 P: 0 NC: 0 QRS: 47 QRSD: 89 T: 58 QT: 363 QTc: 480 Interpretive Statements Multifocal atrial tachycardia SEPTAL MYOCARDIAL INFARCTION , PROBABLY OLD [40+ ms Q WAVE IN V1/V2] Compared to ECG 01/23/2024 20:51:44 Myocardial infarct finding now present ST (T wave) deviation no longer present Electronically Signed On 01-24-2024 1:14:14 CDT by Kaitlyn Butler M.D. [email or web address]
[2024-01-23 22:55] VITALS: BP 144/72; PULSE 77; RESP 16; O2SAT 94
[2024-01-23 23:47] LABS: Troponin 5 2HR 32.77 ng/L (0-10); Troponin 5 2HR Delta 0.77 ABS# (0-10)
[2024-01-24] VITALS: RESP 16
[2024-01-24] MEDS: fentaNYL 50 mcg/mL INJ 2mL IVP
[2024-01-24 00:03] VITALS: BP 144/72; PULSE 77; RESP 16; TEMP 37.2; O2SAT 94
== END 2024-01-24 00:07 | disposition short-term general hospital (02) ==
PROVIDERS: Emergency Provider Emergency Medicine; PCP Internal Medicine
DX: S22.42XA Multiple fractures of ribs, left side, initial encounter for closed fracture (principal); J90 Pleural effusion, not elsewhere classified; Z87.891 Personal history of nicotine dependence; Z86.73 Personal history of transient ischemic attack (TIA), and cerebral infarction without residual deficits; E11.9 Type 2 diabetes mellitus without complications; S01.01XA Laceration without foreign body of scalp, initial encounter; W19.XXXA Unspecified fall, initial encounter; Y92.129 Unspecified place in nursing home as the place of occurrence of the external cause
CPT/HCPCS: 36415; 70450; 71045; 71250; 72192; 73502; 80053; 82140; 82550; 83735; 83880; 84484; 85025; 85610; 86140; 93005; 96374; 96375; 96376; 99285; J2405; J3010